=== PATIENT | male | born 1935 | race Caucasian/White ===

== ENCOUNTER → 2017-01-30 | Outpatient (CLI) | payer OTHER ==
[~2017-01-30] MED LIST: ACET-1256 PO; ACT15 PO; ALFU10TA2 PO; AMR2 PO; ATEN50TA8 PO; AVD5 PO; GLC500 PO; ISOS60TA25 PO; NTRGSL/4 UT; SIMV40TA2 PO; SITA100T3 PO
[2017-01-30 13:42] LABS: ESTIMATED AVERAGE GLUCOSE 169 mg/dl; HA1C FLAG Normal (Normal)
[2017-01-30 14:08] LABS: ALT/SGPT 25 U/L (12-78); AST/SGOT 19 U/L (15-37); BLOOD UREA NITROGEN 20 mg/dl (7-18); BUN/CREATININE RATIO 13.5 (10-20); CARBON DIOXIDE 28 mmol/L (21-32); CHLORIDE 100 mmol/L (98-107); CHOLESTEROL 76 mg/dl (0-200); GLUCOSE 103 mg/dl (70-99); POTASSIUM 4.3 mmol/L (3.5-5.1); SODIUM 137 mmol/L (136-145); TRIGLYCERIDES 79 mg/dl (0-150); VERY LOW DENSITY LIPOPROT CALC 16 mg/dl
[2017-01-30 14:12] LABS: ALB/GLOB RATIO 0.8 (0.9-2); ALKALINE PHOSPHATASE 70 U/L (45-117); CHOLESTEROL/HDL RATIO 2.1; HDL CHOLESTEROL 36 mg/dl; LDL CHOLESTEROL CALCULATED 24 mg/dl
[2017-01-30 14:54] LABS: CALCIUM 9.7 mg/dl (8.5-10.1)
--- NOTE | 2017-02-05 09:53 | CODING QUERY MEDICAL NECESSITY ---
SUPPORTING DIAGNOSIS NEEDED A supporting diagnosis is required for the test/procedure performed on this patient in order for us to be reimbursed by the patient's insurance. Please provide a supporting diagnosis for the following test/procedure listed below next to the test name along with your signature. *If there is no additional diagnosis for this patient that would support the following test/procedure please document that below next to the test/procedure. Test(s)/Procedure(s) that require a supporting diagnosis: * VITAMIN D, 25- HYDROXY DIAGNOSIS: Provider Signature: Date: Thank you Genet Rowe [employer] Once completed, please kindly fax back to [phone] For questions please call [phone]
== END | disposition home or self-care (01) ==
LOC: C.LABPVFM 07:58
PROVIDERS: ATTEND Family Medicine
DX: E53.8 Deficiency of other specified B group vitamins (principal); M1A.9XX0 Chronic gout, unspecified, without tophus (tophi); E78.5 Hyperlipidemia, unspecified; E11.65 Type 2 diabetes mellitus with hyperglycemia; D64.9 Anemia, unspecified; E55.9 Vitamin D deficiency, unspecified

== ENCOUNTER → 2017-02-23 | Outpatient (CLI) | payer OTHER ==
[~2017-02-23] MED LIST changes: -ALFU10TA2 PO; +ALFU10TA30 PO
[2017-02-23 13:42] LABS: BLOOD UREA NITROGEN 21 mg/dl (7-18); BUN/CREATININE RATIO 14.9 (10-20); CALCIUM 9.7 mg/dl (8.5-10.1); CARBON DIOXIDE 29 mmol/L (21-32); CHLORIDE 101 mmol/L (98-107); GLUCOSE 129 mg/dl (70-99); PHOSPHORUS 2.9 mg/dl (2.5-4.9); POTASSIUM 4.1 mmol/L (3.5-5.1); SODIUM 136 mmol/L (136-145)
== END | disposition home or self-care (01) ==
LOC: C.LABPVFM 07:58
PROVIDERS: ATTEND Family Medicine
DX: R79.89 Other specified abnormal findings of blood chemistry (principal)

== ENCOUNTER → 2017-07-24 | Outpatient (CLI) | payer OTHER ==
[~2017-07-24] MED LIST changes: +ALFU10TA2 PO; -ALFU10TA30 PO
[2017-07-24 13:00] LABS: ESTIMATED AVERAGE GLUCOSE 189 mg/dl; HA1C FLAG Normal (Normal)
[2017-07-24 13:10] LABS: ALT/SGPT 19 U/L (12-78); BLOOD UREA NITROGEN 18 mg/dl (7-18); BUN/CREATININE RATIO 13.4 (10-20); CALCIUM 9.4 mg/dl (8.5-10.1); CARBON DIOXIDE 31 mmol/L (21-32); CHLORIDE 99 mmol/L (98-107); CHOLESTEROL 157 mg/dl (0-200); CREATININE 1.33 mg/dl (0.60-1.40); GLUCOSE 115 mg/dl (70-99); POTASSIUM 4.2 mmol/L (3.5-5.1); SODIUM 135 mmol/L (136-145)
[2017-07-24 13:13] LABS: ALB/GLOB RATIO 0.6 (0.9-2); ALKALINE PHOSPHATASE 74 U/L (45-117); AST/SGOT 25 U/L (15-37); CHOLESTEROL/HDL RATIO 2.7; HDL CHOLESTEROL 59 mg/dl; LDL CHOLESTEROL CALCULATED 79 mg/dl; TRIGLYCERIDES 96 mg/dl (0-150); VERY LOW DENSITY LIPOPROT CALC 19 mg/dl
== END | disposition home or self-care (01) ==
LOC: C.LABPVFM 08:05
PROVIDERS: ATTEND Family Medicine
DX: I10 Essential (primary) hypertension (principal); E78.5 Hyperlipidemia, unspecified; E11.65 Type 2 diabetes mellitus with hyperglycemia; R77.1 Abnormality of globulin

== ENCOUNTER → 2017-09-04 | Outpatient (CLI) | payer OTHER ==
[2017-09-04 14:38] LABS: CREATININE RANDOM URINE 26.4 mg/dl
== END | disposition home or self-care (01) ==
LOC: C.LABPVFM 08:06
PROVIDERS: ATTEND Family Medicine
DX: E11.65 Type 2 diabetes mellitus with hyperglycemia (principal); R60.9 Edema, unspecified

== ENCOUNTER → 2017-12-31 | Outpatient (CLI) | payer OTHER ==
[2017-12-31 12:09] LABS: HEMATOCRIT 29.3 % (42-52); HEMOGLOBIN 9.8 g/dL (14.0-18.0)
[2017-12-31 12:22] LABS: BLOOD UREA NITROGEN 22 mg/dl (7-18); CALCIUM 9.5 mg/dl (8.5-10.1); CARBON DIOXIDE 29 mmol/L (21-32); CHOLESTEROL 94 mg/dl (0-200); GLUCOSE 150 mg/dl (70-99); POTASSIUM 4.4 mmol/L (3.5-5.1); SODIUM 133 mmol/L (136-145)
[2017-12-31 12:32] LABS: LDL CHOLESTEROL CALCULATED 26 mg/dl
[2017-12-31 12:52] LABS: HEMOGLOBIN A1C 6.9 % (4.5-5.6)
== END | disposition home or self-care (01) ==
LOC: C.LAB1850 10:01
PROVIDERS: ATTEND Nurse Practitioner Adult Health
DX: I10 Essential (primary) hypertension (principal); E78.5 Hyperlipidemia, unspecified; R94.6 Abnormal results of thyroid function studies; E11.65 Type 2 diabetes mellitus with hyperglycemia

== ENCOUNTER 2024-09-09 09:08 | Inpatient (IN) ==
--- NOTE | 2024-09-09 09:45 | Emergency Department Note ---
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 The diarrhea is watery and quite loose, no blood. He has been trying Pepto-Bismol without relief in fact, he states the Pepto- Bismol just runs through him. The patient did have some outpatient stool testing performed a few days ago, this returned negative. There has been no vomiting although he has noticed a bit of nausea. No chest pain or cough. No shortness of breath. He does not have any abdominal pain. The patient states that he has noticed some dizziness and weakness, he did stumble out of bed when his foot caught the sheets the other day. He did not suffer any injury. There has been no syncope. The patient states that standing and moving around makes him feel very unsteady and wobbly. PMHx/PSHx/Social Hx: See Below PHYSICAL EXAM: GENERAL: Patient is in no acute distress. HEENT: No acute trauma, normocephalic atraumatic, mucous membranes dry, no nasal congestion. NECK: No stridor, no adenopathy, no meningismus, trachea is midline. LUNGS: Clear to auscultation bilaterally, no wheeze, no rhonchi, breath sounds equal. HEART: Without murmurs gallops or rubs, regular rate and rhythm. ABDOMEN: Soft, nontender, no peritonitis. Bowel sounds are hyperactive. EXTREMITIES: No cyanosis, full range of motion of all the joints without pain or difficulty. NEUROLOGIC: Oriented x 3, no acute motor or sensory deficits, no focal weakness. SKIN: No jaundice, no diaphoresis. DIFFERENTIAL DIAGNOSIS: Dehydration, renal failure, electrolyte imbalance, viral or foodborne illness, bacterial intestinal infection, colitis, among others. EMERGENCY DEPARTMENT PROCEDURES: MEDICAL DECISION MAKING: There is no leukocytosis. The patient is anemic however, this is a chronic finding. There is a normal platelet count. Renal panel testing does show significant dehydration. Sodium, potassium and magnesium were low, the magnesium was critically low. Creatinine was elevated consistent with dehydration. No concerning liver enzyme elevation. The patient appeared to be in a euthyroid state. ECG showed a sinus rhythm, no obvious acute ischemia. Cardiac enzyme testing x 1 was slightly elevated. This troponin elevation could be secondary to mismatch from his hypotension versus, cardiac injury. On exam, the patient was not toxic but appeared quite dehydrated. He had hyperactive bowel sounds. Abdominal and pelvis CT showed liquidy stool within the bowel, there was no colitis or diverticulitis. No acute surgical process. Patient received 2 L of IV saline, he was ordered for total of 4 g of IV magnesium. He was ordered for IV potassium. With the above interventions, the patient's blood pressure has improved, he seems comfortable. The patient is in need of hospitalization. He has significant electrolyte abnormalities from his persistent diarrhea. He is quite dehydrated and demonstrated hypotension upon ED arrival. I spoke with the patient and case management, the on-call hospitalist was consulted. Prior/Outside records/notes reviewed: None ECG per my interpretation: Indication was weakness. The ECG shows a sinus rhythm with a first-degree AV block and a rate of 84. There is a left bundle branch block. There is no obvious concerning acute ST elevation, there are inverted T waves consistent with a left bundle branch block. No PVCs. The QTc is 489. Continuous Cardiac Monitoring per my interpretation: An order was placed for continuous cardiac monitoring. The monitor shows a rate of 91 with normal sinus rhythm. Imaging/x-ray results per my interpretation: Chronic Medical/Social conditions affecting care: Advanced age. Care/Management discussed with: Case management, the on-call hospitalist. Level of care consideration(s): After review of the information above and other included data: --I believe the patient requires escalation of care to admission Critical Care Note: I have personally spent 43 minutes of critical care time in the direct management of this patient. This includes bedside care, interpretation of diagnostic studies, and testing, discussion with consultants, patient, and family members, and other required patient management activities. This 43 minutes is in excess of all separately billable procedures. 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, with long-term current use of insulin (Chronic) Arthritis (Chronic) Medical History Proteinuria Chronic gout Surgical History History of basal cell carcinoma excision History of prostate surgery History of bilateral cataract extraction History of shoulder surgery History of hernia repair History of thumb surgery History of coronary artery stent placement Family History Brother Myocardial infarction Cancer Prostate cancer Daughter Cancer Father Myocardial infarction Denies family history of Ovarian cancer Breast cancer Colorectal cancer Social History Smoking Status: Unknown if ever smoked Second Hand Exposure: No; Do You Dip or Chew Tobacco: No; Hx Alcohol Use: Yes Alcohol type: hard liquor Hx Substance Use: No Preferred Language: German Visual Impairment: No Limitations Hearing Ability: Normal Beliefs That Will Affect Care: None marital status: Current Living Situation: Spouse current occupational status: retired 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 Feels Safe at Home: Yes caffeine: Yes (coffee, tea, and soda ) Dental Care, Regularly: Yes Physical Activity Frequency: Daily Seatbelt Use: always Sunscreen Use: Yes Allergies Allergies Allergy/AdvReac Type Severity Reaction Status Date / Time Penicillins Allergy Unknown AMOXICILLIN Verified 09/05/24 11:53 - UNKNOWN RXN allopurinol Allergy Rash Verified 09/05/24 11:53 Home Meds Home Medications Medication Instructions Recorded Confirmed aspirin 81 mg chewable tablet 81 mg PO DAILY 02/08/19 09/09/24 isosorbide mononitrate 60 mg 60 mg PO QAM 02/08/19 09/09/24 tablet,extended release 24 hr nitroglycerin 0.4 mg sublingual 0.4 mg sublingual Q5M PRN Chest 06/18/19 01/17/25 tablet Pain atenolol 25 mg tablet 12.5 mg PO DAILY 03/30/19 09/09/24 cholecalciferol (vitamin D3) 50 2,000 units PO DAILY 03/30/19 09/09/24 mcg (2,000 unit) capsule probenecid 500 mg tablet 250 mg PO BID 03/30/19 09/09/24 cyanocobalamin (vitamin B-12) 1,000 mcg PO DAILY 04/24/20 09/09/24 1,000 mcg capsule iron,carbonyl 65 mg-vitamin C 125 1 tab PO DAILY 10/05/20 09/09/24 mg tablet,delayed release (Vitron-C) fluocinonide 0.05 % topical 1 applic topical BID PRN Other 10/26/20 09/09/24 ointment metronidazole 0.75 % topical gel 1 applic topical BID PRN Other 10/26/20 09/09/24 (Rosadan) furosemide 20 mg tablet (Lasix) 20 mg PO .3X TIMES WEEK PRN Fluid 09/17/23 09/09/24 Retention gabapentin 100 mg capsule 100 mg PO TID PRN pain 09/17/23 09/09/24 insulin aspart U-100 100 unit/mL 3 unit subcut DAILY 09/09/24 09/09/24 (3 mL) subcutaneous pen (Novolog FlexPen U-100 Insulin aspart) omeprazole 20 mg capsule,delayed 20 mg PO QAM 09/09/24 09/09/24 release simvastatin 20 mg tablet 20 mg PO PM 09/09/24 09/09/24 Previous Rx's Medication Instructions Recorded pen needle, diabetic 31 gauge x #200 ea 11/25/2301/06" (1st Tier Unifine Pentips) blood sugar diagnostic (OneTouch #300 ea 04/04/24 Ultra Test strips) lancets 33 gauge (OneTouch Delica #100 ea 04/04/24 Plus Lancet) insulin glargine 100 unit/mL (3 See Rx Instructions .Route 07/28/24 mL) subcutaneous pen (Lantus .COMPLEX #45 mL Solostar U-100 Insulin) lisinopril 40 mg tablet 40 mg PO DAILY #90 tabs 08/18/24 Results & Data (ED) Vital Signs Vital Signs - 24 hr 09/09/24 09:25 09/09/24 09:43 09/09/24 09:43 Temperature 36.7 C Temperature Source Temporal Artery Scan Pulse Rate 91 H Pulse Rate [Apical] 82 Pulse Strength [Apical] Normal Respiratory Rate 20 18 Respiratory Effort / Characteristics Non-Labored Spontaneous Non-Labored Spontaneous Respiratory Depth Normal Normal Respiratory Pattern Regular Blood Pressure 81/45 L Blood Pressure [Right Arm] 106/51 L Blood Pressure Mean 57 Blood Pressure Mean [Right Arm] 69 Pulse Oximetry 99 99 99 Oxygen Delivery Method Room Air Room Air Room Air Sepsis Recent Fever Within 48 Hours No Sepsis New/Unexplained Change in Mental Status N/A Sepsis Action Taken by Nursing No Action Required 09/09/24 10:12 09/09/24 10:36 Temperature Temperature Source Pulse Rate 70 Pulse Rate [Apical] 76 Pulse Strength [Apical] Respiratory Rate 17 Respiratory Effort / Characteristics Non-Labored Spontaneous Respiratory Depth Normal Respiratory Pattern Blood Pressure Blood Pressure [Right Arm] 111/52 L Blood Pressure Mean Blood Pressure Mean [Right Arm] 71 Pulse Oximetry 98 Oxygen Delivery Method Room Air Sepsis Recent Fever Within 48 Hours Sepsis New/Unexplained Change in Mental Status Sepsis Action Taken by Jail Medications Current Medication List: was personally reviewed by me Laboratory Data Attestation: I reviewed the patient's lab results. 09/09/24 09:48 09/09/24 09:48 Lab Results 09/09/24 Range/Units 09:48 WBC 4.77 L (4.8-10.8) K/ul RBC 3.18 L (4.70-6.10) M/uL Hgb 9.9 L (14.0-18.0) g/dl Hct 27.4 L (42.0-52.0) % MCV 86.2 (80.0-100.0) fL MCH 31.1 (25.0-34.0) pg MCHC 36.1 H (32.0-36.0) g/dL RDW Std Deviation 40.5 (36.4-46.3) fL RDW Coeff of Susana 12.8 (11.5-14.5) % Plt Count 199 (130-400) K/uL MPV 10.1 (9.4-12.4) fL Immature Gran % (Auto) 0.4 % Neut % (Auto) 68.2 % Lymph % (Auto) 18.4 % [place] % (Auto) 12.2 % Eos % (Auto) 0.6 % Baso % (Auto) 0.2 % Neut # (Auto) 3.25 (1.40-6.50) K/uL Lymph # (Auto) 0.88 L (1.20-3.40) K/uL [place] # (Auto) 0.58 (0.11-0.59) K/uL Eos # (Auto) 0.03 (0.00-0.50) K/uL Baso # (Auto) 0.01 (0.00-0.20) K/uL Immature Gran # (Auto) 0.02 (0.01-0.20) K/uL Sodium 120 L (136-145) mmol/L Potassium 3.2 L (3.5-5.1) mmol/L Chloride 92 L (98-107) mmol/L Carbon Dioxide 20 L (21-32) mmol/L Anion Gap 8 (3-11) BUN 51 H (6-23) mg/dl Creatinine 1.68 H (0.6-1.4) mg/dl Est Cr Clr Drug Dosing 26.9 ml/min eGFR 39.09 BUN/Creatinine Ratio 30.4 H (10-20) Glucose 280 H (70-99(Fasting)) mg/dl Calcium 9.8 (8.6-10.3) mg/dl Magnesium 0.6 L* (1.7-2.4) mg/dl Total Bilirubin 0.6 (0.2-1.0) mg/dl AST 61 H (13-39) U/L ALT 26 (7-52) U/L Alkaline Phosphatase 85 (34-104) U/L Troponin I High Sens 24.5 H (0-20) pg/ml Total Protein 7.3 (6.0-8.3) gm/dl Albumin 3.7 (3.4-5.0) gm/dl Globulin 3.6 (2.5-4.0) gm/dl Albumin/Globulin Ratio 1.0 (0.9-2) TSH 3.351 (0.300-4.500) uIu/ml Administered Medications Discontinued Medications Sodium Chloride (Nss) 1,000 mls @ 999 mls/hr IV .Q1H1M ONE Stop: 09/09/24 10:31 Last Infusion: 09/09/24 10:25 Dose: Infused Documented By: Admin: 09/09/24 10:01 Dose: 999 mls/hr Documented By: KARMA Magnesium Sulfate/Dextrose (Magnesium Sulfate / D5w) 1 gm in 100 mls @ 200 mls/hr IV Q30M CORINNA Stop: 09/09/24 11:22 Last Admin: 09/09/24 10:36 Dose: 200 mls/hr Documented By: KARMA Sodium Chloride (Nss) 1,000 mls @ 999 mls/hr IV .Q1H1M ONE Stop: 09/09/24 11:24 Last Admin: 09/09/24 10:36 Dose: 999 mls/hr Documented By: KARMA Ioversol (Optiray 320 100ml) 90 ml IV ONCE ONE Stop: 09/09/24 10:29 Last Admin: 09/09/24 10:29 Dose: 90 ml Documented By: PERLITA Imaging Data Radiologist's Impression: Abdomen/Pelvis CT 09/09/24 09:31 CT abd pelvis IV con only CLINICAL HISTORY: poss colitis, or divertic TECHNIQUE: Helical axial images of the abdomen and pelvis were obtained and displayed. Automated dose lowering techniques and/or adjustment according to patient size were utilized for this exam. This exam was performed with intravenous contrast. CT DOSE: 618.98 mGy.cm COMPARISON: None available at the time of this dictation. FINDINGS: Lower chest: Bronchiectasis is seen. Liver: Unremarkable. No focal lesions are seen. Gallbladder and biliary tree: No calcified gallstones. Normal caliber wall. No intra- or extrahepatic biliary ductal dilation. Pancreas: Unremarkable, no focal lesions. Spleen: Calcifications are noted in the spleen compatible with prior granulomatous disease. Adrenals: Unremarkable. Kidneys and ureters: Unremarkable. Bladder: Diffuse homogeneous wall thickening is seen. Reproductive organs: Unremarkable. Bowel: Liquid contents are seen in the colon. No evidence of bowel obstruction or focal wall thickening. Lymph nodes Retroperitoneal: Unremarkable. Pelvic: Unremarkable. Mesenteric: Unremarkable. Peritoneum: Normal. Vessels: Atherosclerotic calcifications are seen. Abdominal wall: Unremarkable. Bones: Degenerative changes in the visualized spine. IMPRESSION: Liquid contents in the stool compatible with a nonspecific colitis. No evidence of perforation or abscess formation. ACT 112: Negative or not required by law. Electronically signed by: Robert Griffith M.D. 09/09/2024 10:55 AM Discharge Plan Visit Data Chief Complaint: Diarrhea Stated Complaint: DIARRHEA, OFF BALANCE ED Provider: Jc Castano Discharge Problem: Hypotension, Acute dehydration, Diarrhea, Hypomagnesemia, Acute hyponatremia, Hypokalemia Patient Disposition: Admitted As Inpatient Condition: Serious Forms Stand Alone Forms: [facility] Prescriptions Prescriptions: No Action (DME) pen needle, diabetic [1st Tier Unifine Pentips] 31 gauge x 5/16" needle See Dose Instructions .ROUTE .MEDSUPPLY Qty: 200 3RF Rx Instructions: use 2 daily (DME) OneTouch Ultra Test Strip See Rx Instructions .Route Qty: 300 3RF Rx Instructions: test TID (DME) lancets [OneTouch Delica Plus Lancet] 33 gauge misc See Rx Instructions .Route Qty: 100 5RF Rx Instructions: TEST 4 TIMES DAILY lisinopril 40 mg tablet 40 mg PO DAILY Qty: 90 3RF aspirin 81 mg tablet,chewable 81 mg PO DAILY nitroglycerin 0.4 mg tablet, sublingual 0.4 mg SL Q5M PRN (Reason: Chest Pain) isosorbide mononitrate 60 mg tablet extended release 24 hr 60 mg PO QAM atenolol 25 mg tablet 12.5 mg PO DAILY Patient Comments: 12.5 (1/2 tab) PO DAILY; Rx Instructions: 12.5 (1/2 tab) PO DAILY; fluocinonide 0.05 % ointment 1 applic TOP BID PRN (Reason: Other) metronidazole [Rosadan] 0.75 % gel 1 applic TOP BID PRN (Reason: Other) Vitron-C 65 mg iron- 125 mg tablet,delayed release (DR/EC) 1 tab PO DAILY cyanocobalamin (vitamin B-12) 1,000 mcg capsule 1,000 mcg PO DAILY furosemide [Lasix] 20 mg tablet 20 mg PO .3X TIMES WEEK PRN (Reason: Fluid Retention) Rx Instructions: thu,thu,thursday gabapentin 100 mg capsule 100 mg PO TID PRN (Reason: pain) cholecalciferol (vitamin D3) 2,000 unit capsule 2,000 units PO DAILY probenecid 500 mg tablet 250 mg PO BID Patient Comments: 250MG (1/2 TABLET) PO BID; Rx Instructions: 250MG (1/2 TABLET) PO BID; Lantus Solostar U-100 Insulin 100 unit/mL (3 mL) insulin pen See Rx Instructions .ROUTE .COMPLEX Qty: 45 1RF Dose Instruction: INJECT5 UNITS DAILY AT BEDTIME Rx Instructions: INJECT 6 UNITS DAILY AT BEDTIME omeprazole 20 mg capsule,delayed release(DR/EC) 20 mg PO QAM insulin aspart U-100 [Novolog FlexPen U-100 Insulin] 100 unit/mL (3 mL) insulin pen 3 unit subcut DAILY Rx Instructions: INJECT 3 UNITS SUBCUTANEOUSLY DAILY. simvastatin 20 mg tablet 20 mg PO PM Rx Instructions: TAKE 1 TABLET BY MOUTH DAILY IN THE EVENING. Referrals Referrals: Melani England MD [Primary Care Provider] - Discharge Problem: Hypotension Qualifiers: Hypotension type: unspecified hypotension type Qualified Code(s): I95.9 - Hypotension, unspecified Diarrhea Qualifiers: Diarrhea type: unspecified type Qualified Code(s): R19.7 - Diarrhea, unspecified
[2024-09-09] MEDS: SODIUM CHLORIDE 0.9% 1,000 ML IV ONE ×2 (10:01→10:36)
[2024-09-09 10:14] LABS: Basophils # (auto) 0.01 K/uL (0.00-0.20); Basophils % (auto) 0.2 %; Eosinophils # (auto) 0.03 K/uL (0.00-0.50); Eosinophils % (auto) 0.6 %; Hematocrit (blood only) 27.4 % (42.0-52.0); Hemoglobin 9.9 g/dl (14.0-18.0); Immature Granulocytes # (auto) 0.02 K/uL (0.01-0.20); Immature Granulocytes % (auto) 0.4 %; Lymphocytes # (auto) 0.88 K/uL (1.20-3.40); Lymphocytes % (auto) 18.4 %; Mean Corpuscular Hemoglobin 31.1 pg (25.0-34.0); Mean Corpuscular Hgb Conc 36.1 g/dL (32.0-36.0); Mean Corpuscular Volume 86.2 fL (80.0-100.0); Mean Platelet Volume 10.1 fL (9.4-12.4); Monocytes # (auto) 0.58 K/uL (0.11-0.59); Monocytes % (auto) 12.2 %; Neutrophils # (auto) 3.25 K/uL (1.40-6.50); Neutrophils % (auto) 68.2 %; Platelet Count 199 K/uL (130-400); RDW Coefficient of Variation 12.8 % (11.5-14.5); RDW Standard Deviation 40.5 fL (36.4-46.3); Red Blood Count 3.18 M/uL (4.70-6.10); White Blood Count 4.77 K/ul (4.8-10.8)
[2024-09-09 10:19] LABS: BUN Creatinine Ratio 30.4 (10-20); Calcium 9.8 mg/dl (8.6-10.3); Creatinine Clr Calc Pharmacy 26.9 ml/min; Potassium 3.2 mmol/L (3.5-5.1)
[2024-09-09 10:22] LABS: Albumin Level 3.7 gm/dl (3.4-5.0); Bilirubin,Total 0.6 mg/dl (0.2-1.0); Globulin 3.6 gm/dl (2.5-4.0); Magnesium 0.6 mg/dl (1.7-2.4); Total Protein 7.3 gm/dl (6.0-8.3)
[2024-09-09 10:25] LABS: Troponin I High Sensitivity 24.5 pg/ml (0-20)
[2024-09-09] MEDS: OPTIRAY 320 100ml IV ONE (10:29)
[2024-09-09 10:34] LABS: Thyroid Stimulating Hormone 3.351 uIu/ml (0.300-4.500)
[2024-09-09] MEDS: MAGNESIUM SULFATE / D5W 1 GM/100 ML BAG IV SCH ×3 (10:36→13:39)
--- NOTE | 2024-09-09 10:59 | CT Scan Report ---
CT abd pelvis IV con only CLINICAL HISTORY: poss colitis, or divertic TECHNIQUE: Helical axial images of the abdomen and pelvis were obtained and displayed. Automated dose lowering techniques and/or adjustment according to patient size were utilized for this exam. This e xam was performed with intravenous contrast. CT DOSE: 618.98 mGy.cm COMPARISON: None available at the time of this dictation. FINDINGS: Lower chest: Bronchiectasis is seen. Liver: Unremarkable. No focal lesions are seen. Gallbladder and biliary tree: No calcified gallstones. Normal caliber wall. No intra- or extrahepatic biliary ductal dilation. Pancreas: Unremarkable, no focal lesions. Spleen: Calcifications are noted in the spleen compatible with prior granulomatous disease. Adrenals: Unremarkable. Kidneys and ureters: Unremarkable. Bladder: Diffuse homogeneous wall thickening is seen. Reproductive organs: Unremarkable. Bowel: Liquid contents are seen in the colon. No evidence of bowel obstruction or focal wall thickeni ng. Lymph nodes Retroperitoneal: Unremarkable. Pelvic: Unremarkable. Mesenteric: Unremarkable. Peritoneum: Normal. Vessels: Atherosclerotic calcifications are seen. Abdominal wall: Unremarkable. Bones: Degenerative changes in the visualized spine. IMPRESSION: Liquid contents in the stool compatible with a nonspecific colitis. No evidence of perforation or abs cess formation. ACT 112: Negative or not required by law. Electronically signed by: Robert Griffith M.D. 09/09/2024 10:55 AM
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
[2024-09-09] MEDS: POTASSIUM CHLORIDE CRTAB 20 MEQ TABCR PO STA (12:14)
[2024-09-09 12:58] LABS: BUN Creatinine Ratio 32.7 (10-20); Calcium 8.8 mg/dl (8.6-10.3); Creatinine Clr Calc Pharmacy 30.1 ml/min; Magnesium 1.3 mg/dl (1.7-2.4)
[2024-09-09 13:14] LABS: Appearance Urine Clear (Clear); Bacteria Urine Automated None Seen (None Seen); Bilirubin Urine Negative (Negative); Blood Urine 1+ (Negative); Color Urine Yellow; Epithelial Cell Urine Auto 0-2 /hpf (0-2); Glucose Urine UA Negative (Negative); Hyaline Casts Urine Present /lpf (None Presnt); Ketones Urine Negative (Negative); Leukocyte Esterase Urine Negative (Negative); Nitrite Urine Negative (Negative); Protein Urine Trace (Negative); RBC Urine Automated 0-2 /hpf (0-2); Specific Gravity Urine 1.021 (1.000-1.030); Sperm Urine Present (None Prsent); Urobilinogen Urine Negative (Negative); WBC Urine Automated 0-5 /hpf (0-5); pH Urine 5.5 (4.5-7.5)
[2024-09-09] MEDS: SODIUM CHLORIDE 0.9% 1,000 ML IV SCH (13:35)
[2024-09-09 13:44] LABS: Adenovirus F 40/41 PCR Not Detected (NotDetected); Astrovirus PCR Not Detected (NotDetected); Campylobacter PCR Not Detected (NotDetected); Cryptosporidium PCR Not Detected (NotDetected); Cyclospora cayetanensis PCR Not Detected (NotDetected); Entamoeba histolytica PCR Not Detected (NotDetected); Enteroaggregative E.coli(EAEC) Not Detected (NotDetected); Enteropathogenic E.coli (EPEC) Not Detected (NotDetected); Enterotoxigenic E.coli (ETEC) Not Detected (NotDetected); Giardia lamblia PCR Not Detected (NotDetected); Norovirus GI/GII PCR Not Detected (NotDetected); Plesiomonas shigelloides PCR Not Detected (NotDetected); Rotavirus A PCR Not Detected (NotDetected); Salmonella PCR Not Detected (NotDetected); Sapovirus PCR Not Detected (NotDetected); Shiga-like Toxin E.coli (STEC) Not Detected (NotDetected); Shigella/Enteroinvasive E.coli Not Detected (NotDetected); Vibrio cholerae PCR Not Detected (NotDetected); Vibrio species PCR Not Detected (NotDetected); Yersinia enterocolitica PCR Not Detected (NotDetected)
[2024-09-09] MEDS ORDERED: GLUCAGON FOR INJ 1 MG VIAL SQ PRN (14:45)
[2024-09-09] MEDS ORDERED: GLUCOSE 10 TAB/TUBE PO PRN (14:45)
[2024-09-09] MEDS ORDERED: DEXTROSE 50% 50 ML SYRINGE IV PRN (14:45)
[2024-09-09] MEDS ORDERED: GLUCOSE 40% GEL 15 GM TUBE PO PRN (14:45)
[2024-09-09] MEDS ORDERED: GABAPENTIN 100 MG CAP PO PRN (14:45)
[2024-09-09] MEDS ORDERED: ONDANSETRON INJ 2 MG/ML 2 ML VIAL IV PRN (14:45)
[2024-09-09] MEDS ORDERED: ACETAMINOPHEN 325 MG TAB PO PRN (14:45)
[2024-09-09 16:45] LABS: BUN Creatinine Ratio 30.9 (10-20); Calcium 8.8 mg/dl (8.6-10.3); Creatinine Clr Calc Pharmacy 32.3 ml/min; Magnesium 1.5 mg/dl (1.7-2.4); Potassium 2.9 mmol/L (3.5-5.1)
[2024-09-09] MEDS: INSULIN ASPART PER UNIT CHARGE SC SCH (17:14)
[2024-09-09] MEDS: NSS + 20MEQ KCL 20 MEQ/1,000 ML BAG IV SCH (18:09)
[2024-09-09] MEDS: POTASSIUM CHLORIDE / WTR 10 MEQ/100 ML PLCT IV SCH (18:10)
[2024-09-09] MEDS: PROBENECID 500 MG TAB PO SCH (20:18)
[2024-09-09] MEDS: SIMVASTATIN 20 MG TAB PO SCH (20:20)
[2024-09-09] MEDS: CARBOHYDRATES FOR HYPOGLYCEMIA PO PRN (20:47)
[2024-09-09 20:56] LABS: BUN Creatinine Ratio 28.1 (10-20); Calcium 9.2 mg/dl (8.6-10.3); Creatinine Clr Calc Pharmacy 30.8 ml/min; Magnesium 1.4 mg/dl (1.7-2.4); Potassium 3.4 mmol/L (3.5-5.1)
[2024-09-09] MEDS ORDERED: LANTUS PER UNIT CHARGE SQ SCH (21:00)
--- NOTE | 2024-09-09 23:15 | Electrocardiogram Report ---
Test Reason : Blood Pressure : */* mmHG Vent. Rate : 84 BPM Atrial Rate : 84 BPM P-R Int : 240 ms QRS Dur : 178 ms QT Int : 414 ms P-R-T Axes : 87 68 251 degrees QTcB Int : 489 ms Sinus rhythm with 1st degree A-V block Left bundle branch block Abnormal ECG When compared with ECG of 15-Dec-2008 10:53, Left bundle branch block is now Present Confirmed by Carlos Martinez ([id number]) on 09/09/2024 11:15:15 PM Referred By: REFERRED SELF Confirmed By: Carlos Martinez
[2024-09-10 01:25] LABS: BUN Creatinine Ratio 27.7 (10-20); Calcium 9.3 mg/dl (8.6-10.3); Creatinine Clr Calc Pharmacy 32.8 ml/min; Magnesium 1.2 mg/dl (1.7-2.4); Potassium 3.5 mmol/L (3.5-5.1)
[2024-09-10 04:51] LABS: Hematocrit (blood only) 26.1 % (42.0-52.0); Hemoglobin 9.3 g/dl (14.0-18.0); Mean Corpuscular Hemoglobin 30.8 pg (25.0-34.0); Mean Corpuscular Hgb Conc 35.6 g/dL (32.0-36.0); Mean Corpuscular Volume 86.4 fL (80.0-100.0); Mean Platelet Volume 9.6 fL (9.4-12.4); Platelet Count 190 K/uL (130-400); RDW Standard Deviation 40.5 fL (36.4-46.3); Red Blood Count 3.02 M/uL (4.70-6.10); White Blood Count 3.24 K/ul (4.8-10.8)
[2024-09-10 05:06] LABS: BUN Creatinine Ratio 26.6 (10-20); Calcium 9.5 mg/dl (8.6-10.3); Creatinine Clr Calc Pharmacy 35.1 ml/min; Magnesium 1.3 mg/dl (1.7-2.4); Potassium 3.4 mmol/L (3.5-5.1)
[2024-09-10 05:33] LABS: Acanthocytes 1+; Echinocytes 1+; Eosinophils # (auto) 0.02 K/uL (0.00-0.50); Eosinophils % (auto) 0.6 %; Immature Granulocytes # (auto) 0.01 K/uL (0.01-0.20); Immature Granulocytes % (auto) 0.3 %; Lymphocytes # (auto) 0.61 K/uL (1.20-3.40); Lymphocytes % (auto) 18.8 %; Monocytes # (auto) 0.53 K/uL (0.11-0.59); Monocytes % (auto) 16.4 %; Neutrophils # (auto) 2.07 K/uL (1.40-6.50); Neutrophils % (auto) 63.9 %; Polychromasia 1+
[2024-09-10] MEDS: MAGNESIUM SULFATE / D5W 1 GM/100 ML BAG IV SCH (07:37)
[2024-09-10] MEDS: PANTOprazole 40 MG TAB PO SCH (08:13)
[2024-09-10] MEDS: ATENOLOL 25 MG TABLET PO SCH (08:13)
[2024-09-10] MEDS: ISOSORBIDE MONO EXTENDED REL 60 MG TABCR PO SCH (08:14)
[2024-09-10] MEDS: LANTUS PER UNIT CHARGE SQ SCH (08:16)
[2024-09-10] MEDS: ASPIRIN 81 MG CHEW PO SCH (08:22)
[2024-09-10 08:29] LABS: BUN Creatinine Ratio 27.5 (10-20); Calcium 9.4 mg/dl (8.6-10.3); Creatinine Clr Calc Pharmacy 38.6 ml/min; Potassium 3.5 mmol/L (3.5-5.1)
[2024-09-10] MEDS: MAGNESIUM SULFATE / D5W 1 GM/100 ML BAG IV ONE (11:25)
[2024-09-10] MEDS: ENOXAPARIN INJ 40 MG/0.4 ML SYR SQ SCH (11:26)
[2024-09-10 13:02] LABS: BUN Creatinine Ratio 26.7 (10-20); Calcium 9.2 mg/dl (8.6-10.3); Creatinine Clr Calc Pharmacy 35.4 ml/min; Potassium 3.3 mmol/L (3.5-5.1)
--- NOTE | 2024-09-10 17:31 | Hospitalist Progress Note ---
Date of Service September 10, 2024 Assessment & Plan (1) Diarrhea: Plan: Charles is a pleasant 89-year-old male with PMH of insulin dependent DMII, dyslipidemia, HTN, ASCVD, GERD, and arthritis. He p/w profuse diarrhea x 1 week along with significant generalized weakness and severe electrolyte abnormalities-hyponatremia,hypokalemia, hypomagnesemia. #Diarrhea- No recent antibiotic use, C. diff and Stool PCR neg. No travel, restaurants, eating raw/undercooked food, or drinking from streams. Had 2 similar episodes in Jun and Jul x 3 days that resolved on their own. No kashif medications or supplements. No fevers/chils CT A/P with colitis but nothing acute otherwise. He denies significant abd pain here. With hypotension on arrival that responded to IVFs -continue IVF resuscitation and replacement of lytes -start empiric Cipro and Flagyl -consult GI to see about need for colonoscopy or other eval for etiology -hold off on Imodium for now -check send out O&P stool (2) Acute kidney injury: Plan: Mild; BUN 51, creatinine 1.68 (baseline around 1.3), Suspect prerenal due to severe dehydration in the setting of diarrhea x 1 week Hold lisinopril, lasix from home continue IVFs Improving, supplemental manager down to 1.2 follow BMP (3) Acute hyponatremia: Plan: Severe; NA 120 on arrival, now improved to 126 with IVF hydration. This is secondary to hypovolemia. 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, with long-term current use of insulin: Plan: Last A1c at 8.3% on 09/06/2024 Continue Lantus 6u HS Get rid of carb count while not eating much with GI illness to avoid hypoglycemia (7) Elevated troponin: Plan: Troponin mildly elevated on arrival and remained stable at 30 H/o chronic LBBB; follows with [facility] cardiology Clinically, patient is chest pain-free at time of admission Continue telemetry monitoring Continue home ASA, atenolol, statin, isosorbide Plan DVT proph-SCDs, add on Lovenox SQ Disposition:continued stay PCU telemetry Admission and Anticipated Discharge Date Admission Date: September 09, 2024 Subjective Pt reports still having large amounts of watery nonbloody diarrhea. Occasional abd cramps. Reports he had 3 days of this same profuse diarrhea in Jun and again in Jul 2024 that resolved on their own. No h/o recent travel, drinking from streams, or eating out in restaurants. His son and at bedside also deny any GI illness in themselves, no sick contacts. No fevers/chills. Pt does feel stronger today. Tele with SR, 1st degree AVB,, rates 70-100s, with IVCD Physical Exam Constitutional: WD/WN, vitals as above Eyes: PERRL, conjunctivae normal, anicteric sclerae ENMT: external ear and nose normal, oropharynx normal Neck: trachea midline, no thyromegaly Respiratory: normal respiratory effort, lungs clear to auscultation Cardiovascular: RRR, no murmur, no edema Chest (Breasts): Chest: normal inspection of chest Gastrointestinal (Abdomen): normal bowel sounds, soft, nontender, no hepatosplenomegaly Musculoskeletal: Extremities: extremities normal to inspection; no cyanosis and no clubbing Skin: no rashes, warm and dry Neurologic: moves all extremities and awake; no focal motor deficits Psychiatric: A+Ox3, euthymic affect Lymphatic: no lymphedema Results & Data Results & Data Vital Signs (Past 12 Hours) Vital Signs Temp Pulse Pulse Resp BP Pulse Ox O2 Del Method 09/10/24 15:18 36.7 C 84 20 108/53 L 96 Room Air 09/10/24 14:11 73 09/10/24 11:08 36.6 C 72 20 101/50 L 98 Room Air 09/10/24 07:35 36.7 C 101 H 18 134/68 98 Room Air 09/10/24 05:44 92 H Laboratory Results CBC, numerous BMPs, mags reviewed Stool PCR reviewed LFTs reviewed PG Care Time/CCT Total # of Minutes Spent Total Time Spent with Patient: Total time spent is greater than 50% in coordination of care (as documented) at patient's floor/unit and/or counseling patient: Coding Level of Care Code 92386 SUB INP/OBS CARE MIN Diagnoses Diarrhea R19.7 Diarrhea type: unspecified type Acute kidney injury N17.9 Acute hyponatremia E87.1 Hypomagnesemia E83.42 Hypokalemia E87.6 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
[2024-09-10] MEDS: POTASSIUM CHLORIDE CRTAB 20 MEQ TABCR PO STA (17:41)
[2024-09-10] MEDS: SODIUM CHLORIDE 0.9% 1,000 ML IV SCH (17:41)
[2024-09-10] MEDS: SACCHAROMYCES BOULARDII 250 MG CAP PO SCH (19:20)
[2024-09-10] MEDS: metroNIDAZOLE 500 MG/100 ML BAG IV SCH (19:21)
[2024-09-10] MEDS: CIPROFLOXACIN / D5W 400 MG/200 ML BAG IV SCH (19:22)
[2024-09-10 21:34] LABS: BUN Creatinine Ratio 25.6 (10-20); Calcium 8.7 mg/dl (8.6-10.3); Creatinine Clr Calc Pharmacy 35.9 ml/min; Potassium 3.4 mmol/L (3.5-5.1)
[2024-09-10] MEDS: POTASSIUM CHLORIDE CRTAB 20 MEQ TABCR PO SCH (22:05)
[2024-09-11 07:57] LABS: Hematocrit (blood only) 22.1 % (42.0-52.0); Hemoglobin 7.8 g/dl (14.0-18.0); Mean Corpuscular Hemoglobin 30.4 pg (25.0-34.0); Mean Corpuscular Hgb Conc 35.3 g/dL (32.0-36.0); Mean Platelet Volume 9.9 fL (9.4-12.4); Platelet Count 164 K/uL (130-400); RDW Coefficient of Variation 13.4 % (11.5-14.5); RDW Standard Deviation 42.1 fL (36.4-46.3); Red Blood Count 2.57 M/uL (4.70-6.10); White Blood Count 3.97 K/ul (4.8-10.8)
[2024-09-11 08:15] LABS: BUN Creatinine Ratio 26.4 (10-20); Calcium 8.8 mg/dl (8.6-10.3); Creatinine Clr Calc Pharmacy 39.8 ml/min; Magnesium 1.5 mg/dl (1.7-2.4); Potassium 3.4 mmol/L (3.5-5.1)
[2024-09-11 08:43] LABS: Acanthocytes 1+; Basophils # (auto) 0.02 K/uL (0.00-0.20); Basophils % (auto) 0.5 %; Dohle Bodies 2+; Eosinophils # (auto) 0.02 K/uL (0.00-0.50); Eosinophils % (auto) 0.5 %; Immature Granulocytes # (auto) 0.05 K/uL (0.01-0.20); Immature Granulocytes % (auto) 1.3 %; Lymphocytes % (auto) 20.2 %; Monocytes % (auto) 15.1 %; Neutrophils # (auto) 2.48 K/uL (1.40-6.50); Neutrophils % (auto) 62.4 %; Ovalocytes 1+
--- NOTE | 2024-09-11 08:43 | Hospitalist Progress Note ---
Date of Service September 11, 2024 Assessment & Plan (1) Diarrhea: Plan: Charles is a pleasant 89-year-old male with PMH of insulin dependent DMII, dyslipidemia, HTN, ASCVD, GERD, and arthritis. He p/w profuse diarrhea x 1 week along with significant generalized weakness and severe electrolyte abnormalities-hyponatremia,hypokalemia, hypomagnesemia. Diarrhea No significant improvement 09/11/2024 - No recent antibiotic use, C. diff and Stool PCR neg. No travel, restaurants, eating raw/undercooked food, or drinking from streams. Had 2 similar episodes in Jun and Jul x 3 days that resolved on their own. No kashif medications or supplements. No fevers/chils CT A/P with colitis but nothing acute otherwise. He denies significant abd pain here. With hypotension on arrival that responded to IVFs -continue IVF resuscitation and replacement of lytes -Empiric Cipro/Flagyl continued although no clear infectious etiology Stool ova and parasites have been sent GI consulted. Recommended continued correction of electrolyte abnormalities. Suggestion of possible inflammatory colitis by CT. Celiac/IgG serologies have been sent. Fecal elastase has been sent. Will continue to follow and consider colonoscopy/biopsy pending clinical course and stability. Appreciate recommendations. JULIENNE, resolved Baseline creatinine 1.3 Creatinine moises to 1.68, and then normalized with fluids Trend daily BMP daily Hyponatremia, Hypomagnesemia, Hypokalemia 2/2 Diarrhea Trend daily, replete as needed. Urine sodium is not significantly elevated suspect solute losses from diarrhea Magnesium 0.6, profoundly low due to diarrheal losses. 1.5 on 09/11. Continue daily repletion, transition to oral once/as tolerated although high-dose oral may contribute to his diarrhea and will need IV continued T1DM Last A1c at 8.3% on 09/06/2024 Continue Lantus 6u HS Get rid of carb count while not eating much with GI illness to avoid hypoglycemia Troponin troponin mildly elevated and remained stable. Chronic left bundle branch block. 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 Continues to have watery diarrhea several times daily. No fevers chills or sweats. Feels fatigued but otherwise about the same. Denies lightheadedness dizziness. Physical Exam Physical Exam: General: A&Ox3. NAD. Cooperative. HEENT: Atraumatic, normocephalic. Pulm: Symmetrical chest rise. No increased work of breathing. No respiratory distress. Cardiac: RRR, -mrg. Radial pulses intact and symmetrical. Abdominal: Nontender, nondistended, soft. BS present. Results & Data Results & Data Vital Signs (Past 12 Hours) Vital Signs Temp Pulse Resp BP Pulse Ox O2 Del Method 09/11/24 05:16 36.7 C 81 18 95/54 L 96 Room Air 09/10/24 23:02 88 18 106/57 L 96 Room Air PG Care Time/CCT Total # of Minutes Spent Total Time Spent with Patient: Total time spent is greater than 50% in coordination of care (as documented) at patient's floor/unit and/or counseling patient: Coding Level of Care Code 74302 SUB INP/OBS CARE 2/35MIN Diagnoses Diarrhea R19.7 Diarrhea type: unspecified type Acute kidney injury N17.9 Acute hyponatremia E87.1 Hypomagnesemia E83.42 Hypokalemia E87.6 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
[2024-09-11] MEDS: MAGNESIUM SULFATE / D5W 1 GM/100 ML BAG IV SCH (09:15)
[2024-09-11] MEDS: POTASSIUM CHLORIDE CRTAB 20 MEQ TABCR PO STA (09:15)
[2024-09-11] MEDS: SODIUM CHLORIDE 0.9% 500 ML IV ONE (10:16)
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
[2024-09-11] MEDS: PLASMA-LYTE A 1,000 ML IV SCH ×2 (10:17→16:05)
[2024-09-11] MEDS: PLASMA-LYTE A 500 ML IV ONE (10:17)
[2024-09-12 07:52] LABS: BUN Creatinine Ratio 19.5 (10-20); Bilirubin Direct 0.1 mg/dl (0-0.2); Bilirubin,Total 0.5 mg/dl (0.2-1.0); Calcium 8.7 mg/dl (8.6-10.3); Creatinine Clr Calc Pharmacy 36.2 ml/min; Immunoglobulin A 211.9 mg/dl (70-400); Potassium 3.3 mmol/L (3.5-5.1); Total Protein 5.7 gm/dl (6.0-8.3)
[2024-09-12 07:58] LABS: Folate (Folic Acid),Ser orPlas 6.91 ng/ml (>5.38)
[2024-09-12 08:11] LABS: Ferritin 497.8 ng/ml (8-388)
[2024-09-12 08:12] LABS: Hematocrit (blood only) 22.5 % (42.0-52.0); Mean Corpuscular Hemoglobin 30.8 pg (25.0-34.0); Mean Corpuscular Hgb Conc 35.6 g/dL (32.0-36.0); Mean Corpuscular Volume 86.5 fL (80.0-100.0); Mean Platelet Volume 9.8 fL (9.4-12.4); Platelet Count 180 K/uL (130-400); RDW Coefficient of Variation 13.8 % (11.5-14.5); RDW Standard Deviation 43.9 fL (36.4-46.3); White Blood Count 5.62 K/ul (4.8-10.8)
[2024-09-12 08:27] LABS: Basophils # (auto) 0.04 K/uL (0.00-0.20); Basophils % (auto) 0.7 %; Dohle Bodies 2+; Echinocytes 1+; Eosinophils # (auto) 0.19 K/uL (0.00-0.50); Eosinophils % (auto) 3.4 %; Immature Granulocytes # (auto) 0.05 K/uL (0.01-0.20); Immature Granulocytes % (auto) 0.9 %; Monocytes % (auto) 10.7 %; Neutrophils # (auto) 3.84 K/uL (1.40-6.50); Neutrophils % (auto) 68.3 %; Toxic Granulation 2+
[2024-09-12] MEDS: POTASSIUM CHLORIDE / WTR 10 MEQ/100 ML PLCT IV SCH (08:36)
[2024-09-12 08:45] LABS: C Reactive Protein 8.54 mg/dl (0-0.5)
[2024-09-12 09:01] LABS: Phosphorus 1.1 mg/dl (2.5-4.9)
[2024-09-12] MEDS: NSS + 20MEQ KCL 20 MEQ/1,000 ML BAG IV SCH (09:01)
[2024-09-12] MEDS ORDERED: POTASSIUM PHOS 3 MMOL/1 ML INFUSION IV STA (09:04)
--- NOTE | 2024-09-12 09:11 | Hospitalist Progress Note ---
Date of Service September 12, 2024 Assessment & Plan (1) Diarrhea: Plan: Charles is a pleasant 89-year-old male with PMH of insulin dependent DMII, dyslipidemia, HTN, ASCVD, GERD, and arthritis. He p/w profuse diarrhea x 1 week along with significant generalized weakness and severe electrolyte abnormalities-hyponatremia,hypokalemia, hypomagnesemia. Diarrhea - No recent antibiotic use, C. diff and Stool PCR neg. No travel, restaurants, eating raw/undercooked food, or drinking from streams. Had 2 similar episodes in Jun and Jul x 3 days that resolved on their own. No kashif medications or supplements. No fevers/chils - CT A/P with colitis but nothing acute otherwise. He denies significant abd pain here. -Empiric Cipro/Flagyl continued Stool ova and parasites have been sent, pending - GI following. IgA wnl. TTg, fecal elastase pending. Will continue to follow serologies for now. Diarrhea slight less in volume today. Tentatively scheduled for colonoscopy 09/14/2024 if not progressing Electrolyte Abnormalities, hypomag, hyponatremia, hypophosphatemia - Na, K low due to diarrheal losses. IVF and IV KCl repletion ordered. +1g IV Mg. - Ph subsequently critically low. Repletion switched to KPhos, recheck Mg & Phos level post infusion JULIENNE, resolved Baseline creatinine 1.3 Creatinine moises to 1.68, and then normalized with fluids BMP daily T1DM Last A1c at 8.3% on 09/06/2024 Continue Lantus 6u HS Get rid of carb count while not eating much with GI illness to avoid hypoglycemia Troponin troponin mildly elevated and remained stable. Chronic left bundle branch block. 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 No fevers, chills, or sweats. No chest pain or chest pressure. No abdominal pain. Pleasant, generally feels similar maybe a little better overall today. +fatigue Physical Exam Physical Exam: General: A&Ox3. NAD. Cooperative. HEENT: Atraumatic, normocephalic. Vision and hearing grossly intact Pulm: Clear. Symmetrical chest rise. No increased work of breathing. No respiratory distress. Cardiac: RRR, -mrg. Radial pulses intact and symmetricN Abd: NT/ND/soft Results & Data Results & Data Vital Signs (Past 12 Hours) Vital Signs Temp Pulse Pulse Resp BP Pulse Ox O2 Del Method 09/12/24 07:48 36.8 C 88 18 119/64 96 Room Air 09/12/24 04:03 36.4 C L 71 16 101/44 L 93 Room Air 09/11/24 23:15 36.6 C 65 18 99/45 L 98 Room Air 09/11/24 21:44 82 PG Care Time/CCT Total # of Minutes Spent Total Time Spent with Patient: Total time spent is greater than 50% in coordination of care (as documented) at patient's floor/unit and/or counseling patient: Coding Level of Care Code 91686 SUB INP/OBS CARE 3/50MIN Diagnoses Diarrhea R19.7 Diarrhea type: unspecified type Acute kidney injury N17.9 Acute hyponatremia E87.1 Hypomagnesemia E83.42 Hypokalemia E87.6 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
[2024-09-12] MEDS: POTASSIUM PHOSPHATE 15 MMOL in SODIUM CHLORIDE 0.9% 250 ML IV ONE (09:48)
[2024-09-12] MEDS: MAGNESIUM SULFATE / D5W 1 GM/100 ML BAG IV ONE (09:53)
--- NOTE | 2024-09-12 10:29 | Gastroenterology Progress Note ---
Date of Service September 12, 2024 Assessment & Plan (1) Diarrhea: Plan: 89 year old male w/ history of T1DM, dyslipidemia, HTN, ASCVD, GERD, arthritis and others below admitted w/ loose, watery stools for about 1-2 weeks now. Suggests his stools are becoming less urgent and he saw some formed pieces in stool overnight - Stool PCR negative - C.diff negative - Fecal elastase pending - Celiac study pending - Appreciate assistance w/ electrolyte replacement - Consider colonoscopy mid week pending above studies and e-lytes I spent a total of 40 minutes on the date of service in review of patient's record, and previously obtained information in person and appropriate medical visit, discussion and education of plan, with patient and/or caregiver, placing orders for tests/referral/procedures as medically necessary and documentation of pertinent clinical information in patient's medical records for their visit today. Admission and Anticipated Discharge Date Admission Date: September 09, 2024 Supervising Physician Co-Signing Physician Notes Patient toileting when visited. States his stools are little more solid and he is going less frequently. Electrolytes being replenished. Outstanding TTG and fecal elastase. Colonoscopy maybe on Thursday clinical condition allowing Subjective Pt was seen and evaluated, chart reviewed. He notes his stools started to appear w/ some semi-formed pieces. Less urgent BMs. Still overall loose. No abd pain, black or bloody stools. Fecal elastase: pending Stool PCR negative C.diff negative CTAP 2023: Liquid contents in the stool compatible with a nonspecific colitis. No evidence of perforation or abscess formation. Colonoscopy 2002: negative examination Review of Systems Review of Systems: All other findings negative except as noted in HPI. Physical Exam Constitutional: WD/WN, vitals as above Respiratory: normal respiratory effort Cardiovascular: Rate/Rhythm: regular rate and regular rhythm Gastrointestinal (Abdomen): normal bowel sounds, soft, nontender, no hepatosplenomegaly Skin: no rashes, warm and dry Results & Data Results & Data Vital Signs (Past 12 Hours) Vital Signs Temp Pulse Resp BP Pulse Ox O2 Del Method 09/12/24 09:47 81 09/12/24 07:48 98.2 F 88 18 119/64 96 Room Air 09/12/24 04:03 97.5 F L 71 16 101/44 L 93 Room Air 09/11/24 23:15 97.9 F 65 18 99/45 L 98 Room Air Laboratory Results 09/12/24 09/12/24 09/11/24 Range/Units 07:16 06:22 Unknown WBC 5.62 (4.8-10.8) K/ul RBC 2.60 L (4.70-6.10) M/uL Hgb 8.0 L (14.0-18.0) g/dl Hct 22.5 L (42.0-52.0) % MCV 86.5 (80.0-100.0) fL MCH 30.8 (25.0-34.0) pg MCHC 35.6 (32.0-36.0) g/dL RDW Std Deviation 43.9 (36.4-46.3) fL RDW Coeff of Susana 13.8 (11.5-14.5) % Plt Count 180 (130-400) K/uL MPV 9.8 (9.4-12.4) fL Immature Gran % (Auto) 0.9 % Neut % (Auto) 68.3 % Lymph % (Auto) 16.0 % Cochran % (Auto) 10.7 % Eos % (Auto) 3.4 % Baso % (Auto) 0.7 % Neut # (Auto) 3.84 (1.40-6.50) K/uL Lymph # (Auto) 0.90 L (1.20-3.40) K/uL Cochran # (Auto) 0.60 H (0.11-0.59) K/uL Eos # (Auto) 0.19 (0.00-0.50) K/uL Baso # (Auto) 0.04 (0.00-0.20) K/uL Immature Gran # (Auto) 0.05 (0.01-0.20) K/uL Toxic Granulation 2+ Dohle Bodies 2+ Echinocytes 1+ Sodium 125 L (136-145) mmol/L Potassium 3.3 L (3.5-5.1) mmol/L Chloride 101 (98-107) mmol/L Carbon Dioxide 19 L (21-32) mmol/L Anion Gap 5 (3-11) BUN 26 H (6-23) mg/dl Creatinine 1.33 (0.6-1.4) mg/dl Est Cr Clr Drug Dosing 36.2 ml/min eGFR 51.73 BUN/Creatinine Ratio 19.5 (10-20) Glucose 109 H (70-99(Fasting)) mg/dl POC Glucose 146 H (70-99) mg/dl Calcium 8.7 (8.6-10.3) mg/dl Phosphorus 1.1 L* (2.5-4.9) mg/dl Ferritin 497.8 H (8-388) ng/ml Total Bilirubin 0.5 (0.2-1.0) mg/dl Direct Bilirubin 0.1 (0-0.2) mg/dl AST 40 H (13-39) U/L ALT 22 (7-52) U/L Alkaline Phosphatase 53 (34-104) U/L C-Reactive Protein 8.54 H (0-0.5) mg/dl Total Protein 5.7 L (6.0-8.3) gm/dl Albumin 3.0 L (3.4-5.0) gm/dl Vitamin B12 483 (180-914) pg/ml Folate 6.91 (>5.38) ng/ml Stl Pancreat Elastase 1 Pending IgA 211.9 (70-400) mg/dl Tiss Transglutamin IgA Pending 09/11/24 09/11/24 09/11/24 Range/Units 20:12 16:31 11:29 WBC (4.8-10.8) K/ul RBC (4.70-6.10) M/uL Hgb (14.0-18.0) g/dl Hct (42.0-52.0) % MCV (80.0-100.0) fL MCH (25.0-34.0) pg MCHC (32.0-36.0) g/dL RDW Std Deviation (36.4-46.3) fL RDW Coeff of Susana (11.5-14.5) % Plt Count (130-400) K/uL MPV (9.4-12.4) fL Immature Gran % (Auto) % Neut % (Auto) % Lymph % (Auto) % Cochran % (Auto) % Eos % (Auto) % Baso % (Auto) % Neut # (Auto) (1.40-6.50) K/uL Lymph # (Auto) (1.20-3.40) K/uL Cochran # (Auto) (0.11-0.59) K/uL Eos # (Auto) (0.00-0.50) K/uL Baso # (Auto) (0.00-0.20) K/uL Immature Gran # (Auto) (0.01-0.20) K/uL Toxic Granulation Dohle Bodies Echinocytes Sodium (136-145) mmol/L Potassium (3.5-5.1) mmol/L Chloride (98-107) mmol/L Carbon Dioxide (21-32) mmol/L Anion Gap (3-11) BUN (6-23) mg/dl Creatinine (0.6-1.4) mg/dl Est Cr Clr Drug Dosing ml/min eGFR BUN/Creatinine Ratio (10-20) Glucose (70-99(Fasting)) mg/dl POC Glucose 173 H 77 154 H (70-99) mg/dl Calcium (8.6-10.3) mg/dl Phosphorus (2.5-4.9) mg/dl Ferritin (8-388) ng/ml Total Bilirubin (0.2-1.0) mg/dl Direct Bilirubin (0-0.2) mg/dl AST (13-39) U/L ALT (7-52) U/L Alkaline Phosphatase (34-104) U/L C-Reactive Protein (0-0.5) mg/dl Total Protein (6.0-8.3) gm/dl Albumin (3.4-5.0) gm/dl Vitamin B12 (180-914) pg/ml Folate (>5.38) ng/ml Stl Pancreat Elastase 1 IgA (70-400) mg/dl Tiss Transglutamin IgA PG Care Time/CCT Total # of Minutes Spent Total Time Spent with Patient: Total time spent is greater than 50% in coordination of care (as documented) at patient's floor/unit and/or counseling patient: Coding Level of Care Code 06672 SUB INP/OBS CARE 2/35MIN Diagnoses Diarrhea R19.7 Diarrhea type: unspecified type (1) Diarrhea Diarrhea type: unspecified type Qualified Code(s): R19.7 - Diarrhea, unspecified
[2024-09-12 17:24] LABS: Magnesium 1.7 mg/dl (1.7-2.4); Phosphorus 1.2 mg/dl (2.5-4.9)
[2024-09-12] MEDS ORDERED: SODIUM PHOSPHATE 3 MMOL/1 ML INFUSION IV STA (18:17)
[2024-09-12] MEDS: SODIUM PHOSPHATE 12 MMOL in SODIUM CHLORIDE 0.9% 250 ML IV ONE (20:00)
[2024-09-13 07:13] LABS: Hematocrit (blood only) 20.3 % (42.0-52.0); Hemoglobin 7.3 g/dl (14.0-18.0); Mean Corpuscular Hemoglobin 31.1 pg (25.0-34.0); Mean Corpuscular Volume 86.4 fL (80.0-100.0); Mean Platelet Volume 9.9 fL (9.4-12.4); Platelet Count 179 K/uL (130-400); RDW Coefficient of Variation 13.8 % (11.5-14.5); RDW Standard Deviation 43.1 fL (36.4-46.3); Red Blood Count 2.35 M/uL (4.70-6.10); White Blood Count 5.59 K/ul (4.8-10.8)
[2024-09-13 07:49] LABS: Basophils # (auto) 0.01 K/uL (0.00-0.20); Basophils % (auto) 0.2 %; Echinocytes 1+; Eosinophils # (auto) 0.19 K/uL (0.00-0.50); Eosinophils % (auto) 3.4 %; Immature Granulocytes # (auto) 0.07 K/uL (0.01-0.20); Immature Granulocytes % (auto) 1.3 %; Lymphocytes # (auto) 0.84 K/uL (1.20-3.40); Monocytes # (auto) 0.55 K/uL (0.11-0.59); Monocytes % (auto) 9.8 %; Neutrophils # (auto) 3.93 K/uL (1.40-6.50); Neutrophils % (auto) 70.3 %; Polychromasia 1+
[2024-09-13] MEDS ORDERED: SODIUM CHLORIDE 0.9% 50 ML IV PRN (07:50)
[2024-09-13] MEDS ORDERED: SODIUM CHLORIDE 0.9% 100 ML IV PRN (07:50)
[2024-09-13 07:53] LABS: BUN Creatinine Ratio 15.8 (10-20); Calcium 8.2 mg/dl (8.6-10.3); Magnesium 1.4 mg/dl (1.7-2.4); Phosphorus 1.6 mg/dl (2.5-4.9); Potassium 3.4 mmol/L (3.5-5.1)
--- NOTE | 2024-09-13 09:43 | Gastroenterology Progress Note ---
Date of Service September 13, 2024 Assessment & Plan (1) Diarrhea: Plan: 89 year old male w/ history of T1DM, dyslipidemia, HTN, ASCVD, GERD, arthritis and others below admitted w/ loose, watery stools for about 1-2 weeks now. - Stool PCR negative - C.diff negative - Fecal elastase pending - Celiac study pending - Appreciate assistance w/ electrolyte replacement - Colonoscopy Thursday - Risks, benefits, alternatives discussed I spent a total of 40 minutes on the date of service in review of patient's record, and previously obtained information in person and appropriate medical visit, discussion and education of plan, with patient and/or caregiver, placing orders for tests/referral/procedures as medically necessary and documentation of pertinent clinical information in patient's medical records for their visit today. Admission and Anticipated Discharge Date Admission Date: September 09, 2024 Supervising Physician Co-Signing Physician Notes Patient examined at bedside his brother was present. He appears in good spirits and does not appear acutely toxic or ill. For colonoscopy for evaluation of persistent refractory diarrhea negative workup and colitis on imaging Subjective Persistent loose stools. Some appear less watery. No black or bloody stools. No abd pain. Agreeable to colonoscopy Thursday. HGB 7.3 this AM. No report of GI bleeding Review of Systems Review of Systems: All other findings negative except as noted in HPI. Physical Exam Constitutional: WD/WN, vitals as above Respiratory: normal respiratory effort, lungs clear to auscultation Cardiovascular: Rate/Rhythm: regular rate Gastrointestinal (Abdomen): normal bowel sounds, soft, nontender, no hepatosplenomegaly Skin: no rashes, warm and dry Results & Data Results & Data Vital Signs (Past 12 Hours) Vital Signs Temp Pulse Pulse Resp BP Pulse Ox O2 Del Method 09/13/24 07:00 97.9 F 74 20 125/65 96 Room Air 09/13/24 04:35 97.7 F 67 18 121/63 95 Room Air 09/13/24 00:23 97.9 F 70 18 109/59 L 97 Room Air 09/12/24 21:46 67 Laboratory Results 09/13/24 09/13/24 09/13/24 Range/Units 08:29 07:16 05:47 WBC 5.59 (4.8-10.8) K/ul RBC 2.35 L (4.70-6.10) M/uL Hgb 7.3 L (14.0-18.0) g/dl Hct 20.3 L* (42.0-52.0) % MCV 86.4 (80.0-100.0) fL MCH 31.1 (25.0-34.0) pg MCHC 36.0 (32.0-36.0) g/dL RDW Std Deviation 43.1 (36.4-46.3) fL RDW Coeff of Susana 13.8 (11.5-14.5) % Plt Count 179 (130-400) K/uL MPV 9.9 (9.4-12.4) fL Immature Gran % (Auto) 1.3 % Neut % (Auto) 70.3 % Lymph % (Auto) 15.0 % [place] % (Auto) 9.8 % Eos % (Auto) 3.4 % Baso % (Auto) 0.2 % Neut # (Auto) 3.93 (1.40-6.50) K/uL Lymph # (Auto) 0.84 L (1.20-3.40) K/uL [place] # (Auto) 0.55 (0.11-0.59) K/uL Eos # (Auto) 0.19 (0.00-0.50) K/uL Baso # (Auto) 0.01 (0.00-0.20) K/uL Immature Gran # (Auto) 0.07 (0.01-0.20) K/uL Polychromasia 1+ Echinocytes 1+ Sodium 128 L (136-145) mmol/L Potassium 3.4 L (3.5-5.1) mmol/L Chloride 105 (98-107) mmol/L Carbon Dioxide 18 L (21-32) mmol/L Anion Gap 5 (3-11) BUN 19 (6-23) mg/dl Creatinine 1.20 (0.6-1.4) mg/dl Est Cr Clr Drug Dosing 42.0 ml/min eGFR 58.53 BUN/Creatinine Ratio 15.8 (10-20) Glucose 107 H (70-99(Fasting)) mg/dl POC Glucose 113 H (70-99) mg/dl Calcium 8.2 L (8.6-10.3) mg/dl Phosphorus 1.6 L (2.5-4.9) mg/dl Magnesium 1.4 L (1.7-2.4) mg/dl Blood Type B Positive Blood Type Recheck Antibody Screen NEGATIVE Crossmatch See Detail 09/12/24 09/12/24 09/12/24 Range/Units 20:48 17:44 16:54 WBC (4.8-10.8) K/ul RBC (4.70-6.10) M/uL Hgb (14.0-18.0) g/dl Hct (42.0-52.0) % MCV (80.0-100.0) fL MCH (25.0-34.0) pg MCHC (32.0-36.0) g/dL RDW Std Deviation (36.4-46.3) fL RDW Coeff of Susana (11.5-14.5) % Plt Count (130-400) K/uL MPV (9.4-12.4) fL Immature Gran % (Auto) % Neut % (Auto) % Lymph % (Auto) % [place] % (Auto) % Eos % (Auto) % Baso % (Auto) % Neut # (Auto) (1.40-6.50) K/uL Lymph # (Auto) (1.20-3.40) K/uL [place] # (Auto) (0.11-0.59) K/uL Eos # (Auto) (0.00-0.50) K/uL Baso # (Auto) (0.00-0.20) K/uL Immature Gran # (Auto) (0.01-0.20) K/uL Polychromasia Echinocytes Sodium (136-145) mmol/L Potassium (3.5-5.1) mmol/L Chloride (98-107) mmol/L Carbon Dioxide (21-32) mmol/L Anion Gap (3-11) BUN (6-23) mg/dl Creatinine (0.6-1.4) mg/dl Est Cr Clr Drug Dosing ml/min eGFR BUN/Creatinine Ratio (10-20) Glucose (70-99(Fasting)) mg/dl POC Glucose 142 H 244 H (70-99) mg/dl Calcium (8.6-10.3) mg/dl Phosphorus 1.2 L* (2.5-4.9) mg/dl Magnesium 1.7 (1.7-2.4) mg/dl Blood Type Blood Type Recheck Antibody Screen Crossmatch 09/12/24 09/12/24 Range/Units 11:31 06:22 WBC (4.8-10.8) K/ul RBC (4.70-6.10) M/uL Hgb (14.0-18.0) g/dl Hct (42.0-52.0) % MCV (80.0-100.0) fL MCH (25.0-34.0) pg MCHC (32.0-36.0) g/dL RDW Std Deviation (36.4-46.3) fL RDW Coeff of Susana (11.5-14.5) % Plt Count (130-400) K/uL MPV (9.4-12.4) fL Immature Gran % (Auto) % Neut % (Auto) % Lymph % (Auto) % [place] % (Auto) % Eos % (Auto) % Baso % (Auto) % Neut # (Auto) (1.40-6.50) K/uL Lymph # (Auto) (1.20-3.40) K/uL [place] # (Auto) (0.11-0.59) K/uL Eos # (Auto) (0.00-0.50) K/uL Baso # (Auto) (0.00-0.20) K/uL Immature Gran # (Auto) (0.01-0.20) K/uL Polychromasia Echinocytes Sodium (136-145) mmol/L Potassium (3.5-5.1) mmol/L Chloride (98-107) mmol/L Carbon Dioxide (21-32) mmol/L Anion Gap (3-11) BUN (6-23) mg/dl Creatinine (0.6-1.4) mg/dl Est Cr Clr Drug Dosing ml/min eGFR BUN/Creatinine Ratio (10-20) Glucose (70-99(Fasting)) mg/dl POC Glucose 271 H (70-99) mg/dl Calcium (8.6-10.3) mg/dl Phosphorus (2.5-4.9) mg/dl Magnesium (1.7-2.4) mg/dl Blood Type Blood Type Recheck Pending Antibody Screen Crossmatch PG Care Time/CCT Total # of Minutes Spent Total Time Spent with Patient: Total time spent is greater than 50% in coordination of care (as documented) at patient's floor/unit and/or counseling patient: Coding Level of Care Code 72146 SUB INP/OBS CARE 235MIN Diagnoses Diarrhea R19.7 Diarrhea type: unspecified type (1) Diarrhea Diarrhea type: unspecified type Qualified Code(s): R19.7 - Diarrhea, unspecified
[2024-09-13] MEDS: MAGNESIUM SULFATE / D5W 1 GM/100 ML BAG IV SCH (10:51)
[2024-09-13] MEDS: POT PHOSPHATE MONOBASIC W/ SOD TAB PO SCH (13:02)
[2024-09-13 13:20] LABS: Hematocrit (blood only) 24.2 % (42.0-52.0); Hemoglobin 8.6 g/dl (14.0-18.0)
--- NOTE | 2024-09-13 14:06 | Hospitalist Progress Note ---
Date of Service September 13, 2024 Assessment & Plan (1) Diarrhea: Plan: Charles is a pleasant 89-year-old male with PMH of insulin dependent DMII, dyslipidemia, HTN, ASCVD, GERD, and arthritis. He p/w profuse diarrhea x 1 week along with significant generalized weakness and severe electrolyte abnormalities-hyponatremia,hypokalemia, hypomagnesemia. Diarrhea - No recent antibiotic use, C. diff and Stool PCR neg. No travel, restaurants, eating raw/undercooked food, or drinking from streams. Had 2 similar episodes in Jun and Jul x 3 days that resolved on their own. No kashif medications or supplements. No fevers/chils - CT A/P with colitis but nothing acute otherwise. He denies significant abd pain here. -Empiric Cipro/Flagyl continued Stool ova and parasites have been sent, pending - GI following. IgA wnl. TTg, fecal elastase pending. Symptoms are starting to improve slightly 09/13 however given recurrent episodes and ongoing symptoms agree with colonoscopy Scheduled for colonoscopy 09/14/2024. Electrolyte Abnormalities, hypomag, hyponatremia, hypophosphatemia - Na, K low due to diarrheal losses. IV magnesium ordered to minimize potential for diarrhea with oral magnesium. Oral phosphate repletion ordered Check BMP, magnesium, phosphorus daily until stable Anemia Hemoglobin 7.3 this morning. On recheck 8.6. Levels have generally been stable 89 recheck is consistent with this. Suspect artifact/variants. He has not had any clinical melena/hematochezia or other bleeding. Will continue to trend hemoglobin daily, no indication for transfusion at this time. MCV is normocytic JULIENNE, resolved Baseline creatinine 1.3 Creatinine moises to 1.68, and then normalized with fluids BMP daily T1DM Last A1c at 8.3% on 09/06/2024 Continue Lantus 6u HS Get rid of carb count while not eating much with GI illness to avoid hypoglycemia Troponin troponin mildly elevated and remained stable. Chronic left bundle branch block. Chest pain-free and no ischemic symptoms Continue aspirin, atenolol, statin, lisinopril DVT proph-SCDs, Lovenox SQ. If patient has any further hemoglobin decline or clinical melena/hematochezia could hold Lovenox however no clear bleeding and hemoglobin levels other than single morning measurements this morning have been stable 89. 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 He reports his diarrhea is actually improving, he has not had any bowel movements today and his bowel movement yesterday while with liquid and loose material did have some solid stool for the first time. Hemoglobin levels were low this morning recheck 8.6. He has not had any black/bloody/melanic stool Physical Exam Physical Exam: General: A&Ox3. NAD. Cooperative. HEENT: Atraumatic, normocephalic. Vision and hearing grossly intact Pulm: Clear. Symmetrical chest rise. No increased work of breathing. No respiratory distress. Cardiac: RRR, -mrg. Radial pulses intact and symmetricN Abd: NT/ND/soft Results & Data Results & Data Vital Signs (Past 12 Hours) Vital Signs Temp Pulse Resp BP Pulse Ox O2 Del Method 09/13/24 10:40 36.5 C 72 18 120/59 L 98 Room Air 09/13/24 07:00 36.6 C 74 20 125/65 96 Room Air 09/13/24 04:35 36.5 C 67 18 121/63 95 Room Air PG Care Time/CCT Total # of Minutes Spent Total Time Spent with Patient: Total time spent is greater than 50% in coordination of care (as documented) at patient's floor/unit and/or counseling patient: Coding Level of Care Code 23791 SUB INP/OBS CARE 2/35MIN Diagnoses Diarrhea R19.7 Diarrhea type: unspecified type Acute kidney injury N17.9 Acute hyponatremia E87.1 Hypomagnesemia E83.42 Hypokalemia E87.6 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
[2024-09-13] MEDS: LAVAGE SOLUTION 4000ML PO SCH (17:19)
[2024-09-14] MEDS ORDERED: Nursing to Pharmacy Communication SCH (06:00)
[2024-09-14] MEDS: INSULIN ASPART PER UNIT CHARGE SC SCH ×2 (06:11→17:15)
[2024-09-14 07:20] LABS: Hematocrit (blood only) 19.5 % (42.0-52.0); Hemoglobin 7.2 g/dl (14.0-18.0); Mean Corpuscular Hemoglobin 31.3 pg (25.0-34.0); Mean Corpuscular Hgb Conc 36.9 g/dL (32.0-36.0); Mean Corpuscular Volume 84.8 fL (80.0-100.0); Mean Platelet Volume 9.5 fL (9.4-12.4); Platelet Count 183 K/uL (130-400); RDW Coefficient of Variation 13.5 % (11.5-14.5); RDW Standard Deviation 41.8 fL (36.4-46.3); White Blood Count 4.75 K/ul (4.8-10.8)
[2024-09-14 07:25] LABS: Calcium 8.1 mg/dl (8.6-10.3); Creatinine Clr Calc Pharmacy 50.4 ml/min; Magnesium 1.4 mg/dl (1.7-2.4); Phosphorus 1.8 mg/dl (2.5-4.9); Potassium 2.9 mmol/L (3.5-5.1)
--- NOTE | 2024-09-14 07:50 | Hospitalist Progress Note ---
Date of Service September 14, 2024 Assessment & Plan (1) Diarrhea: Plan: Charles is a pleasant 89-year-old male with PMH of insulin dependent DMII, dyslipidemia, HTN, ASCVD, GERD, and arthritis. He p/w profuse diarrhea x 1 week along with significant generalized weakness and severe electrolyte abnormalities-hyponatremia,hypokalemia, hypomagnesemia. Colitis - No recent antibiotic use, C. diff and Stool PCR neg. No travel, restaurants, eating raw/undercooked food, or drinking from streams. Had 2 similar episodes in Jun and Jul x 3 days that resolved on their own. No med medications or supplements. No fevers/chils - CT A/P with colitis but nothing acute otherwise. He denies significant abd pain Stool ova and parasites have been sent, pending - GI following. IgA wnl. TTg, fecal elastase pending. colonoscopy 09/14/2024 - nonspecific colitis from anus to hepatic flexure, areas of ulceration surrounded by healthy mucosa - could be Crohn's but atypical, UC, CMV. Biopsies pending --will stop antibiotics --low fiber diet --ESR ordered Electrolyte Abnormalities, hypomag, hyponatremia, hypophosphatemia - Na, K low due to diarrheal losses. - Mag 3g IV today, K 2.9 - continue K phos and add 40 meq potassium x 2 doses, rechecked K and mag at noon - improved but still low - ordered 1g additional mag, 40 mew potassium now and AM daily Check BMP, magnesium daily until stable Anemia Variable H/H. He has not had any clinical melena/hematochezia or other bleeding. May be related to volume shifts and lab variation. -Hg 7.2 decreased from yesterday no report of bleeding. anesthesiologist recommended transfusion prior to procedure. I discussed risks:benefits with Charles. Transfused 1 unit -AM CBC JULIENNE, resolved Baseline creatinine 1.3 Creatinine moises to 1.68, and then normalized with fluids BMP daily T1DM Last A1c at 8.3% on 09/06/2024 Continue Lantus 6u HS Get rid of carb count while not eating much with GI illness to avoid hypoglycemia Troponin troponin mildly elevated and remained stable. Chronic left bundle branch block. Chest pain-free and no ischemic symptoms Continue aspirin, atenolol, statin, lisinopril DVT proph-SCDs, Lovenox SQ. 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, with long-term current use of insulin: (7) Elevated troponin: Admission and Anticipated Discharge Date Admission Date: September 09, 2024 Subjective No abdominal pain, large stool output overnight because of bowel prep, he thinks diarrhea was slowing down prior to the prep No nausea/vomiting, no dyspnea or CP Physical Exam 2 Physical Exam: PHYSICAL EXAMINATION Last 24h vital signs reviewed, see documentation in flowsheet General: comfortable appearing, no distress, sitting up in bed HEENT: Normocephalic, atraumatic, pupils round and equal, sclerae anicteric, no conjunctival injection, pale conj, moist mucus membranes Lungs: Normal respiratory effort. Clear to auscultation bilaterally. No RRW Heart: Regular rate and rhythm, no murmurs. No JVD Abdomen: Soft, nontender, nondistended. Bowel sounds present. Extremities: Warm, dry, well-perfused. No extremity edema. Neuro: Alert and oriented x 4, face symmetric, moves 4 extremities well Psych: Normal affect and behavior Results & Data Results & Data Vital Signs (Past 12 Hours) Vital Signs Temp Pulse Pulse Resp BP Pulse Ox O2 Del Method 09/14/24 07:10 99.1 F 64 18 117/51 L 96 Room Air 09/14/24 03:45 98.2 F 69 18 112/86 97 Room Air 09/13/24 23:51 97.3 F L 80 18 120/63 97 Room Air 09/13/24 21:44 72 Laboratory Results 09/14/24 06:37 09/14/24 06:37 mag 1.4, phos 1.8 PG Care Time/CCT Total # of Minutes Spent Total Time Spent with Patient: Total time spent is greater than 50% in coordination of care (as documented) at patient's floor/unit and/or counseling patient: Coding Level of Care Code 53388 SUB INP/OBS CARE 3/50MIN Diagnoses Diarrhea R19.7 Diarrhea type: unspecified type Acute kidney injury N17.9 Acute hyponatremia E87.1 Hypomagnesemia E83.42 Hypokalemia E87.6 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
[2024-09-14 07:51] LABS: Basophils # (auto) 0.02 K/uL (0.00-0.20); Basophils % (auto) 0.4 %; Echinocytes 1+; Eosinophils # (auto) 0.13 K/uL (0.00-0.50); Eosinophils % (auto) 2.7 %; Immature Granulocytes # (auto) 0.07 K/uL (0.01-0.20); Immature Granulocytes % (auto) 1.5 %; Lymphocytes # (auto) 0.86 K/uL (1.20-3.40); Lymphocytes % (auto) 18.1 %; Monocytes # (auto) 0.59 K/uL (0.11-0.59); Monocytes % (auto) 12.4 %; Neutrophils # (auto) 3.08 K/uL (1.40-6.50); Neutrophils % (auto) 64.9 %
[2024-09-14] MEDS: POTASSIUM CHLORIDE CRTAB 20 MEQ TABCR PO SCH (09:30)
[2024-09-14] MEDS: MAGNESIUM SULFATE / D5W 1 GM/100 ML BAG IV SCH (09:45)
--- NOTE | 2024-09-14 10:11 | Gastroenterology Progress Note ---
Date of Service September 14, 2024 Assessment & Plan (1) Diarrhea: Plan: 89 year old male w/ history of T1DM, dyslipidemia, HTN, ASCVD, GERD, arthritis and others below admitted w/ loose, watery stools for about 1-2 weeks now. NPO for colonoscopy today. - Stool PCR negative - C.diff negative - TTG IGA negative - Fecal elastase pending - Appreciate assistance w/ electrolyte replacement We appreciate assistance in the management of any serological abnormality and corrections to include: hemoglobin >7, INR <2, platelets >50,000, potassium levels >3.5 but <5.3, and sodium levels within 5 points of the reference range prior to endoscopic evaluation. Thank you for allowing us to participate in the care of this patient. Please call with any acute changes, questions or concerns. Please see addendum below with additional recommendation from my supervising physician. Admission and Anticipated Discharge Date Admission Date: September 09, 2024 Supervising Physician Co-Signing Physician Notes Patient post prep. For colonoscopy today. No bleeding with preparation. Patient has significant anemia. His folate B12 and iron are normal. Etiology of this anemia is not clear. May need more evaluation from the hematology side for potential underproduction. Check a sedimentation rate. Colonoscopy poten tial biopsies today. Subjective Pt was seen and evaluated, chart reviewed. Tolerated bowel prep. No nausea/vomiting. Denies black or bloody stools w/ prep. Review of Systems Review of Systems: All other findings negative except as noted in HPI. Physical Exam Constitutional: WD/WN, vitals as above Respiratory: normal respiratory effort, lungs clear to auscultation Cardiovascular: RRR, no murmur, no edema Gastrointestinal (Abdomen): normal bowel sounds, soft, nontender, no hepatosplenomegaly Skin: no rashes, warm and dry Results & Data Results & Data Vital Signs (Past 12 Hours) Vital Signs Temp Pulse Resp BP Pulse Ox O2 Del Method 09/14/24 07:10 99.1 F 64 18 117/51 L 96 Room Air 09/14/24 03:45 98.2 F 69 18 112/86 97 Room Air 09/13/24 23:51 97.3 F L 80 18 120/63 97 Room Air Laboratory Results 09/14/24 09/14/24 09/13/24 Range/Units 06:37 05:41 20:09 WBC 4.75 L (4.8-10.8) K/ul RBC 2.30 L (4.70-6.10) M/uL Hgb 7.2 L (14.0-18.0) g/dl Hct 19.5 L* (42.0-52.0) % MCV 84.8 (80.0-100.0) fL MCH 31.3 (25.0-34.0) pg MCHC 36.9 H (32.0-36.0) g/dL RDW Std Deviation 41.8 (36.4-46.3) fL RDW Coeff of Susana 13.5 (11.5-14.5) % Plt Count 183 (130-400) K/uL MPV 9.5 (9.4-12.4) fL Immature Gran % (Auto) 1.5 % Neut % (Auto) 64.9 % Lymph % (Auto) 18.1 % [place] % (Auto) 12.4 % Eos % (Auto) 2.7 % Baso % (Auto) 0.4 % Neut # (Auto) 3.08 (1.40-6.50) K/uL Lymph # (Auto) 0.86 L (1.20-3.40) K/uL [place] # (Auto) 0.59 (0.11-0.59) K/uL Eos # (Auto) 0.13 (0.00-0.50) K/uL Baso # (Auto) 0.02 (0.00-0.20) K/uL Immature Gran # (Auto) 0.07 (0.01-0.20) K/uL Echinocytes 1+ Sodium 130 L (136-145) mmol/L Potassium 2.9 L (3.5-5.1) mmol/L Chloride 102 (98-107) mmol/L Carbon Dioxide 23 (21-32) mmol/L Anion Gap 5 (3-11) BUN 11 (6-23) mg/dl Creatinine 1.00 (0.6-1.4) mg/dl Est Cr Clr Drug Dosing 50.4 ml/min eGFR 72.84 BUN/Creatinine Ratio 11.0 (10-20) Glucose 70 (70-99(Fasting)) mg/dl POC Glucose 74 98 (70-99) mg/dl Calcium 8.1 L (8.6-10.3) mg/dl Phosphorus 1.8 L (2.5-4.9) mg/dl Magnesium 1.4 L (1.7-2.4) mg/dl Tiss Transglutamin IgA U/mL Blood Type Blood Type Recheck Antibody Screen Crossmatch 09/13/24 09/13/24 09/13/24 Range/Units 16:11 12:52 10:55 WBC (4.8-10.8) K/ul RBC (4.70-6.10) M/uL Hgb 8.6 L (14.0-18.0) g/dl Hct 24.2 L (42.0-52.0) % MCV (80.0-100.0) fL MCH (25.0-34.0) pg MCHC (32.0-36.0) g/dL RDW Std Deviation (36.4-46.3) fL RDW Coeff of Susana (11.5-14.5) % Plt Count (130-400) K/uL MPV (9.4-12.4) fL Immature Gran % (Auto) % Neut % (Auto) % Lymph % (Auto) % [place] % (Auto) % Eos % (Auto) % Baso % (Auto) % Neut # (Auto) (1.40-6.50) K/uL Lymph # (Auto) (1.20-3.40) K/uL [place] # (Auto) (0.11-0.59) K/uL Eos # (Auto) (0.00-0.50) K/uL Baso # (Auto) (0.00-0.20) K/uL Immature Gran # (Auto) (0.01-0.20) K/uL Echinocytes Sodium (136-145) mmol/L Potassium (3.5-5.1) mmol/L Chloride (98-107) mmol/L Carbon Dioxide (21-32) mmol/L Anion Gap (3-11) BUN (6-23) mg/dl Creatinine (0.6-1.4) mg/dl Est Cr Clr Drug Dosing ml/min eGFR BUN/Creatinine Ratio (10-20) Glucose (70-99(Fasting)) mg/dl POC Glucose 172 H 273 H (70-99) mg/dl Calcium (8.6-10.3) mg/dl Phosphorus (2.5-4.9) mg/dl Magnesium (1.7-2.4) mg/dl Tiss Transglutamin IgA U/mL Blood Type Blood Type Recheck Antibody Screen Crossmatch 09/13/24 09/12/24 Range/Units 08:29 06:22 WBC (4.8-10.8) K/ul RBC (4.70-6.10) M/uL Hgb (14.0-18.0) g/dl Hct (42.0-52.0) % MCV (80.0-100.0) fL MCH (25.0-34.0) pg MCHC (32.0-36.0) g/dL RDW Std Deviation (36.4-46.3) fL RDW Coeff of Susana (11.5-14.5) % Plt Count (130-400) K/uL MPV (9.4-12.4) fL Immature Gran % (Auto) % Neut % (Auto) % Lymph % (Auto) % [place] % (Auto) % Eos % (Auto) % Baso % (Auto) % Neut # (Auto) (1.40-6.50) K/uL Lymph # (Auto) (1.20-3.40) K/uL [place] # (Auto) (0.11-0.59) K/uL Eos # (Auto) (0.00-0.50) K/uL Baso # (Auto) (0.00-0.20) K/uL Immature Gran # (Auto) (0.01-0.20) K/uL Echinocytes Sodium (136-145) mmol/L Potassium (3.5-5.1) mmol/L Chloride (98-107) mmol/L Carbon Dioxide (21-32) mmol/L Anion Gap (3-11) BUN (6-23) mg/dl Creatinine (0.6-1.4) mg/dl Est Cr Clr Drug Dosing ml/min eGFR BUN/Creatinine Ratio (10-20) Glucose (70-99(Fasting)) mg/dl POC Glucose (70-99) mg/dl Calcium (8.6-10.3) mg/dl Phosphorus (2.5-4.9) mg/dl Magnesium (1.7-2.4) mg/dl Tiss Transglutamin IgA <1.0 U/mL Blood Type B Positive Blood Type Recheck B Positive Antibody Screen NEGATIVE Crossmatch See Detail PG Care Time/CCT Total # of Minutes Spent Total Time Spent with Patient: Total time spent is greater than 50% in coordination of care (as documented) at patient's floor/unit and/or counseling patient: Coding Level of Care Code None Diagnoses Diarrhea R19.7 Diarrhea type: unspecified type (1) Diarrhea Diarrhea type: unspecified type Qualified Code(s): R19.7 - Diarrhea, unspecified
[2024-09-14] MEDS ORDERED: SODIUM CHLORIDE 0.9% 100 ML IV PRN (11:31)
[2024-09-14] MEDS ORDERED: SODIUM CHLORIDE 0.9% 50 ML IV PRN (11:31)
[2024-09-14 12:25] LABS: Hematocrit (blood only) 21.1 % (42.0-52.0); Hemoglobin 7.6 g/dl (14.0-18.0)
[2024-09-14 12:33] LABS: BUN Creatinine Ratio 9.5 (10-20); Calcium 7.9 mg/dl (8.6-10.3)
--- NOTE | 2024-09-14 14:10 | Anesthesiology Consultation ---
Date of Service September 14, 2024 Assessment & Plan Chart Review Chart Review: Acceptable Risk for Surgery and Patient NOT seen in Pre Admission Testing Consults Requested none ASA ASA4 Proposed Anesthesia Anesthesia Type: MAC History Surgery Operation Date: 09/14/24 16:30 Proposed Procedures p Colonoscopy Dr. Ede Mera MD Height/Weight Height: 5 ft 8 in Weight: 72.9 kg Allergies Allergy/AdvReac Type Severity Reaction Status Date / Time Penicillins Allergy Unknown AMOXICILLIN Verified 09/05/24 11:53 - UNKNOWN RXN allopurinol Allergy Rash Verified 09/05/24 11:53 Medications Home Medications Medication Instructions Recorded Confirmed Last Taken aspirin 81 mg chewable tablet 81 mg PO DAILY 02/08/19 09/09/24 09/09/24 isosorbide mononitrate 60 mg 60 mg PO QAM 02/08/19 09/09/24 09/09/24 tablet,extended release 24 hr nitroglycerin 0.4 mg sublingual 0.4 mg sublingual Q5M PRN Chest 02/08/19 09/09/24 Unknown tablet Pain atenolol 25 mg tablet 12.5 mg PO DAILY 03/30/19 09/09/24 09/09/24 cholecalciferol (vitamin D3) 50 2,000 units PO DAILY 03/30/19 09/09/24 09/09/24 mcg (2,000 unit) capsule probenecid 500 mg tablet 250 mg PO BID 03/30/19 09/09/24 09/09/24 cyanocobalamin (vitamin B-12) 1,000 mcg PO DAILY 04/24/20 09/09/24 09/09/24 1,000 mcg capsule iron,carbonyl 65 mg-vitamin C 125 1 tab PO DAILY 10/05/20 09/09/24 09/09/24 mg tablet,delayed release (Vitron-C) fluocinonide 0.05 % topical 1 applic topical BID PRN Other 10/26/20 09/09/24 Unknown ointment metronidazole 0.75 % topical gel 1 applic topical BID PRN Other 10/26/20 09/09/24 Unknown (Rosadan) furosemide 20 mg tablet (Lasix) 20 mg PO .3X TIMES WEEK PRN Fluid 09/17/23 09/09/24 09/09/24 Retention gabapentin 100 mg capsule 100 mg PO TID PRN pain 09/17/23 09/09/24 Unknown pen needle, diabetic 31 gauge x #200 ea 11/25/23 09/05/24 Unknown 16" (1st Tier Unifine Pentips) blood sugar diagnostic (OneTouch #300 ea 04/04/24 09/05/24 Unknown Ultra Test strips) lancets 33 gauge (OneTouch Delica #100 ea 04/04/24 09/05/24 Unknown Plus Lancet) insulin glargine 100 unit/mL (3 See Rx Instructions .Route 07/28/24 09/09/24 Unknown mL) subcutaneous pen (Lantus .COMPLEX #45 mL Solostar U-100 Insulin) lisinopril 40 mg tablet 40 mg PO DAILY #90 tabs 08/18/24 09/09/24 09/09/24 insulin aspart U-100 100 unit/mL 3 unit subcut DAILY 09/09/24 09/09/24 09/09/24 (3 mL) subcutaneous pen (Novolog FlexPen U-100 Insulin aspart) omeprazole 20 mg capsule,delayed 20 mg PO QAM 09/09/24 09/09/24 09/09/24 release simvastatin 20 mg tablet 20 mg PO PM 09/09/24 09/09/24 Unknown Active Medications Generic Name Dose Route Start Last Admin Trade Name Jamaal PRN Reason Stop Dose Admin Aspirin 81 mg 09/10/24 09:00 09/14/24 09:31 Aspirin 81 Mg Chew PO 10/10/24 08:59 81 mg DAILY CORINNA Administration Atenolol 12.5 mg 09/10/24 09:00 09/14/24 09:38 Atenolol 25 Mg Tablet PO 10/10/24 08:59 12.5 mg DAILY CORINNA Administration Enoxaparin Sodium 40 mg 09/10/24 11:00 09/14/24 12:34 Enoxaparin Inj 40 Mg/0.4 Ml Syr SQ 10/10/24 10:59 Not Given Q24H [facility] Insulin Aspart 0 units 09/14/24 06:00 09/14/24 12:52 Insulin Aspart Per Unit Charge SC 10/09/24 16:29 Not Given Q6H [facility] Insulin Glargine 6 units 09/10/24 09:00 09/14/24 09:39 Lantus Per Unit Charge SQ 10/10/24 08:59 Not Given DAILY CORINNA Isosorbide Mononitrate 60 mg 09/10/24 09:00 09/14/24 10:50 Isosorbide [place] Extended Rel 60 Mg Tabcr PO 10/10/24 08:59 60 mg QAM CORINNA Administration Miscellaneous 15 - 30 gm 09/09/24 14:45 09/09/24 20:47 Carbohydrates For Hypoglycemia PO 10/09/24 14:44 30 gm UD PRN Administration Hypoglycemia Protocol Pantoprazole Sodium 40 mg 09/10/24 09:00 09/14/24 09:38 Pantoprazole 40 Mg Tab PO 10/10/24 08:59 40 mg QAM CORINNA Administration Potassium Phosphate 1 tab 09/13/24 13:00 09/14/24 09:36 Pot Phosphate Monobasic W/ Sod Tab PO 09/15/24 09:01 1 tab QID CORINNA Administration Probenecid 250 mg 09/09/24 21:00 09/14/24 09:37 Probenecid 500 Mg Tab PO 10/09/24 20:59 250 mg BID CORINNA Administration Saccharomyces Boulardii 250 mg 09/10/24 18:15 09/14/24 09:37 Saccharomyces Boulardii 250 Mg Cap PO 10/10/24 18:14 250 mg DAILY CORINNA Administration Simvastatin 20 mg 09/09/24 21:00 09/13/24 20:23 Simvastatin 20 Mg Tab PO 10/09/24 20:59 20 mg PM CORINNA Administration NPO Date Last Intake of Fluids: 09/14/24 Time Last Intake of Fluids: 11:00 Last Intake of Fluids Comment: sip with pills Date Last Intake of Solids: 09/13/24 Time Last Intake of Solids: 08:00 Past Medical History Medical History Proteinuria Chronic gout Exercise / Class Metabolic Activity III < 4 Walking/Shop/Light housework Past Family History Family History Brother Myocardial infarction Cancer Prostate cancer Daughter Cancer Father Myocardial infarction Denies family history of Ovarian cancer Breast cancer Colorectal cancer Past Surgical History Surgical History History of basal cell carcinoma excision History of prostate surgery History of bilateral cataract extraction History of shoulder surgery History of hernia repair History of thumb surgery History of coronary artery stent placement Past Anesthesia History No Hx of Anesthesia Complications and No Family Hx of Anesthesia Complications History of PONV No Hx of PONV and No Hx of Motion Sickness Social History Smoking Status: Never smoker Do You Dip or Chew Tobacco: No Hx Alcohol Use: No Alcohol type: hard liquor Hx Substance Use: No substance use type: does not use Physical Exam Vital Signs Last Vital Signs Temp 36.9 C 09/14/24 13:55 Pulse 70 09/14/24 13:51 Resp 16 09/14/24 13:55 BP 141/74 H 09/14/24 13:55 Pulse Ox 99 09/14/24 13:55 O2 Del Method Room Air 09/14/24 13:55 O2 Flow Rate 0 09/14/24 12:16 Testing Laboratory Results 09/14/24 11:48 09/14/24 11:48 Urine Color Yellow 09/09/24 12:10 Urine Appearance Clear (Clear) 09/09/24 12:10 Urine pH 5.5 (4.5-7.5) 09/09/24 12:10 Ur Specific [place] 1.021 (1.000-1.030) 09/09/24 12:10 Urine Protein Trace (Negative) H 09/09/24 12:10 Urine Glucose (UA) Negative (Negative) 09/09/24 12:10 Urine Ketones Negative (Negative) 09/09/24 12:10 Urine Nitrite Negative (Negative) 09/09/24 12:10 Ur Leukocyte Esterase Negative (Negative) 09/09/24 12:10 Urine WBC (Auto) 0-5 /hpf (0-5) 09/09/24 12:10 Urine RBC (Auto) 0-2 /hpf (0-2) 09/09/24 12:10 U Hyaline Cast (Auto) 6-10 /lpf (0-2) H 09/09/24 12:10 U Epithel Cells (Auto) 0-2 /hpf (0-2) 09/09/24 12:10 Urine Bacteria (Auto) None Seen (None Seen) 09/09/24 12:10 Blood Type B Positive 09/13/24 08:29 Antibody Screen NEGATIVE 09/13/24 08:29 09/14/24 09/14/24 11:51 05:41 POC Glucose 109 H 74 Electrocardiogram Date: 09/09/24 Findings: + NSR @ (SR @ 84 w/ 1st degree AVB) and + LBBB Echocardiogram Date: 09/27/21 EF: 55% LV Function: normal RWMA: + none Other Findings: + diastolic dysfunction (Grade 1) Valvular Disease: + no significant valvular disease
[2024-09-14] MEDS ORDERED: ATROPINE SULFATE 0.1 MG/ML 10ML SYR IV PRN (14:23)
[2024-09-14] MEDS ORDERED: ePHEDrine sulfate 50 MG/ML AMP IV PRN (14:23)
--- NOTE | 2024-09-14 15:45 | GI REPORT ---
[facility] Patient: JERE GARCIA : 1935 Sex at : Male Age: 89 Years Procedure: Colonoscopy Date: 09/14/2024 Attending Physician: Corby Mera MD Referring MD: Referred Self; Jeana Kelley Md Indications: - Diarrhea suspected colitis Medications: - Monitored Anesthesia Care Complications: - No immediate complications. Estimated Blood Loss: - Estimated blood loss was minimal. Procedure: - The adult colonoscope was introduced through the anus and advanced to the cecum, identified by appendiceal orifice and ileocecal valve. - The colonoscopy was somewhat difficult due to poor bowel prep. - The patient tolerated the procedure well. Findings: - The perianal examination was normal. - Discontinuous areas of nonbleeding ulcerated mucosa with no stigmata of recent bleeding were present from anus to hepatic flexure. Biopsies were taken with a cold forceps for histology. Estimated blood loss was minimal. - Large amount of retained vision with urine fluid in the cecum obscuring the IC valve making TI intubation unobtainable Impression: - Large amount of retained vision with urine fluid in the cecum obscuring the IC valve making TI intubation unobtainable - Mucosal ulceration from anus to hepatic flexure. Biopsied. - Is a nonspecific colitis. Atypical is the punched-out ulcerations throughout and then surrounded by relatively normal mucosa. Await biopsies. Check for CMV. Not a classic appearance for Crohn's disease or ulcerative colitis. Though Crohn's would be the most probable diagnosis Recommendation: - Await pathology results. - Imodium as needed. Procedure Code(s): - 01004, Colonoscopy, flexible; with biopsy, single or multiple Diagnosis Code(s): - K63.3, Ulcer of intestine CPT(R) - 2022 copyright [employer]. All Rights Reserved. The CPT codes, CCI edits and ICD codes generated are intended as suggestions and were generated based on input data. These codes are preliminary and upon supervisor press room review may be revised to meet current compliance and payer requirements. The provider is responsible for the final determination of appropriate codes, and modifiers. Corby Mera MD This document has been electronically signed. Note Initiated:09/14/2024 Note Completed:09/14/2024 3:44 PM [id number]
[2024-09-14 16:00] VITALS: RESP 18
[2024-09-14] MEDS ORDERED: LOPERAMIDE HCL 2 MG CAP PO PRN (16:52)
[2024-09-14] MEDS: MAGNESIUM SULFATE / D5W 1 GM/100 ML BAG IV ONE (16:54)
[2024-09-14] MEDS: LIDOCAINE 2% 2 ML VIAL/AMP(20MG/ML) INFIL ONE (16:54)
[2024-09-14] MEDS: PROPOFOL IV EMULSION 10 MG/ML 20 ML VIAL IV ONE (16:54)
[2024-09-14] MEDS: POTASSIUM CHLORIDE CRTAB 20 MEQ TABCR PO STA (16:56)
--- NOTE | 2024-09-14 17:31 | Anesthesiology Progress Note ---
Date of Service September 14, 2024 Anesthesia Post Procedure Vital Signs Vital Signs: Temp Pulse Pulse Pulse Resp BP BP 09/14/24 16:30 36.4 C L 93 H 18 135/72 09/14/24 16:13 67 18 135/66 09/14/24 15:59 68 18 124/76 09/14/24 15:43 58 L 20 92/49 L 09/14/24 13:55 36.9 C 16 141/74 H 09/14/24 13:51 70 09/14/24 13:43 36.8 C 80 17 125/70 09/14/24 13:01 36.8 C 73 17 121/66 09/14/24 12:31 36.9 C 70 17 119/66 09/14/24 12:16 36.8 C 74 17 119/63 09/14/24 11:57 36.9 C 73 17 117/54 L 09/14/24 10:44 72 09/14/24 10:35 36.6 C 73 18 115/56 L 09/14/24 07:10 37.3 C 64 18 117/51 L 09/14/24 03:45 36.8 C 69 18 112/86 09/13/24 23:51 36.3 C L 80 18 120/63 09/13/24 21:44 72 09/13/24 19:30 36.6 C 82 18 147/75 H Pulse Ox O2 Del Method O2 Flow Rate 09/14/24 16:30 100 Room Air 09/14/24 16:13 94 Room Air 09/14/24 15:59 94 Room Air 09/14/24 15:43 99 Room Air 09/14/24 13:55 99 Room Air 09/14/24 13:51 09/14/24 13:43 99 09/14/24 13:01 97 09/14/24 12:31 99 09/14/24 12:16 100 0 09/14/24 11:57 99 0 09/14/24 10:44 09/14/24 10:35 96 Room Air 09/14/24 07:10 96 Room Air 09/14/24 03:45 97 Room Air 09/13/24 23:51 97 Room Air 09/13/24 21:44 09/13/24 19:30 100 Room Air Transfer of Care Handoff Completed per policy Notes Mental Status: alert / awake / arousable Patient Amnestic to Procedure: Yes Nausea / Vomiting: adequately controlled Pain: adequately controlled Airway Patency, RR, SpO2: stable & adequate BP & HR: stable & adequate Hydration State: stable & adequate Anesthetic Complications: no major complications apparent
[2024-09-15 06:47] LABS: Hematocrit (blood only) 24.8 % (42.0-52.0); Hemoglobin 8.9 g/dl (14.0-18.0); Mean Corpuscular Hemoglobin 30.3 pg (25.0-34.0); Mean Corpuscular Hgb Conc 35.9 g/dL (32.0-36.0); Mean Corpuscular Volume 84.4 fL (80.0-100.0); Mean Platelet Volume 9.3 fL (9.4-12.4); Platelet Count 217 K/uL (130-400); RDW Coefficient of Variation 14.3 % (11.5-14.5); RDW Standard Deviation 44.3 fL (36.4-46.3); Red Blood Count 2.94 M/uL (4.70-6.10); White Blood Count 7.27 K/ul (4.8-10.8)
[2024-09-15 07:03] LABS: BUN Creatinine Ratio 8.9 (10-20); Calcium 8.3 mg/dl (8.6-10.3); Creatinine Clr Calc Pharmacy 49.9 ml/min; Magnesium 1.9 mg/dl (1.7-2.4); Potassium 3.9 mmol/L (3.5-5.1)
[2024-09-15 07:09] VITALS: TEMP 98.4; O2SAT 96
[2024-09-15 07:14] LABS: Basophils # (auto) 0.02 K/uL (0.00-0.20); Basophils % (auto) 0.3 %; Echinocytes 1+; Eosinophils % (auto) 2.8 %; Immature Granulocytes % (auto) 1.4 %; Lymphocytes # (auto) 1.52 K/uL (1.20-3.40); Lymphocytes % (auto) 20.9 %; Monocytes # (auto) 0.79 K/uL (0.11-0.59); Monocytes % (auto) 10.9 %; Neutrophils # (auto) 4.64 K/uL (1.40-6.50); Neutrophils % (auto) 63.7 %; Polychromasia 1+
[2024-09-15] MEDS: POTASSIUM CHLORIDE CRTAB 20 MEQ TABCR PO SCH (09:42)
--- NOTE | 2024-09-15 10:11 | Gastroenterology Progress Note ---
Date of Service September 15, 2024 Assessment & Plan (1) Diarrhea: Plan: 89 year old male w/ history of T1DM, dyslipidemia, HTN, ASCVD, GERD, arthritis and others below admitted w/ loose, watery stools for about 1-2 weeks now. Colonoscopy w/ mucosal ulceration from anus to hepatic flexure, biopsies pending No GI contraindication to diet and discharge Will follow up pathology when available Recall GI as needed. Thank you for allowing us to participate in the care of this patient. Please call with any acute changes, questions or concerns. Please see addendum below with additional recommendation from my supervising physician. Admission and Anticipated Discharge Date Admission Date: September 09, 2024 Subjective Feeling well. Wants to go home. Reports stools are improving, no abd pain. No black or bloody stools. Pathology is pending Colonoscopy: Large amount of retained vision with urine fluid in the cecum obscuring the IC valve making TI intubation unobtainable - Mucosal ulceration from anus to hepatic flexure. Biopsied. - Is a nonspecific colitis. Atypical is the punched-out ulcerations throughout and then surrounded by relatively normal mucosa. Await biopsies. Check for CMV. Not a classic appearance for Crohn's disease or ulcerative colitis. Though Crohn's would be the most probable diagnosis Review of Systems Review of Systems: All other findings negative except as noted in HPI. Physical Exam Constitutional: WD/WN, vitals as above Respiratory: normal respiratory effort, lungs clear to auscultation Cardiovascular: Rate/Rhythm: regular rate and regular rhythm Gastrointestinal (Abdomen): normal bowel sounds, soft, nontender, no hepatosplenomegaly Skin: no rashes, warm and dry Results & Data Results & Data Vital Signs (Past 12 Hours) Vital Signs Temp Pulse Resp BP Pulse Ox O2 Del Method 09/15/24 07:08 98.4 F 75 18 132/62 96 Room Air 09/14/24 23:44 98.6 F 67 18 112/64 95 Room Air Laboratory Results 09/15/24 09/15/24 09/14/24 Range/Units 07:04 06:07 20:28 WBC 7.27 (4.8-10.8) K/ul RBC 2.94 L (4.70-6.10) M/uL Hgb 8.9 L (14.0-18.0) g/dl Hct 24.8 L (42.0-52.0) % MCV 84.4 (80.0-100.0) fL MCH 30.3 (25.0-34.0) pg MCHC 35.9 (32.0-36.0) g/dL RDW Std Deviation 44.3 (36.4-46.3) fL RDW Coeff of Susana 14.3 (11.5-14.5) % Plt Count 217 (130-400) K/uL MPV 9.3 L (9.4-12.4) fL Immature Gran % (Auto) 1.4 % Neut % (Auto) 63.7 % Lymph % (Auto) 20.9 % [place] % (Auto) 10.9 % Eos % (Auto) 2.8 % Baso % (Auto) 0.3 % Neut # (Auto) 4.64 (1.40-6.50) K/uL Lymph # (Auto) 1.52 (1.20-3.40) K/uL [place] # (Auto) 0.79 H (0.11-0.59) K/uL Eos # (Auto) 0.20 (0.00-0.50) K/uL Baso # (Auto) 0.02 (0.00-0.20) K/uL Immature Gran # (Auto) 0.10 (0.01-0.20) K/uL Polychromasia 1+ Echinocytes 1+ ESR 30 H (0-20) mm/hr Sodium 129 L (136-145) mmol/L Potassium 3.9 D (3.5-5.1) mmol/L Chloride 99 (98-107) mmol/L Carbon Dioxide 23 (21-32) mmol/L Anion Gap 7 (3-11) BUN 9 (6-23) mg/dl Creatinine 1.01 (0.6-1.4) mg/dl Est Cr Clr Drug Dosing 49.9 ml/min eGFR 71.98 BUN/Creatinine Ratio 8.9 L (10-20) Glucose 122 H (70-99(Fasting)) mg/dl POC Glucose 134 H 212 H (70-99) mg/dl Calcium 8.3 L (8.6-10.3) mg/dl Magnesium 1.9 (1.7-2.4) mg/dl Blood Type Antibody Screen Crossmatch 09/14/24 09/14/24 09/14/24 Range/Units 17:05 11:51 11:48 WBC (4.8-10.8) K/ul RBC (4.70-6.10) M/uL Hgb 7.6 L (14.0-18.0) g/dl Hct 21.1 L (42.0-52.0) % MCV (80.0-100.0) fL MCH (25.0-34.0) pg MCHC (32.0-36.0) g/dL RDW Std Deviation (36.4-46.3) fL RDW Coeff of Susana (11.5-14.5) % Plt Count (130-400) K/uL MPV (9.4-12.4) fL Immature Gran % (Auto) % Neut % (Auto) % Lymph % (Auto) % [place] % (Auto) % Eos % (Auto) % Baso % (Auto) % Neut # (Auto) (1.40-6.50) K/uL Lymph # (Auto) (1.20-3.40) K/uL [place] # (Auto) (0.11-0.59) K/uL Eos # (Auto) (0.00-0.50) K/uL Baso # (Auto) (0.00-0.20) K/uL Immature Gran # (Auto) (0.01-0.20) K/uL Polychromasia Echinocytes ESR (0-20) mm/hr Sodium 130 L (136-145) mmol/L Potassium 3.0 L (3.5-5.1) mmol/L Chloride 102 (98-107) mmol/L Carbon Dioxide 22 (21-32) mmol/L Anion Gap 6 (3-11) BUN 10 (6-23) mg/dl Creatinine 1.05 (0.6-1.4) mg/dl Est Cr Clr Drug Dosing 48.0 ml/min eGFR 68.70 BUN/Creatinine Ratio 9.5 L (10-20) Glucose 102 H (70-99(Fasting)) mg/dl POC Glucose 104 H 109 H (70-99) mg/dl Calcium 7.9 L (8.6-10.3) mg/dl Magnesium 1.6 L (1.7-2.4) mg/dl Blood Type Antibody Screen Crossmatch 09/13/24 Range/Units 08:29 WBC (4.8-10.8) K/ul RBC (4.70-6.10) M/uL Hgb (14.0-18.0) g/dl Hct (42.0-52.0) % MCV (80.0-100.0) fL MCH (25.0-34.0) pg MCHC (32.0-36.0) g/dL RDW Std Deviation (36.4-46.3) fL RDW Coeff of Susana (11.5-14.5) % Plt Count (130-400) K/uL MPV (9.4-12.4) fL Immature Gran % (Auto) % Neut % (Auto) % Lymph % (Auto) % [place] % (Auto) % Eos % (Auto) % Baso % (Auto) % Neut # (Auto) (1.40-6.50) K/uL Lymph # (Auto) (1.20-3.40) K/uL [place] # (Auto) (0.11-0.59) K/uL Eos # (Auto) (0.00-0.50) K/uL Baso # (Auto) (0.00-0.20) K/uL Immature Gran # (Auto) (0.01-0.20) K/uL Polychromasia Echinocytes ESR (0-20) mm/hr Sodium (136-145) mmol/L Potassium (3.5-5.1) mmol/L Chloride (98-107) mmol/L Carbon Dioxide (21-32) mmol/L Anion Gap (3-11) BUN (6-23) mg/dl Creatinine (0.6-1.4) mg/dl Est Cr Clr Drug Dosing ml/min eGFR BUN/Creatinine Ratio (10-20) Glucose (70-99(Fasting)) mg/dl POC Glucose (70-99) mg/dl Calcium (8.6-10.3) mg/dl Magnesium (1.7-2.4) mg/dl Blood Type B Positive Antibody Screen NEGATIVE Crossmatch See Detail PG Care Time/CCT Total # of Minutes Spent Total Time Spent with Patient: Total time spent is greater than 50% in coordination of care (as documented) at patient's floor/unit and/or counseling patient: Coding Diagnoses Diarrhea R19.7 Diarrhea type: unspecified type (1) Diarrhea Diarrhea type: unspecified type Qualified Code(s): R19.7 - Diarrhea, unspecified
[2024-09-15 13:10] VITALS: BP 120/65; PULSE 73
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
== END 2024-09-15 13:15 | disposition home or self-care (01) | DRG 391 ==
LOC: ED 09:08 → 2S 12:04 → SUATTDRO 12:04 → 2S 14:15
DX: I95.9 Hypotension, unspecified; E87.1 Hypo-osmolality and hyponatremia; E43 Unspecified severe protein-calorie malnutrition; Z88.0 Allergy status to penicillin; K52.9 Noninfective gastroenteritis and colitis, unspecified; N17.9 Acute kidney failure, unspecified; E87.6 Hypokalemia; I25.10 Atherosclerotic heart disease of native coronary artery without angina pectoris; L93.0 Discoid lupus erythematosus; E10.9 Type 1 diabetes mellitus without complications; K63.3 Ulcer of intestine; E83.42 Hypomagnesemia; Z66 Do not resuscitate; Z79.82 Long term (current) use of aspirin; I10 Essential (primary) hypertension; R79.89 Other specified abnormal findings of blood chemistry; E83.39 Other disorders of phosphorus metabolism; I44.7 Left bundle-branch block, unspecified; E86.0 Dehydration; Z79.4 Long term (current) use of insulin; K21.9 Gastro-esophageal reflux disease without esophagitis; D64.9 Anemia, unspecified

== ENCOUNTER 2024-10-29 00:31 | Inpatient (IN) ==
--- NOTE | 2024-10-29 01:24 | Emergency Department Note ---
Impression & Plan Acute hyponatremia, Diarrhea, JULIENNE (acute kidney injury) Admit to [facility] ED Provider Note NAME: JERE GARCIA AGE: 89 SEX: Male INFORMANT: Patient ED PROVIDER(S): Sanaz Brock DO CHIEF COMPLAINT: diarrhea and dehydration PLAN: Disposition: admit to the [facility] MEDICAL DECISION MAKING: this is an 89-year-old male patient with a history of diabetes and renal insufficiency who presents to the emergency department with ongoing diarrhea. The patient is concerned because he had a low blood sugar reading and has persistent uncontrollable diarrhea. Patient describes no taste to food with persistent uncontrollable diarrhea. He states that he recently had a Dexcom placed to monitor his blood sugar and had low blood sugar readings overnight. Laboratory studies here in the emergency department revealed white blood cell count of 28.3. Hemoglobin of 8.9. Sodium was extremely low at 115. BUN of 41, creatinine of 1.5. Glucose of 130. Procalcitonin of 1.12 and a normal lactate. Patient was started on a bolus of IV normal saline solution as he appears dramatically dehydrated. The patient describes having a recent colonoscopy because of the chronic copious diarrhea but states that this was normal. He also explains that his chronic stools have turned darker in color as of lately despite having a transfusion approximately 1 month ago. Care/management discussed with: manager of sustainability and [facility] Triage Nursing notes: reviewed and agree with them. Vital Signs: reviewed and remarkable for hypotension Chronic Medical/Social Conditions affecting care: follows with nephrology for renal insufficiency Prior/ Outside/ External records reviewed: previous inpatient hospitalization in August 2024 with significant hypomagnesemia and hypokalemia Differential Diagnosis: acute renal failure, JULIENNE, significant electrolyte abnormality Diagnostics, independently interpreted by me: ECG: normal sinus rhythm at a rate of 85 with first-degree AV block and left bundle branch block. There is no ST segment elevation or signs of ischemia. Cardiac Monitoring: normal sinus rhythm at 77 Imaging studies: Portable chest x-ray: as per Imbro HPI: 89 year old Male arrives for evaluation of Dehydration and hypoglycemia. he patient is concerned because he had a low blood sugar reading and has persistent uncontrollable diarrhea. Patient describes no taste to food with persistent uncontrollable diarrhea. He states that he recently had a Dexcom placed to monitor his blood sugar and had low blood sugar readings overnight. PAST MEDICAL HISTORY: See Below, PAST SURGICAL HISTORY: See Below, SOCIAL HISTORY: See Below, HOME MEDICATIONS: see list ALLERGIES: see list VITALS: See Below PHYSICAL EXAMINATION: HEENT: Head - normocephalic and atraumatic. Pupils are equal, round, and reactive to light. Extraocular eye muscles are intact, and sclera are anicteric. Nose - Extremely dry nasal mucosa without discharge. Mouth - extremely dry buccal mucosa. Oropharynx is nonerythematous and there is no tonsillar exudate or edema noted. Neck: Supple; no JVD, nuchal rigidity, cervical lymphadenopathy, or auscultated bruits. Heart: Regular rate and rhythm. There is a normal S1 and S2 with no murmurs, clicks, or gallops appreciated. Lungs: Clear to auscultation bilaterally with no wheezes, rales, or rhonchi. Abdomen: Soft, completely nontender, nondistended, with good bowel sounds. There are no palpable pulsatile masses or hepatosplenomegaly. There is no guarding, rigidity, or rebound noted. Extremities: moderate edema both in the patient's hands, ankles and feet. There are easily palpable peripheral pulses. Skin: warm and dry with poor turgor and no rashes. Emergency Department course: The patient was evaluated in room C-9. A complete history and physical was performed. An order was placed for continuous cardiac monitoring. The patient was in a normal sinus rhythm at a rate of 77. A twelve-lead EKG was obtained as described above. Laboratory studies were drawn as above. The patient was bolused with IV normal saline solution. A septic protocol was performed as the patient's white blood cell count was 28.3. I discussed the case with the [facility] Hospitalist group and they will evaluate for further inpatient care Past Med/Surg History Problem List (Updated 10/29/24 @ 07:32 by Sanaz Brock DO) JULIENNE (acute kidney injury) (Acute) Diarrhea (Acute) Acute hyponatremia (Acute) Hypocalcemia Hyponatremia Shingles Bilateral lower extremity edema Encounter for examination following treatment at hospital Anemia GERD (gastroesophageal reflux disease) Metallic taste Lumbar spondylosis Lumbar disc herniation Lumbar radiculopathy ASCVD (arteriosclerotic cardiovascular disease) (Chronic) Diabetic nephropathy (Acute) Hypertension (Chronic) Diabetes mellitus Acute radicular low back pain Routine health maintenance Elevated TSH Lupus (Chronic) Dyslipidemia (Chronic) 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, with long-term current use of insulin (Chronic) Arthritis (Chronic) Medical History Proteinuria Chronic gout Surgical History History of basal cell carcinoma excision History of prostate surgery History of bilateral cataract extraction History of shoulder surgery History of hernia repair History of thumb surgery History of coronary artery stent placement Family History Brother Myocardial infarction Cancer Prostate cancer Daughter Cancer Father Myocardial infarction Denies family history of Ovarian cancer Breast cancer Colorectal cancer Social History Smoking Status: Never smoker Second Hand Exposure: No; Do You Dip or Chew Tobacco: No; Hx Alcohol Use: No Hx Substance Use: No Preferred Language: Sierra Leonean Communication Ability: Effective Visual Impairment: No Limitations Hearing Ability: Normal Spinning Bath Person Required: No Beliefs That Will Affect Care: None marital status: Current Living Situation: Spouse current occupational status: retired 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 [employer] How many Children do You have: 3 Other Information That Helps Us Care for You: No Feels Safe at Home: Yes Safety Concerns: Feels Safe At This Time Childhood Exposure to Second-Hand Smoke: Yes Diet: regular caffeine: Yes (coffee, tea, and soda ) Dental Care, Regularly: Yes Physical Activity Frequency: Daily Seatbelt Use: always Sunscreen Use: Yes Assistive Devices: None Allergies Allergies Allergy/AdvReac Type Severity Reaction Status Date / Time Penicillins Allergy Unknown AMOXICILLIN Verified 10/10/24 10:32 - UNKNOWN RXN allopurinol Allergy Rash Verified 10/10/24 10:32 Home Meds Home Medications Medication Instructions Recorded Confirmed aspirin 81 mg chewable tablet 81 mg PO DAILY 02/08/19 10/29/24 isosorbide mononitrate 60 mg 60 mg PO QAM 02/08/19 10/29/24 tablet,extended release 24 hr nitroglycerin 0.4 mg sublingual 0.4 mg sublingual Q5M PRN Chest 02/08/19 10/29/24 tablet Pain atenolol 25 mg tablet 12.5 mg PO DAILY 03/30/19 10/29/24 cholecalciferol (vitamin D3) 50 2,000 units PO DAILY 03/30/19 10/29/24 mcg (2,000 unit) capsule probenecid 500 mg tablet 250 mg PO BID 03/30/19 10/29/24 cyanocobalamin (vitamin B-12) 1,000 mcg PO DAILY 04/24/20 10/29/24 1,000 mcg capsule iron,carbonyl 65 mg-vitamin C 125 1 tab PO DAILY 10/05/20 10/29/24 mg tablet,delayed release (Vitron-C) fluocinonide 0.05 % topical 1 applic topical BID PRN Other 10/26/20 10/29/24 ointment metronidazole 0.75 % topical gel 1 applic topical BID PRN Other 10/26/20 10/29/24 (Rosadan) furosemide 20 mg tablet (Lasix) 20 mg PO .3X TIMES WEEK PRN Fluid 09/17/23 10/29/24 Retention gabapentin 100 mg capsule 100 mg PO TID PRN pain 09/17/23 10/29/24 omeprazole 20 mg capsule,delayed 20 mg PO QAM 09/09/24 10/29/24 release simvastatin 20 mg tablet 20 mg PO PM 09/09/24 10/29/24 insulin aspart U-100 100 unit/mL 3 unit subcut TID 09/29/24 10/29/24 (3 mL) subcutaneous pen (Novolog FlexPen U-100 Insulin aspart) insulin glargine 100 unit/mL (3 6 unit subcut HS 10/29/24 10/29/24 mL) subcutaneous pen (Lantus Solostar U-100 Insulin) Previous Rx's Medication Instructions Recorded blood sugar diagnostic (ObeoTouch #300 ea 04/04/24 Ultra Test strips) lisinopril 40 mg tablet 40 mg PO DAILY #90 tabs 08/18/24 lancets 33 gauge (OneTouch [place]victoria #100 ea 09/22/24 Plus Lancet) lafuzc-ulpsqjel-thhavwg 1 cap PO QID #120 caps 09/26/24 36,000-114,000-180,000 unit capsule,delay rel (Creon) mesalamine 1.2 gram tablet,delayed 2.4 g (2 x 1.2 gram) PO BID 30 09/26/24 release days #120 tabs valacyclovir 1 gram tablet 1,000 mg PO BID #14 tabs 10/03/24 (Valtrex) pen needle, diabetic 31 gauge x #200 ea 10/13/24 5/16" (1st Tier Unifine Pentips) Results & Data (ED) Vital Signs Vital Signs - 24 hr 10/29/24 00:42 10/29/24 00:51 10/29/24 02:02 Temperature 36.8 C Temperature Source Oral Pulse Rate 84 77 78 Pulse Rate [Apical] Respiratory Rate 16 Respiratory Effort / Characteristics Non-Labored Spontaneous Respiratory Depth Normal Respiratory Pattern Regular Blood Pressure 103/54 L Blood Pressure [Left Arm] Blood Pressure Mean 70 Blood Pressure Mean [Left Arm] Blood Pressure Position Lying Blood Pressure Position [Left Arm] Pulse Oximetry 92 97 Oxygen Delivery Method Room Air Room Air Sepsis Recent Fever Within 48 Hours No Sepsis New/Unexplained Change in Mental Status N/A Sepsis Action Taken by Nursing No Action Required 10/29/24 02:21 10/29/24 04:03 Temperature Temperature Source Pulse Rate Pulse Rate [Apical] 79 83 Respiratory Rate 16 16 Respiratory Effort / Characteristics Non-Labored Spontaneous Non-Labored Spontaneous Respiratory Depth Normal Normal Respiratory Pattern Regular Regular Blood Pressure Blood Pressure [Left Arm] 109/52 L 93/48 L Blood Pressure Mean Blood Pressure Mean [Left Arm] 71 63 Blood Pressure Position Blood Pressure Position [Left Arm] Lying Lying Pulse Oximetry 98 96 Oxygen Delivery Method Room Air Room Air Sepsis Recent Fever Within 48 Hours Sepsis New/Unexplained Change in Mental Status Sepsis Action Taken by Nursing Laboratory Data 10/29/24 00:46 10/29/24 00:46 Lab Results 10/29/24 10/29/24 10/29/24 Range/Units 00:46 01:55 01:57 WBC 28.33 H (4.8-10.8) K/ul RBC 2.89 L (4.70-6.10) M/uL Hgb 8.9 L (14.0-18.0) g/dl Hct 24.9 L (42.0-52.0) % MCV 86.2 (80.0-100.0) fL MCH 30.8 (25.0-34.0) pg MCHC 35.7 (32.0-36.0) g/dL RDW Std Deviation 45.6 (36.4-46.3) fL RDW Coeff of Ssuana 14.4 (11.5-14.5) % Plt Count 295 (130-400) K/uL MPV 9.4 (9.4-12.4) fL Immature Gran % (Auto) 2.3 % Neut % (Auto) 90.4 % Lymph % (Auto) 2.5 % Emmet % (Auto) 3.8 % Eos % (Auto) 0.8 % Baso % (Auto) 0.2 % Neut # (Auto) 25.60 H (1.40-6.50) K/uL Lymph # (Auto) 0.71 L (1.20-3.40) K/uL Emmet # (Auto) 1.07 H (0.11-0.59) K/uL Eos # (Auto) 0.24 (0.00-0.50) K/uL Baso # (Auto) 0.06 (0.00-0.20) K/uL Immature Gran # (Auto) 0.65 H (0.01-0.20) K/uL Polychromasia 1+ Echinocytes 2+ Acanthocytes (Spur) 2+ Sodium 115 L* (136-145) mmol/L Potassium 3.5 (3.5-5.1) mmol/L Chloride 84 L (98-107) mmol/L Carbon Dioxide 23 (21-32) mmol/L Anion Gap 8 (3-11) BUN 41 H (6-23) mg/dl Creatinine 1.57 H (0.6-1.4) mg/dl Est Cr Clr Drug Dosing 29.9 ml/min eGFR 42.39 BUN/Creatinine Ratio 26.1 H (10-20) Glucose 130 H (70-99(Fasting)) mg/dl Osmolality 251 L (280-300) mOsm/kg Lactate 1.0 (0.4-2.0) mmol/L Calcium 8.1 L (8.6-10.3) mg/dl Magnesium 1.9 (1.7-2.4) mg/dl Total Bilirubin 0.7 (0.2-1.0) mg/dl AST 33 (13-39) U/L ALT 17 (7-52) U/L Alkaline Phosphatase 76 (34-104) U/L Troponin I High Sens 12.6 (0-20) pg/ml Total Protein 5.7 L (6.0-8.3) gm/dl Albumin 2.6 L (3.4-5.0) gm/dl Globulin 3.1 (2.5-4.0) gm/dl Albumin/Globulin Ratio 0.8 L (0.9-2) Procalcitonin 1.12 H (0-0.5) ng/ml Urine Color Urine Appearance (Clear) Urine pH (4.5-7.5) Ur Specific [place] (1.000-1.030) Urine Protein (Negative) Urine Glucose (UA) (Negative) Urine Ketones (Negative) Urine Blood (Negative) Urine Nitrite (Negative) Urine Bilirubin (Negative) Urine Urobilinogen (Negative) Ur Leukocyte Esterase (Negative) Urine WBC (Auto) (0-5) /hpf Urine RBC (Auto) (0-2) /hpf U Hyaline Cast (Auto) (0-2) /lpf U Epithel Cells (Auto) (0-2) /hpf Urine Bacteria (Auto) (None Seen) Urine Mucus (None Prsent) Urine Osmolality (500-800) mOsm/kg Ur Random Sodium mmol/L Stl C. cayetanensis PCR (NotDetected) Stool Rotavirus A PCR (NotDetected) Stl Adenov F 40/41 PCR (NotDetected) Stool Astrovirus (PCR) (NotDetected) Stool Campylobacter PCR (NotDetected) Stool Cryptosporidium PCR (NotDetected) Stl E.coli Shiga Tox PCR (NotDetected) Stl Enterotoxigenic E PCR (NotDetected) Stool EPEC (PCR) (NotDetected) Stool EAEC (PCR) (NotDetected) Stl E. histolytica PCR (NotDetected) Stool Giardia Lamblia PCR (NotDetected) Stool Salmonella PCR (NotDetected) Stool Sapovirus (PCR) (NotDetected) Stl P. shigelloides PCR (NotDetected) Stl Shigella/EIEC PCR (NotDetected) St Y.enterocolitica PCR (NotDetected) Stool Vibrio (PCR) (NotDetected) Stl Vibrio cholerae PCR (NotDetected) Stl Norovirus GI/GII PCR (NotDetected) Adenovirus (PCR) Not Detected (NotDetected) B. pertussis DNA (PCR) Not Detected (NotDetected) B.parapertussis DNA PCR Not Detected (NotDetected) C. pneumoniae DNA (PCR) Not Detected (NotDetected) Coronavirus OC43 (PCR) Not Detected (NotDetected) Coronavirus HKU1 (PCR) Not Detected (NotDetected) Coronavirus 229E (PCR) Not Detected (NotDetected) SARS-CoV-2 (PCR) Not Detected (NotDetected) Coronavirus NL63 (PCR) Not Detected (NotDetected) Human Metapneumovir PCR Not Detected (NotDetected) Influenza Type A (PCR) Not Detected (NotDetected) Influenza Type B (PCR) Not Detected (NotDetected) M. pneumoniae (PCR) Not Detected (NotDetected) Parainfluenza 1 (PCR) Not Detected (NotDetected) Parainfluenza 2 (PCR) Not Detected (NotDetected) Parainfluenza 3 (PCR) Not Detected (NotDetected) Parainfluenza 4 (PCR) Not Detected (NotDetected) RSV (PCR) Not Detected (NotDetected) Entero/Rhino (PCR) Not Detected (NotDetected) 10/29/24 10/29/24 Range/Units 02:48 03:52 WBC (4.8-10.8) K/ul RBC (4.70-6.10) M/uL Hgb (14.0-18.0) g/dl Hct (42.0-52.0) % MCV (80.0-100.0) fL MCH (25.0-34.0) pg MCHC (32.0-36.0) g/dL RDW Std Deviation (36.4-46.3) fL RDW Coeff of Susana (11.5-14.5) % Plt Count (130-400) K/uL MPV (9.4-12.4) fL Immature Gran % (Auto) % Neut % (Auto) % Lymph % (Auto) % Emmet % (Auto) % Eos % (Auto) % Baso % (Auto) % Neut # (Auto) (1.40-6.50) K/uL Lymph # (Auto) (1.20-3.40) K/uL Emmet # (Auto) (0.11-0.59) K/uL Eos # (Auto) (0.00-0.50) K/uL Baso # (Auto) (0.00-0.20) K/uL Immature Gran # (Auto) (0.01-0.20) K/uL Polychromasia Echinocytes Acanthocytes (Spur) Sodium (136-145) mmol/L Potassium (3.5-5.1) mmol/L Chloride (98-107) mmol/L Carbon Dioxide (21-32) mmol/L Anion Gap (3-11) BUN (6-23) mg/dl Creatinine (0.6-1.4) mg/dl Est Cr Clr Drug Dosing ml/min eGFR BUN/Creatinine Ratio (10-20) Glucose (70-99(Fasting)) mg/dl Osmolality (280-300) mOsm/kg Lactate (0.4-2.0) mmol/L Calcium (8.6-10.3) mg/dl Magnesium (1.7-2.4) mg/dl Total Bilirubin (0.2-1.0) mg/dl AST (13-39) U/L ALT (7-52) U/L Alkaline Phosphatase (34-104) U/L Troponin I High Sens (0-20) pg/ml Total Protein (6.0-8.3) gm/dl Albumin (3.4-5.0) gm/dl Globulin (2.5-4.0) gm/dl Albumin/Globulin Ratio (0.9-2) Procalcitonin (0-0.5) ng/ml Urine Color Dark Yellow Urine Appearance Clear (Clear) Urine pH 5.5 (4.5-7.5) Ur Specific [place] 1.017 (1.000-1.030) Urine Protein 1+ H (Negative) Urine Glucose (UA) Negative (Negative) Urine Ketones Trace H (Negative) Urine Blood Negative (Negative) Urine Nitrite Negative (Negative) Urine Bilirubin Negative (Negative) Urine Urobilinogen Negative (Negative) Ur Leukocyte Esterase Negative (Negative) Urine WBC (Auto) 0-5 (0-5) /hpf Urine RBC (Auto) 0-2 (0-2) /hpf U Hyaline Cast (Auto) >20 H (0-2) /lpf U Epithel Cells (Auto) 0-2 (0-2) /hpf Urine Bacteria (Auto) None Seen (None Seen) Urine Mucus Present A (None Prsent) Urine Osmolality 389 L (500-800) mOsm/kg Ur Random Sodium 12 mmol/L Stl C. cayetanensis PCR Not Detected (NotDetected) Stool Rotavirus A PCR Not Detected (NotDetected) Stl Adenov F 40/41 PCR Not Detected (NotDetected) Stool Astrovirus (PCR) Not Detected (NotDetected) Stool Campylobacter PCR Not Detected (NotDetected) Stool Cryptosporidium PCR Not Detected (NotDetected) Stl E.coli Shiga Tox PCR Not Detected (NotDetected) Stl Enterotoxigenic E PCR Not Detected (NotDetected) Stool EPEC (PCR) Not Detected (NotDetected) Stool EAEC (PCR) Not Detected (NotDetected) Stl E. histolytica PCR Not Detected (NotDetected) Stool Giardia Lamblia PCR Not Detected (NotDetected) Stool Salmonella PCR Not Detected (NotDetected) Stool Sapovirus (PCR) Not Detected (NotDetected) Stl P. shigelloides PCR Not Detected (NotDetected) Stl Shigella/EIEC PCR Not Detected (NotDetected) St Y.enterocolitica PCR Not Detected (NotDetected) Stool Vibrio (PCR) Not Detected (NotDetected) Stl Vibrio cholerae PCR Not Detected (NotDetected) Stl Norovirus GI/GII PCR Not Detected (NotDetected) Adenovirus (PCR) (NotDetected) B. pertussis DNA (PCR) (NotDetected) B.parapertussis DNA PCR (NotDetected) C. pneumoniae DNA (PCR) (NotDetected) Coronavirus OC43 (PCR) (NotDetected) Coronavirus HKU1 (PCR) (NotDetected) Coronavirus 229E (PCR) (NotDetected) SARS-CoV-2 (PCR) (NotDetected) Coronavirus NL63 (PCR) (NotDetected) Human Metapneumovir PCR (NotDetected) Influenza Type A (PCR) (NotDetected) Influenza Type B (PCR) (NotDetected) M. pneumoniae (PCR) (NotDetected) Parainfluenza 1 (PCR) (NotDetected) Parainfluenza 2 (PCR) (NotDetected) Parainfluenza 3 (PCR) (NotDetected) Parainfluenza 4 (PCR) (NotDetected) RSV (PCR) (NotDetected) Entero/Rhino (PCR) (NotDetected) Administered Medications Sodium Chloride (Nss) 1,000 mls @ 150 mls/hr IV .Q6H40M CORINNA Stop: 10/29/24 12:09 Last Admin: 10/29/24 06:45 Dose: 150 mls/hr Documented By: Discontinued Medications Calcium Carbonate (Calcium Carbonate 500 Mg Chewable Tab) 1,500 mg PO NOW STA Stop: 10/29/24 06:53 Last Admin: 10/29/24 07:04 Dose: Not Given Documented By: Sodium Chloride (Nss) 1,000 mls @ 999 mls/hr IV .Q1H1M ONE Stop: 10/29/24 02:16 Last Infusion: 10/29/24 02:23 Dose: Infused Documented By: Admin: 10/29/24 01:59 Dose: 999 mls/hr Documented By: Sodium Chloride (Nss) 1,000 mls @ 999 mls/hr IV .Q1H1M ONE Stop: 10/29/24 03:20 Last Infusion: 10/29/24 03:37 Dose: Infused Documented By: Admin: 10/29/24 02:23 Dose: 999 mls/hr Documented By: Sodium Chloride (Nss) 1,000 mls @ 999 mls/hr IV .Q1H1M STA Stop: 10/29/24 04:56 Last Infusion: 10/29/24 06:42 Dose: Infused Documented By: Admin: 10/29/24 04:05 Dose: 999 mls/hr Documented By: Imaging Data Radiologist's Impression: Chest X-Ray 10/29/24 01:32 EXAM: XR chest 1V portable CLINICAL HISTORY: Sepsis TECHNIQUE: Radiograph of chest was acquired. COMPARISON: none FINDINGS: Eevated left hemidiaphragm. Mild reticular opacities in bilateral lungs. Rest lungs are clear and well-expanded with no pulmonary infiltrate or pleural effusion. The cardiomediastinal silhouette is within normal limits. Aortic knuckle calcification is seen. No acute osseous abnormality. IMPRESSION: 1. Elevated left hemidiaphragm. 2. Mild reticular opacities in bilateral lungs. Electronically signed by Pradeep Canseco 10-29-2024 03:16 AM Discharge Plan Visit Data Chief Complaint: Diarrhea Stated Complaint: Diarrhea ED Provider: Sanaz Brock Discharge Problem: Acute hyponatremia, Diarrhea, JULIENNE (acute kidney injury) Discharge Instructions Interventions: ED Discharge Assessment Last Done: 10/29/24 05:11
[2024-10-29 01:26] LABS: Hematocrit (blood only) 24.9 % (42.0-52.0); Hemoglobin 8.9 g/dl (14.0-18.0); Mean Corpuscular Hemoglobin 30.8 pg (25.0-34.0); Mean Corpuscular Hgb Conc 35.7 g/dL (32.0-36.0); Mean Corpuscular Volume 86.2 fL (80.0-100.0); Mean Platelet Volume 9.4 fL (9.4-12.4); Platelet Count 295 K/uL (130-400); RDW Coefficient of Variation 14.4 % (11.5-14.5); RDW Standard Deviation 45.6 fL (36.4-46.3); Red Blood Count 2.89 M/uL (4.70-6.10); White Blood Count 28.33 K/ul (4.8-10.8)
[2024-10-29 01:48] LABS: Acanthocytes 2+; Basophils # (auto) 0.06 K/uL (0.00-0.20); Basophils % (auto) 0.2 %; Echinocytes 2+; Eosinophils # (auto) 0.24 K/uL (0.00-0.50); Eosinophils % (auto) 0.8 %; Immature Granulocytes # (auto) 0.65 K/uL (0.01-0.20); Immature Granulocytes % (auto) 2.3 %; Lymphocytes # (auto) 0.71 K/uL (1.20-3.40); Lymphocytes % (auto) 2.5 %; Monocytes # (auto) 1.07 K/uL (0.11-0.59); Monocytes % (auto) 3.8 %; Neutrophils % (auto) 90.4 %; Polychromasia 1+
[2024-10-29 01:59] LABS: Albumin Globulin Ratio 0.8 (0.9-2); Albumin Level 2.6 gm/dl (3.4-5.0); BUN Creatinine Ratio 26.1 (10-20); Bilirubin,Total 0.7 mg/dl (0.2-1.0); Calcium 8.1 mg/dl (8.6-10.3); Creatinine Clr Calc Pharmacy 29.9 ml/min; Globulin 3.1 gm/dl (2.5-4.0); Magnesium 1.9 mg/dl (1.7-2.4); Potassium 3.5 mmol/L (3.5-5.1); Total Protein 5.7 gm/dl (6.0-8.3); Troponin I High Sensitivity 12.6 pg/ml (0-20)
[2024-10-29] MEDS: SODIUM CHLORIDE 0.9% 1,000 ML IV ONE ×2 (01:59→02:23)
--- NOTE | 2024-10-29 02:52 | History & Physical Report ---
Date of Service October 29, 2024 Assessment & Plan (1) Acute hyponatremia: (2) Acute kidney injury: (3) Diarrhea: (4) Hypocalcemia: Plan 89-year-old male PMHx T2DM on insulin, dyslipidemia, HTN, ASCVD, GERD, and arthritis who was recently admitted 09/09 until 09/20/2024 for diarrhea and is presenting today for ongoing diarrhea. ED evaluation reveals leukocytosis 28.33, H&H 8.9/24.9; sodium 115, chloride 84, creatinine 1.57, BUN 41, calcium 8.1, albumin 2.6, procalcitonin 1.12; UA negative; BioFire negative; CXR elevated L hemidiaphragm, mild reticular opacities in bilateral lungs. Provided with 2L NSS in ED. #Hyponatremia Likely secondary to volume losses from ongoing diarrhea. Also was recommended to be on low-sodium diet per PCP note in September, however patient does have chronic hyponatremia documented in history therefore do not recommend low-sodium diet moving forward. Hypovolemic on exam and continuing diarrhea. Suspect low sodium secondary to ongoing diarrhea as well as following low-sodium diet. - Na 115 (baseline appears to be in the 120s)- BMP a.m. - Serum osmol, Urine Na, Urine Osmol pending - Give 1L NSS bolus then at maintenance of 150 mL/h - NaCl tablets BID #JULIENNE Likely secondary to renal hypoperfusion from ongoing volume losses due to diarrhea. - Cr 1.57, BUN 41; UA grossly WNL w/ some mucus- BMP a.m. - Bladder scan as needed - Hold nephrotoxic agents - lisinopril - Fluid resuscitation as above #Hypocalcemia Asymptomatic currently - Ca 8.1; corrected 9.2- repeat AM - Calcium carbonate po x 1 #Diarrhea Diarrhea starting in July 2024, required approximately 1 week of admission to NH. On mesalamine as outpatient and Creon. Hypovolemic on admitting exam. Evaluated by GI 09/26/2024 following interventions: Creon, mesalamine, routine calprotectin, ? repeat colonoscopy. - WBC 28.33- Multifactorial; Colitis vs lupus vs shingles - CMP Na 115, Cl 84, Cr 1.57, BUN 41, Ca 8.1, albumin 2.6, protein 5.7 - Stool biofire + Cdiff pending - IVF as above #Leukocytosis Unclear source of leukocytosis; without infectious symptoms other than diarrhea and some abdominal discomfort; No F/C, N/V, cough, or URI symptoms. - WBC 28.33- Biofire, UA, and CXR negative for source - Recently treated for shingles and completed course; no recent steroids - Additional contributing factors include diarrhea vs lupus flare (although unlikely) vs colitis, among other etiologies - Consider smear if repeat CBC with similar findings #T2DM H/o DMT2, home regimen aspart 3U 3 times daily, glargine 6U at bedtime. - Most recent A1C 08/2024 @ 8.3% - SSI with target BSG range 110-140mg/dL, CF 35, carb ratio 12; Basal 11U BID - BSG ACHS - Pharm glycemic management consult placed, adjust regimen as needed- appreciate assistance #Shingles- Recently started on valacyclovir twice daily and completed course (7 day course)- No longer taking; no flares #HLD- Simvastatin #GERD- Omeprazole #HTN- Lisinopril, isosorbide mononitrate, atenolol, furosemide - HELD medications at admission given soft BPs Dispo: Admit, med/sx VTE Prophylaxis: Heparin This document was dictated utilizing [employer]. Please excuse any grammatical errors that may be secondary to use of this software. Admission and Anticipated Discharge Date Admission Date: 10/29/2024 History of Present Illness Chief Complaint: Diarrhea Primary Care Provider: Melani England MD 89-year-old male PMHx T2DM on insulin, dyslipidemia, HTN, ASCVD, GERD, and arthritis who was recently admitted 09/09 until 09/20/2024 for diarrhea and is presenting today for ongoing diarrhea. Diarrhea has been ongoing since July 2024. States approximately 1 week ago, he slipped diarrhea is becoming more severe and he started to have associated abdominal pain mainly localized to the lower abdomen and rather constant. Patient states that this was new for him as he did not pain with prior episodes of diarrhea. Patient states that he does feel weak at baseline and this is worsened over the past week. No falls or episodes of syncope. States that his stool is normally dark because he takes supplemental iron, has not noticed any blood. Does admit to having mucus in stool. When he has a bowel movement, it is mainly liquid and there are no formed stool. Denying chest pain, shortness of breath, palpitations, N/B, constipation, numbness/tingling, headache, or fever/chills. Patient completed course of antivirals for shingles infection beginning of September. ED evaluation reveals leukocytosis 28.33, H&H 8.9/24.9; sodium 115, chloride 84, creatinine 1.57, BUN 41, calcium 8.1, albumin 2.6, procalcitonin 1.12; UA negative; BioFire negative; CXR elevated L hemidiaphragm, mild reticular opacities in bilateral lungs. Provided with 2L NSS in ED. Please see Dr. Shelton's attestation for adjustments/additions to treatment plan. Allergies Allergy/AdvReac Type Severity Reaction Status Date / Time Penicillins Allergy Unknown AMOXICILLIN Verified 10/10/24 10:32 - UNKNOWN RXN allopurinol Allergy Rash Verified 10/10/24 10:32 Home Medications Medication Instructions Recorded Confirmed Type aspirin 81 mg chewable tablet 81 mg PO DAILY 02/08/19 10/29/24 History isosorbide mononitrate 60 mg 60 mg PO QAM 02/08/19 10/29/24 History tablet,extended release 24 hr nitroglycerin 0.4 mg sublingual 0.4 mg sublingual Q5M PRN Chest 02/08/19 10/29/24 History tablet Pain atenolol 25 mg tablet 12.5 mg PO DAILY 03/30/19 10/29/24 History cholecalciferol (vitamin D3) 50 2,000 units PO DAILY 03/30/19 10/29/24 History mcg (2,000 unit) capsule probenecid 500 mg tablet 250 mg PO BID 03/30/19 10/29/24 History cyanocobalamin (vitamin B-12) 1,000 mcg PO DAILY 04/24/20 10/29/24 History 1,000 mcg capsule iron,carbonyl 65 mg-vitamin C 125 1 tab PO DAILY 10/05/20 10/29/24 History mg tablet,delayed release (Vitron-C) fluocinonide 0.05 % topical 1 applic topical BID PRN Other 10/26/20 10/29/24 History ointment metronidazole 0.75 % topical gel 1 applic topical BID PRN Other 10/26/20 10/29/24 History (Rosadan) furosemide 20 mg tablet (Lasix) 20 mg PO .3X TIMES WEEK PRN Fluid 09/17/23 10/29/24 History Retention gabapentin 100 mg capsule 100 mg PO TID PRN pain 09/17/23 10/29/24 History blood sugar diagnostic ([facility] #[facility] ea 04/04/24 10/10/24 Rx Ultra Test strips) lisinopril 40 mg tablet 40 mg PO DAILY #90 tabs 08/18/24 10/29/24 Rx omeprazole 20 mg capsule,delayed 20 mg PO QAM 09/09/24 10/29/24 History release simvastatin 20 mg tablet 20 mg PO PM 09/09/24 10/29/24 History lancets 33 gauge (OneTouch Delica #100 ea 09/22/24 10/10/24 Rx Plus Lancet) svltox-orrpqlex-xxriaic 1 cap PO QID #120 caps 09/26/24 10/29/24 Rx 36,000-114,000-180,000 unit capsule,delay rel (Creon) mesalamine 1.2 gram tablet,delayed 2.4 g (2 x 1.2 gram) PO BID 30 09/26/24 10/29/24 Rx release days #120 tabs insulin aspart U-100 100 unit/mL 3 unit subcut TID 09/29/24 10/29/24 History (3 mL) subcutaneous pen (Novolog FlexPen U-100 Insulin aspart) valacyclovir 1 gram tablet 1,000 mg PO BID #14 tabs 10/03/24 10/29/24 Rx (Valtrex) pen needle, diabetic 31 gauge x #200 ea 10/13/24 Rx 5/16" (1st Tier Unifine Pentips) insulin glargine 100 unit/mL (3 6 unit subcut HS 10/29/24 10/29/24 History mL) subcutaneous pen (Lantus Solostar U-100 Insulin) Past Med/Surg History Problem List (Updated 10/29/24 @ 03:12 by Tamar Hall PA-C) Hypocalcemia Hyponatremia Shingles Bilateral lower extremity edema Encounter for examination following treatment at hospital Anemia GERD (gastroesophageal reflux disease) Metallic taste Lumbar spondylosis Lumbar disc herniation Lumbar radiculopathy ASCVD (arteriosclerotic cardiovascular disease) (Chronic) Diabetic nephropathy (Acute) Hypertension (Chronic) Diabetes mellitus Acute radicular low back pain Routine health maintenance Elevated TSH Lupus (Chronic) Dyslipidemia (Chronic) 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, with long-term current use of insulin (Chronic) Arthritis (Chronic) Medical History Proteinuria Chronic gout Surgical History History of basal cell carcinoma excision History of prostate surgery History of bilateral cataract extraction History of shoulder surgery History of hernia repair History of thumb surgery History of coronary artery stent placement Family History Brother Myocardial infarction Cancer Prostate cancer Daughter Cancer Father Myocardial infarction Denies family history of Ovarian cancer Breast cancer Colorectal cancer Social History Smoking Status: Unknown if ever smoked Second Hand Exposure: No; Do You Dip or Chew Tobacco: No; Hx Alcohol Use: No Hx Substance Use: No Preferred Language: Brazilian Communication Ability: Effective Visual Impairment: No Limitations Hearing Ability: Normal Loom Cleaner Required: No Beliefs That Will Affect Care: None marital status: Current Living Situation: Spouse current occupational status: retired 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 How many Children do You have: 3 Feels Safe at Home: Yes Childhood Exposure to Second-Hand Smoke: Yes Diet: regular caffeine: Yes (coffee, tea, and soda ) Dental Care, Regularly: Yes Physical Activity Frequency: Daily Seatbelt Use: always Sunscreen Use: Yes Assistive Devices: None Review of Systems Review of Systems: All systems reviewed & are unremarkable except as noted in Subjective Physical Exam Physical Exam: General: No acute distress, malnourished appearing Skin: Warm and dry Head: Normocephalic, atraumatic Eyes: PERRL, conjunctivae clear, sclera non-icteric ENT: External ear and ear canal without swelling; nose atraumatic; oropharynx very dry Neck: Supple, no LAD Cardio: RRR, no M/G/R, S1 and S2 normal Resp: No respiratory distress, Lungs CTA in all lobes bilaterally, no wheezes, rales, or rhonchi Abdomen: Soft, symmetric, nontender; No masses or hepatosplenomegaly; Bowel sounds normoactive MSK: No deformities, full ROM throughout; pulses palpable and equal; no edema. Neuro: Awake, alert; CN grossly intact Psych: Appropriate mood and affect; good judgement and insight. Results & Data Results & Data Vital Signs (Past 12 Hours) Vital Signs Temp Pulse Pulse Resp BP BP Pulse Ox 10/29/24 02:21 79 16 109/52 L 98 10/29/24 02:02 78 97 10/29/24 00:51 36.8 C 77 16 103/54 L 92 10/29/24 00:42 84 O2 Del Method 10/29/24 02:21 Room Air 10/29/24 02:02 Room Air 10/29/24 00:51 Room Air 10/29/24 00:42 Laboratory Results 10/29/24 01:57 Aerobic Blood Culture - Pending Blood Anaerobic Blood Culture - Pending 10/29/24 01:55 Aerobic Blood Culture - Pending Blood Anaerobic Blood Culture - Pending 10/29/24 10/29/24 10/29/24 01:57 01:55 00:46 WBC 28.33 H RBC 2.89 L Hgb 8.9 L Hct 24.9 L MCV 86.2 MCH 30.8 MCHC 35.7 RDW Std Deviation 45.6 RDW Coeff of Susana 14.4 Plt Count 295 MPV 9.4 Immature Gran % (Auto) 2.3 Neut % (Auto) 90.4 Lymph % (Auto) 2.5 Piatt % (Auto) 3.8 Eos % (Auto) 0.8 Baso % (Auto) 0.2 Neut # (Auto) 25.60 H Lymph # (Auto) 0.71 L Piatt # (Auto) 1.07 H Eos # (Auto) 0.24 Baso # (Auto) 0.06 Immature Gran # (Auto) 0.65 H Polychromasia 1+ Echinocytes 2+ Acanthocytes (Spur) 2+ Sodium 115 L* Potassium 3.5 Chloride 84 L Carbon Dioxide 23 Anion Gap 8 BUN 41 H Creatinine 1.57 H Est Cr Clr Drug Dosing 29.9 eGFR 42.39 BUN/Creatinine Ratio 26.1 H Glucose 130 H Lactate 1.0 Calcium 8.1 L Magnesium 1.9 Total Bilirubin 0.7 AST 33 ALT 17 Alkaline Phosphatase 76 Troponin I High Sens 12.6 Total Protein 5.7 L Albumin 2.6 L Globulin 3.1 Albumin/Globulin Ratio 0.8 L Procalcitonin 1.12 H Adenovirus (PCR) Not Detected B. pertussis DNA (PCR) Not Detected B.parapertussis DNA PCR Not Detected C. pneumoniae DNA (PCR) Not Detected Coronavirus OC43 (PCR) Not Detected Coronavirus HKU1 (PCR) Not Detected Coronavirus 229E (PCR) Not Detected SARS-CoV-2 (PCR) Not Detected Coronavirus NL63 (PCR) Not Detected Human Metapneumovir PCR Not Detected Influenza Type A (PCR) Not Detected Influenza Type B (PCR) Not Detected M. pneumoniae (PCR) Not Detected Parainfluenza 1 (PCR) Not Detected Parainfluenza 2 (PCR) Not Detected Parainfluenza 3 (PCR) Not Detected Parainfluenza 4 (PCR) Not Detected RSV (PCR) Not Detected Entero/Rhino (PCR) Not Detected Medications Administered 2L NSS IV Supervising Physician Co-Signing Physician Notes Attending addendum: I have physically seen this patient, have supervised the OFELIA's activities, and agree with the H&P unless as otherwise noted. Assessment and Plan: The patient is an 89-year-old male with past medical history including diabetes mellitus type 2 on insulin, dyslipidemia, hypertension, ASCVD, GERD, arthritis, with history of recent admission from 09/09-09/20/2024 for diarrheal illness. He presents to the emergency department with generalized fatigue, persistent diarrhea, was found to have a sodium of 115, with usual range of 126-130. Baseline creatinine was also found to be increased from 1.27 up to 1.57. [facility]. Acute on chronic hyponatremia- As noted, sodium 115 on admission, with a range typically 126-130 Serum osmolality urine osmolality and urine sodium pending. The patient looks volume depleted and will be treated in that manner Associated acute kidney injury, secondary to volume loss of ongoing diarrhea Placed on sodium chloride 1 g p.o. twice daily Status post 2 L normal saline bolus from the ED Continue additional 1 L normal saline bolus at 150 mL/h Repeat laboratories in the a.m., and then every 4 hours Nonspecific colitis versus atypical Crohn's- Noted on previous workup and previous hospitalization Continue mesalamine, Creon Leukocytosis- WBC 28.33, previously 0.71 Unclear etiology at this time BioFire respiratory testing negative no recent steroid use, possible mild element of hemoconcentration, if increased, may be concerned about MDS repeat laboratories in a.m. and make further assessment at that time Chronic medical conditions: Diabetes mellitus-pharmacy glycemic consult as noted Hyperlipidemia-continue simvastatin GERD-continue omeprazole Hypertension/CAD-holding lisinopril, isosorbide mononitrate, atenolol and furosemide, reassess in the a.m. based on blood pressure results PG Care Time/CCT Total # of Minutes Spent Total Time Spent with Patient: Total time spent is greater than 50% in coordination of care (as documented) at patient's floor/unit and/or counseling patient: Coding Level of Care Code 47322 INT INP/OBS CARE 3/75MIN Diagnoses Acute hyponatremia E87.1 Acute kidney injury N17.9 Diarrhea R19.7 Diarrhea type: unspecified type Hypocalcemia E83.51 (3) Diarrhea Diarrhea type: unspecified type Qualified Code(s): R19.7 - Diarrhea, unspecified
[2024-10-29 02:55] LABS: Adenovirus PCR Not Detected (NotDetected); Bordetella parapertussis PCR Not Detected (NotDetected); Bordetella pertussis PCR Not Detected (NotDetected); Chlamydia pneumoniae PCR Not Detected (NotDetected); Coronavirus 229E PCR Not Detected (NotDetected); Coronavirus CoV-2 (COVID19)PCR Not Detected (NotDetected); Coronavirus HKU1 PCR Not Detected (NotDetected); Coronavirus NL63 PCR Not Detected (NotDetected); Coronavirus OC43PCR Not Detected (NotDetected); Human Metapneumovirus PCR Not Detected (NotDetected); Influenza A PCR Not Detected (NotDetected); Influenza B PCR Not Detected (NotDetected); Mycoplasma pneumoniae PCR Not Detected (NotDetected); Parainfluenza Virus 1 PCR Not Detected (NotDetected); Parainfluenza Virus 2 PCR Not Detected (NotDetected); Parainfluenza Virus 3 PCR Not Detected (NotDetected); Parainfluenza Virus 4 PCR Not Detected (NotDetected); Respiratory Syncytial VirusPCR Not Detected (NotDetected); Rhinovirus/Enterovirus PCR Not Detected (NotDetected)
[2024-10-29 03:17] LABS: Appearance Urine Clear (Clear); Bacteria Urine Automated None Seen (None Seen); Bilirubin Urine Negative (Negative); Blood Urine Negative (Negative); Cast Urine Automated >20 /lpf (0-2); Color Urine Dark Yellow; Epithelial Cell Urine Auto 0-2 /hpf (0-2); Glucose Urine UA Negative (Negative); Ketones Urine Trace (Negative); Leukocyte Esterase Urine Negative (Negative); Mucus Urine Present (None Prsent); Nitrite Urine Negative (Negative); Protein Urine 1+ (Negative); RBC Urine Automated 0-2 /hpf (0-2); Specific Gravity Urine 1.017 (1.000-1.030); Urobilinogen Urine Negative (Negative); WBC Urine Automated 0-5 /hpf (0-5); pH Urine 5.5 (4.5-7.5)
--- NOTE | 2024-10-29 03:17 | XRay Report ---
EXAM: XR chest 1V portable CLINICAL HISTORY: Sepsis TECHNIQUE: Radiograph of chest was acquired. COMPARISON: none FINDINGS: Eevated left hemidiaphragm. Mild reticular opacities in bilateral lungs. Rest lungs are clear and well-expanded with no pulmonary infiltrate or pleural effusion. The cardiomediastinal silhouette is within normal limits. Aortic knuckle calcification is seen. No acute osseous abnormality. IMPRESSION: 1. Elevated left hemidiaphragm. 2. Mild reticular opacities in bilateral lungs. Electronically signed by Pradeep Canseco 10-29-2024 03:16 AM
[2024-10-29] MEDS: SODIUM CHLORIDE 0.9% 1,000 ML IV STA (04:05)
[2024-10-29] MEDS ORDERED: ONDANSETRON INJ 2 MG/ML 2 ML VIAL IV PRN (05:11)
[2024-10-29] MEDS ORDERED: MELATONIN 3 MG TAB PO PRN (05:11)
[2024-10-29] MEDS ORDERED: GABAPENTIN 100 MG CAP PO PRN (05:11)
[2024-10-29] MEDS ORDERED: NITROGLYCERIN SL 0.4 MG/TAB TAB SL PRN (05:11)
[2024-10-29] MEDS ORDERED: ACETAMINOPHEN 325 MG TAB PO PRN (05:11)
[2024-10-29 05:29] LABS: Adenovirus F 40/41 PCR Not Detected (NotDetected); Astrovirus PCR Not Detected (NotDetected); Campylobacter PCR Not Detected (NotDetected); Cryptosporidium PCR Not Detected (NotDetected); Cyclospora cayetanensis PCR Not Detected (NotDetected); Entamoeba histolytica PCR Not Detected (NotDetected); Enteroaggregative E.coli(EAEC) Not Detected (NotDetected); Enteropathogenic E.coli (EPEC) Not Detected (NotDetected); Enterotoxigenic E.coli (ETEC) Not Detected (NotDetected); Giardia lamblia PCR Not Detected (NotDetected); Norovirus GI/GII PCR Not Detected (NotDetected); Plesiomonas shigelloides PCR Not Detected (NotDetected); Rotavirus A PCR Not Detected (NotDetected); Salmonella PCR Not Detected (NotDetected); Sapovirus PCR Not Detected (NotDetected); Shiga-like Toxin E.coli (STEC) Not Detected (NotDetected); Shigella/Enteroinvasive E.coli Not Detected (NotDetected); Vibrio cholerae PCR Not Detected (NotDetected); Vibrio species PCR Not Detected (NotDetected); Yersinia enterocolitica PCR Not Detected (NotDetected)
--- NOTE | 2024-10-29 06:25 | Billing Data ---
Date of Service October 29, 2024 Coding Level of Care Code 65005 INT INP/OBS CARE
[2024-10-29] MEDS: SODIUM CHLORIDE 0.9% 1,000 ML IV SCH (06:45)
[2024-10-29] MEDS: CALCIUM CARBONATE 500 MG CHEWABLE TAB PO STA ×2 (07:04)
--- NOTE | 2024-10-29 08:26 | Hospitalist Progress Note ---
Date of Service October 29, 2024 Assessment & Plan (1) Acute hyponatremia: (2) Acute kidney injury: (3) Diarrhea: (4) Colitis: (5) Shingles: (6) Hypocalcemia: (7) ASCVD (arteriosclerotic cardiovascular disease): (8) Lupus: (9) Arthritis: (10) CMV (cytomegalovirus): Plan 89yo male with PMHx DM II, HTN, HLD, CAD, GERD, arthritis presented for ongoing diarrhea. #Diarrhea, JULIENNE, Hyponatremia, Dehydration, SIADH, electrolyte abn On admission, WBC elevation to 28k, BUN/Cr elevation to 41/1.57 and procal 1.12. UA not appearing infected, biofire negative. CXR w/ mild reticular opacities in b/l lungs -Note recent admission 09/09-10/21 for diarrhea and possible suspected inflammatory bowel disease/crohns vs atypical. -Had colonoscopy which noted few scattered CMV positive cells by immunochemistry and was placed on mesalamine/creon by GI but did not feel CMV significant issue. 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 -Also notable patient tells me he has hx Lupus but has never needed treatment and interestingly with CMV on pathology he was seen by PCP in the past month for Shingles rash/infection to his RIGHT chest w/ wrap around to the back and improved/resolved on exam at present and completed course of Valtrex. s/p 2L NSS in ER IVF has been continued but at decreased rate and will continue x 2 L. Urine na low but PO NaCl have been stopped by supervising provider. Methylprednisolone 40mg IV x 1 provided (given ulceration from anus to hepatic flexure on c-scope pathology with reports active chronic colitis ) --> Na 119 on repeat (baseline 126-130) and WBC decreased. K replacement for K 3.2 and mag. Also checking phos w/ next labs (Notable prior cortisol in the past was 29.4 and bears watching but ?if related to significant malnutrition) Continue steroids 20mg IV BID for now. Stool calprotectin sent -- pending Stool biofire negative Check cdiff. GI consult has been placed, appreciate recs/assistance Biofire stool, cdiff have been ordered Does also report chronic black colored stool on PO iron and will hold off ASA/heparin for now. Check iron studies Continue to monitor labs/electrolyte, replacement as needed. JULIENNE- IMPROVING. suspected 2nd to renal hypoperfusion and ongoing diarrhea. Continue IVF as above, home BP meds on HOLD as outlined below and will monitor to resume. Renal dose meds/avoid toxins. BMP in AM Diarrhea- improving since steroids added, biofire checked/negative but monitoring for cdiff as above. IV solu-medrol has been ordered fro possible crohns vs other inflammatory bowel process and appreciate recs/assistance from GI above DM II- prior A1c 8.3. On aspart 3u TID, glargine 6 HS. Pharmacy consulted and appreciate glycemic assistance w/ steroid use above #Shingles- As above, recently completed course valtrex. NO RASH ON EXAM FURTHER however w/ +CMV on pathology , ?related to above. Appreciate GI recs/assistance. Notable also w/ reports Lupus hx Will send for CMV titers #GERD- PPI continued. Monitor to increase to BID if needed but checking cdiff as above given diarrhea #HTN- Lisinopril, isosorbide mononitrate, atenolol, furosemide at baseline but HOLDING given soft BPs and IVF/steroids as above Monitor to resume #HLD- Simvastatin Dispo: Admit, med/sx VTE Prophylaxis: Heparin - placing on hold for now given hgb but if stable can resume. Does report baseline DARK BLACK STOOLS however is on PO IRON AT BASELINE Will send for peripheral smear given chronic nature for further eval Dispo: continued inpatient stay, serial labs/steroids, GI consulted as above and possible need for repeat scope? Admission and Anticipated Discharge Date Admission Date: October 29, 2024 Supervising Physician Co-Signing Physician Notes The patient was not seen by me. The chart was reviewed. Case discussed with SHON Gilman. Agree with assessment and plan Subjective BRIDGE NOTE: ADMITTED AFTER MIDNIGHT Eval as being transported to room 388 however discussed tx to monitored bed given hyponatremia. Reports things don't taste great, poor PO appetite. Recent shingles to R chest/pain has since resolved w/ valtrex by PCP. Discussed path from prior c-scope and concerns CMV possible related if having shingles . Hx Lupus but report has not ever needed treatment but that he follows with a specialist. No CP, SOB. Ongoing weakness. Hx stent MANY years ago. Physical Exam 2 Physical Exam: General: 89yo male sitting up in bed, chronically ill appearing/malnourished but NAD, general pallor Head atraumatic, normocephalic, mm DRY, trachea midline Chest: NO FURTHER SHINGLES RASH appreciated to R chest/back Resp; even/unlabored, slightly diminished int he bases but no wheezing/rales, on RA CV: RRR, no significant m/r/g but does have b/l LE edema, pulses present/calves nontender GI: +BS, soft/slight distension but nontender MSK/Neuro: generalized weakness but nonfocal, answering questions appropriately, no facial droop/confusion Psych: AOx3, cooperative with exam Results & Data Results & Data Vital Signs (Past 12 Hours) Vital Signs Temp Pulse Pulse Resp BP BP Pulse Ox 10/29/24 07:15 86 10/29/24 06:22 36.4 C L 87 20 102/51 L 97 10/29/24 05:46 82 15 96/48 L 98 10/29/24 04:40 81 10/29/24 04:37 102/49 L 10/29/24 04:03 83 16 93/48 L 96 10/29/24 02:21 79 16 109/52 L 98 10/29/24 02:02 78 97 10/29/24 00:51 36.8 C 77 16 103/54 L 92 10/29/24 00:42 84 O2 Del Method 10/29/24 07:15 10/29/24 06:22 Room Air 10/29/24 05:46 Room Air 10/29/24 04:40 10/29/24 04:37 10/29/24 04:03 Room Air 10/29/24 02:21 Room Air 10/29/24 02:02 Room Air 10/29/24 00:51 Room Air 10/29/24 00:42 Laboratory Results 10/29/24 08:50 Diagnostic Findings Chest X-Ray 10/29/24 01:32 EXAM: XR chest 1V portable CLINICAL HISTORY: Sepsis TECHNIQUE: Radiograph of chest was acquired. COMPARISON: none FINDINGS: Eevated left hemidiaphragm. Mild reticular opacities in bilateral lungs. Rest lungs are clear and well-expanded with no pulmonary infiltrate or pleural effusion. The cardiomediastinal silhouette is within normal limits. Aortic knuckle calcification is seen. No acute osseous abnormality. IMPRESSION: 1. Elevated left hemidiaphragm. 2. Mild reticular opacities in bilateral lungs. Electronically signed by Pradeep Canseco 10-29-2024 03:16 AM PG Care Time/CCT Total # of Minutes Spent Total Time Spent with Patient: Total time spent is greater than 50% in coordination of care (as documented) at patient's floor/unit and/or counseling patient: Coding Level of Care Code 38647 SUB INP/OBS CARE 3/50MIN Diagnoses Acute hyponatremia E87.1 Acute kidney injury N17.9 Diarrhea R19.7 Diarrhea type: unspecified type Colitis K52.9 Herpes zoster without complication B02.9 Herpes zoster complications: without complications Hypocalcemia E83.51 ASCVD (arteriosclerotic cardiovascular disease) I25.10 Lupus M32.9 Arthritis M19.90 CMV (cytomegalovirus) B25.9 (3) Diarrhea Diarrhea type: unspecified type Qualified Code(s): R19.7 - Diarrhea, unspecified (5) Shingles Herpes zoster complications: without complications Qualified Code(s): B02.9 - Zoster without complications
[2024-10-29] MEDS ORDERED: SODIUM CHLORIDE 1 GM TABLET PO SCH (09:00)
[2024-10-29] MEDS ORDERED: PROBENECID 500 MG TAB PO SCH (09:00)
[2024-10-29] MEDS ORDERED: NON-FORMULARY MEDICATION (Iron,Carbonyl-Vitamin C [Vitron-C] 65 mg iron- 125 mg tablet,del PO SCH (09:00)
--- NOTE | 2024-10-29 09:07 | Gastrointestinal Consultation ---
Date of Consultation October 29, 2024 Assessment & Plan (1) Diarrhea: I suspect that his persistent diarrhea may be related to the mesalamine. In a small percentage of patients mesalamine can cause a profuse diarrhea with electrolyte disturbances. I recommend stopping both the mesalamine and the Creon as he states his symptoms did get worse when he started both those medications. It is unlikely that he has pancreatic insufficiency. I would send a stool for C. difficile which was not done on the to exclude that. If his symptoms do not resolve then we may need to consider a repeat flexible Sig. or colonoscopy on Thursday to confirm whether the ulcerations seen in August have resolved. Continue to correct his electrolytes History of Present Illness Reason for Consultation: Chronic diarrhea Attending Physician: Yobani Chao MD History of Present Illness In August patient presented with diarrhea and hyponatremia. Workup included a colonoscopy which showed discrete ulcerations in the left colon. Biopsies revealed evidence of a few CMV. Unclear whether he was treated for CMV but he was started on mesalamine and also Creon for a low elastase in the stool. He claims that he is continue to have diarrhea which has been profuse watery and loose and has gotten worse since starting his medication. He denies any melena or bright red blood per rectum, abdominal pain fever chills nausea or vomiting. On admission his sodium is 115 and he has some mild azotemia. He has a past medical history of diabetes on insulin, hyperlipidemia, hypertension coronary artery disease GERD and arthritis. Allergies Allergy/AdvReac Type Severity Reaction Status Date / Time Penicillins Allergy Unknown AMOXICILLIN Verified 10/10/24 10:32 - UNKNOWN RXN allopurinol Allergy Rash Verified 10/10/24 10:32 Home Medications Medication Instructions Recorded Confirmed Type aspirin 81 mg chewable tablet 81 mg PO DAILY 02/08/19 10/29/24 History isosorbide mononitrate 60 mg 60 mg PO QAM 02/08/19 10/29/24 History tablet,extended release 24 hr nitroglycerin 0.4 mg sublingual 0.4 mg sublingual Q5M PRN Chest 02/08/19 10/29/24 History tablet Pain atenolol 25 mg tablet 12.5 mg PO DAILY 03/30/19 10/29/24 History cholecalciferol (vitamin D3) 50 2,000 units PO DAILY 03/30/19 10/29/24 History mcg (2,000 unit) capsule probenecid 500 mg tablet 250 mg PO BID 03/30/19 10/29/24 History cyanocobalamin (vitamin B-12) 1,000 mcg PO DAILY 04/24/20 10/29/24 History 1,000 mcg capsule iron,carbonyl 65 mg-vitamin C 125 1 tab PO DAILY 10/05/20 10/29/24 History mg tablet,delayed release (Vitron-C) fluocinonide 0.05 % topical 1 applic topical BID PRN Other 10/26/20 10/29/24 History ointment metronidazole 0.75 % topical gel 1 applic topical BID PRN Other 10/26/20 10/29/24 History (Rosadan) furosemide 20 mg tablet (Lasix) 20 mg PO .3X TIMES WEEK PRN Fluid 09/17/23 10/29/24 History Retention gabapentin 100 mg capsule 100 mg PO TID PRN pain 09/17/23 10/29/24 History blood sugar diagnostic (Blue Egguch #300 ea 04/04/24 10/10/24 Rx Ultra Test strips) lisinopril 40 mg tablet 40 mg PO DAILY #90 tabs 08/18/24 10/29/24 Rx omeprazole 20 mg capsule,delayed 20 mg PO QAM 09/09/24 10/29/24 History release simvastatin 20 mg tablet 20 mg PO PM 09/09/24 10/29/24 History lancets 33 gauge (Blue EggTouch Delica #100 ea 09/22/24 10/10/24 Rx Plus Lancet) jvraqw-[id number] 1 cap PO QID #120 caps 09/26/24 10/29/24 Rx 36,000-114,000-180,000 unit capsule,delay rel (Creon) mesalamine 1.2 gram tablet,delayed 2.4 g (2 x 1.2 gram) PO BID 30 09/26/24 10/29/24 Rx release days #120 tabs insulin aspart U-100 100 unit/mL 3 unit subcut TID 09/29/24 10/29/24 History (3 mL) subcutaneous pen (Novolog FlexPen U-100 Insulin aspart) valacyclovir 1 gram tablet 1,000 mg PO BID #14 tabs 10/03/24 10/29/24 Rx (Valtrex) pen needle, diabetic 31 gauge x #200 ea 10/13/24 Rx 5/16" (1st Tier Unifine Pentips) insulin glargine 100 unit/mL (3 6 unit subcut HS 10/29/24 10/29/24 History mL) subcutaneous pen (Lantus Solostar U-100 Insulin) Patient History Medical History Proteinuria Chronic gout Surgical History History of basal cell carcinoma excision History of prostate surgery History of bilateral cataract extraction History of shoulder surgery History of hernia repair History of thumb surgery History of coronary artery stent placement Family History Brother Myocardial infarction Cancer Prostate cancer Daughter Cancer Father Myocardial infarction Denies family history of Ovarian cancer Breast cancer Colorectal cancer Social History Smoking Status: Never smoker Second Hand Exposure: No; Do You Dip or Chew Tobacco: No; Hx Alcohol Use: No Hx Substance Use: No Preferred Language: Bengali Communication Ability: Effective Visual Impairment: No Limitations Hearing Ability: Normal Staff Certified Nurse Midwife Required: No Beliefs That Will Affect Care: None marital status: Current Living Situation: Spouse current occupational status: retired 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 How many Children do You have: 3 Other Information That Helps Us Care for You: No Feels Safe at Home: Yes Safety Concerns: Feels Safe At This Time Childhood Exposure to Second-Hand Smoke: Yes Diet: regular caffeine: Yes (coffee, tea, and soda ) Dental Care, Regularly: Yes Physical Activity Frequency: Daily Seatbelt Use: always Sunscreen Use: Yes Assistive Devices: None Review of Systems Review of Systems: No fever No chills No SOB No CP No Abd pain Physical Exam Physical Exam: Eyes; anicteric HENT No masses Chest clear to A Cor S1, S2 physiologic Abd: softer nontender no masses Ext no edema Results & Data Vital Signs (Past 12 Hours) Vital Signs Temp Pulse Pulse Resp BP BP Pulse Ox 10/29/24 07:15 86 10/29/24 06:22 36.4 C L 87 20 102/51 L 97 10/29/24 05:46 82 15 96/48 L 98 10/29/24 04:40 81 10/29/24 04:37 102/49 L 10/29/24 04:03 83 16 93/48 L 96 10/29/24 02:21 79 16 109/52 L 98 10/29/24 02:02 78 97 10/29/24 00:51 36.8 C 77 16 103/54 L 92 10/29/24 00:42 84 O2 Del Method 10/29/24 07:15 10/29/24 06:22 Room Air 10/29/24 05:46 Room Air 10/29/24 04:40 10/29/24 04:37 10/29/24 04:03 Room Air 10/29/24 02:21 Room Air 10/29/24 02:02 Room Air 10/29/24 00:51 Room Air 10/29/24 00:42 Laboratory Results Laboratory Results - last 48 hr 10/29/24 10/29/24 10/29/24 00:46 01:55 01:57 WBC 28.33 H RBC 2.89 L Hgb 8.9 L Hct 24.9 L MCV 86.2 MCH 30.8 MCHC 35.7 RDW Std Deviation 45.6 RDW Coeff of Susana 14.4 Plt Count 295 MPV 9.4 Immature Gran % (Auto) 2.3 Neut % (Auto) 90.4 Lymph % (Auto) 2.5 Kendall % (Auto) 3.8 Eos % (Auto) 0.8 Baso % (Auto) 0.2 Neut # (Auto) 25.60 H Lymph # (Auto) 0.71 L Kendall # (Auto) 1.07 H Eos # (Auto) 0.24 Baso # (Auto) 0.06 Immature Gran # (Auto) 0.65 H Polychromasia 1+ Echinocytes 2+ Acanthocytes (Spur) 2+ ESR 11 Sodium 115 L* Potassium 3.5 Chloride 84 L Carbon Dioxide 23 Anion Gap 8 BUN 41 H Creatinine 1.57 H Est Cr Clr Drug Dosing 29.9 eGFR 42.39 BUN/Creatinine Ratio 26.1 H Glucose 130 H Osmolality 251 L Lactate 1.0 Calcium 8.1 L Magnesium 1.9 Total Bilirubin 0.7 AST 33 ALT 17 Alkaline Phosphatase 76 Troponin I High Sens 12.6 Total Protein 5.7 L Albumin 2.6 L Globulin 3.1 Albumin/Globulin Ratio 0.8 L Procalcitonin 1.12 H Urine Color Urine Appearance Urine pH Ur Specific Ely Urine Protein Urine Glucose (UA) Urine Ketones Urine Blood Urine Nitrite Urine Bilirubin Urine Urobilinogen Ur Leukocyte Esterase Urine WBC (Auto) Urine RBC (Auto) U Hyaline Cast (Auto) U Epithel Cells (Auto) Urine Bacteria (Auto) Urine Mucus Urine Osmolality Ur Random Sodium Stl C. cayetanensis PCR Stool Rotavirus A PCR Stl Adenov F 40/41 PCR Stool Astrovirus (PCR) Stool Campylobacter PCR Stool Cryptosporidium PCR Stl E.coli Shiga Tox PCR Stl Enterotoxigenic E PCR Stool EPEC (PCR) Stool EAEC (PCR) Stl E. histolytica PCR Stool Giardia Lamblia PCR Stool Salmonella PCR Stool Sapovirus (PCR) Stl P. shigelloides PCR Stl Shigella/EIEC PCR St Y.enterocolitica PCR Stool Vibrio (PCR) Stl Vibrio cholerae PCR Stl Norovirus GI/GII PCR Adenovirus (PCR) Not Detected B. pertussis DNA (PCR) Not Detected B.parapertussis DNA PCR Not Detected C. pneumoniae DNA (PCR) Not Detected Coronavirus OC43 (PCR) Not Detected Coronavirus HKU1 (PCR) Not Detected Coronavirus 229E (PCR) Not Detected SARS-CoV-2 (PCR) Not Detected Coronavirus NL63 (PCR) Not Detected Human Metapneumovir PCR Not Detected Influenza Type A (PCR) Not Detected Influenza Type B (PCR) Not Detected M. pneumoniae (PCR) Not Detected Parainfluenza 1 (PCR) Not Detected Parainfluenza 2 (PCR) Not Detected Parainfluenza 3 (PCR) Not Detected Parainfluenza 4 (PCR) Not Detected RSV (PCR) Not Detected Entero/Rhino (PCR) Not Detected 10/29/24 10/29/24 02:48 03:52 WBC RBC Hgb Hct MCV MCH MCHC RDW Std Deviation RDW Coeff of Susana Plt Count MPV Immature Gran % (Auto) Neut % (Auto) Lymph % (Auto) Kendall % (Auto) Eos % (Auto) Baso % (Auto) Neut # (Auto) Lymph # (Auto) Kendall # (Auto) Eos # (Auto) Baso # (Auto) Immature Gran # (Auto) Polychromasia Echinocytes Acanthocytes (Spur) ESR Sodium Potassium Chloride Carbon Dioxide Anion Gap BUN Creatinine Est Cr Clr Drug Dosing eGFR BUN/Creatinine Ratio Glucose Osmolality Lactate Calcium Magnesium Total Bilirubin AST ALT Alkaline Phosphatase Troponin I High Sens Total Protein Albumin Globulin Albumin/Globulin Ratio Procalcitonin Urine Color Dark Yellow Urine Appearance Clear Urine pH 5.5 Ur Specific Ely 1.017 Urine Protein 1+ H Urine Glucose (UA) Negative Urine Ketones Trace H Urine Blood Negative Urine Nitrite Negative Urine Bilirubin Negative Urine Urobilinogen Negative Ur Leukocyte Esterase Negative Urine WBC (Auto) 0-5 Urine RBC (Auto) 0-2 U Hyaline Cast (Auto) >20 H U Epithel Cells (Auto) 0-2 Urine Bacteria (Auto) None Seen Urine Mucus Present A Urine Osmolality 389 L Ur Random Sodium 12 Stl C. cayetanensis PCR Not Detected Stool Rotavirus A PCR Not Detected Stl Adenov F 40/41 PCR Not Detected Stool Astrovirus (PCR) Not Detected Stool Campylobacter PCR Not Detected Stool Cryptosporidium PCR Not Detected Stl E.coli Shiga Tox PCR Not Detected Stl Enterotoxigenic E PCR Not Detected Stool EPEC (PCR) Not Detected Stool EAEC (PCR) Not Detected Stl E. histolytica PCR Not Detected Stool Giardia Lamblia PCR Not Detected Stool Salmonella PCR Not Detected Stool Sapovirus (PCR) Not Detected Stl P. shigelloides PCR Not Detected Stl Shigella/EIEC PCR Not Detected St Y.enterocolitica PCR Not Detected Stool Vibrio (PCR) Not Detected Stl Vibrio cholerae PCR Not Detected Stl Norovirus GI/GII PCR Not Detected Adenovirus (PCR) B. pertussis DNA (PCR) B.parapertussis DNA PCR C. pneumoniae DNA (PCR) Coronavirus OC43 (PCR) Coronavirus HKU1 (PCR) Coronavirus 229E (PCR) SARS-CoV-2 (PCR) Coronavirus NL63 (PCR) Human Metapneumovir PCR Influenza Type A (PCR) Influenza Type B (PCR) M. pneumoniae (PCR) Parainfluenza 1 (PCR) Parainfluenza 2 (PCR) Parainfluenza 3 (PCR) Parainfluenza 4 (PCR) RSV (PCR) Entero/Rhino (PCR) PG Care Time/CCT Total # of Minutes Spent Total Time Spent with Patient: Total time spent is greater than 50% in coordination of care (as documented) at patient's floor/unit and/or counseling patient: Coding Level of Care Code 08657 INT INP/OBS CARE MIN Diagnoses Diarrhea R19.7
[2024-10-29 09:15] LABS: Hematocrit (blood only) 21.8 % (42.0-52.0); Hemoglobin 7.8 g/dl (14.0-18.0); Mean Corpuscular Hemoglobin 30.8 pg (25.0-34.0); Mean Corpuscular Hgb Conc 35.8 g/dL (32.0-36.0); Mean Corpuscular Volume 86.2 fL (80.0-100.0); Mean Platelet Volume 8.9 fL (9.4-12.4); Platelet Count 247 K/uL (130-400); RDW Coefficient of Variation 14.1 % (11.5-14.5); RDW Standard Deviation 44.4 fL (36.4-46.3); Red Blood Count 2.53 M/uL (4.70-6.10); White Blood Count 25.12 K/ul (4.8-10.8)
[2024-10-29 09:28] LABS: BUN Creatinine Ratio 29.4 (10-20); Calcium 7.1 mg/dl (8.6-10.3); Creatinine Clr Calc Pharmacy 39.5 ml/min; Magnesium 1.8 mg/dl (1.7-2.4); Potassium 3.2 mmol/L (3.5-5.1)
[2024-10-29 09:36] LABS: Acanthocytes 1+; Basophilic Stippling 1+; Basophils # (auto) 0.05 K/uL (0.00-0.20); Basophils % (auto) 0.2 %; Echinocytes 1+; Eosinophils # (auto) 0.17 K/uL (0.00-0.50); Eosinophils % (auto) 0.7 %; Immature Granulocytes % (auto) 3.2 %; Lymphocytes # (auto) 0.62 K/uL (1.20-3.40); Lymphocytes % (auto) 2.5 %; Monocytes # (auto) 0.92 K/uL (0.11-0.59); Monocytes % (auto) 3.7 %; Neutrophils # (auto) 22.56 K/uL (1.40-6.50); Neutrophils % (auto) 89.7 %
[2024-10-29] MEDS: PANTOprazole 40 MG TAB PO SCH (09:46)
[2024-10-29] MEDS: POTASSIUM CHLORIDE CRTAB 20 MEQ TABCR PO STA (09:47)
[2024-10-29] MEDS: methylPREDNISolone 125 MG/2 ML VIAL IV STA (09:47)
[2024-10-29] MEDS: PANCREAZE (LIPASE 10,500U) CAP PO SCH (09:49)
[2024-10-29] MEDS: HEPARIN SOD 5,000 UNIT/0.5 ML VIAL SQ SCH (10:43)
[2024-10-29] MEDS: MAGNESIUM SULFATE / D5W 1 GM/100 ML BAG IV ONE (11:00)
[2024-10-29] MEDS: ASPIRIN 81 MG ECTAB PO SCH (11:17)
[2024-10-29 13:27] LABS: Iron 29 mcg/dl (35-175); Transferrin < 95 mg/dl (200-360)
[2024-10-29 13:35] LABS: BUN Creatinine Ratio 29.6 (10-20); Calcium 7.8 mg/dl (8.6-10.3); Creatinine Clr Calc Pharmacy 40.8 ml/min; Magnesium 2.2 mg/dl (1.7-2.4); Phosphorus 3.3 mg/dl (2.5-4.9); Potassium 3.5 mmol/L (3.5-5.1)
[2024-10-29 13:46] LABS: Ferritin 754.1 ng/ml (8-388)
[2024-10-29] MEDS: SODIUM CHLORIDE 1 GM TABLET PO STA (15:12)
[2024-10-29] MEDS: [UNRECOGNIZED DRUG - OTHER] IV SCH (15:13)
[2024-10-29] MEDS: SODIUM BICARBONATE IV SCH (15:13)
[2024-10-29] MEDS: POTASSIUM CHLORIDE IV SCH (15:13)
[2024-10-29 17:42] LABS: BUN Creatinine Ratio 30.4 (10-20); Calcium 7.6 mg/dl (8.6-10.3); Creatinine Clr Calc Pharmacy 41.9 ml/min; Potassium 3.7 mmol/L (3.5-5.1)
[2024-10-29] MEDS: methylPREDNISolone 20 MG in SYRINGE 0 ML IV SCH (20:36)
[2024-10-29] MEDS: SODIUM CHLORIDE 1 GM TABLET PO SCH (20:36)
[2024-10-29] MEDS ORDERED: methylPREDNISolone 125 MG/2 ML VIAL IV SCH (21:00)
[2024-10-29] MEDS ORDERED: SIMVASTATIN 20 MG TAB PO SCH (21:00)
[2024-10-29] MEDS ORDERED: DEXTROSE 50% 50 ML SYRINGE IV PRN (21:37)
[2024-10-29] MEDS ORDERED: GLUCOSE 40% GEL 15 GM TUBE PO PRN (21:37)
[2024-10-29] MEDS ORDERED: GLUCOSE 10 TAB/TUBE PO PRN (21:37)
[2024-10-29] MEDS ORDERED: GLUCAGON FOR INJ 1 MG VIAL SQ PRN (21:37)
[2024-10-29] MEDS: LANTUS PER UNIT CHARGE SQ SCH (22:27)
[2024-10-29] MEDS: INSULIN ASPART PER UNIT CHARGE SC SCH (22:27)
--- NOTE | 2024-10-29 23:02 | Electrocardiogram Report ---
Test Reason : Blood Pressure : */* mmHG Vent. Rate : 85 BPM Atrial Rate : 85 BPM P-R Int : 214 ms QRS Dur : 176 ms QT Int : 432 ms P-R-T Axes : 16 19 173 degrees QTcB Int : 514 ms Sinus rhythm with 1st degree A-V block Left bundle branch block Abnormal ECG When compared with ECG of 09-Sep-2024 09:37, T wave inversion less evident in Inferior leads Confirmed by Carlos Martinez ([id number] on 10/29/2024 11:01:29 PM Referred By: REFERRED SELF Confirmed By: Carlos Martinez
--- NOTE | 2024-10-29 23:03 | Electrocardiogram Report ---
Test Reason : Blood Pressure : */* mmHG Vent. Rate : 86 BPM Atrial Rate : * BPM P-R Int : 232 ms QRS Dur : 172 ms QT Int : 432 ms P-R-T Axes : * 17 175 degrees QTcB Int : 516 ms Sinus rhythm with 1st degree A-V block Left bundle branch block Abnormal ECG When compared with ECG of 29-Oct-2024 00:37, No significant change Confirmed by Carlos Martinez ([id number] on 10/29/2024 11:02:22 PM Referred By: REFERRED SELF Confirmed By: Carlos Martinez
[2024-10-29 23:26] LABS: BUN Creatinine Ratio 29.6 (10-20); Calcium 7.4 mg/dl (8.6-10.3); Creatinine Clr Calc Pharmacy 40.8 ml/min; Potassium 3.9 mmol/L (3.5-5.1)
[2024-10-30 07:37] LABS: BUN Creatinine Ratio 29.9 (10-20); Calcium 7.7 mg/dl (8.6-10.3); Creatinine Clr Calc Pharmacy 40.1 ml/min; Potassium 3.8 mmol/L (3.5-5.1)
[2024-10-30 07:39] LABS: Hematocrit (blood only) 25.5 % (42.0-52.0); Mean Corpuscular Hemoglobin 30.4 pg (25.0-34.0); Mean Corpuscular Hgb Conc 35.3 g/dL (32.0-36.0); Mean Corpuscular Volume 86.1 fL (80.0-100.0); Platelet Count 317 K/uL (130-400); RDW Coefficient of Variation 14.8 % (11.5-14.5); RDW Standard Deviation 46.5 fL (36.4-46.3); Red Blood Count 2.96 M/uL (4.70-6.10)
[2024-10-30 08:04] LABS: White Blood Count 32.16 K/ul (4.8-10.8)
[2024-10-30] MEDS: FOLIC ACID 1 MG TAB PO SCH (08:23)
[2024-10-30 09:12] LABS: Estimated Average Glucose 163 mg/dl; Hemoglobin A1C 7.3 % (4.5-5.6)
--- NOTE | 2024-10-30 09:57 | Gastroenterology Progress Note ---
Date of Service October 30, 2024 Assessment & Plan (1) Diarrhea: Plan: Still complaining of diarrhea. Was empirically started on steroids. Awaiting C. difficile toxin stool study. I am concerned about his elevated white count which was present on admission no clear explanation as his abdominal exam is very benign. This could be secondary to the colitis what ever the etiology is. I still think mesalamine may be playing a role here as well. Sodium is still low at 120 which needs to be corrected. I recommend getting an abdominal x-ray to get a better understanding of the caliber of his colon, obtain a stool sample for C. difficile, consider full infectious workup including blood cultures urine cultures. We will consider doing a flexible sigmoidoscopy in the a.m. to get a better sense of any evidence of significant colitis. Admission and Anticipated Discharge Date Admission Date: October 29, 2024 Subjective Still complaining of diarrhea. Denies any abdominal pain shortness of breath or chest pain. Physical Exam Physical Exam: Head and neck no masses Chest clear to auscultation Cardiac S1-S2 physiologic Abdomen soft and nontender no masses nondistended bowel sounds normoactive Extremities negative edema Results & Data Results & Data Vital Signs (Past 12 Hours) Vital Signs Temp Pulse Pulse Resp BP Pulse Ox O2 Del Method 10/30/24 08:25 Room Air 10/30/24 08:07 36.4 C L 76 16 103/61 95 Room Air 10/30/24 07:00 71 10/30/24 04:39 36.4 C L 72 16 94/56 L 94 Room Air 10/29/24 22:50 36.4 C 65 18 94/53 L 98 Room Air 10/29/24 22:00 79 Laboratory Results Laboratory Results - last 48 hr 10/29/24 10/29/24 10/29/24 00:46 01:55 01:57 WBC 28.33 H RBC 2.89 L Hgb 8.9 L Hct 24.9 L MCV 86.2 MCH 30.8 MCHC 35.7 RDW Std Deviation 45.6 RDW Coeff of Susana 14.4 Plt Count 295 MPV 9.4 Immature Gran % (Auto) 2.3 Neut % (Auto) 90.4 Lymph % (Auto) 2.5 Aiken % (Auto) 3.8 Eos % (Auto) 0.8 Baso % (Auto) 0.2 Neut # (Auto) 25.60 H Lymph # (Auto) 0.71 L Aiken # (Auto) 1.07 H Eos # (Auto) 0.24 Baso # (Auto) 0.06 Immature Gran # (Auto) 0.65 H Polychromasia 1+ Basophilic Stippling Echinocytes 2+ Acanthocytes (Spur) 2+ ESR 11 Sodium 115 L* Potassium 3.5 Chloride 84 L Carbon Dioxide 23 Anion Gap 8 BUN 41 H Creatinine 1.57 H Est Cr Clr Drug Dosing 29.9 eGFR 42.39 BUN/Creatinine Ratio 26.1 H Glucose 130 H POC Glucose Estimat Average Glucose Hemoglobin A1c Osmolality 251 L Lactate 1.0 Calcium 8.1 L Phosphorus Magnesium 1.9 Iron TIBC Transferrin Transferrin % Sat Ferritin Total Bilirubin 0.7 AST 33 ALT 17 Alkaline Phosphatase 76 Troponin I High Sens 12.6 B-Natriuretic Peptide Total Protein 5.7 L Albumin 2.6 L Globulin 3.1 Albumin/Globulin Ratio 0.8 L 25-OH Vitamin D Total Procalcitonin 1.12 H Urine Color Urine Appearance Urine pH Ur Specific [place] Urine Protein Urine Glucose (UA) Urine Ketones Urine Blood Urine Nitrite Urine Bilirubin Urine Urobilinogen Ur Leukocyte Esterase Urine WBC (Auto) Urine RBC (Auto) U Hyaline Cast (Auto) U Epithel Cells (Auto) Urine Bacteria (Auto) Urine Mucus Urine Osmolality Ur Random Sodium Stl C. cayetanensis PCR Stool Rotavirus A PCR Stl Adenov F 40/41 PCR Stool Astrovirus (PCR) Stool Campylobacter PCR Stool Cryptosporidium PCR Stl E.coli Shiga Tox PCR Stl Enterotoxigenic E PCR Stool EPEC (PCR) Stool EAEC (PCR) Stl E. histolytica PCR Stool Giardia Lamblia PCR Stool Salmonella PCR Stool Sapovirus (PCR) Stl P. shigelloides PCR Stl Shigella/EIEC PCR St Y.enterocolitica PCR Stool Vibrio (PCR) Stl Vibrio cholerae PCR Stl Norovirus GI/GII PCR Adenovirus (PCR) Not Detected B. pertussis DNA (PCR) Not Detected B.parapertussis DNA PCR Not Detected C. pneumoniae DNA (PCR) Not Detected Coronavirus OC43 (PCR) Not Detected Coronavirus HKU1 (PCR) Not Detected Coronavirus 229E (PCR) Not Detected SARS-CoV-2 (PCR) Not Detected Coronavirus NL63 (PCR) Not Detected Human Metapneumovir PCR Not Detected Influenza Type A (PCR) Not Detected Influenza Type B (PCR) Not Detected M. pneumoniae (PCR) Not Detected Parainfluenza 1 (PCR) Not Detected Parainfluenza 2 (PCR) Not Detected Parainfluenza 3 (PCR) Not Detected Parainfluenza 4 (PCR) Not Detected RSV (PCR) Not Detected Entero/Rhino (PCR) Not Detected 10/29/24 10/29/24 10/29/24 02:48 03:52 08:50 WBC 25.12 H RBC 2.53 L Hgb 7.8 L Hct 21.8 L MCV 86.2 MCH 30.8 MCHC 35.8 RDW Std Deviation 44.4 RDW Coeff of Susana 14.1 Plt Count 247 MPV 8.9 L Immature Gran % (Auto) 3.2 Neut % (Auto) 89.7 Lymph % (Auto) 2.5 Aiken % (Auto) 3.7 Eos % (Auto) 0.7 Baso % (Auto) 0.2 Neut # (Auto) 22.56 H Lymph # (Auto) 0.62 L Aiken # (Auto) 0.92 H Eos # (Auto) 0.17 Baso # (Auto) 0.05 Immature Gran # (Auto) 0.80 H Polychromasia Basophilic Stippling 1+ Echinocytes 1+ Acanthocytes (Spur) 1+ ESR Sodium 119 L* Potassium 3.2 L Chloride 92 L Carbon Dioxide 20 L Anion Gap 7 BUN 35 H Creatinine 1.19 D Est Cr Clr Drug Dosing 39.5 eGFR 59.12 BUN/Creatinine Ratio 29.4 H Glucose 188 H POC Glucose Estimat Average Glucose Hemoglobin A1c Osmolality Lactate Calcium 7.1 L Phosphorus Magnesium 1.8 Iron TIBC Transferrin Transferrin % Sat Ferritin Total Bilirubin AST ALT Alkaline Phosphatase Troponin I High Sens B-Natriuretic Peptide Total Protein Albumin Globulin Albumin/Globulin Ratio 25-OH Vitamin D Total Procalcitonin Urine Color Dark Yellow Urine Appearance Clear Urine pH 5.5 Ur Specific [place] 1.017 Urine Protein 1+ H Urine Glucose (UA) Negative Urine Ketones Trace H Urine Blood Negative Urine Nitrite Negative Urine Bilirubin Negative Urine Urobilinogen Negative Ur Leukocyte Esterase Negative Urine WBC (Auto) 0-5 Urine RBC (Auto) 0-2 U Hyaline Cast (Auto) >20 H U Epithel Cells (Auto) 0-2 Urine Bacteria (Auto) None Seen Urine Mucus Present A Urine Osmolality 389 L Ur Random Sodium 12 Stl C. cayetanensis PCR Not Detected Stool Rotavirus A PCR Not Detected Stl Adenov F 40/41 PCR Not Detected Stool Astrovirus (PCR) Not Detected Stool Campylobacter PCR Not Detected Stool Cryptosporidium PCR Not Detected Stl E.coli Shiga Tox PCR Not Detected Stl Enterotoxigenic E PCR Not Detected Stool EPEC (PCR) Not Detected Stool EAEC (PCR) Not Detected Stl E. histolytica PCR Not Detected Stool Giardia Lamblia PCR Not Detected Stool Salmonella PCR Not Detected Stool Sapovirus (PCR) Not Detected Stl P. shigelloides PCR Not Detected Stl Shigella/EIEC PCR Not Detected St Y.enterocolitica PCR Not Detected Stool Vibrio (PCR) Not Detected Stl Vibrio cholerae PCR Not Detected Stl Norovirus GI/GII PCR Not Detected Adenovirus (PCR) B. pertussis DNA (PCR) B.parapertussis DNA PCR C. pneumoniae DNA (PCR) Coronavirus OC43 (PCR) Coronavirus HKU1 (PCR) Coronavirus 229E (PCR) SARS-CoV-2 (PCR) Coronavirus NL63 (PCR) Human Metapneumovir PCR Influenza Type A (PCR) Influenza Type B (PCR) M. pneumoniae (PCR) Parainfluenza 1 (PCR) Parainfluenza 2 (PCR) Parainfluenza 3 (PCR) Parainfluenza 4 (PCR) RSV (PCR) Entero/Rhino (PCR) 10/29/24 10/29/24 10/29/24 11:45 12:45 16:34 WBC RBC Hgb Hct MCV MCH MCHC RDW Std Deviation RDW Coeff of Susana Plt Count MPV Immature Gran % (Auto) Neut % (Auto) Lymph % (Auto) Aiken % (Auto) Eos % (Auto) Baso % (Auto) Neut # (Auto) Lymph # (Auto) Aiken # (Auto) Eos # (Auto) Baso # (Auto) Immature Gran # (Auto) Polychromasia Basophilic Stippling Echinocytes Acanthocytes (Spur) ESR Sodium 117 L* 118 L* Potassium 3.5 3.7 Chloride 90 L 92 L Carbon Dioxide 20 L 20 L Anion Gap 7 6 BUN 34 H 34 H Creatinine 1.15 1.12 Est Cr Clr Drug Dosing 40.8 41.9 eGFR 61.60 63.58 BUN/Creatinine Ratio 29.6 H 30.4 H Glucose 212 H 232 H POC Glucose 209 H Estimat Average Glucose Hemoglobin A1c Osmolality Lactate Calcium 7.8 L 7.6 L Phosphorus 3.3 Magnesium 2.2 Iron 29 L TIBC TNP Transferrin < 95 L Transferrin % Sat TNP Ferritin 754.1 H Total Bilirubin AST ALT Alkaline Phosphatase Troponin I High Sens B-Natriuretic Peptide Total Protein Albumin Globulin Albumin/Globulin Ratio 25-OH Vitamin D Total Procalcitonin Urine Color Urine Appearance Urine pH Ur Specific [place] Urine Protein Urine Glucose (UA) Urine Ketones Urine Blood Urine Nitrite Urine Bilirubin Urine Urobilinogen Ur Leukocyte Esterase Urine WBC (Auto) Urine RBC (Auto) U Hyaline Cast (Auto) U Epithel Cells (Auto) Urine Bacteria (Auto) Urine Mucus Urine Osmolality Ur Random Sodium Stl C. cayetanensis PCR Stool Rotavirus A PCR Stl Adenov F PCR Stool Astrovirus (PCR) Stool Campylobacter PCR Stool Cryptosporidium PCR Stl E.coli Shiga Tox PCR Stl Enterotoxigenic E PCR Stool EPEC (PCR) Stool EAEC (PCR) Stl E. histolytica PCR Stool Giardia Lamblia PCR Stool Salmonella PCR Stool Sapovirus (PCR) Stl P. shigelloides PCR Stl Shigella/EIEC PCR St Y.enterocolitica PCR Stool Vibrio (PCR) Stl Vibrio cholerae PCR Stl Norovirus GI/GII PCR Adenovirus (PCR) B. pertussis DNA (PCR) B.parapertussis DNA PCR C. pneumoniae DNA (PCR) Coronavirus OC43 (PCR) Coronavirus HKU1 (PCR) Coronavirus 229E (PCR) SARS-CoV-2 (PCR) Coronavirus NL63 (PCR) Human Metapneumovir PCR Influenza Type A (PCR) Influenza Type B (PCR) M. pneumoniae (PCR) Parainfluenza 1 (PCR) Parainfluenza 2 (PCR) Parainfluenza 3 (PCR) Parainfluenza 4 (PCR) RSV (PCR) Entero/Rhino (PCR) 10/29/24 10/29/24 10/30/24 20:05 22:41 01:04 WBC RBC Hgb Hct MCV MCH MCHC RDW Std Deviation RDW Coeff of Susana Plt Count MPV Immature Gran % (Auto) Neut % (Auto) Lymph % (Auto) Aiken % (Auto) Eos % (Auto) Baso % (Auto) Neut # (Auto) Lymph # (Auto) Aiken # (Auto) Eos # (Auto) Baso # (Auto) Immature Gran # (Auto) Polychromasia Basophilic Stippling Echinocytes Acanthocytes (Spur) ESR Sodium 118 L* Potassium 3.9 Chloride 92 L Carbon Dioxide 21 Anion Gap 5 BUN 34 H Creatinine 1.15 Est Cr Clr Drug Dosing 40.8 eGFR 61.60 BUN/Creatinine Ratio 29.6 H Glucose 269 H POC Glucose 289 H 199 H Estimat Average Glucose Hemoglobin A1c Osmolality Lactate Calcium 7.4 L Phosphorus Magnesium Iron TIBC Transferrin Transferrin % Sat Ferritin Total Bilirubin AST ALT Alkaline Phosphatase Troponin I High Sens B-Natriuretic Peptide Total Protein Albumin Globulin Albumin/Globulin Ratio 25-OH Vitamin D Total Procalcitonin Urine Color Urine Appearance Urine pH Ur Specific [place] Urine Protein Urine Glucose (UA) Urine Ketones Urine Blood Urine Nitrite Urine Bilirubin Urine Urobilinogen Ur Leukocyte Esterase Urine WBC (Auto) Urine RBC (Auto) U Hyaline Cast (Auto) U Epithel Cells (Auto) Urine Bacteria (Auto) Urine Mucus Urine Osmolality Ur Random Sodium Stl C. cayetanensis PCR Stool Rotavirus A PCR Stl Adenov F 40/41 PCR Stool Astrovirus (PCR) Stool Campylobacter PCR Stool Cryptosporidium PCR Stl E.coli Shiga Tox PCR Stl Enterotoxigenic E PCR Stool EPEC (PCR) Stool EAEC (PCR) Stl E. histolytica PCR Stool Giardia Lamblia PCR Stool Salmonella PCR Stool Sapovirus (PCR) Stl P. shigelloides PCR Stl Shigella/EIEC PCR St Y.enterocolitica PCR Stool Vibrio (PCR) Stl Vibrio cholerae PCR Stl Norovirus GI/GII PCR Adenovirus (PCR) B. pertussis DNA (PCR) B.parapertussis DNA PCR C. pneumoniae DNA (PCR) Coronavirus OC43 (PCR) Coronavirus HKU1 (PCR) Coronavirus 229E (PCR) SARS-CoV-2 (PCR) Coronavirus NL63 (PCR) Human Metapneumovir PCR Influenza Type A (PCR) Influenza Type B (PCR) M. pneumoniae (PCR) Parainfluenza 1 (PCR) Parainfluenza 2 (PCR) Parainfluenza 3 (PCR) Parainfluenza 4 (PCR) RSV (PCR) Entero/Rhino (PCR) 10/30/24 10/30/24 10/30/24 06:46 06:56 08:22 WBC 32.16 H* RBC 2.96 L Hgb 9.0 L Hct 25.5 L MCV 86.1 MCH 30.4 MCHC 35.3 RDW Std Deviation 46.5 H RDW Coeff of Susana 14.8 H Plt Count 317 MPV 9.0 L Immature Gran % (Auto) Neut % (Auto) Lymph % (Auto) Aiken % (Auto) Eos % (Auto) Baso % (Auto) Neut # (Auto) Lymph # (Auto) Aiken # (Auto) Eos # (Auto) Baso # (Auto) Immature Gran # (Auto) Polychromasia Basophilic Stippling Echinocytes Acanthocytes (Spur) ESR Sodium 120 L Potassium 3.8 Chloride 92 L Carbon Dioxide 22 Anion Gap 6 BUN 35 H Creatinine 1.17 Est Cr Clr Drug Dosing 40.1 eGFR 60.34 BUN/Creatinine Ratio 29.9 H Glucose 139 H POC Glucose 134 H Estimat Average Glucose 163 Hemoglobin A1c 7.3 H Osmolality Lactate Calcium 7.7 L Phosphorus Magnesium Iron TIBC Transferrin Transferrin % Sat Ferritin Total Bilirubin AST ALT Alkaline Phosphatase Troponin I High Sens B-Natriuretic Peptide 549 H Total Protein Albumin Globulin Albumin/Globulin Ratio 25-OH Vitamin D Total 38.6 Procalcitonin Urine Color Urine Appearance Urine pH Ur Specific [place] Urine Protein Urine Glucose (UA) Urine Ketones Urine Blood Urine Nitrite Urine Bilirubin Urine Urobilinogen Ur Leukocyte Esterase Urine WBC (Auto) Urine RBC (Auto) U Hyaline Cast (Auto) U Epithel Cells (Auto) Urine Bacteria (Auto) Urine Mucus Urine Osmolality Ur Random Sodium Stl C. cayetanensis PCR Stool Rotavirus A PCR Stl Adenov F 40/41 PCR Stool Astrovirus (PCR) Stool Campylobacter PCR Stool Cryptosporidium PCR Stl E.coli Shiga Tox PCR Stl Enterotoxigenic E PCR Stool EPEC (PCR) Stool EAEC (PCR) Stl E. histolytica PCR Stool Giardia Lamblia PCR Stool Salmonella PCR Stool Sapovirus (PCR) Stl P. shigelloides PCR Stl Shigella/EIEC PCR St Y.enterocolitica PCR Stool Vibrio (PCR) Stl Vibrio cholerae PCR Stl Norovirus GI/GII PCR Adenovirus (PCR) B. pertussis DNA (PCR) B.parapertussis DNA PCR C. pneumoniae DNA (PCR) Coronavirus OC43 (PCR) Coronavirus HKU1 (PCR) Coronavirus 229E (PCR) SARS-CoV-2 (PCR) Coronavirus NL63 (PCR) Human Metapneumovir PCR Influenza Type A (PCR) Influenza Type B (PCR) M. pneumoniae (PCR) Parainfluenza 1 (PCR) Parainfluenza 2 (PCR) Parainfluenza 3 (PCR) Parainfluenza 4 (PCR) RSV (PCR) Entero/Rhino (PCR) PG Care Time/CCT Total # of Minutes Spent Total Time Spent with Patient: Total time spent is greater than 50% in coordination of care (as documented) at patient's floor/unit and/or counseling patient: Coding Level of Care Code 47717 SUB INP/OBS CARE 2MIN Diagnoses Diarrhea R19.7
--- NOTE | 2024-10-30 12:48 | XRay Report ---
KUB HISTORY: abd pain, diarrhea COMPARISON STUDY: 09/09/2024 FINDINGS: There is thumbprinting at the right colon consistent with wall thickening/colitis. There ar e a few mildly distended left abdominal small bowel loops and there is mild distention of the left tr ansverse colon. No other bowel distention seen. No gross free air. IVC filter is stable. IMPRESSION: 1. Enterocolitis. 2. Mild bowel distention can be seen in the setting of enterocolitis. If symptoms worsen, follow-up i maging is suggested to rule out developing bowel obstruction. ACT 112: Negative or not required by law. The above report was generated using voice recognition software. It may contain grammatical, syntax o r spelling errors. Electronically signed by: Sal Collins M.D. 10/30/2024 12:46 PM
[2024-10-30 13:47] LABS: Cdiff Toxin B Gene (2yr or >) Positive Cdiff Gene (Neg)
[2024-10-30 13:50] LABS: Cdiff Antigen Positive
[2024-10-30 13:51] LABS: Cdiff Toxin A+B Positive Cdiff Toxin (Negative)
[2024-10-30] MEDS: CHERRY SYRUP 5 ML UDP PO SCH (15:42)
[2024-10-30] MEDS: VANCOMYCIN HCL 125 MG/2.5ML SOLN PO SCH (15:42)
[2024-10-30] MEDS: ADVANCED PROBIOTIC 625 MG CAPSULE PO SCH (15:42)
[2024-10-30] MEDS: SODIUM CHLORIDE 0.9% 1,000 ML IV SCH (16:02)
--- NOTE | 2024-10-30 16:16 | Hospitalist Progress Note ---
Date of Service October 30, 2024 Assessment & Plan (1) Acute hyponatremia: (2) Colitis: (3) Shingles: (4) Hypocalcemia: (5) ASCVD (arteriosclerotic cardiovascular disease): (6) Lupus: (7) Arthritis: (8) CMV (cytomegalovirus): (9) C. difficile colitis: Plan 89yo male with DM II, HTN, HLD, CAD, GERD, arthritis presented for ongoing diarrhea. I saw him in August for severe diarrhea, at that time stool BioFire and stool C. difficile testing was negative he had a diffuse colitis with scattered ulcerations on colonoscopy, biopsy showed nonspecific colitis, in the interim he was started on trial of Creon and mesalamine. there were some rare CMV occlusions on the biopsies that were not thought to be clinically significant. During August hospitalization he was initially on Cipro and Flagyl, which I stopped. He was admitted 10/29 with severe watery diarrhea and severe leukocytosis. Stool BioFire was again negative however stool C. difficile toxin was positive C. difficile colitis - no prior history of C. difficile, had broad-spectrum antibiotics in August 2024 nonspecific colitis August 2024 - creon, mesalamine were held on admission - fecal calprotectin pending - consulted gastroenterology, I discussed with Dr. Sanz today and reviewed the recommendations in his note - obtained KUB today consistent with enterocolitis, mild bowel distention - stop steroids and start oral vancomycin 125 mg p.o. 4 times daily times 10 days - probiotic - daily a.m. CBC, BMP, mag severe hyponatremia, asymptomatic. 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 Sodium was 115 on admission, treated with IV fluids and improved to 120 this morning - recheck sodium this afternoon - component of SIADH with superimposed hypovolemia. urine sodiums have been 29, 12 recent right chest/flank shingles, resolved, completed a course of valacyclovir he reports history of lupus however is not on any treatment JULIENNE on CKD 3, prerenal/dehydration due to acute diarrheatreated with IV fluids and resolved creatinine now at baseline 1.17 HTN- Lisinopril, isosorbide mononitrate, atenolol, furosemide at baseline but HOLDING given soft BPs and diarrhea he has anasarca, significant lower extremity pitting edema reports chronic black colored stool on PO iron - hold hemoglobin is stable at 9, 7.8 yesterday is an outlier and probably lab error or dilutional effect DM II- prior A1c 8.3. On aspart 3u TID, glargine 6 HS. Pharmacy consulted and appreciate glycemic assistance w/ steroid use above GERDon PPI, see whether this can be discontinued as it will increase the risk of recurrent C. difficile DVT prophylaxisenoxaparin Admission and Anticipated Discharge Date Admission Date: October 29, 2024 Subjective continues to have severe greenish watery diarrhea today, denies abdominal pain, he has significant lower extremity edema that had resolved previously by last discharge he says he has been on the probenecid at least a year he has been losing weight but says he eats reasonably well Physical Exam 2 Physical Exam: PHYSICAL EXAMINATION Last 24h vital signs reviewed, see documentation in flowsheet General: comfortable appearing, sitting in the edge of the bed HEENT: Normocephalic, atraumatic, pupils round and equal, sclerae anicteric, no conjunctival injection, moist mucus membranes Lungs: Normal respiratory effort. Clear to auscultation bilaterally. No RRW Heart: Regular rate and rhythm, no murmurs. No JVD Abdomen: Soft, nontender, nondistended. Bowel sounds present. Extremities: Warm, dry, well-perfused. 3+ bilateral lower extremity pitting edema, mild edema of hands and wrists Neuro: Alert and oriented x 4, face symmetric, moves 4 extremities well Psych: Normal affect and behavior Results & Data Results & Data Vital Signs (Past 12 Hours) Vital Signs Temp Pulse Pulse Resp BP Pulse Ox O2 Del Method 10/30/24 13:55 80 10/30/24 11:33 36.4 C L 80 18 117/63 96 Room Air 10/30/24 08:25 Room Air 10/30/24 08:07 36.4 C L 76 16 103/61 95 Room Air 10/30/24 07:00 71 10/30/24 04:39 36.4 C L 72 16 94/56 L 94 Room Air Laboratory Results 10/30/24 06:56 10/30/24 06:46 PG Care Time/CCT Total # of Minutes Spent Total Time Spent with Patient: Total time spent is greater than 50% in coordination of care (as documented) at patient's floor/unit and/or counseling patient: Coding Level of Care Code 87576 SUB INP/OBS CARE MIN Diagnoses Acute hyponatremia E87.1 Colitis K52.9 Herpes zoster without complication B02.9 Herpes zoster complications: without complications Hypocalcemia E83.51 ASCVD (arteriosclerotic cardiovascular disease) I25.10 Lupus M32.9 Arthritis M19.90 CMV (cytomegalovirus) B25.9 C. difficile colitis A04.72 (3) Shingles Herpes zoster complications: without complications Qualified Code(s): B02.9 - Zoster without complications
[2024-10-30 17:07] LABS: BUN Creatinine Ratio 32.8 (10-20); Calcium 7.6 mg/dl (8.6-10.3); Creatinine Clr Calc Pharmacy 39.5 ml/min; Potassium 4.2 mmol/L (3.5-5.1)
--- NOTE | 2024-10-30 18:22 | Communication Note ---
Date of Service: October 30, 2024 afternoon sodium still 120. Asx and not far from his baseline has had a lot of IV fluids, BMP elevated, severe edema - hold fluids for tonight continue salt tabs AM BMP, mag, CBC
[2024-10-30] MEDS: LANTUS PER UNIT CHARGE SQ SCH (20:37)
[2024-10-31] MEDS: CHOLESTYRAMINE LIGHT 4 GM PKT PO STA (02:12)
[2024-10-31 07:59] LABS: Hematocrit (blood only) 26.4 % (42.0-52.0); Hemoglobin 9.1 g/dl (14.0-18.0); Mean Corpuscular Hgb Conc 34.5 g/dL (32.0-36.0); Mean Corpuscular Volume 87.1 fL (80.0-100.0); Mean Platelet Volume 9.3 fL (9.4-12.4); Platelet Count 316 K/uL (130-400); RDW Coefficient of Variation 15.1 % (11.5-14.5); RDW Standard Deviation 48.6 fL (36.4-46.3); Red Blood Count 3.03 M/uL (4.70-6.10); White Blood Count 24.69 K/ul (4.8-10.8)
[2024-10-31 08:51] LABS: BUN Creatinine Ratio 27.5 (10-20); Calcium 7.8 mg/dl (8.6-10.3); Creatinine Clr Calc Pharmacy 29.4 ml/min; Magnesium 2.4 mg/dl (1.7-2.4); Potassium 3.8 mmol/L (3.5-5.1)
[2024-10-31] MEDS: CARBOHYDRATES FOR HYPOGLYCEMIA PO PRN (09:07)
[2024-10-31] MEDS: SODIUM CHLORIDE 0.9% 1,000 ML IV SCH (09:23)
[2024-10-31] MEDS: D5W AND NSS 1,000 ML IV SCH (10:17)
--- NOTE | 2024-10-31 11:31 | Gastroenterology Progress Note ---
Date of Service October 31, 2024 Assessment & Plan (1) Diarrhea: Plan: Diarrhea secondary to new finding of C diff. He just started vancomycin last evening. Would continue with this and assess how he does with this. Admission and Anticipated Discharge Date Admission Date: October 29, 2024 Supervising Physician Co-Signing Physician Notes I personally saw and examined the patient. I have reviewed the chart and agree with the documentation provided by the ACCOUNTING SOFTWARE SPECIALIST including discussion about the assessment, treatment and plan. Briefly, acute on chronic diarrhea with multiple episodes while he is here. He did come back positive for C. difficile so we will treat with vancomycin orally. If he does not start to improve in the next day or so, we will consider cholestyramine in addition. Subjective His stools came back positive for C diff. now on vanco - first dose was last evening. Patient still having several bowel movements this morning. wbc improved from 32.1 to 24.6. rest of GI ROS are unremarkable. Review of Systems Review of Systems: All systems reviewed & are unremarkable except as noted in HPI & below Physical Exam Constitutional: WD/WN, vitals as above Respiratory: normal respiratory effort, lungs clear to auscultation Cardiovascular: Rate/Rhythm: regular rate and regular rhythm Gastrointestinal (Abdomen): normal bowel sounds, soft, nontender, no hepatosplenomegaly Psychiatric: Orientation: alert and oriented x 3 Results & Data Results & Data Vital Signs (Past 12 Hours) Vital Signs Temp Pulse Pulse Resp BP Pulse Ox O2 Del Method 10/31/24 08:12 89 10/31/24 08:07 98.1 F 85 16 92/59 L 98 Room Air 10/31/24 07:29 Room Air 10/31/24 03:00 97.9 F 115 H 18 107/58 L 96 Room Air Coding Level of Care Code 29037 SUB INP/OBS CARE 2/35MIN Diagnoses Diarrhea R19.7
--- NOTE | 2024-10-31 16:25 | Hospitalist Progress Note ---
Date of Service October 31, 2024 Assessment & Plan (1) Acute hyponatremia: (2) Colitis: (3) Shingles: (4) Hypocalcemia: (5) ASCVD (arteriosclerotic cardiovascular disease): (6) Lupus: (7) Arthritis: (8) CMV (cytomegalovirus): (9) C. difficile colitis: Plan 89yo male with DM II, HTN, HLD, CAD, GERD, arthritis presented for ongoing diarrhea. I saw him in August for severe diarrhea, at that time stool BioFire and stool C. difficile testing was negative he had a diffuse colitis with scattered ulcerations on colonoscopy, biopsy showed nonspecific colitis, in the interim he was started on trial of Creon and mesalamine. there were some rare CMV occlusions on the biopsies that were not thought to be clinically significant. During August hospitalization he was initially on Cipro and Flagyl, which I stopped. He was admitted 10/29 with severe watery diarrhea and severe leukocytosis. Stool BioFire was again negative however stool C. difficile toxin was positive C. difficile colitis - no prior history of C. difficile, had broad-spectrum antibiotics in August 2024 nonspecific colitis August 2024 - creon, mesalamine were held on admission - fecal calprotectin pending - consulted gastroenterology, reviewed recommendations and note today - oral vancomycin 125 mg p.o. 4 times daily times 10 days - probiotic - daily a.m. CBC, BMP, mag - continues to have severe diarrhea today severe hyponatremia, asymptomatic. 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 Sodium was 115 on admission, treated with IV fluids and improved - component of SIADH with superimposed hypovolemia. urine sodiums have been 29, 12 - sodium improved to 122, a.m. BMP ordered - having a large amount of diarrhea continue gentle normal saline at 80 mL an hour, salt tabs JULIENNE on CKD 3creatinine up to 1.6 today probably prerenal/volume depletion from diarrhea, restarted gentle IV fluids caution because of his severe leg edema - lisinopril and furosemide have been held this admission - a.m. BMP DM II- prior A1c 8.3. was aspart 3u TID, glargine 6 HS. severely hypoglycemic today remained prolonged hypoglycemic in 40s despite oral glucose tabs food etc., started D5 drip, held all insulins, midday blood glucoses 189, 160 recent right chest/flank shingles, resolved, completed a course of valacyclovir he reports history of lupus however is not on any treatment JULIENNE on CKD 3, prerenal/dehydration due to acute diarrheatreated with IV fluids and resolved creatinine now at baseline 1.17 HTN- Lisinopril, isosorbide mononitrate, atenolol, furosemide at baseline but HOLDING he has anasarca, significant lower extremity pitting edema reports chronic black colored stool on PO iron - hold hemoglobin remains stable at 9 GERDon PPI, see whether this can be discontinued as it will increase the risk of recurrent C. difficile DVT prophylaxisenoxaparin discussed plan of care with Charles and his bedside nurse Admission and Anticipated Discharge Date Admission Date: October 29, 2024 Subjective weans lying in bed getting cleaned up by nursing staff he has been having continued profuse diarrhea that smells of C. difficile he had fairly refractory hypoglycemia this morning Physical Exam 2 Physical Exam: PHYSICAL EXAMINATION Last 24h vital signs reviewed, see documentation in flowsheet General: lying on bed HEENT: Normocephalic, atraumatic, pupils round and equal, sclerae anicteric, no conjunctival injection, moist mucus membranes Lungs: normal work of breathing Heart: deferred Abdomen: mildly distended, soft nontender active bowel tones Extremities: Warm, dry, well-perfused. 3+ bilateral lower extremity pitting edema, mild edema of hands and wrists unchanged Neuro: Alert and oriented x 4, face symmetric, moves 4 extremities well Psych: Normal affect and behavior Results & Data Results & Data Vital Signs (Past 12 Hours) Vital Signs Temp Pulse Pulse Resp BP BP Pulse Ox 10/31/24 15:38 36.2 C L 82 16 99/61 L 95 10/31/24 11:42 36.6 C 81 20 95/55 L 99 10/31/24 08:12 89 10/31/24 08:07 36.7 C 85 16 92/59 L 98 10/31/24 07:29 O2 Del Method 10/31/24 15:38 Room Air 10/31/24 11:42 Room Air 10/31/24 08:12 10/31/24 08:07 Room Air 10/31/24 07:29 Room Air Laboratory Results 10/31/24 07:26 10/31/24 07:26 PG Care Time/CCT Total # of Minutes Spent Total Time Spent with Patient: Total time spent is greater than 50% in coordination of care (as documented) at patient's floor/unit and/or counseling patient: Coding Level of Care Code 28972 SUB INP/OBS CARE 3/50MIN Diagnoses Acute hyponatremia E87.1 Colitis K52.9 Herpes zoster without complication B02.9 Herpes zoster complications: without complications Hypocalcemia E83.51 ASCVD (arteriosclerotic cardiovascular disease) I25.10 Lupus M32.9 Arthritis M19.90 CMV (cytomegalovirus) B25.9 C. difficile colitis A04.72 (3) Shingles Herpes zoster complications: without complications Qualified Code(s): B02.9 - Zoster without complications
[2024-10-31] MEDS: INSULIN ASPART PER UNIT CHARGE SC STA (21:41)
[2024-11-01 06:51] LABS: BUN Creatinine Ratio 26.7 (10-20); Calcium 7.4 mg/dl (8.6-10.3); Creatinine Clr Calc Pharmacy 26.7 ml/min; Magnesium 2.2 mg/dl (1.7-2.4); Potassium 3.8 mmol/L (3.5-5.1)
[2024-11-01 08:03] LABS: Hematocrit (blood only) 23.2 % (42.0-52.0); Hemoglobin 8.3 g/dl (14.0-18.0); Mean Corpuscular Hgb Conc 35.8 g/dL (32.0-36.0); Mean Corpuscular Volume 86.6 fL (80.0-100.0); Platelet Count 232 K/uL (130-400); RDW Coefficient of Variation 14.9 % (11.5-14.5); RDW Standard Deviation 47.1 fL (36.4-46.3); Red Blood Count 2.68 M/uL (4.70-6.10); White Blood Count 11.49 K/ul (4.8-10.8)
[2024-11-01] MEDS: ALBUMIN 25% 25 GM/100 ML VIAL IV SCH (08:08)
--- NOTE | 2024-11-01 10:57 | Gastroenterology Progress Note ---
Date of Service November 01, 2024 Assessment & Plan (1) C. difficile colitis: Plan: Patient is seeing improvement in his diarrhea symptoms with starting vancomycin. would continue to treat this. if he does not continue to improve, can consider adding questran 4gm daily. Admission and Anticipated Discharge Date Admission Date: October 29, 2024 Supervising Physician Co-Signing Physician Notes I personally saw and examined the patient. I have reviewed the chart and agree with the documentation provided by the HEALTH EDUCATION COORDINATOR including discussion about the assessment, treatment and plan. Slow improvement in C. difficile colitis. It will take a few days for his diarrhea to start forming completely. Subjective Patient tells me that his diarrhea is starting to improve. he denies nausea, vomiting, abdominal pain. he feels he has more energy today. wbc fell from 24.6 to 11.4. Review of Systems Review of Systems: All systems reviewed & are unremarkable except as noted in HPI & below Physical Exam Constitutional: WD/WN, vitals as above Respiratory: normal respiratory effort, lungs clear to auscultation Cardiovascular: Rate/Rhythm: regular rate and regular rhythm Gastrointestinal (Abdomen): normal bowel sounds, soft, nontender, no hepatosplenomegaly Psychiatric: Orientation: alert and oriented x 3 Results & Data Results & Data Vital Signs (Past 12 Hours) Vital Signs Temp Pulse Pulse Resp BP Pulse Ox O2 Del Method 11/01/24 07:40 Room Air 11/01/24 07:30 88 95/54 L 11/01/24 07:23 97.0 F L 88 17 85/53 L 93 Room Air 11/01/24 07:00 90 11/01/24 00:00 97.5 F L 102 H 18 92/49 L 95 Room Air Coding Level of Care Code 49427 SUB INP/OBS CARE 09/17MIN Diagnoses C. difficile colitis A04.72
[2024-11-01] MEDS: SODIUM CHLORIDE 1 GM TABLET PO SCH (13:00)
--- NOTE | 2024-11-01 13:19 | Hospitalist Progress Note ---
Date of Service November 01, 2024 Assessment & Plan (1) Acute hyponatremia: (2) Colitis: (3) Shingles: (4) Hypocalcemia: (5) ASCVD (arteriosclerotic cardiovascular disease): (6) Lupus: (7) Arthritis: (8) CMV (cytomegalovirus): (9) C. difficile colitis: Plan 89yo male with DM II, HTN, HLD, CAD, GERD, arthritis presented for ongoing diarrhea. I saw him in August for severe diarrhea, at that time stool BioFire and stool C. difficile testing was negative he had a diffuse colitis with scattered ulcerations on colonoscopy, biopsy showed nonspecific colitis, in the interim he was started on trial of Creon and mesalamine. there were some rare CMV occlusions on the biopsies that were not thought to be clinically significant. During August hospitalization he was initially on Cipro and Flagyl, which I stopped. He was admitted 10/29 with severe watery diarrhea and severe leukocytosis. Stool BioFire was again negative however stool C. difficile toxin was positive C. difficile colitis -Diarrhea is improving - creon, mesalamine were held on admission - oral vancomycin 125 mg p.o. 4 times daily times 10 days - probiotic - daily a.m. CBC, BMP, mag - GI on board, appreciate recs severe hyponatremia, asymptomatic. -acute on chronic hyponatremia has history of SIADH with sodium in the 716460 range at baseline. -Sodium was 115 on admission, treated with IV fluids and improved - component of SIADH with superimposed hypovolemia. urine sodiums have been 29, 12 - sodium improved to 120, a.m. BMP ordered - continue salt tablets JULIENNE on CKD 3 probably prerenal/volume depletion from diarrhea, restarted gentle IV fluids caution because of his severe leg edema - lisinopril and furosemide have been held this admission - a.m. BMP Protein energy malnutrition His edema may have a component of low oncortic protein due to malnutrition will encourage nutritional supplements Albumin infusion DM II- prior A1c 8.3. was aspart 3u TID, glargine 6 HS. Was hypoglycemic yetsreday, however, hyperglycemic today will re instittute insulin sliding scale recent right chest/flank shingles, resolved, completed a course of valacyclovir he reports history of lupus however is not on any treatment HTN- Lisinopril, isosorbide mononitrate, atenolol, furosemide at baseline but HOLDING he has anasarca, significant lower extremity pitting edema reports chronic black colored stool on PO iron - hold hemoglobin remains stable at 9 GERDon PPI, see whether this can be discontinued as it will increase the risk of recurrent C. difficile DVT prophylaxisenoxaparin Disposition: continue hopsitalization, will need PT eval Admission and Anticipated Discharge Date Admission Date: October 29, 2024 Subjective Patient seen and examined today, states his diarrhea has been, no diarrhea so far this morning. Review of Systems Review of Systems: All systems reviewed are negative, apart from the ones contained in the history. Physical Exam Physical Exam: The patient is awake, alert and oriented 3, well developed and well nourished, normocephalic and atraumatic, lying in bed and in no acute distress. HEENT--PERRL, EOMI, mucous membranes and oropharynx mildly dry Neck--supple. No JVD. No bruits. Thyroid normal, trachea midline, no adenopathy. Heart--normal S1 and S2. No murmurs, rubs or gallops. Lungs--clear bilaterally, no respiratory distress, no accessory muscle use. Abdomen--normal bowel sounds and soft. Extremities--no cyanosis or clubbing. pitting leg edema. Dermatologic--normal skin turgor, normal color, no abnormal lymph nodes, no rash. Neurologic--cranial nerves II through XII grossly intact. Rheumatologic--normal range of motion. Psychiatric--normal affect. Results & Data Results & Data Vital Signs (Past 12 Hours) Vital Signs Temp Pulse Pulse Resp BP BP Pulse Ox 11/01/24 11:35 97.2 F L 86 16 111/52 L 95 11/01/24 07:40 11/01/24 07:30 88 95/54 L 11/01/24 07:23 97.0 F L 88 17 85/53 L 93 11/01/24 07:00 90 O2 Del Method 11/01/24 11:35 Room Air 11/01/24 07:40 Room Air 11/01/24 07:30 11/01/24 07:23 Room Air 11/01/24 07:00 PG Care Time/CCT Total # of Minutes Spent Total Time Spent with Patient: Total time spent is greater than 50% in coordination of care (as documented) at patient's floor/unit and/or counseling patient: Coding Level of Care Code 17176 SUB INP/OBS CARE MIN Diagnoses Acute hyponatremia E87.1 Colitis K52.9 Herpes zoster without complication B02.9 Herpes zoster complications: without complications Hypocalcemia E83.51 ASCVD (arteriosclerotic cardiovascular disease) I25.10 Lupus M32.9 Arthritis M19.90 CMV (cytomegalovirus) B25.9 C. difficile colitis A04.72 Time Spent (min) 35 (3) Shingles Herpes zoster complications: without complications Qualified Code(s): B02.9 - Zoster without complications
[2024-11-01] MEDS: INSULIN ASPART PER UNIT CHARGE SC SCH (13:33)
[2024-11-01 16:28] LABS: CMV IgG Antibody >10.00 U/mL; CMV IgM Antibody <30.00 AU/mL
[2024-11-02 06:47] LABS: Hematocrit (blood only) 20.8 % (42.0-52.0); Hemoglobin 7.4 g/dl (14.0-18.0); Mean Corpuscular Hemoglobin 30.5 pg (25.0-34.0); Mean Corpuscular Hgb Conc 35.6 g/dL (32.0-36.0); Mean Corpuscular Volume 85.6 fL (80.0-100.0); Mean Platelet Volume 9.4 fL (9.4-12.4); Platelet Count 177 K/uL (130-400); RDW Coefficient of Variation 14.9 % (11.5-14.5); RDW Standard Deviation 46.3 fL (36.4-46.3); Red Blood Count 2.43 M/uL (4.70-6.10); White Blood Count 5.96 K/ul (4.8-10.8)
[2024-11-02 07:15] LABS: BUN Creatinine Ratio 27.6 (10-20); Calcium 7.6 mg/dl (8.6-10.3); Creatinine Clr Calc Pharmacy 38.2 ml/min; Potassium 3.9 mmol/L (3.5-5.1)
--- NOTE | 2024-11-02 10:06 | Gastroenterology Progress Note ---
Date of Service November 02, 2024 Assessment & Plan (1) C. difficile colitis: Plan: 89 year old male w/ history of T1DM, dyslipidemia, HTN, ASCVD, GERD, arthritis admitted w/ return of diarrhea. Stool for c.diff now positive, started on oral vancomycin. WBC has normalized. Continue oral Vancomycin 125 QID May add Questran 4 g once daily if needed Low lactose, low residue diet as tolerated Recall GI as needed. I spent a total of 40 minutes on the date of service in review of patient's record, and previously obtained information in person and appropriate medical visit, discussion and education of plan, with patient and/or caregiver, placing orders for tests/referral/procedures as medically necessary and documentation of pertinent clinical information in patient's medical records for their visit today. Admission and Anticipated Discharge Date Admission Date: October 29, 2024 Supervising Physician Co-Signing Physician Notes I personally saw and examined the patient. I have reviewed the chart and agree with the documentation provided by the OPERATING TABLE ASSEMBLER including discussion about the assessment, treatment and plan. Briefly, diarrhea slowly improving. Continue treatment of C. difficile with 125 4 times daily. Given his immunosuppression and age, I would recommend a vancomycin taper. He should get 125 4 times daily for 10 days followed by 3 times daily for 5 days twice daily for 5 days daily for 5 days and then every other day for 3 weeks to make sure he does not get recurrence. Cholestyramine can always be used for diarrhea if this persists or the stool does inform GI has no further recommendations we will sign off Subjective Pt was seen and evaluated, chart reviewed. Suggests stools loose. The are less frequent than yesterday. Tolerating oral intake but suggests his appetite is diminished. Denies black or bloody stools to me. Review of Systems Review of Systems: All other findings negative except as noted in HPI. Physical Exam Constitutional: WD/WN, vitals as above Respiratory: normal respiratory effort Gastrointestinal (Abdomen): Inspection/Auscultation: abdomen normal to inspection and normal bowel sounds Skin: no rashes, warm and dry Results & Data Results & Data Vital Signs (Past 12 Hours) Vital Signs Temp Pulse Pulse Resp BP Pulse Ox O2 Del Method 11/02/24 07:40 99.0 F 94 H 16 114/58 L 95 Room Air 11/02/24 07:00 90 11/01/24 23:00 89 Laboratory Results 11/02/24 11/02/24 11/01/24 Range/Units 06:50 06:12 20:09 WBC 5.96 (4.8-10.8) K/ul RBC 2.43 L (4.70-6.10) M/uL Hgb 7.4 L (14.0-18.0) g/dl Hct 20.8 L* (42.0-52.0) % MCV 85.6 (80.0-100.0) fL MCH 30.5 (25.0-34.0) pg MCHC 35.6 (32.0-36.0) g/dL RDW Std Deviation 46.3 (36.4-46.3) fL RDW Coeff of Susana 14.9 H (11.5-14.5) % Plt Count 177 (130-400) K/uL MPV 9.4 (9.4-12.4) fL Sodium 123 L (136-145) mmol/L Potassium 3.9 (3.5-5.1) mmol/L Chloride 96 L (98-107) mmol/L Carbon Dioxide 23 (21-32) mmol/L Anion Gap 4 (3-11) BUN 34 H (6-23) mg/dl Creatinine 1.23 D (0.6-1.4) mg/dl Est Cr Clr Drug Dosing 38.2 ml/min eGFR 56.82 BUN/Creatinine Ratio 27.6 H (10-20) Glucose 205 H (70-99(Fasting)) mg/dl POC Glucose 206 H 134 H (70-99) mg/dl Calcium 7.6 L (8.6-10.3) mg/dl Magnesium 2.0 (1.7-2.4) mg/dl CMV IgM Ab AU/mL CMV IgG Ab/TORCH U/mL 11/01/24 11/01/24 11/01/24 Range/Units 17:14 12:20 12:18 WBC (4.8-10.8) K/ul RBC (4.70-6.10) M/uL Hgb (14.0-18.0) g/dl Hct (42.0-52.0) % MCV (80.0-100.0) fL MCH (25.0-34.0) pg MCHC (32.0-36.0) g/dL RDW Std Deviation (36.4-46.3) fL RDW Coeff of Susana (11.5-14.5) % Plt Count (130-400) K/uL MPV (9.4-12.4) fL Sodium (136-145) mmol/L Potassium (3.5-5.1) mmol/L Chloride (98-107) mmol/L Carbon Dioxide (21-32) mmol/L Anion Gap (3-11) BUN (6-23) mg/dl Creatinine (0.6-1.4) mg/dl Est Cr Clr Drug Dosing ml/min eGFR BUN/Creatinine Ratio (10-20) Glucose (70-99(Fasting)) mg/dl POC Glucose 113 H 312 H* 312 H* (70-99) mg/dl Calcium (8.6-10.3) mg/dl Magnesium (1.7-2.4) mg/dl CMV IgM Ab AU/mL CMV IgG Ab/TORCH U/mL 10/29/24 Range/Units 00:46 WBC (4.8-10.8) K/ul RBC (4.70-6.10) M/uL Hgb (14.0-18.0) g/dl Hct (42.0-52.0) % MCV (80.0-100.0) fL MCH (25.0-34.0) pg MCHC (32.0-36.0) g/dL RDW Std Deviation (36.4-46.3) fL RDW Coeff of Susana (11.5-14.5) % Plt Count (130-400) K/uL MPV (9.4-12.4) fL Sodium (136-145) mmol/L Potassium (3.5-5.1) mmol/L Chloride (98-107) mmol/L Carbon Dioxide (21-32) mmol/L Anion Gap (3-11) BUN (6-23) mg/dl Creatinine (0.6-1.4) mg/dl Est Cr Clr Drug Dosing ml/min eGFR BUN/Creatinine Ratio (10-20) Glucose (70-99(Fasting)) mg/dl POC Glucose (70-99) mg/dl Calcium (8.6-10.3) mg/dl Magnesium (1.7-2.4) mg/dl CMV IgM Ab <30.00 AU/mL CMV IgG Ab/TORCH >10.00 H U/mL PG Care Time/CCT Total # of Minutes Spent Total Time Spent with Patient: Total time spent is greater than 50% in coordination of care (as documented) at patient's floor/unit and/or counseling patient: Coding Level of Care Code 42814 SUB INP/OBS CARE 2/35MIN Diagnoses C. difficile colitis A04.72
--- NOTE | 2024-11-02 12:25 | Hospitalist Progress Note ---
Date of Service November 02, 2024 Assessment & Plan (1) Acute hyponatremia: (2) Colitis: (3) Shingles: (4) Hypocalcemia: (5) ASCVD (arteriosclerotic cardiovascular disease): (6) Lupus: (7) Arthritis: (8) CMV (cytomegalovirus): (9) C. difficile colitis: Plan 89yo male with DM II, HTN, HLD, CAD, GERD, arthritis presented for ongoing diarrhea. I saw him in August for severe diarrhea, at that time stool BioFire and stool C. difficile testing was negative he had a diffuse colitis with scattered ulcerations on colonoscopy, biopsy showed nonspecific colitis, in the interim he was started on trial of Creon and mesalamine. there were some rare CMV occlusions on the biopsies that were not thought to be clinically significant. During August hospitalization he was initially on Cipro and Flagyl, which I stopped. He was admitted 10/29 with severe watery diarrhea and severe leukocytosis. Stool BioFire was again negative however stool C. difficile toxin was positive C. difficile colitis -Diarrhea is improving, Had about 3 liquid bowel movements this morning - creon, mesalamine were held on admission - oral vancomycin 125 mg p.o. 4 times daily times 10 days - probiotic - daily a.m. CBC, BMP, mag - GI on board, appreciate recs severe hyponatremia, asymptomatic. -acute on chronic hyponatremia has history of SIADH with sodium in the 724224 range at baseline. -Sodium was 115 on admission, treated with IV fluids and improved - component of SIADH with superimposed hypovolemia. urine sodiums have been 29, 12 - sodium improved to 123, a.m. BMP ordered - continue salt tablets TID JULIENNE on CKD 3 probably prerenal/volume depletion from diarrhea, -Now resolved - lisinopril and furosemide have been held this admission - a.m. BMP Protein energy malnutrition His leg edema may have a component of low oncotic protein due to malnutrition will encourage nutritional supplements Albumin infusion leg edema His leg edema may have a component of low oncotic protein due to malnutrition will encourage nutritional supplements Albumin infusion ROLF stockings Colitis Patient had a colonoscopy in August 2024, which showed evidence of colitis with positive CMV, although of unknown significance DM II- prior A1c 8.3. was aspart 3u TID, glargine 6 HS. insulin sliding scale recent right chest/flank shingles, resolved, completed a course of valacyclovir he reports history of lupus however is not on any treatment HTN- Lisinopril, isosorbide mononitrate, atenolol, furosemide at baseline but HOLDING he has anasarca, significant lower extremity pitting edema reports chronic black colored stool on PO iron - hold hemoglobin remains stable at 9 GERDon PPI, see whether this can be discontinued as it will increase the risk of recurrent C. difficile DVT prophylaxisenoxaparin Disposition: continue hospitalization, will need PT eval Admission and Anticipated Discharge Date Admission Date: October 29, 2024 Subjective Patient seen and examined today, said he had about 3 episodes of diarrhea this morning Review of Systems Review of Systems: All systems reviewed are negative, apart from the ones contained in the history. Physical Exam Physical Exam: The patient is awake, alert and oriented 3, well developed and well nourished, normocephalic and atraumatic, lying in bed and in no acute distress. HEENT--PERRL, EOMI, mucous membranes and oropharynx mildly dry Neck--supple. No JVD. No bruits. Thyroid normal, trachea midline, no adenopathy. Heart--normal S1 and S2. No murmurs, rubs or gallops. Lungs--clear bilaterally, no respiratory distress, no accessory muscle use. Abdomen--normal bowel sounds and soft. Extremities--no cyanosis or clubbing. pitting leg edema. Dermatologic--normal skin turgor, normal color, no abnormal lymph nodes, no rash. Neurologic--cranial nerves II through XII grossly intact. Rheumatologic--normal range of motion. Psychiatric--normal affect. Results & Data Results & Data Vital Signs (Past 12 Hours) Vital Signs Temp Pulse Pulse Resp BP BP Pulse Ox 11/02/24 12:10 98.2 F 109 H 18 109/46 L 93 11/02/24 07:40 99.0 F 94 H 16 114/58 L 95 11/02/24 07:00 90 O2 Del Method 11/02/24 12:10 Room Air 11/02/24 07:40 Room Air 11/02/24 07:00 PG Care Time/CCT Total # of Minutes Spent Total Time Spent with Patient: Total time spent is greater than 50% in coordination of care (as documented) at patient's floor/unit and/or counseling patient: Coding Level of Care Code 72642 SUB INP/OBS CARE MIN Diagnoses Acute hyponatremia E87.1 Colitis K52.9 Herpes zoster without complication B02.9 Herpes zoster complications: without complications Hypocalcemia E83.51 ASCVD (arteriosclerotic cardiovascular disease) I25.10 Lupus M32.9 Arthritis M19.90 CMV (cytomegalovirus) B25.9 C. difficile colitis A04.72 Time Spent (min) 35 (3) Shingles Herpes zoster complications: without complications Qualified Code(s): B02.9 - Zoster without complications
[2024-11-03 06:23] LABS: Hematocrit (blood only) 22.4 % (42.0-52.0); Hemoglobin 7.9 g/dl (14.0-18.0); Mean Corpuscular Hemoglobin 30.7 pg (25.0-34.0); Mean Corpuscular Hgb Conc 35.3 g/dL (32.0-36.0); Mean Corpuscular Volume 87.2 fL (80.0-100.0); Mean Platelet Volume 9.9 fL (9.4-12.4); Platelet Count 141 K/uL (130-400); RDW Coefficient of Variation 15.2 % (11.5-14.5); RDW Standard Deviation 48.9 fL (36.4-46.3); Red Blood Count 2.57 M/uL (4.70-6.10); White Blood Count 5.78 K/ul (4.8-10.8)
[2024-11-03 06:38] LABS: BUN Creatinine Ratio 26.2 (10-20); Calcium 7.5 mg/dl (8.6-10.3); Creatinine Clr Calc Pharmacy 43.9 ml/min
[2024-11-03] MEDS: NYSTATIN SUSP 500,000 U/5 ML UDC PO SCH (09:49)
--- NOTE | 2024-11-03 11:40 | Hospitalist Progress Note ---
Date of Service November 03, 2024 Assessment & Plan (1) Acute hyponatremia: (2) Colitis: (3) Shingles: (4) Hypocalcemia: (5) ASCVD (arteriosclerotic cardiovascular disease): (6) Lupus: (7) Arthritis: (8) CMV (cytomegalovirus): (9) C. difficile colitis: Plan 89yo male with DM II, HTN, HLD, CAD, GERD, arthritis presented for ongoing diarrhea. I saw him in August for severe diarrhea, at that time stool BioFire and stool C. difficile testing was negative he had a diffuse colitis with scattered ulcerations on colonoscopy, biopsy showed nonspecific colitis, in the interim he was started on trial of Creon and mesalamine. there were some rare CMV occlusions on the biopsies that were not thought to be clinically significant. During August hospitalization he was initially on Cipro and Flagyl, which I stopped. He was admitted 10/29 with severe watery diarrhea and severe leukocytosis. Stool BioFire was again negative however stool C. difficile toxin was positive C. difficile colitis -Diarrhea is improving, Had about 3 liquid bowel movements this morning - oral vancomycin 125 mg p.o. 4 times daily times 10 days - probiotic, Cholestyramine 4g daily - daily a.m. CBC, BMP, mag - GI on board, appreciate recs severe hyponatremia, asymptomatic. 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 -Sodium was 115 on admission, treated with IV fluids and improved - component of SIADH with superimposed hypovolemia. urine sodiums have been 29, 12 - sodium improved to 123, a.m. BMP ordered - continue salt tablets TID JULIENNE on CKD 3 probably prerenal/volume depletion from diarrhea, -Now resolved - lisinopril and furosemide have been held this admission - a.m. BMP Protein energy malnutrition His leg edema may have a component of low oncotic protein due to malnutrition will encourage nutritional supplements Albumin infusion leg edema His leg edema may have a component of low oncotic protein due to malnutrition will encourage nutritional supplements Albumin infusion ROLF stockings Colitis Patient had a colonoscopy in August 2024, which showed evidence of colitis with positive CMV, although of unknown significance DM II- prior A1c 8.3. was aspart 3u TID, glargine 6 HS. insulin sliding scale recent right chest/flank shingles, resolved, completed a course of valacyclovir he reports history of lupus however is not on any treatment HTN- Lisinopril, isosorbide mononitrate, atenolol, furosemide at baseline but HOLDING he has anasarca, significant lower extremity pitting edema reports chronic black colored stool on PO iron - hold hemoglobin remains stable at 9 GERDon PPI, see whether this can be discontinued as it will increase the risk of recurrent C. difficile DVT prophylaxisenoxaparin Disposition: continue hospitalization, PT recommeds home with HH, will d/c in the next 24-48 hrs Admission and Anticipated Discharge Date Admission Date: October 29, 2024 Subjective Patient seen and examined today, said he had about 2 episodes of diarrhea this morning, however, per RN, stool is semi formed Review of Systems Review of Systems: All systems reviewed are negative, apart from the ones contained in the history. Physical Exam Physical Exam: The patient is awake, alert and oriented 3, well developed and well nourished, normocephalic and atraumatic, lying in bed and in no acute distress. HEENT--PERRL, EOMI, mucous membranes and oropharynx mildly dry Neck--supple. No JVD. No bruits. Thyroid normal, trachea midline, no adenopathy. Heart--normal S1 and S2. No murmurs, rubs or gallops. Lungs--clear bilaterally, no respiratory distress, no accessory muscle use. Abdomen--normal bowel sounds and soft. Extremities--no cyanosis or clubbing. pitting leg edema. Dermatologic--normal skin turgor, normal color, no abnormal lymph nodes, no rash. Neurologic--cranial nerves II through XII grossly intact. Rheumatologic--normal range of motion. Psychiatric--normal affect. Results & Data Results & Data Vital Signs (Past 12 Hours) Vital Signs Temp Pulse Pulse Resp BP Pulse Ox O2 Del Method 11/03/24 10:53 98.1 F 85 18 122/71 93 Room Air 11/03/24 07:50 Room Air 11/03/24 07:37 97.7 F 84 18 128/67 93 Room Air 11/03/24 07:17 87 11/03/24 04:41 97.2 F L 97 H 16 138/64 91 Room Air PG Care Time/CCT Total # of Minutes Spent Total Time Spent with Patient: Total time spent is greater than 50% in coordination of care (as documented) at patient's floor/unit and/or counseling patient: Coding Level of Care Code 18375 SUB INP/OBS CARE 235MIN Diagnoses Acute hyponatremia E87.1 Colitis K52.9 Herpes zoster without complication B02.9 Herpes zoster complications: without complications Hypocalcemia E83.51 ASCVD (arteriosclerotic cardiovascular disease) I25.10 Lupus M32.9 Arthritis M19.90 CMV (cytomegalovirus) B25.9 C. difficile colitis A04.72 Time Spent (min) 35 (3) Shingles Herpes zoster complications: without complications Qualified Code(s): B02.9 - Zoster without complications
[2024-11-03] MEDS: CHOLESTYRAMINE LIGHT 4 GM PKT PO SCH (12:24)
[2024-11-04 07:46] LABS: Hematocrit (blood only) 22.4 % (42.0-52.0); Hemoglobin 7.8 g/dl (14.0-18.0); Mean Corpuscular Hemoglobin 30.2 pg (25.0-34.0); Mean Corpuscular Hgb Conc 34.8 g/dL (32.0-36.0); Mean Corpuscular Volume 86.8 fL (80.0-100.0); Mean Platelet Volume 10.1 fL (9.4-12.4); Platelet Count 155 K/uL (130-400); RDW Coefficient of Variation 15.3 % (11.5-14.5); Red Blood Count 2.58 M/uL (4.70-6.10); White Blood Count 6.69 K/ul (4.8-10.8)
[2024-11-04 07:57] LABS: BUN Creatinine Ratio 26.9 (10-20); Calcium 7.5 mg/dl (8.6-10.3); Creatinine Clr Calc Pharmacy 50.5 ml/min; Potassium 4.1 mmol/L (3.5-5.1)
[2024-11-04 08:03] VITALS: RESP 18
[2024-11-04 13:07] VITALS: TEMP 98.1; O2SAT 95
[2024-11-04 14:39] VITALS: BP 117/53; PULSE 99
--- NOTE | 2024-11-07 13:38 | Discharge Summary ---
Date of Service November 04, 2024 Admission HPI Per Admitting Provider 89-year-old male PMHx T2DM on insulin, dyslipidemia, HTN, ASCVD, GERD, and arthritis who was recently admitted 09/09 until 09/20/2024 for diarrhea and is presenting today for ongoing diarrhea. Diarrhea has been ongoing since July 2024. States approximately 1 week ago, he slipped diarrhea is becoming more severe and he started to have associated abdominal pain mainly localized to the lower abdomen and rather constant. Patient states that this was new for him as he did not pain with prior episodes of diarrhea. Patient states that he does feel weak at baseline and this is worsened over the past week. No falls or episodes of syncope. States that his stool is normally dark because he takes supplemental iron, has not noticed any blood. Does admit to having mucus in stool. When he has a bowel movement, it is mainly liquid and there are no formed stool. Denying chest pain, shortness of breath, palpitations, N/B, constipation, numbness/tingling, headache, or fever/chills. Patient completed course of antivirals for shingles infection beginning of September. ED evaluation reveals leukocytosis 28.33, H&H 8.9/24.9; sodium 115, chloride 84, creatinine 1.57, BUN 41, calcium 8.1, albumin 2.6, procalcitonin 1.12; UA negative; BioFire negative; CXR elevated L hemidiaphragm, mild reticular opacities in bilateral lungs. Provided with 2L NSS in ED. Admission Exam (Per Admitting) Constitutional The patient is awake, alert and oriented 3, well developed and well nourished, normocephalic and atraumatic, lying in bed and in no acute distress. HEENT--PERRL, EOMI, mucous membranes and oropharynx mildly dry Neck--supple. No JVD. No bruits. Thyroid normal, trachea midline, no adenopathy. Heart--normal S1 and S2. No murmurs, rubs or gallops. Lungs--clear bilaterally, no respiratory distress, no accessory muscle use. Abdomen--normal bowel sounds and soft. Extremities--no cyanosis or clubbing. No edema. Dermatologic--normal skin turgor, normal color, no abnormal lymph nodes, no rash. Neurologic--cranial nerves II through XII grossly intact. Rheumatologic--normal range of motion. Psychiatric--normal affect. Discharge Data Consultations 10/29/24 02:21 ED Decision to Admit Stat 10/29/24 08:27 Consult Gastroenterology Routine Hospital Course (1) Acute hyponatremia: (2) Colitis: (3) Shingles: (4) Hypocalcemia: (5) ASCVD (arteriosclerotic cardiovascular disease): (6) Lupus: (7) Arthritis: (8) CMV (cytomegalovirus): (9) C. difficile colitis: Plan 89yo male with DM II, HTN, HLD, CAD, GERD, arthritis presented for ongoing diarrhea. I saw him in August for severe diarrhea, at that time stool BioFire and stool C. difficile testing was negative he had a diffuse colitis with scattered ulcerations on colonoscopy, biopsy showed nonspecific colitis, in the interim he was started on trial of Creon and mesalamine. there were some rare CMV occlusions on the biopsies that were not thought to be clinically sig nificant. During August hospitalization he was initially on Cipro and Flagyl, which I stopped. He was admitted 10/29 with severe watery diarrhea and severe leukocytosis. Stool BioFire was again negative however stool C. difficile toxin was positive C. difficile colitis -Diarrhea is improving, Had about 3 liquid bowel movements this morning - oral vancomycin 125 mg p.o. 4 times daily times 10 days - probiotic, Cholestyramine 4g daily - daily a.m. CBC, BMP, mag - GI on board, appreciate recs severe hyponatremia, asymptomatic. -acute on chronic hyponatremia has history of SIADH with sodium in the 164203 range at baseline. -Sodium was 115 on admission, treated with IV fluids and improved - component of SIADH with superimposed hypovolemia. urine sodiums have been 29, 12 - sodium improved to 123, a.m. BMP ordered - continue salt tablets TID JULIENNE on CKD 3 probably prerenal/volume depletion from diarrhea, -Now resolved - lisinopril and furosemide have been held this admission - a.m. BMP Protein energy malnutrition His leg edema may have a component of low oncotic protein due to malnutrition will encourage nutritional supplements Albumin infusion leg edema His leg edema may have a component of low oncotic protein due to malnutrition will encourage nutritional supplements Albumin infusion ROLF stockings Colitis Patient had a colonoscopy in August 2024, which showed evidence of colitis with positive CMV, although of unknown significance DM II- prior A1c 8.3. was aspart 3u TID, glargine 6 HS. insulin sliding scale recent right chest/flank shingles, resolved, completed a course of valacyclovir he reports history of lupus however is not on any treatment HTN- Lisinopril, isosorbide mononitrate, atenolol, furosemide at baseline but HOLDING he has anasarca, significant lower extremity pitting edema reports chronic black colored stool on PO iron - hold hemoglobin remains stable at 9 GERDon PPI, see whether this can be discontinued as it will increase the risk of recurrent C. difficile DVT prophylaxisenoxaparin Disposition: d/c home Coding Level of Care Code 29421 INP/OBS DISCH >30 MIN Diagnoses Acute hyponatremia E87.1 Colitis K52.9 Herpes zoster without complication B02.9 Herpes zoster complications: without complications Hypocalcemia E83.51 ASCVD (arteriosclerotic cardiovascular disease) I25.10 Lupus M32.9 Arthritis M19.90 CMV (cytomegalovirus) B25.9 C. difficile colitis A04.72 Time Spent (min) 35
== END 2024-11-04 15:30 | disposition home health service (06) | DRG 371 ==
LOC: ED 00:31 → EDINP 04:36 → SUATTDRO 04:36 → 2W 05:11 → 3N 10:02 → 2W 10:34

== ENCOUNTER 2024-11-07 00:41 | Inpatient (IN) ==
--- NOTE | 2024-11-07 00:46 | Emergency Department Note ---
Impression & Plan Shortness of breath, Bilateral lower extremity edema, Hypervolemia ED Provider Note NAME: JERE Singh WINTER AGE: 89 SEX: M : 1935 ARRIVES VIA: Ambulance INFORMANT: Patient ED PROVIDER(S): Chay Mckeon MD CHIEF COMPLAINT: Shortness of breath PLAN: Disposition: Admit MEDICAL DECISION MAKING: The patient is a pleasant 89-year-old gentleman with a past medical history of high DDM, hypertension, hyperlipidemia, CAD, GERD who presents to the emergency department via EMS for evaluation of worsening shortness of breath this evening in setting of having worsening leg swelling over the past several days since being discharged from this facility on 11/03 following admission for acute on chronic hyponatremia, C. difficile colitis and protein calorie malnutrition with hypoalbuminemia. Patient denies any productive sputum. He denies chest pain. He reports increasing shortness of breath when he lay flat. He denies nausea, vomiting or diarrhea. Patient reports he did have a fall on the day he was discharged when he was getting into his house accompanied by his and son. He reports he was attempting to go up the front steps when he fell backwards and hit his head. He did not lose consciousness. They did not feel his fall was severe and did not seek medical attention at that time. He denies any neck, back, joint pain. He reports his diarrhea has improved. On evaluation the patient is no acute distress, afebrile with stable vital signs. He appears hypervolemic with 2+ bilateral extremity pitting edema. EKG demonstrates sinus rhythm with baseline left bundle branch block and no Sgarbossa criteria. Similar to prior. Chest x-ray demonstrates interstitial thickening, nonspecific and right basilar linear densities likely atelectasis per my preliminary independent interpretation. WBC within normal limits. H/H 8.4/24.3, similar to an improved from recent. Platelets within normal limits. Chemistry without metabolic acidosis. Sodium is 123 similar to discharge values. Phosphorus 2.1 electrolytes otherwise unremarkable. AST is 49, nonspecific with LFTs otherwise normal. High- sensitivity troponin 9.7, within normal limits. BNP is 219 consistent with the patient's hypervolemic appearance. Lipase is normal. Procalcitonin is pending. UA without evidence of infection. Respiratory BioFire was negative. Given the patient's shortness of breath in the setting of his hypervolemia does agree with plan for admission for further management. 20mg IV Lasix was ordered. [place]. [place], [facility] [place] to evaluate the patient for admission. Further management per admitting team. Triage Nursing notes reviewed and agree them. Prior/external medical records reviewed Vital Signs: reviewed Differential diagnosis: Reactive airway disease, pneumonia, pneumothorax, COPD, CHF, infections, cardiac ischemia, pulmonary embolism, musculoskeletal, gastrointestinal, as well as other pathologies. ER treatment provided: See below. Diagnostics interpreted by me: ECG: Sinus rhythm with first-degree AV block, occasional PVCs, 90 bpm, left bundle branch block, no Sgarbossa criteria, QTc 494, QRS 146. Cardiac Monitoring: An order for continuous cardiac monitoring was placed and demonstrated Sinus rhythm with first-degree AV block, occasional PVCs, 90 bpm Laboratory studies: See below Imaging studies: See below Consultation(s): Dr. Shelton, [facility] [place] HPI: The patient is a pleasant 89-year-old gentleman with a past medical history of high DDM, hypertension, hyperlipidemia, CAD, GERD who presents to the emergency department via EMS for evaluation of worsening shortness of breath this evening in setting of having worsening leg swelling over the past several days since being discharged from this facility on 11/03 following admission for acute on chronic hyponatremia, C. difficile colitis and protein calorie malnutrition with hypoalbuminemia. Patient denies any productive sputum. He denies chest pain. He reports increasing shortness of breath when he lay flat. He denies nausea, vomiting or diarrhea. Patient reports he did have a fall on the day he was discharged when he was getting into his house accompanied by his and son. He reports he was attempting to go up the front steps when he fell backwards and hit his head. He did not lose consciousness. They did not feel his fall was severe and did not seek medical attention at that time. He denies any neck, back, joint pain. He reports his diarrhea has improved. ROS: See above HPI for pertinent positives & negatives. A total of 10 systems reviewed and were otherwise negative. VITALS:See Below PHYSICAL EXAMINATION: GENERAL: Awake, alert, fatigued-appearing, in no distress HENT: Normocephalic, atraumatic. Oropharynx unremarkable. EYES: Normal conjunctiva. Sclera non-icteric. NECK: Supple. No nuchal rigidity. FROM. No JVD. RESPIRATORY: Diminished breath sounds at the bases and otherwise clear with normal respiratory effort. CARDIAC: Regular rate, normal rhythm. Extremities warm and well perfused. Pulses equal. ABDOMEN: Soft, non-distended. No tenderness to palpation. No rebound or guarding. No masses. MUSCULOSKELETAL: Chest examination reveals no tenderness. The back is symmetrical on inspection without obvious abnormality. There is no CVA tenderness to palpation. No joint edema. LOWER EXTREMITIES: Calves are equal size bilaterally and non-tender. 2+ BLE edema. No discoloration. NEURO: Normal sensorium. No sensory or motor deficits noted. SKIN: No rash or jaundice noted. Chay Mckeon MD Past Med/Surg History Problem List (Updated 11/07/24 @ 06:31 by Chay Mckeon MD) Protein-energy malnutrition Hypomagnesemia Dyspnea Hypervolemia (Acute) Shortness of breath (Acute) C. difficile colitis CMV (cytomegalovirus) Colitis JULIENNE (acute kidney injury) (Acute) Diarrhea (Acute) Acute hyponatremia (Acute) Hypocalcemia Hyponatremia Shingles Bilateral lower extremity edema (Acute) Encounter for examination following treatment at hospital Anemia GERD (gastroesophageal reflux disease) Metallic taste Lumbar spondylosis Lumbar disc herniation Lumbar radiculopathy ASCVD (arteriosclerotic cardiovascular disease) (Chronic) Diabetic nephropathy (Acute) Hypertension (Chronic) Diabetes mellitus Acute radicular low back pain Routine health maintenance Elevated TSH Lupus (Chronic) Dyslipidemia (Chronic) 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, with long-term current use of insulin (Chronic) Arthritis (Chronic) Medical History Proteinuria Chronic gout Surgical History History of basal cell carcinoma excision History of prostate surgery History of bilateral cataract extraction History of shoulder surgery History of hernia repair History of thumb surgery History of coronary artery stent placement Family History Brother Myocardial infarction Cancer Prostate cancer Daughter Cancer Father Myocardial infarction Denies family history of Ovarian cancer Breast cancer Colorectal cancer Social History Smoking Status: Never smoker Second Hand Exposure: No; Do You Dip or Chew Tobacco: No; Hx Alcohol Use: No Hx Substance Use: No Preferred Language: Bulgarian Communication Ability: Effective Visual Impairment: No Limitations Hearing Ability: Normal Scutcher Tender Required: No Beliefs That Will Affect Care: None marital status: Current Living Situation: Spouse current occupational status: retired 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 How many Children do You have: 3 Feels Safe at Home: Yes Childhood Exposure to Second-Hand Smoke: Yes Diet: regular caffeine: Yes (coffee, tea, and soda ) Dental Care, Regularly: Yes Physical Activity Frequency: Daily Seatbelt Use: always Sunscreen Use: Yes Assistive Devices: None Allergies Allergies Allergy/AdvReac Type Severity Reaction Status Date / Time Penicillins Allergy Unknown AMOXICILLIN Verified 10/10/24 10:32 - UNKNOWN RXN allopurinol Allergy Rash Verified 10/10/24 10:32 Home Meds Home Medications Medication Instructions Recorded Confirmed aspirin 81 mg chewable tablet 81 mg PO DAILY 02/08/19 11/07/24 isosorbide mononitrate 60 mg 60 mg PO QAM 02/08/19 11/07/24 tablet,extended release 24 hr nitroglycerin 0.4 mg sublingual 0.4 mg sublingual Q5M PRN Chest 02/08/19 11/07/24 tablet Pain atenolol 25 mg tablet 12.5 mg PO DAILY 03/30/19 11/07/24 cholecalciferol (vitamin D3) 50 2,000 units PO DAILY 03/30/19 11/07/24 mcg (2,000 unit) capsule probenecid 500 mg tablet 250 mg PO BID 03/30/19 11/07/24 cyanocobalamin (vitamin B-12) 1,000 mcg PO DAILY 04/24/20 11/07/24 1,000 mcg capsule iron,carbonyl 65 mg-vitamin C 125 1 tab PO DAILY 10/05/20 11/07/24 mg tablet,delayed release (Vitron-C) fluocinonide 0.05 % topical 1 applic topical BID PRN Other 10/26/20 11/07/24 ointment metronidazole 0.75 % topical gel 1 applic topical BID PRN Other 10/26/20 11/07/24 (Rosadan) furosemide 20 mg tablet (Lasix) 20 mg PO .3X TIMES WEEK PRN Fluid 09/17/23 11/07/24 Retention gabapentin 100 mg capsule 100 mg PO TID PRN pain 09/17/23 11/07/24 omeprazole 20 mg capsule,delayed 20 mg PO QAM 09/09/24 11/07/24 release simvastatin 20 mg tablet 20 mg PO PM 09/09/24 11/07/24 insulin aspart U-100 100 unit/mL 3 unit subcut TID 09/29/24 11/07/24 (3 mL) subcutaneous pen (Novolog FlexPen U-100 Insulin aspart) insulin glargine 100 unit/mL (3 6 unit subcut HS 10/29/24 11/07/24 mL) subcutaneous pen (Lantus Solostar U-100 Insulin) Previous Rx's Medication Instructions Recorded blood sugar diagnostic (OSSIANIXTouch #300 ea 04/04/24 Ultra Test strips) lisinopril 40 mg tablet 40 mg PO DAILY #90 tabs 08/18/24 lancets 33 gauge (OneTouch Delica #100 ea 09/22/24 Plus Lancet) sqmshg-hrybjnqu-oxxwlpv 1 cap PO QID #120 caps 09/26/24 36,000-114,000-180,000 unit capsule,delay rel (Creon) mesalamine 1.2 gram tablet,delayed 2.4 g (2 x 1.2 gram) PO BID 30 09/26/24 release days #120 tabs valacyclovir 1 gram tablet 1,000 mg PO BID #14 tabs 10/03/24 (Valtrex) pen needle, diabetic 31 gauge x #200 ea 10/13/24/16" (1st Tier Unifine Pentips) L.acidop,casei,lactis,rham-B.lact,whitney 1 cap PO DAILY 7 days #7 caps 11/04/24 625 mg (10 billion cell) capsule (Advanced Probiotic) cholestyramine-aspartame 4 gram 1 ea PO DAILY 5 days #60 ea 11/04/24 oral powder for susp in a packet (Prevalite) sodium chloride 1,000 mg soluble 1,000 mg PO TID 10 days #30 tabs 11/04/24 tablet vancomycin 1,000 mg intravenous 125 mg PO Q6 5 days #10 ea 11/04/24 injection Results & Data (ED) Vital Signs Vital Signs - 24 hr 11/07/24 00:43 11/07/24 00:43 11/07/24 00:45 Temperature 36.4 C L Temperature Source Oral Pulse Rate 82 Pulse Rate [Apical] Respiratory Rate 20 Respiratory Effort / Characteristics Non-Labored Spontaneous Non-Labored Spontaneous Respiratory Depth Normal Normal Respiratory Pattern Regular Regular Blood Pressure 120/61 Blood Pressure [Right Arm] Blood Pressure Mean 80 Blood Pressure Mean [Right Arm] Blood Pressure Position Semi-fowlers Blood Pressure Position [Right Arm] Pulse Oximetry 96 100 Oxygen Delivery Method Room Air Room Air Nasal Cannula Oxygen Flow Rate 4 Sepsis Recent Fever Within 48 Hours No Sepsis New/Unexplained Change in Mental Status N/A Sepsis Action Taken by Nursing No Action Required Oxygen Flow Rate - Titration 0 Pulse Oximetry Post Tiitration 100 11/07/24 00:52 11/07/24 01:02 11/07/24 03:02 Temperature Temperature Source Pulse Rate 78 Pulse Rate [Apical] 78 Respiratory Rate 16 Respiratory Effort / Characteristics Non-Labored Spontaneous Respiratory Depth Normal Respiratory Pattern Regular Blood Pressure Blood Pressure [Right Arm] 106/52 L Blood Pressure Mean Blood Pressure Mean [Right Arm] 70 Blood Pressure Position Blood Pressure Position [Right Arm] Semi-fowlers Pulse Oximetry 100 92 Oxygen Delivery Method Room Air Room Air Oxygen Flow Rate Sepsis Recent Fever Within 48 Hours Sepsis New/Unexplained Change in Mental Status Sepsis Action Taken by Nursing Oxygen Flow Rate - Titration Pulse Oximetry Post Tiitration Laboratory Data Attestation: I reviewed the patient's lab results. 11/07/24 00:51 11/07/24 00:51 Lab Results 11/07/24 11/07/24 11/07/24 Range/Units 00:51 00:57 03:09 WBC 7.37 (4.8-10.8) K/ul RBC 2.75 L (4.70-6.10) M/uL Hgb 8.4 L (14.0-18.0) g/dl POC Hgb 8.8 L (14.0-18.0) g/dl Hct 24.3 L (42.0-52.0) % POC Hct 26 L (42-52) % MCV 88.4 (80.0-100.0) fL MCH 30.5 (25.0-34.0) pg MCHC 34.6 (32.0-36.0) g/dL RDW Std Deviation 50.4 H (36.4-46.3) fL RDW Coeff of Susana 15.7 H (11.5-14.5) % Plt Count 149 (130-400) K/uL MPV 9.7 (9.4-12.4) fL Immature Gran % (Auto) 1.6 % Neut % (Auto) 79.8 % Lymph % (Auto) 14.4 % Otoe % (Auto) 2.7 % Eos % (Auto) 1.2 % Baso % (Auto) 0.3 % Neut # (Auto) 5.88 (1.40-6.50) K/uL Lymph # (Auto) 1.06 L (1.20-3.40) K/uL Otoe # (Auto) 0.20 (0.11-0.59) K/uL Eos # (Auto) 0.09 (0.00-0.50) K/uL Baso # (Auto) 0.02 (0.00-0.20) K/uL Immature Gran # (Auto) 0.12 (0.01-0.20) K/uL PT 11.3 (9.0-12.0) Seconds INR 1.0 (0.9-1.1) POC Sodium 124 L (135-144) mmol/L Sodium 123 L (136-145) mmol/L POC Potassium 4.8 (3.3-5.0) mmol/L Potassium 4.8 (3.5-5.1) mmol/L POC Chloride 94 L (101-112) mmol/L Chloride 96 L (98-107) mmol/L Carbon Dioxide 23 (21-32) mmol/L POC Total CO2 21 L (24-31) mmol/L Anion Gap 4 (3-11) POC Anion Gap 15.0 L (16-25) mmol/L POC BUN 27 H (7-18) mg/dl BUN 30 H (6-23) mg/dl Creatinine 1.09 (0.6-1.4) mg/dl POC Creatinine 1.2 (0.6-1.3) mg/dl Est Cr Clr Drug Dosing 43.1 ml/min eGFR 65.69 BUN/Creatinine Ratio 27.5 H (10-20) Glucose 127 H (70-99(Fasting)) mg/dl POC Glucose (other) 123 H (70-99) mg/dl Osmolality 268 L (280-300) mOsm/kg Calcium 8.1 L (8.6-10.3) mg/dl POC Ioniz Calcium Subhash 1.21 (1.12-1.32) mmol/l Phosphorus 2.1 L (2.5-4.9) mg/dl Magnesium 1.7 (1.7-2.4) mg/dl Total Bilirubin 0.5 (0.2-1.0) mg/dl AST 49 H (13-39) U/L ALT 39 (7-52) U/L Alkaline Phosphatase 65 (34-104) U/L Troponin I High Sens 9.7 (0-20) pg/ml B-Natriuretic Peptide 219 H (0-100) pg/ml Total Protein 5.2 L (6.0-8.3) gm/dl Albumin 2.6 L (3.4-5.0) gm/dl Globulin 2.6 (2.5-4.0) gm/dl Albumin/Globulin Ratio 1.0 (0.9-2) Lipase 54 (11-82) U/L Procalcitonin 0.45 (0-0.5) ng/ml Urine Color Yellow Urine Appearance Clear (Clear) Urine pH 5.5 (4.5-7.5) Ur Specific Dafter 1.016 (1.000-1.030) Urine Protein Trace H (Negative) Urine Glucose (UA) Negative (Negative) Urine Ketones Negative (Negative) Urine Blood Negative (Negative) Urine Nitrite Negative (Negative) Urine Bilirubin Negative (Negative) Urine Urobilinogen Negative (Negative) Ur Leukocyte Esterase Negative (Negative) Urine WBC (Auto) 0-5 (0-5) /hpf Urine RBC (Auto) 0-2 (0-2) /hpf U Hyaline Cast (Auto) 11-20 H (0-2) /lpf U Epithel Cells (Auto) 0-2 (0-2) /hpf Urine Bacteria (Auto) None Seen (None Seen) Urine Osmolality 513 (500-800) mOsm/kg Ur Random Sodium 36 mmol/L Stl C. diff Tox B Gene (Neg) Adenovirus (PCR) Not Detected (NotDetected) B. pertussis DNA (PCR) Not Detected (NotDetected) B.parapertussis DNA PCR Not Detected (NotDetected) C. pneumoniae DNA (PCR) Not Detected (NotDetected) Coronavirus OC43 (PCR) Not Detected (NotDetected) Coronavirus HKU1 (PCR) Not Detected (NotDetected) Coronavirus 229E (PCR) Not Detected (NotDetected) SARS-CoV-2 (PCR) Not Detected (NotDetected) Coronavirus NL63 (PCR) Not Detected (NotDetected) Human Metapneumovir PCR Not Detected (NotDetected) Influenza Type A (PCR) Not Detected (NotDetected) Influenza Type B (PCR) Not Detected (NotDetected) M. pneumoniae (PCR) Not Detected (NotDetected) Parainfluenza 1 (PCR) Not Detected (NotDetected) Parainfluenza 2 (PCR) Not Detected (NotDetected) Parainfluenza 3 (PCR) Not Detected (NotDetected) Parainfluenza 4 (PCR) Not Detected (NotDetected) RSV (PCR) Not Detected (NotDetected) Entero/Rhino (PCR) Not Detected (NotDetected) 11/07/24 Range/Units 03:55 WBC (4.8-10.8) K/ul RBC (4.70-6.10) M/uL Hgb (14.0-18.0) g/dl POC Hgb (14.0-18.0) g/dl Hct (42.0-52.0) % POC Hct (42-52) % MCV (80.0-100.0) fL MCH (25.0-34.0) pg MCHC (32.0-36.0) g/dL RDW Std Deviation (36.4-46.3) fL RDW Coeff of Susana (11.5-14.5) % Plt Count (130-400) K/uL MPV (9.4-12.4) fL Immature Gran % (Auto) % Neut % (Auto) % Lymph % (Auto) % Otoe % (Auto) % Eos % (Auto) % Baso % (Auto) % Neut # (Auto) (1.40-6.50) K/uL Lymph # (Auto) (1.20-3.40) K/uL Otoe # (Auto) (0.11-0.59) K/uL Eos # (Auto) (0.00-0.50) K/uL Baso # (Auto) (0.00-0.20) K/uL Immature Gran # (Auto) (0.01-0.20) K/uL PT (9.0-12.0) Seconds INR (0.9-1.1) POC Sodium (135-144) mmol/L Sodium (136-145) mmol/L POC Potassium (3.3-5.0) mmol/L Potassium (3.5-5.1) mmol/L POC Chloride (101-112) mmol/L Chloride (98-107) mmol/L Carbon Dioxide (21-32) mmol/L POC Total CO2 (24-31) mmol/L Anion Gap (3-11) POC Anion Gap (16-25) mmol/L POC BUN (7-18) mg/dl BUN (6-23) mg/dl Creatinine (0.6-1.4) mg/dl POC Creatinine (0.6-1.3) mg/dl Est Cr Clr Drug Dosing ml/min eGFR BUN/Creatinine Ratio (10-20) Glucose (70-99(Fasting)) mg/dl POC Glucose (other) (70-99) mg/dl Osmolality (280-300) mOsm/kg Calcium (8.6-10.3) mg/dl POC Ioniz Calcium Subhash (1.12-1.32) mmol/l Phosphorus (2.5-4.9) mg/dl Magnesium (1.7-2.4) mg/dl Total Bilirubin (0.2-1.0) mg/dl AST (13-39) U/L ALT (7-52) U/L Alkaline Phosphatase (34-104) U/L Troponin I High Sens (0-20) pg/ml B-Natriuretic Peptide (0-100) pg/ml Total Protein (6.0-8.3) gm/dl Albumin (3.4-5.0) gm/dl Globulin (2.5-4.0) gm/dl Albumin/Globulin Ratio (0.9-2) Lipase (11-82) U/L Procalcitonin (0-0.5) ng/ml Urine Color Urine Appearance (Clear) Urine pH (4.5-7.5) Ur Specific Dafter (1.000-1.030) Urine Protein (Negative) Urine Glucose (UA) (Negative) Urine Ketones (Negative) Urine Blood (Negative) Urine Nitrite (Negative) Urine Bilirubin (Negative) Urine Urobilinogen (Negative) Ur Leukocyte Esterase (Negative) Urine WBC (Auto) (0-5) /hpf Urine RBC (Auto) (0-2) /hpf U Hyaline Cast (Auto) (0-2) /lpf U Epithel Cells (Auto) (0-2) /hpf Urine Bacteria (Auto) (None Seen) Urine Osmolality (500-800) mOsm/kg Ur Random Sodium mmol/L Stl C. diff Tox B Gene Negative Cdiff Gene (Neg) Adenovirus (PCR) (NotDetected) B. pertussis DNA (PCR) (NotDetected) B.parapertussis DNA PCR (NotDetected) C. pneumoniae DNA (PCR) (NotDetected) Coronavirus OC43 (PCR) (NotDetected) Coronavirus HKU1 (PCR) (NotDetected) Coronavirus 229E (PCR) (NotDetected) SARS-CoV-2 (PCR) (NotDetected) Coronavirus NL63 (PCR) (NotDetected) Human Metapneumovir PCR (NotDetected) Influenza Type A (PCR) (NotDetected) Influenza Type B (PCR) (NotDetected) M. pneumoniae (PCR) (NotDetected) Parainfluenza 1 (PCR) (NotDetected) Parainfluenza 2 (PCR) (NotDetected) Parainfluenza 3 (PCR) (NotDetected) Parainfluenza 4 (PCR) (NotDetected) RSV (PCR) (NotDetected) Entero/Rhino (PCR) (NotDetected) Administered Medications Discontinued Medications Furosemide (Furosemide Inj 20 Mg/2 Ml Vial) 20 mg IV ONE ONE Stop: 11/07/24 03:33 Last Admin: 11/07/24 03:37 Dose: 20 mg Documented By: EMB Magnesium Sulfate/Dextrose (Magnesium Sulfate / D5w) 1 gm in 100 mls @ 50 mls/hr IV ONE ONE Stop: 11/07/24 05:56 Last Admin: 11/07/24 04:48 Dose: 50 mls/hr Documented By: EMB Imaging Data Radiologist's Impression: Chest X-Ray 11/07/24 00:44 EXAM: XR chest 1V portable CLINICAL HISTORY: Chest pain, nonspecific. TECHNIQUE: An X-ray image of the chest is obtained in AP projection. COMPARISON: Radiograph dated 10/29/2024. FINDINGS: Pulmonary Parenchyma: Prominent bronchovascular markings in bilateral lung cain. Possible infiltrates in right lower zone(new). Minimal blunting of both costophrenic angles may represent small pleural effusions (new). Elevated left hemidiaphragm, unchanged. Heart and Mediastinum: Heart size and shape are normal. Aortic root calcifications are seen. Stable nodular right hilar vascular shadow. No hilar or mediastinal lymphadenopathy. Bony Thorax: Degenerative changes in the visualized skeleton. Soft Tissues: Soft tissues overlying the chest wall are unremarkable. IMPRESSION: 1. Prominent bronchovascular markings, unchanged. 2. Possible infiltrates in the right lower zone (new). Clinical correlation is suggested. 3. Minimal blunting of both costophrenic angles may represent small pleural effusions, new. 4. Elevated left hemidiaphragm, unchanged. Electronically signed by Pop Cabrales 11-07-2024 01:[address] 11/07/24 02:08 EXAM: CT cervical spine wo con CLINICAL HISTORY: Fall Thursday. TECHNIQUE: CT scan of the cervical spine was performed without the administration of intravenous contrast. Contiguous axial images were obtained from the skull base to the upper thoracic spine. Coronal and sagittal reformatted images were also reviewed. One of the following dose reduction techniques was utilized for this exam. Automated exposure control, adjustment of the mA and/or kV according to patient size, and use of iterative reconstruction. COMPARISON: None. FINDINGS: Vertebrae: No evidence of acute fracture or dislocation. Diffuse osteopenic changes noted. Grade I minimal anterolisthesis of C6 over C7. Multilevel anterior and posterior osteophytes with uncovertebral hypertrophy noted. Periodontal ligamentous calcification. Maintained vertebral heights. Intervertebral Discs: Moderate reduction of C5-C6 and C6-C7 intervertebral disc spaces. C6-C7: Left posterolateral disc herniation with cranial migration, resulting in severe stenosis of left lateral recess compressing the traversing nerve root and narrowing of bilateral neural foramina, accentuated by facetal arthropathy. Small posterior disc osteophyte complexes at other levels resulting in mild neural foraminal narrowing accentuated by facetal arthropathy. Facet Joints: Significant degenerative changes. Prevertebral Soft Tissues: The prevertebral soft tissues are normal in thickness without evidence of mass or abnormal fluid collection. IMPRESSION: 1. No evidence of acute fracture or dislocation in the cervical spine. 2. Moderate cervical spondylodegenerative changes as described above. 3. C6-C7: Left posterolateral disc herniation with cranial migration, resulting in severe stenosis of left lateral recess compressing the traversing nerve root and narrowing of bilateral neural foramina, accentuated by facetal arthropathy. 4. Small posterior disc osteophyte complexes at other levels resulting in mild neural foraminal narrowing accentuated by facetal arthropathy. Recommended MR imaging if clinically warranted Electronically signed by Pop Cabrales 11-07-2024 03:[address] 11/07/24 02:08 EXAM: CT head/brain wo con CLINICAL HISTORY: Fall Thursday. TECHNIQUE: Axial non-contrast CT scan of the brain was performed from the skull base to the high parietal region. One of the following dose reduction techniques were utilized for this exam: Automated exposure control, adjustment of the mA and/or kV according to patient size, use of iterative reconstruction. COMPARISON: None. FINDINGS: There are hypodense areas noted in the subcortical and periventricular white matter bilaterally, suggestive of microvascular ischemic changes. The ventricular system, cortical sulci and basal cisterns are prominent consistent with senile changes. No midline shifts or deformity. No intracerebral or extra axial hematoma. Normal CT appearance of the posterior fossa structures namely the cerebellar hemispheres, brainstem and cerebellar peduncles. The cerebello-pontine angles are clear. The osseous structures in the skull base are unremarkable. No definite calvarium fractures. Intracerebral atherosclerotic vascular calcifications. Mild fluid level in left maxillary sinus. Partial opacification of the right ethmoidal sinus. Bilateral mastoid air cells appear unremarkable. IMPRESSION: 1. No acute traumatic injury detected in plain CT head at present. 2. Chronic microvascular ischemic changes and senile cortical atrophy. 3. Acute left maxillary sinusitis. 4. Mild right ethmoidal sinusitis. Electronically signed by Pop Cabrales 11-07-2024 03:48 AM Discharge Plan Visit Data Chief Complaint: Shortness of Breath/Dyspnea Stated Complaint: SHORTNESS OF BREATH X2 DAYS, FALL ON THU ED Provider: Chay Mckeon Discharge Problem: Shortness of breath, Bilateral lower extremity edema, Hypervolemia Discharge Instructions Interventions: ED Discharge Assessment Last Done: 11/07/24 05:00 Discharge Problem: Hypervolemia Qualifiers: Hypervolemia type: unspecified Qualified Code(s): E87.70 - Fluid overload, unspecified
[2024-11-07 01:09] LABS: iSTAT Creatinine 1.2 mg/dl (0.6-1.3); iSTAT Hemoglobin 8.8 g/dl (14.0-18.0); iSTAT Ionized Calcium 1.21 mmol/l (1.12-1.32); iSTAT Potassium 4.8 mmol/L (3.3-5.0)
[2024-11-07 01:10] LABS: Basophils # (auto) 0.02 K/uL (0.00-0.20); Basophils % (auto) 0.3 %; Eosinophils # (auto) 0.09 K/uL (0.00-0.50); Eosinophils % (auto) 1.2 %; Hematocrit (blood only) 24.3 % (42.0-52.0); Hemoglobin 8.4 g/dl (14.0-18.0); Immature Granulocytes # (auto) 0.12 K/uL (0.01-0.20); Immature Granulocytes % (auto) 1.6 %; Lymphocytes # (auto) 1.06 K/uL (1.20-3.40); Lymphocytes % (auto) 14.4 %; Mean Corpuscular Hemoglobin 30.5 pg (25.0-34.0); Mean Corpuscular Hgb Conc 34.6 g/dL (32.0-36.0); Mean Corpuscular Volume 88.4 fL (80.0-100.0); Mean Platelet Volume 9.7 fL (9.4-12.4); Monocytes % (auto) 2.7 %; Neutrophils # (auto) 5.88 K/uL (1.40-6.50); Neutrophils % (auto) 79.8 %; Platelet Count 149 K/uL (130-400); RDW Coefficient of Variation 15.7 % (11.5-14.5); RDW Standard Deviation 50.4 fL (36.4-46.3); Red Blood Count 2.75 M/uL (4.70-6.10); White Blood Count 7.37 K/ul (4.8-10.8)
[2024-11-07 01:31] LABS: Albumin Level 2.6 gm/dl (3.4-5.0); BUN Creatinine Ratio 27.5 (10-20); Bilirubin,Total 0.5 mg/dl (0.2-1.0); Calcium 8.1 mg/dl (8.6-10.3); Creatinine Clr Calc Pharmacy 43.1 ml/min; Globulin 2.6 gm/dl (2.5-4.0); Magnesium 1.7 mg/dl (1.7-2.4); Phosphorus 2.1 mg/dl (2.5-4.9); Potassium 4.8 mmol/L (3.5-5.1); Total Protein 5.2 gm/dl (6.0-8.3)
[2024-11-07 01:37] LABS: Troponin I High Sensitivity 9.7 pg/ml (0-20)
[2024-11-07 01:41] LABS: Prothrombin Time 11.3 Seconds (9.0-12.0)
--- NOTE | 2024-11-07 01:46 | XRay Report ---
EXAM: XR chest 1V portable CLINICAL HISTORY: Chest pain, nonspecific. TECHNIQUE: An X-ray image of the chest is obtained in AP projection. COMPARISON: Radiograph dated 10/29/2024. FINDINGS: Pulmonary Parenchyma: Prominent bronchovascular markings in bilateral lung cain. Possible infiltrates in right lower zone(new). Minimal blunting of both costophrenic angles may represent small pleural effusions (new). Elevated left hemidiaphragm, unchanged. Heart and Mediastinum: Heart size and shape are normal. Aortic root calcifications are seen. Stable nodular right hilar vascular shadow. No hilar or mediastinal lymphadenopathy. Bony Thorax: Degenerative changes in the visualized skeleton. Soft Tissues: Soft tissues overlying the chest wall are unremarkable. IMPRESSION: 1. Prominent bronchovascular markings, unchanged. 2. Possible infiltrates in the right lower zone (new). Clinical correlation is suggested. 3. Minimal blunting of both costophrenic angles may represent small pleural effusions, new. 4. Elevated left hemidiaphragm, unchanged. Electronically signed by Pop Cabrales 11-07-2024 01:45 AM
[2024-11-07 01:51] LABS: Adenovirus PCR Not Detected (NotDetected); Bordetella parapertussis PCR Not Detected (NotDetected); Bordetella pertussis PCR Not Detected (NotDetected); Chlamydia pneumoniae PCR Not Detected (NotDetected); Coronavirus 229E PCR Not Detected (NotDetected); Coronavirus CoV-2 (COVID19)PCR Not Detected (NotDetected); Coronavirus HKU1 PCR Not Detected (NotDetected); Coronavirus NL63 PCR Not Detected (NotDetected); Coronavirus OC43PCR Not Detected (NotDetected); Human Metapneumovirus PCR Not Detected (NotDetected); Influenza A PCR Not Detected (NotDetected); Influenza B PCR Not Detected (NotDetected); Mycoplasma pneumoniae PCR Not Detected (NotDetected); Parainfluenza Virus 1 PCR Not Detected (NotDetected); Parainfluenza Virus 2 PCR Not Detected (NotDetected); Parainfluenza Virus 3 PCR Not Detected (NotDetected); Parainfluenza Virus 4 PCR Not Detected (NotDetected); Respiratory Syncytial VirusPCR Not Detected (NotDetected); Rhinovirus/Enterovirus PCR Not Detected (NotDetected)
[2024-11-07 03:30] LABS: Appearance Urine Clear (Clear); Bacteria Urine Automated None Seen (None Seen); Bilirubin Urine Negative (Negative); Blood Urine Negative (Negative); Color Urine Yellow; Epithelial Cell Urine Auto 0-2 /hpf (0-2); Glucose Urine UA Negative (Negative); Ketones Urine Negative (Negative); Leukocyte Esterase Urine Negative (Negative); Nitrite Urine Negative (Negative); Protein Urine Trace (Negative); RBC Urine Automated 0-2 /hpf (0-2); Specific Gravity Urine 1.016 (1.000-1.030); Urobilinogen Urine Negative (Negative); WBC Urine Automated 0-5 /hpf (0-5); pH Urine 5.5 (4.5-7.5)
[2024-11-07] MEDS: FUROSEMIDE INJ 20 MG/2 ML VIAL IV ONE (03:37)
--- NOTE | 2024-11-07 03:41 | History & Physical Report ---
Date of Service November 07, 2024 Assessment & Plan (1) Dyspnea: (2) Hyponatremia: (3) C. 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 Most recent admission from 10/29 to 11/05 in which patient was found to have C. difficile. Patient sod ium improved from 115 to 123 during recent admission, 123 on arrival to ED today. Came into the ED due to dyspnea. Head CT showed sinusitis, CXR showed possible right lower lobe infiltrate. Bio fire testing was negative. He is being admitted for hyponatremia, nephrology consulted for more definitive treatment. #Dyspnea Nonhypoxic on room air Bio fire negative CXR showed prominent bronchovascular markings unchanged, possible infiltrates of right lower lung zone, small pleural effusions bilaterally, elevated left hemidiaphragm unchanged BNP improved, 219 no leukocytosis, afebrile, VSS Procalcitonin negative, 0.45 MRSA swab ordered Monitor pleural effusions, given 20 Mg IV Lasix in ED, will be deferring further diuretic use given chronic hyponatremia Incentive spirometry oxygen as needed for O2 less than 94% #Hyponatremia Chronic hyponatremia, improved from recent hospitalization 115 ->123 history of SIADH clinically appears dry TSH 08/2024 WNL, 3.351 AM cortisol 08/2024 29.44 Serum osmole 268, urine osmole 513, urine sodium 36 continue sodium chloride tablets 1G 3 times daily Will consult nephrology regarding more definitive treatment for hyponatremia, consider tolvaptan vs hypertonic saline vs Lasix+NSS defer any further diuretic use trend BMP #C. 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 every other day x 3 weeks WBC stable isolation precautions continue Questran patient unsure of where at and vancomycin taper, will continue vancomycin 125 4 times daily #Hypomagnesemia Mag 1.7, K+ stable Suspect 2/2 diarrhea above 1G IV mag ordered on admission Trend BMP and mag #protein energy malnutrition Leg edema thought to be component to Encouraged nutritional supplements, boost twice daily Teds for edema #type IDM Continue home NovoLog 3 units 3 times daily and Lantus 6U at bedtime Chronic stable diagnoses: HTNholding home BP medications given soft pressures on admission, currently 106/52 goutcontinue probenecid CKDrenal function stable GERDcontinue PPI, could increase risk of recurrent C. 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 Most recent admission from 10/29 to 11/05 in which patient was found to have C. difficile. Patient sodium improved from 115 to 123 during recent admission, 123 on arrival to ED today. Came into the ED due to dyspnea. Head CT showed sinusitis, CXR showed possible right lower lobe infiltrate. Bio fire testing was negative. He is being admitted for hyponatremia, nephrology consulted for more definitive treatment. Patient seen at bedside. He stated that he woke up today and just felt like he could not catch his breath and did not have enough oxygen so he came into the ED. Of note patient tripped when going through his doorway on arrival home from the hospital yesterday and hit his head against a concrete wall, head CT negative for acute changes. Patient also endorses lower extremity swelling and was recently taken off Lasix, given Lasix 20 Mg IV in the ED. BP dropped to 107/60 after receiving IV Lasix. patient stated he has a chronic dry cough, unchanged. His diarrhea is about the same as it was when he previously left. His son manages all his of his home medications and he is not sure if he is taking the vancomycin 4 times a day or 3 times a day. He is also not sure if he restarted his Lasix yet or not. His son should be visiting later this afternoon. Patient is a frustrated with recurring admissions, ongoing diarrhea, and ongoing hyponatremia. Encouraged patient to be optimistic. He denies any fevers, chills, dizziness, chest pain, abdominal pain. He still wishes to be DNR/DNI. Allergies Allergy/AdvReac Type Severity Reaction Status Date / Time Penicillins Allergy Unknown AMOXICILLIN Verified 10/10/24 10:32 - UNKNOWN RXN allopurinol Allergy Rash Verified 10/10/24 10:32 Home Medications Medication Instructions Recorded Confirmed Type aspirin 81 mg chewable tablet 81 mg PO DAILY 02/08/19 11/07/24 History isosorbide mononitrate 60 mg 60 mg PO QAM 02/08/19 11/07/24 History tablet,extended release 24 hr nitroglycerin 0.4 mg sublingual 0.4 mg sublingual Q5M PRN Chest 02/08/19 11/07/24 History tablet Pain atenolol 25 mg tablet 12.5 mg PO DAILY 03/30/19 11/07/24 History cholecalciferol (vitamin D3) 50 2,000 units PO DAILY 03/30/19 11/07/24 History mcg (2,000 unit) capsule probenecid 500 mg tablet 250 mg PO BID 03/30/19 11/07/24 History cyanocobalamin (vitamin B-12) 1,000 mcg PO DAILY 04/24/20 11/07/24 History 1,000 mcg capsule iron,carbonyl 65 mg-vitamin C 125 1 tab PO DAILY 10/05/20 11/07/24 History mg tablet,delayed release (Vitron-C) fluocinonide 0.05 % topical 1 applic topical BID PRN Other 10/26/20 11/07/24 History ointment metronidazole 0.75 % topical gel 1 applic topical BID PRN Other 10/26/20 11/07/24 History (Rosadan) furosemide 20 mg tablet (Lasix) 20 mg PO .3X TIMES WEEK PRN Fluid 09/17/23 11/07/24 History Retention gabapentin 100 mg capsule 100 mg PO TID PRN pain 09/17/23 11/07/24 History blood sugar diagnostic (OneTouch #300 ea 04/04/24 10/10/24 Rx Ultra Test strips) lisinopril 40 mg tablet 40 mg PO DAILY #90 tabs 08/18/24 11/07/24 Rx omeprazole 20 mg capsule,delayed 20 mg PO QAM 09/09/24 11/07/24 History release simvastatin 20 mg tablet 20 mg PO PM 09/09/24 11/07/24 History lancets 33 gauge (OneTouch Delica #100 ea 09/22/24 10/10/24 Rx Plus Lancet) wklmwr-uyltkmdl-ifpyswb 1 cap PO QID #120 caps 09/26/24 11/07/24 Rx 36,000-114,000-180,000 unit capsule,delay rel (Creon) mesalamine 1.2 gram tablet,delayed 2.4 g (2 x 1.2 gram) PO BID 30 09/26/24 Rx release days #120 tabs insulin aspart U-100 100 unit/mL 3 unit subcut TID 09/29/24 11/07/24 History (3 mL) subcutaneous pen (Novolog FlexPen U-100 Insulin aspart) valacyclovir 1 gram tablet 1,000 mg PO BID #14 tabs 10/03/24 11/07/24 Rx (Valtrex) pen needle, diabetic 31 gauge x #200 ea 10/13/24 Rx 5/16" (1st Tier Unifine Pentips) insulin glargine 100 unit/mL (3 6 unit subcut HS 10/29/24 11/07/24 History mL) subcutaneous pen (Lantus Solostar U-100 Insulin) L.acidop,casei,lactis,rham-B.lact,whitney 1 cap PO DAILY 7 days #7 caps 11/04/24 11/07/24 Rx 625 mg (10 billion cell) capsule (Advanced Probiotic) cholestyramine-aspartame 4 gram 1 ea PO DAILY 5 days #60 ea 11/04/24 11/07/24 Rx oral powder for susp in a packet (Prevalite) sodium chloride 1,000 mg soluble 1,000 mg PO TID 10 days #30 tabs 11/04/24 11/07/24 Rx tablet vancomycin 1,000 mg intravenous 125 mg PO Q6 5 days #10 ea 11/04/24 11/07/24 Rx injection Past Med/Surg History Problem List (Updated 11/07/24 @ 04:41 by Laura Smith PA-C) Protein-energy malnutrition Hypomagnesemia Dyspnea Hypervolemia (Acute) Shortness of breath (Acute) C. difficile colitis CMV (cytomegalovirus) Colitis JULIENNE (acute kidney injury) (Acute) Diarrhea (Acute) Acute hyponatremia (Acute) Hypocalcemia Hyponatremia Shingles Bilateral lower extremity edema (Acute) Encounter for examination following treatment at hospital Anemia GERD (gastroesophageal reflux disease) Metallic taste Lumbar spondylosis Lumbar disc herniation Lumbar radiculopathy ASCVD (arteriosclerotic cardiovascular disease) (Chronic) Diabetic nephropathy (Acute) Hypertension (Chronic) Diabetes mellitus Acute radicular low back pain Routine health maintenance Elevated TSH Lupus (Chronic) Dyslipidemia (Chronic) 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, with long-term current use of insulin (Chronic) Arthritis (Chronic) Medical History Proteinuria Chronic gout Surgical History History of basal cell carcinoma excision History of prostate surgery History of bilateral cataract extraction History of shoulder surgery History of hernia repair History of thumb surgery History of coronary artery stent placement Family History Brother Myocardial infarction Cancer Prostate cancer Daughter Cancer Father Myocardial infarction Denies family history of Ovarian cancer Breast cancer Colorectal cancer Social History Smoking Status: Never smoker Second Hand Exposure: No; Do You Dip or Chew Tobacco: No; Hx Alcohol Use: No Hx Substance Use: No Preferred Language: Qatari Communication Ability: Effective Visual Impairment: No Limitations Hearing Ability: Normal University Archivist Required: No Beliefs That Will Affect Care: None marital status: Current Living Situation: Spouse current occupational status: retired 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 HEENT- EOMI, mucous membranes Dry. Hearing grossly intact. Heart-normal S1 and S2. No murmurs, rubs or gallops. Lungs- decreased bilaterally, no respiratory distress, no accessory muscle use. Abdomen-normal bowel sounds and soft. No ascites noted. Non-tender. Extremities- no clubbing, cyanosis, or edema. Results & Data Results & Data Vital Signs (Past 12 Hours) Vital Signs Temp Pulse Pulse Resp BP BP Pulse Ox 11/07/24 03:02 78 16 106/52 L 92 11/07/24 01:02 78 11/07/24 00:52 100 11/07/24 00:45 100 11/07/24 00:43 36.4 C L 82 20 120/61 96 O2 Del Method O2 Flow Rate 11/07/24 03:02 Room Air 11/07/24 01:02 11/07/24 00:52 Room Air 11/07/24 00:45 Room Air, Nasal Cannula 4 11/07/24 00:43 Room Air Laboratory Results reviewed CBC, CMP, Pro-Nik, bio fire, UA, serum osmole, urine osmole, urine sodium, mag Diagnostic Findings reviewed head CT, cervical spine CT, CXR Medications Administered ED20 Mg IV Lasix [id number] IV mag ECG Additional Comments: ordered Code Status & VTE Plan Code Status dnr/dni VTE Prophylaxis Plan VTE Prophylaxis will be ordered: Yes Supervising Physician Co-Signing Physician Notes Attending addendum: I have physically seen this patient, have supervised the OFELIA's activities, and agree with the H&P unless as otherwise noted. Assessment and Plan: The patient is a 89-year-old male with past medical history including diabetes mellitus type 2 on insulin, hyperlipidemia, hypertension, GERD, arthritis, chronic hyponatremia secondary to SIADH and associated C. difficile colitis. His most recent admission to [facility] was from 10/29-11/05/2022 for treatment of hyponatremia at entrance of 115, and was discharged on 123. And associated with C. difficile colitis treatment. Patient reportedly upon returning home from hospital, fell walking into the house, and has represented emergency department with similar presentation and symptomatology as last admission. Hyponatremia- As noted from last admission, sodium was was 115 on 10/29, and it improved to 123 on 11/05 at the time of discharge Patient with known history of SIADH, and has had significant issues with fluid loss associated with C. difficile colitis as well. Sodium chloride 1 g p.o. 3 times daily Patient's previous hospitalizations have not included consult to nephrology. Will consult nephrology, and ask their input and ongoing treatment of SIADH. Patient has continued on sodium chloride tablets as above. He was given furosemide by the ED this admission Additional treatments which could be considered but not limited to, which will be left to nephrology, would be: Tolvaptan, hypertonic saline, normal saline plus Lasix, normal saline Dyspnea- BioFire testing negative Chest x-ray showing prominent bronchovascular markings unchanged, possible infiltrates right lower lung zone, small pleural effusions bilaterally, elevated left hemidiaphragm unchanged. Chest x-ray to my interpretation is an over read by radiology MRSA swab ordered Incentive spirometry C. difficile colitis-patient has been on oral vancomycin 125 mg p.o. 4 times daily. He has been on cholestyramine 4 g daily on symptomatic basis He likely should be on an extended vancomycin taper for considerably longer than he has been to this point Remaining orders and notations as noted PG Care Time/CCT Total # of Minutes Spent Total Time Spent with Patient: Total time spent is greater than 50% in coordination of care (as documented) at patient's floor/unit and/or counseling patient: Coding Level of Care Code 51175 INT INP/OBS CARE 3/75MIN Diagnoses Dyspnea R06.00 Hyponatremia E87.1 C. difficile colitis A04.72 Hypomagnesemia E83.42 Protein-energy malnutrition E46
--- NOTE | 2024-11-07 03:48 | CT Scan Report ---
EXAM: CT head/brain wo con CLINICAL HISTORY: Fall Thursday. TECHNIQUE: Axial non-contrast CT scan of the brain was performed from the skull base to the high parietal region. One of the following dose reduction techniques were utilized for this exam: Automated exposure control, adjustment of the mA and/or kV according to patient size, use of iterative reconstruction. COMPARISON: None. FINDINGS: There are hypodense areas noted in the subcortical and periventricular white matter bilaterally, suggestive of microvascular ischemic changes. The ventricular system, cortical sulci and basal cisterns are prominent consistent with senile changes. No midline shifts or deformity. No intracerebral or extra axial hematoma. Normal CT appearance of the posterior fossa structures namely the cerebellar hemispheres, brainstem and cerebellar peduncles. The cerebello-pontine angles are clear. The osseous structures in the skull base are unremarkable. No definite calvarium fractures. Intracerebral atherosclerotic vascular calcifications. Mild fluid level in left maxillary sinus. Partial opacification of the right ethmoidal sinus. Bilateral mastoid air cells appear unremarkable. IMPRESSION: 1. No acute traumatic injury detected in plain CT head at present. 2. Chronic microvascular ischemic changes and senile cortical atrophy. 3. Acute left maxillary sinusitis. 4. Mild right ethmoidal sinusitis. Electronically signed by Pop Cabrales 11-07-2024 03:48 AM
--- NOTE | 2024-11-07 03:50 | CT Scan Report ---
EXAM: CT cervical spine wo con CLINICAL HISTORY: Fall Thursday. TECHNIQUE: CT scan of the cervical spine was performed without the administration of intravenous contrast. Contiguous axial images were obtained from the skull base to the upper thoracic spine. Coronal and sagittal reformatted images were also reviewed. One of the following dose reduction techniques was utilized for this exam. Automated exposure control, adjustment of the mA and/or kV according to patient size, and use of iterative reconstruction. COMPARISON: None. FINDINGS: Vertebrae: No evidence of acute fracture or dislocation. Diffuse osteopenic changes noted. Grade I minimal anterolisthesis of C6 over C7. Multilevel anterior and posterior osteophytes with uncovertebral hypertrophy noted. Periodontal ligamentous calcification. Maintained vertebral heights. Intervertebral Discs: Moderate reduction of C5-C6 and C6-C7 intervertebral disc spaces. C6-C7: Left posterolateral disc herniation with cranial migration, resulting in severe stenosis of left lateral recess compressing the traversing nerve root and narrowing of bilateral neural foramina, accentuated by facetal arthropathy. Small posterior disc osteophyte complexes at other levels resulting in mild neural foraminal narrowing accentuated by facetal arthropathy. Facet Joints: Significant degenerative changes. Prevertebral Soft Tissues: The prevertebral soft tissues are normal in thickness without evidence of mass or abnormal fluid collection. IMPRESSION: 1. No evidence of acute fracture or dislocation in the cervical spine. 2. Moderate cervical spondylodegenerative changes as described above. 3. C6-C7: Left posterolateral disc herniation with cranial migration, resulting in severe stenosis of left lateral recess compressing the traversing nerve root and narrowing of bilateral neural foramina, accentuated by facetal arthropathy. 4. Small posterior disc osteophyte complexes at other levels resulting in mild neural foraminal narrowing accentuated by facetal arthropathy. Recommended MR imaging if clinically warranted Electronically signed by Pop Cabrales 11-07-2024 03:50 AM
[2024-11-07] MEDS: MAGNESIUM SULFATE / D5W 1 GM/100 ML BAG IV ONE (04:48)
[2024-11-07] MEDS ORDERED: GLUCOSE 40% GEL 15 GM TUBE PO PRN (05:00)
[2024-11-07] MEDS ORDERED: ONDANSETRON INJ 2 MG/ML 2 ML VIAL IV PRN (05:00)
[2024-11-07] MEDS ORDERED: GLUCAGON FOR INJ 1 MG VIAL SQ PRN (05:00)
[2024-11-07] MEDS ORDERED: GLUCOSE 10 TAB/TUBE PO PRN (05:00)
[2024-11-07] MEDS ORDERED: VANCOMYCIN CONSULT ACTIVE PRN (05:00)
[2024-11-07] MEDS ORDERED: DEXTROSE 50% 50 ML SYRINGE IV PRN (05:00)
[2024-11-07] MEDS ORDERED: NITROGLYCERIN SL 0.4 MG/TAB TAB SL PRN (05:00)
[2024-11-07] MEDS ORDERED: VANCOMYCIN HCL 1000MG/20ML VIAL PO SCH (06:00)
[2024-11-07] MEDS: CHERRY SYRUP 5 ML UDP PO SCH (06:35)
[2024-11-07] MEDS: VANCOMYCIN HCL 125 MG/2.5ML SOLN PO SCH (06:36)
--- NOTE | 2024-11-07 07:38 | Discharge Summary ---
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 Most recent admission from 10/29 to 11/05 in which patient was found to have C. difficile. Patient sodium improved from 115 to 123 during recent admission, 123 on arrival to ED today. Came into the ED due to dyspnea. Head CT showed sinusitis, CXR showed possible right lower lobe infiltrate. Bio fire testing was negative. He is being admitted for hyponatremia, nephrology consulted for more definitive treatment. Patient seen at bedside. He stated that he woke up today and just felt like he could not catch his breath and did not have enough oxygen so he came into the ED. Of note patient tripped when going through his doorway on arrival home from the hospital yesterday and hit his head against a concrete wall, head CT negative for acute changes. Patient also endorses lower extremity swelling and was recently taken off Lasix, given Lasix 20 Mg IV in the ED. BP dropped to 107/60 after receiving IV Lasix. patient stated he has a chronic dry cough, unchanged. His diarrhea is about the same as it was when he previously left. His son manages all his of his home medications and he is not sure if he is taking the vancomycin 4 times a day or 3 times a day. He is also not sure if he restarted his Lasix yet or not. His son should be visiting later this afternoon. Patient is a frustrated with recurring admissions, ongoing diarrhea, and ongoing hyponatremia. Encouraged patient to be optimistic. He denies any fevers, chills, dizziness, chest pain, abdominal pain. He still wishes to be DNR/DNI. Admission Exam (Per Admitting) Constitutional The patient is awake, alert and oriented 3, well developed and well nourished, normocephalic and atraumatic, lying in bed and in no acute distress. HEENT--PERRL, EOMI, mucous membranes and oropharynx mildly dry Neck--supple. No JVD. No bruits. Thyroid normal, trachea midline, no adenopathy. Heart--normal S1 and S2. No murmurs, rubs or gallops. Lungs--clear bilaterally, no respiratory distress, no accessory muscle use. Abdomen--normal bowel sounds and soft. Extremities--no cyanosis or clubbing. No edema. Dermatologic--normal skin turgor, normal color, no abnormal lymph nodes, no rash. Neurologic--cranial nerves II through XII grossly intact. Rheumatologic--normal range of motion. Psychiatric--normal affect. Discharge Data Consultations 11/07/24 03:38 ED Decision to Admit Stat 11/07/24 05:00 Consult Nephrology Routine Hospital Course (1) Dyspnea: (2) Hyponatremia: (3) C. 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 Most recent admission from 10/29 to 11/05 in which patient was found to have C. difficile. Patient sodium improved from 115 to 123 during recent admission, 123 on arrival to ED today. Came into the ED due to dyspnea. Head CT showed sinusitis, CXR showed possible right lower lobe infiltrate. Bio fire testing was negative. He is being admitted for hyponatremia, nephrology consulted for more definitive treatment. #Dyspnea Nonhypoxic on room air Bio fire negative CXR showed prominent bronchovascular markings unchanged, possible infiltrates of right lower lung zone, small pleural effusions bilaterally, elevated left hemidiaphragm unchanged BNP improved, 219 no leukocytosis, afebrile, VSS Procalcitonin negative, 0.45 MRSA swab ordered Monitor pleural effusions, given 20 Mg IV Lasix in ED, will be deferring further diuretic use given chronic hyponatremia Incentive spirometry oxygen as needed for O2 less than 94% #Hyponatremia Chronic hyponatremia, improved from recent hospitalization 115 ->123 history of SIADH clinically appears dry TSH 08/2024 WNL, 3.351 AM cortisol 08/2024 29.44 Serum osmole 268, urine osmole 513, urine sodium 36 continue sodium chloride tablets 1G 3 times daily Will consult nephrology regarding more definitive treatment for hyponatremia, consider tolvaptan vs hypertonic saline vs Lasix+NSS defer any further diuretic use trend BMP #C. difficile + 10/30/2024 eval by GI during recent admission - oral vancomycin 125 4 times daily, may consider Questran 4G once daily if needed, low lactulose/low residue diet as tolerated - Recommended vancomycin taper given immunosuppression - 125 mg QID x 10 days, TID x 5 days, BID x 5 days, daily x 5 days, q. every other day x 3 weeks WBC stable isolation precautions continue Questran patient unsure of where at and vancomycin taper, will continue vancomycin 125 4 times daily #Hypomagnesemia Mag 1.7, K+ stable Suspect 2/2 diarrhea above 1G IV mag ordered on admission Trend BMP and mag #protein energy malnutrition Leg edema thought to be component to Encouraged nutritional supplements, boost twice daily Teds for edema #type IDM Continue home NovoLog 3 units 3 times daily and Lantus 6U at bedtime Chronic stable diagnoses: HTNholding home BP medications given soft pressures on admission, currently 106/52 goutcontinue probenecid CKDrenal function stable GERDcontinue PPI, could increase risk of recurrent C. difficile VTE ppx: SCDs, heparin Diet: T2DM, low fiber Dispo: med/telemetry Coding Diagnoses Dyspnea R06.00 Hyponatremia E87.1 C. difficile colitis A04.72 Hypomagnesemia E83.42 Protein-energy malnutrition E46
[2024-11-07] MEDS: PANCREAZE (LIPASE 10,500U) CAP PO SCH (07:51)
[2024-11-07] MEDS: INSULIN ASPART PER UNIT CHARGE SC SCH (08:56)
[2024-11-07] MEDS ORDERED: NON-FORMULARY MEDICATION (Insulin Aspart U-100 [Novolog Flexpen U-100 Insulin] 100 unit/mL SQ SCH (09:00)
[2024-11-07] MEDS: HEPARIN SOD 5,000 UNIT/0.5 ML VIAL SQ SCH (10:04)
[2024-11-07] MEDS: CHOLESTYRAMINE LIGHT 4 GM PKT PO SCH (10:04)
[2024-11-07] MEDS: ISOSORBIDE MONO EXTENDED REL 60 MG TABCR PO SCH (10:05)
[2024-11-07] MEDS: ASPIRIN 81 MG CHEW PO SCH (10:05)
[2024-11-07] MEDS: PANTOprazole 40 MG TAB PO SCH (10:05)
[2024-11-07] MEDS: SODIUM CHLORIDE 1 GM TABLET PO SCH (10:05)
--- NOTE | 2024-11-07 11:01 | Nephrology Consultation ---
Date of Consultation November 07, 2024 Assessment & Plan (1) Hyponatremia: hypervolemic hyponatremia versus SIADH. volume status difficult to assess in worsening hypoalbuminemia/malnutrition. h/o chronic mild hyponatremia often low 130s as OP; recent admission here w/ critical hyponatremia 115 earlier this month, improved to 123 by hospital d/c and attrib to hypovolemia in setting of C diff. now with sNa 123 still -repeat bmp now >> unchanged -stop salt tabs in this pt w/ vol OL chronically ->>w/ h/o SLE generally not active will reassess proteinuria status; had nephrotic range in the past; most recently less than 50 mg/gm ACR, 219 pro/creat in 09/2023 >will resume lasix 20 mg IV bid17 w/ [id number] mEq bid; hold off on NS for now >next BMP for AM (2) Hypervolemia: in setting of salt tabs, hypoalbuminemia, mild OL on CXR -stopped salt tabs (3) Protein-energy malnutrition: dietary consult recommended; worsening; consider checking prealbumin (4) Diarrhea: significant diarrhea continues; -?role for repeat colonoscopy as discussed at last admission -continue efforts to control this (5) Hypomagnesemia: 1.7; reasonable currently; monitor daily History of Present Illness Reason for Consultation: hyponatremia Requesting Physician: Dr Em Attending Physician: Dana Em MD History of Present Illness 89 y/o M whom I'm asked to see for hyponatremia was readmitted for evaluation of dyspnea and found to have sNa 123 after recent admission here for C diff 10/29- 11/05 w/ presenting sNa at that admission 115, improved to 123 by hospital d/c. PMH includes chronic hyponatremia, systemic lupus w/ Raynaud's historically on no meds but does cont to follow w/ rheum, gout on probenecid, insulin dependent DMII, HTN, ASCVD, GERD, dyslipidemia. Recurrent admissions for diarrhea recently >> several episodes in late 2023 and admitted here in Aug w/ profuse diarrhea, generalized weakness, severe electrolyte abnormalities-hyponatremia, hypokalemia, hypomagnesemia. Also w/ C diff admission as above. He had a colonoscopy late August w/ lou colitis and bx most c/w infectious/reactive process/less likely IBD. not hypoxic on admission and no e/o active infection or marked overload. vanco taper / questran continued for C diff; for low Na salt tabs were continued and he received 20 mg IV lasix. Pt reports still w/ frequent diarrhea, extremely poor appetite. feels his edema, dyspnea unchanged, and latter not particularly severe he states. ongoing marked generalized weakness and needs help to get up to restroom. no f/c, no n/v or dysphagia. no abd pain; no bleeding; no active skin issues; no uncontrolled musc skel pain currently. no palpitations or chest pain. Allergies Allergy/AdvReac Type Severity Reaction Status Date / Time Penicillins Allergy Unknown AMOXICILLIN Verified 10/10/24 10:32 - UNKNOWN RXN allopurinol Allergy Rash Verified 10/10/24 10:32 Home Medications Medication Instructions Recorded Confirmed Type aspirin 81 mg chewable tablet 81 mg PO DAILY 02/08/19 11/07/24 History isosorbide mononitrate 60 mg 60 mg PO QAM 02/08/19 11/07/24 History tablet,extended release 24 hr nitroglycerin 0.4 mg sublingual 0.4 mg sublingual Q5M PRN Chest 02/08/19 11/07/24 History tablet Pain atenolol 25 mg tablet 12.5 mg PO DAILY 03/30/19 11/07/24 History cholecalciferol (vitamin D3) 50 2,000 units PO DAILY 03/30/19 11/07/24 History mcg (2,000 unit) capsule probenecid 500 mg tablet 250 mg PO BID 03/30/19 11/07/24 History cyanocobalamin (vitamin B-12) 1,000 mcg PO DAILY 04/24/20 11/07/24 History 1,000 mcg capsule iron,carbonyl 65 mg-vitamin C 125 1 tab PO DAILY 10/05/20 11/07/24 History mg tablet,delayed release (Vitron-C) fluocinonide 0.05 % topical 1 applic topical BID PRN Other 10/26/20 11/07/24 History ointment metronidazole 0.75 % topical gel 1 applic topical BID PRN Other 10/26/20 11/07/24 History (Rosadan) furosemide 20 mg tablet (Lasix) 20 mg PO .3X TIMES WEEK PRN Fluid 09/17/23 11/07/24 History Retention gabapentin 100 mg capsule 100 mg PO TID PRN pain 09/17/23 11/07/24 History blood sugar diagnostic (OneTouch #300 ea 04/04/24 10/10/24 Rx Ultra Test strips) lisinopril 40 mg tablet 40 mg PO DAILY #90 tabs 08/18/24 11/07/24 Rx omeprazole 20 mg capsule,delayed 20 mg PO QAM 09/09/24 11/07/24 History release simvastatin 20 mg tablet 20 mg PO PM 09/09/24 11/07/24 History lancets 33 gauge (OneTouch Delica #100 ea 09/22/24 10/10/24 Rx Plus Lancet) dgibzb-njzhvgns-beiyyjt 1 cap PO QID #120 caps 09/26/24 11/07/24 Rx 36,000-114,000-180,000 unit capsule,delay rel (Creon) mesalamine 1.2 gram tablet,delayed 2.4 g (2 x 1.2 gram) PO BID 30 09/26/24 11/07/24 Rx release days #120 tabs insulin aspart U-100 100 unit/mL 3 unit subcut TID 09/29/24 11/07/24 History (3 mL) subcutaneous pen (Novolog FlexPen U-100 Insulin aspart) valacyclovir 1 gram tablet 1,000 mg PO BID #14 tabs 10/03/24 11/07/24 Rx (Valtrex) pen needle, diabetic 31 gauge x #200 ea 10/13/24 Rx 5/16" (1st Tier Unifine Pentips) insulin glargine 100 unit/mL (3 6 unit subcut HS 10/29/24 11/07/24 History mL) subcutaneous pen (Lantus Solostar U-100 Insulin) L.acidop,casei,lactis,rham-B.lact,whitney 1 cap PO DAILY 7 days #7 caps 11/04/24 11/07/24 Rx 625 mg (10 billion cell) capsule (Advanced Probiotic) cholestyramine-aspartame 4 gram 1 ea PO DAILY 5 days #60 ea 11/04/24 11/07/24 Rx oral powder for susp in a packet (Prevalite) sodium chloride 1,000 mg soluble 1,000 mg PO TID 10 days #30 tabs 11/04/24 11/07/24 Rx tablet vancomycin 1,000 mg intravenous 125 mg PO Q6 5 days #10 ea 11/04/24 11/07/24 Rx injection Patient History Medical History (Updated 11/07/24 @ 11:27 by Karma Rahman MD, PhD) Systemic lupus erythematosus Proteinuria Chronic gout Surgical History History of basal cell carcinoma excision History of prostate surgery History of bilateral cataract extraction History of shoulder surgery History of hernia repair History of thumb surgery History of coronary artery stent placement Family History Brother Myocardial infarction Cancer Prostate cancer Daughter Cancer Father Myocardial infarction Denies family history of Ovarian cancer Breast cancer Colorectal cancer Social History Smoking Status: Never smoker Second Hand Exposure: No; Do You Dip or Chew Tobacco: No; Hx Alcohol Use: No Hx Substance Use: No Preferred Language: Thai Communication Ability: Effective Visual Impairment: No Limitations Hearing Ability: Normal Test Tech Required: Yes Beliefs That Will Affect Care: None marital status: Current Living Situation: Spouse and Family Current Living Situation Comment: Spouse, con current occupational status: retired current occupation: Retired [employer] How many Children do You have: 3 Feels Safe at Home: Yes Safety Concerns: Feels Safe At This Time Childhood Exposure to Second-Hand Smoke: Yes Diet: regular caffeine: Yes (coffee, tea, and soda ) Dental Care, Regularly: Yes Physical Activity Frequency: Daily Seatbelt Use: always Sunscreen Use: Yes Assistive Devices: None Results & Data Vital Signs (Past 12 Hours) Vital Signs Temp Pulse Pulse Resp BP BP Pulse Ox 11/07/24 09:51 79 16 113/55 L 95 11/07/24 09:51 11/07/24 09:24 73 13 93 11/07/24 08:55 86 11/07/24 08:45 87 17 11/07/24 08:21 85 21 11/07/24 07:51 91 H 19 11/07/24 07:42 103 H 19 98 11/07/24 07:36 83 19 98 11/07/24 07:27 86 20 97 11/07/24 07:18 74 14 98 11/07/24 07:00 111/60 11/07/24 07:00 111/60 11/07/24 07:00 111/60 11/07/24 07:00 111/60 11/07/24 07:00 111/60 11/07/24 07:00 111/60 11/07/24 07:00 111/60 11/07/24 07:00 111/60 11/07/24 07:00 111/60 11/07/24 07:00 111/60 11/07/24 07:00 111/60 11/07/24 07:00 111/60 11/07/24 07:00 111/60 11/07/24 07:00 111/60 11/07/24 07:00 111/60 11/07/24 07:00 111/60 11/07/24 07:00 111/60 11/07/24 07:00 111/60 11/07/24 07:00 111/60 11/07/24 07:00 111/60 11/07/24 07:00 111/60 11/07/24 07:00 111/60 11/07/24 07:00 111/60 11/07/24 07:00 74 15 98 11/07/24 06:39 74 19 98 11/07/24 06:30 112/62 11/07/24 06:30 112/62 11/07/24 06:30 112/62 11/07/24 06:30 112/62 11/07/24 06:30 112/62 11/07/24 06:30 112/62 11/07/24 06:30 112/62 11/07/24 06:27 79 19 100 11/07/24 06:24 72 17 94 11/07/24 06:23 106/57 L 11/07/24 06:23 80 20 106/57 L 96 11/07/24 05:16 79 16 101/53 L 96 11/07/24 05:16 11/07/24 04:53 76 11/07/24 03:02 78 16 106/52 L 92 11/07/24 01:02 78 11/07/24 00:52 100 11/07/24 00:45 100 11/07/24 00:43 36.4 C L 82 20 120/61 96 Pulse Ox O2 Del Method O2 Del Method O2 Flow Rate 11/07/24 09:51 Room Air 11/07/24 09:51 Room Air 11/07/24 09:24 11/07/24 08:55 11/07/24 08:45 11/07/24 08:21 11/07/24 07:51 11/07/24 07:42 11/07/24 07:36 11/07/24 07:27 11/07/24 07:18 11/07/24 07:00 11/07/24 07:00 11/07/24 07:00 11/07/24 07:00 11/07/24 07:00 11/07/24 07:00 11/07/24 07:00 11/07/24 07:00 11/07/24 07:00 11/07/24 07:00 11/07/24 07:00 11/07/24 07:00 11/07/24 07:00 11/07/24 07:00 11/07/24 07:00 11/07/24 07:00 11/07/24 07:00 11/07/24 07:00 11/07/24 07:00 11/07/24 07:00 11/07/24 07:00 11/07/24 07:00 11/07/24 07:00 11/07/24 07:00 11/07/24 06:39 11/07/24 06:30 11/07/24 06:30 11/07/24 06:30 11/07/24 06:30 11/07/24 06:30 11/07/24 06:30 11/07/24 06:30 11/07/24 06:27 11/07/24 06:24 11/07/24 06:23 11/07/24 06:23 Room Air 11/07/24 05:16 Room Air 11/07/24 05:16 96 Room Air 11/07/24 04:53 11/07/24 03:02 Room Air 11/07/24 01:02 11/07/24 00:52 Room Air 11/07/24 00:45 Room Air, Nasal Cannula 4 11/07/24 00:43 Room Air Laboratory Results 11/07/24 00:51 11/07/24 10:33 albumin 2.6 AST 49 ALT 39 [id number] uOsm 513 Ca 36 Diagnostic Findings cxr prominent bronchovascular markings unchanged, possible infiltrates of right lower lung zone, small pleural effusions bilaterally, elevated left hemidiaphragm unchanged (2) Hypervolemia Hypervolemia type: unspecified Qualified Code(s): E87.70 - Fluid overload, unspecified
[2024-11-07] MEDS: PROBENECID 500 MG TAB PO SCH (11:35)
[2024-11-07 12:41] LABS: BUN Creatinine Ratio 25.7 (10-20); Calcium 7.8 mg/dl (8.6-10.3); Creatinine Clr Calc Pharmacy 46.5 ml/min; Potassium 4.4 mmol/L (3.5-5.1)
[2024-11-07] MEDS: FUROSEMIDE INJ 20 MG/2 ML VIAL IV SCH (13:27)
[2024-11-07] MEDS: POTASSIUM CHLORIDE 10 MEQ TABCR PO SCH (13:27)
--- NOTE | 2024-11-07 14:40 | Electrocardiogram Report ---
Test Reason : Blood Pressure : */* mmHG Vent. Rate : 90 BPM Atrial Rate : 90 BPM P-R Int : 224 ms QRS Dur : 146 ms QT Int : 404 ms P-R-T Axes : * 21 221 degrees QTcB Int : 494 ms Sinus rhythm with 1st degree A-V block with occasional Premature ventricular complexes Left bundle branch block Abnormal ECG Confirmed by Piotr Leslie ([id number]) on 11/07/2024 2:40:19 PM Referred By: REFERRED SELF Confirmed By: Piotr Leslie
[2024-11-07] MEDS: LANTUS PER UNIT CHARGE SQ SCH (20:31)
[2024-11-07] MEDS: SIMVASTATIN 20 MG TAB PO SCH (20:32)
[2024-11-07 21:03] LABS: Total Protein Urine Random 12.3 mg/dl (0-11.9)
[2024-11-07 21:09] LABS: Creatinine Urine Random 20.6 mg/dl; Protein Creatinine Ratio Urine 0.6 (0-0.2)
[2024-11-08 08:26] LABS: Hematocrit (blood only) 20.6 % (42.0-52.0); Hemoglobin 7.1 g/dl (14.0-18.0); Mean Corpuscular Hemoglobin 29.7 pg (25.0-34.0); Mean Corpuscular Hgb Conc 34.5 g/dL (32.0-36.0); Mean Corpuscular Volume 86.2 fL (80.0-100.0); Mean Platelet Volume 9.8 fL (9.4-12.4); Platelet Count 147 K/uL (130-400); RDW Coefficient of Variation 15.5 % (11.5-14.5); RDW Standard Deviation 48.6 fL (36.4-46.3); Red Blood Count 2.39 M/uL (4.70-6.10); White Blood Count 8.27 K/ul (4.8-10.8)
[2024-11-08 08:29] LABS: Calcium 7.6 mg/dl (8.6-10.3); Magnesium 1.4 mg/dl (1.7-2.4); Potassium 4.4 mmol/L (3.5-5.1)
[2024-11-08 08:49] LABS: Acanthocytes 1+; Basophils # (auto) 0.03 K/uL (0.00-0.20); Basophils % (auto) 0.4 %; Eosinophils # (auto) 0.03 K/uL (0.00-0.50); Eosinophils % (auto) 0.4 %; Immature Granulocytes # (auto) 0.08 K/uL (0.01-0.20); Lymphocytes # (auto) 1.58 K/uL (1.20-3.40); Lymphocytes % (auto) 19.1 %; Monocytes % (auto) 3.6 %; Neutrophils # (auto) 6.25 K/uL (1.40-6.50); Neutrophils % (auto) 75.5 %; Ovalocytes 1+; Polychromasia 1+
[2024-11-08 09:38] LABS: Iron 19 mcg/dl (35-175); Unsaturated Iron Binding Cap 107 mcg/dl (155-355)
--- NOTE | 2024-11-08 09:44 | Nephrology Progress Note ---
Date of Service November 08, 2024 Assessment & Plan (1) Hyponatremia: Plan: hypervolemic hyponatremia versus SIADH w/ edema from hypoalbuminemia (alb 2.6). volume status difficult to assess in worsening hypoalbuminemia/malnutrition. h/o chronic mild hyponatremia often low 130s as OP; recent admission here w/ critical hyponatremia 115 earlier this month, improved to 123 by hospital d/c and attrib to hypovolemia in setting of C diff. now with sNa 123 on 11/07 presentation, minimal change today to 122. would avoid tolvaptan d/t cost and challenges of sustained efficacy. avoid salt tablets which worsen edema. wt 71.[address] 11/08 Goal sNa for tomorrow am is no more than 128 -ordered repeat -continue daily standing weights >>>ordered orthostatic vital signs to help evaluate volume status >>lying 132/67 HR 89; sitting 95/58; stand 89/51 HR about 90 each position >ordered stat 1LNS bolus over 1 hr >then 1 hr after completion of bolus, ordered urgent urine electrolytes, BMP as well as TSH, prealbumin, hgb >>> these are notable for ongoing anemia (pt to get pRBC), low prealbumin, TSH WNL, and sNa down to 121 ; lytes not collected yet as of 1644 and RN aware/watching to collect; may need bladder scan -1.5 L fluid limit toward which protein shakes do NOT count Hold off on urea for now or further lasix Care coordinated w/ Dr Ross via TText re anemia, + orthostatics, NS; sodium strategy; we are in agreement. (2) Hypervolemia: Plan: in setting of salt tabs, hypoalbuminemia, mild OL on CXR. has 600 mg proteinuria, so not nephrotic currently though he has been remotely; last proteinuria status as OP in past year 200 mg daily -hold lasix; avoid salt tabs -f/u prealbumin > low as noted (3) Protein-energy malnutrition: Plan: dietary consult recommended; worsening; as above will check prealbumin >>> prealbumin 5.6 (normal range 20-40) >> ? malabsorption? suggest having GI reeval pt (4) Diarrhea: Plan: significant diarrhea continues; -?role for repeat colonoscopy as discussed at last admission -continue efforts to control this (5) Hypomagnesemia: Plan: 1.4 today from 1.7 yesterday; dropping likely d/t GI losses >monitor daily >needs Mag IV and po >> already getting 2 gm IV; will add slo mag bid (6) Anemia: Plan: significant drop in hemoglobin today 8.4 11/07 > 7.1 11/08 pt denies s/s bleeding > will repeat hgb this PM as well Admission and Anticipated Discharge Date Admission Date: November 07, 2024 Subjective diarrhea slowed considerably > no bm so far today. states he feels better somewhat and ate a good breakfast. no sob. ongoing edema. no n/v Review of Systems 2 Review of Systems: All systems reviewed & are unremarkable except as noted in Subjective Physical Exam 2 Constitutional: well developed and well nourished Eyes: EOM intact bilaterally ENMT: Mouth: + dry oral mucous membranes Respiratory: normal respiratory effort Auscultation: + diminished lung sounds Gastrointestinal (Abdomen): Inspection/Auscultation: normal bowel sounds P ercussion/Palpation: abdomen soft; abdomen nontender Musculoskeletal: Extremities: strength 5/5 throughout Skin: no rashes, warm and dry Neurologic: myers, fluent speech, no tremor Results & Data Vital Signs (Past 12 Hours) Vital Signs Temp Pulse Pulse Resp BP Pulse Ox O2 Del Method 11/08/24 07:50 36.7 C 81 20 116/63 92 Room Air 11/08/24 07:19 87 11/08/24 02:52 Room Air 11/08/24 02:51 87 11/08/24 02:31 36.7 C 118 H 18 126/62 98 Room Air 11/07/24 23:18 36.6 C 99 H 16 117/42 L 92 Room Air Laboratory Results 11/08/24 07:09 11/08/24 07:09 (2) Hypervolemia Hypervolemia type: unspecified Qualified Code(s): E87.70 - Fluid overload, unspecified (6) Anemia Anemia type: unspecified type Qualified Code(s): D64.9 - Anemia, unspecified
[2024-11-08] MEDS: MAGNESIUM SULFATE / D5W 1 GM/100 ML BAG IV SCH (09:52)
[2024-11-08] MEDS: GABAPENTIN 100 MG CAP PO PRN (09:53)
[2024-11-08] MEDS: MAGNESIUM CHLORIDE W/CALCIUM 64MG DELAYED REL TAB PO SCH (12:13)
[2024-11-08] MEDS: SODIUM CHLORIDE 0.9% 1,000 ML IV STA (12:16)
[2024-11-08 12:38] LABS: Folate (Folic Acid),Ser orPlas 9.6 ng/ml (>5.38)
--- NOTE | 2024-11-08 13:14 | Hospitalist Progress Note ---
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 difficile colitis: Plan 89-year-old male with type 1 diabetes mellitus on insulin, hypertension, chronic hyponatremia secondary to SIADH, chronic gout who was recently admitted from 10/30/2019 to 11/04/2024 for C. difficile colitis and hyponatremia and discharged home on vancomycin taper. He presented back to the ED with shortness of breath and also found to have sodium level of 123 #C. difficile colitis Patient was discharge on 11/04/2024 He was seen by GI at that time with recommendations from GI regarding vancomycin taper as follows: Given his immunosuppression and age, would recommend a vancomycin taper. He should get 125 4 times daily for 10 days followed by 3 times daily for 5 days twice daily for 5 days daily for 5 days and then every other day for 3 weeks to make sure he does not get recurrence. Patient started vancomycin on 10/31/2024 and will need to switch to vancomycin 3 times a day on 11/10/2024 with ongoing taper as above Low residue and low lactose diet Repeat C. difficile on this admission is negative Continue cholestyramine 4 g p.o. daily If diarrhea continues, will reconsult GI since nephrology is wondering if patient has malabsorption #Hyponatremia Baseline sodium levels are around 130 Patient was recently discharged on 11/04/2024 with a sodium level of 123 Nephrology saw the patient in consultation Initially nephrology had placed patient on IV Lasix but is since stopped IV Lasix and patient provided with 1 L fluid bolus by nephrology earlier due to patient being orthostatic with repeat labs ordered this afternoon As per nephrology, 1.5 L fluid limit which do not include protein shakes: This was discussed with nursing staff Monitor sodium levels: Hyponatremia management per nephrology team #Severe protein calorie malnutrition Nutrition consult Nutritional supplements per dietary team #Insulin-dependent type 1 diabetes mellitus A1c is 7.3 on 10/30/2024 Continue Lantus 6 units subcutaneous nightly Accu-Cheks before every meal and nightly with sliding scale insulin coverage Monitor glycemic control #Essential hypertension Hold Imdur and antihypertensives at this point given patient is orthostatic Monitor vital signs #Hypomagnesemia IV magnesium replacement Monitor levels #Chronic anemia Hemoglobin is 7.1 Discussed blood transfusion with patient: Transfusion consent signed Transfuse if hemoglobin less than 7 or actively bleeding CODE STATUS: DNR/DNI DVT prophylaxis: Bilateral SCDs PT consult for discharge recommendations Care plan discussed with patient, nursing staff Admission and Anticipated Discharge Date Admission Date: November 07, 2024 Subjective Patient seen and examined H&P reviewed Labs reviewed Telemetry reviewed Denies any headache, dizziness or lightheadedness. He was orthostatic earlier and was given 1 L of fluids by nephrology team and Lasix has been held Repeat labs are been ordered by nephrology team for this afternoon. Hemoglobin is 7.1: Discussed blood transfusion with patient if hemoglobin drops below 7. Patient states she has had transfusion in the past and is agreeable to blood transfusion if needed. Risks, benefits and side effects of blood transfusion explained to the patient, patient verbalized understanding instructions and consent signed with nursing staff as witness. Physical Exam Physical Exam: General: No acute distress, pale in appearance, frail appearing Psych: Awake and alert, oriented to place and person HEENT: Anicteric sclera, moist oral mucosa CVS: Regular rate and rhythm Lungs: Bilateral air entry, no wheezing noted Abdomen: Soft, nontender, no rebound, no guarding Ext: lower extremity edema, no calf tenderness Neuro: No focal motor deficits noted Results & Data Results & Data Vital Signs (Past 12 Hours) Vital Signs Temp Pulse Pulse Resp BP Pulse Ox O2 Del Method 11/08/24 11:07 36.4 C L 87 20 125/59 L 98 Room Air 11/08/24 07:50 36.7 C 81 20 116/63 92 Room Air 11/08/24 07:19 87 11/08/24 02:52 Room Air 11/08/24 02:51 87 11/08/24 02:31 36.7 C 118 H 18 126/62 98 Room Air Laboratory Results Laboratory Results - last 24 hr 11/07/24 11/07/24 11/07/24 16:59 19:55 20:13 WBC RBC Hgb Hct MCV MCH MCHC RDW Std Deviation RDW Coeff of Susana Plt Count MPV Immature Gran % (Auto) Neut % (Auto) Lymph % (Auto) Aurora % (Auto) Eos % (Auto) Baso % (Auto) Neut # (Auto) Lymph # (Auto) Aurora # (Auto) Eos # (Auto) Baso # (Auto) Immature Gran # (Auto) Polychromasia Ovalocytes Acanthocytes (Spur) Sodium Potassium Chloride Carbon Dioxide Anion Gap BUN Creatinine Est Cr Clr Drug Dosing eGFR BUN/Creatinine Ratio Glucose POC Glucose 272 H 248 H Calcium Magnesium Iron Unsaturated IBC Vitamin B12 Folate Ur Random Creatinine 20.6 U Random Total Protein 12.3 H Protein/Creatinin Ratio 0.6 H 11/08/24 11/08/24 11/08/24 07:09 07:38 11:55 WBC 8.27 RBC 2.39 L Hgb 7.1 L Hct 20.6 L* MCV 86.2 MCH 29.7 MCHC 34.5 RDW Std Deviation 48.6 H RDW Coeff of Susana 15.5 H Plt Count 147 MPV 9.8 Immature Gran % (Auto) 1.0 Neut % (Auto) 75.5 Lymph % (Auto) 19.1 Aurora % (Auto) 3.6 Eos % (Auto) 0.4 Baso % (Auto) 0.4 Neut # (Auto) 6.25 Lymph # (Auto) 1.58 Aurora # (Auto) 0.30 Eos # (Auto) 0.03 Baso # (Auto) 0.03 Immature Gran # (Auto) 0.08 Polychromasia 1+ Ovalocytes 1+ Acanthocytes (Spur) 1+ Sodium 122 L Potassium 4.4 Chloride 93 L Carbon Dioxide 27 Anion Gap 2 L BUN 23 Creatinine 1.00 Est Cr Clr Drug Dosing 47.0 eGFR 72.84 BUN/Creatinine Ratio 23.0 H Glucose 65 L POC Glucose 78 195 H Calcium 7.6 L Magnesium 1.4 L Iron 19 L Unsaturated IBC 107 L Vitamin B12 1429 H Folate 9.60 Ur Random Creatinine U Random Total Protein Protein/Creatinin Ratio PG Care Time/CCT Total # of Minutes Spent Total Time Spent with Patient: Total time spent is greater than 50% in coordination of care (as documented) at patient's floor/unit and/or counseling patient: Coding Level of Care Code 02772 SUB INP/OBS CARE 3/50MIN Diagnoses Protein-energy malnutrition E46 Hypomagnesemia E83.42 Hyponatremia E87.1 Primary hypertension I10 Hypertension type: primary hypertension 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 difficile colitis A04.72 Time Spent (min) 51 (4) Hypertension Hypertension type: primary hypertension Qualified Code(s): I10 - Essential (primary) hypertension
[2024-11-08 14:51] LABS: BUN Creatinine Ratio 19.5 (10-20); Calcium 7.5 mg/dl (8.6-10.3); Creatinine Clr Calc Pharmacy 38.2 ml/min; Potassium 4.4 mmol/L (3.5-5.1); Prealbumin 5.6 mg/dl (20-40)
[2024-11-08 15:06] LABS: Thyroid Stimulating Hormone 3.195 uIu/ml (0.300-4.500)
[2024-11-08 22:07] LABS: Urine Potassium 31.5 mmol/L
--- NOTE | 2024-11-09 08:53 | Nephrology Progress Note ---
Date of Service November 09, 2024 Assessment & Plan (1) Hyponatremia: Plan: hypervolemic hyponatremia versus SIADH w/ edema from hypoalbuminemia (alb 2.6). volume status difficult to assess in worsening hypoalbuminemia/malnutrition. h/o chronic mild hyponatremia often low 130s as OP; recent admission here w/ critical hyponatremia 115 earlier this month, improved to 123 by hospital d/c and attrib to hypovolemia in setting of C diff. now with sNa 123 on 11/07 p resentation, minimal change today to 122. would avoid tolvaptan d/t cost and challenges of sustained efficacy. avoid salt tablets which worsen edema. wt 71.[address] 11/08 Goal sNa for tomorrow am depends on today's labs -ordered repeat -continue daily standing weights >>>ordered orthostatic vital signs to help evaluate volume status >>lying 132/67 HR 89; sitting 95/58; stand 89/51 HR about 90 each position on 11/08 >> AM labs pending >urgent urine studies ordered for 2 pm did not post until 2129 b/c pt did not void; limited our Na mgt For today AM labs have not yet been drawn as of 0900, so not AM cortisol level which he needs will not be accurate (too late in AM, not fasting) >>repeat orthostatic VS >> for 11/09 119/63 HR 89 lying; 93/58 HR 93 sit; stand 81/42 HR 83 so remains quite orthostatic >> likely needs more NS but need to see labs first, including to eval if will need pRBC >>f/u AM labs >>repeat urgent urine lytes now >AM cortisol for 11/10 ordered -1.5 L fluid limit toward which protein shakes do NOT count to continue >>he states that protein shakes > diarrhea this admission so will ask dietary to work on finding best lactose intolerant protein supplement Hold off on urea for now or further lasix Care coordinated w/ Dr Ross via TText re anemia, + orthostatics, waiting on labs; we are in agreement. (2) Hypervolemia: Plan: in setting of salt tabs, hypoalbuminemia, mild OL on CXR. has 600 mg proteinuria, so not nephrotic currently though he has been remotely; last proteinuria status as OP in past year 200 mg daily -hold lasix; avoid salt tabs (3) Protein-energy malnutrition: Plan: dietary consult recommended for this and prot shake issue above; worsening; as above will check prealbumin >>> prealbumin 5.6 (normal range 20-40) >> ? malabsorption? suggest having GI reeval pt versus other steps to address malnutrition >> concern weeks long enteritis could contribute here (4) Diarrhea: Plan: significant diarrhea from admission has subsided -?role for repeat colonoscopy as discussed at last admission -continue efforts to control this (5) Hypomagnesemia: Plan: 1.4 11/08 from 1.7 11/07; dropping likely d/t GI losses >monitor daily >needs Mag IV and po >> 11/08 had 2 gm IV >>started slo mag 11/08 bid > >continue >> f/u am labs (6) Anemia: Plan: significant drop in hemoglobin 11/08 from 8.4 11/07 > 7.1 11/08 pt denies s/s bleeding > repeat hgb 11/08 PM 7.1 >> f/u AM labs Admission and Anticipated Discharge Date Admission Date: November 07, 2024 Subjective labs not posted yet today; BM this am not loose; still + orthostatics this am; no sob, no n/v, no change in edema; denies orthostatic sx w/ position change though admits a bit "wobbly" w/ standing Review of Systems Review of Systems: All systems reviewed & are unremarkable except as noted in Subjective Physical Exam Constitutional: well developed, + thin, + frail appearing and cooperative; no acute distress Eyes: EOM intact bilaterally ENMT: Mouth: + dry oral mucous membranes Respiratory: normal respiratory effort Auscultation: + diminished lung sounds and + crackles (bibasilar L>R) Gastrointestinal (Abdomen): Inspection/Auscultation: normal bowel sounds Percussion/Palpation: abdomen soft; abdomen nontender Musculoskeletal: Extremities: strength 5/5 throughout Skin: no rashes, warm and dry Neurologic: myers, fluent speech, no tremor, mild generalized weakness Results & Data Vital Signs (Past 12 Hours) Vital Signs Temp Pulse Pulse Resp BP Pulse Ox O2 Del Method 11/09/24 07:08 103 H 11/09/24 03:56 36.4 C L 82 18 106/45 L 94 Room Air 11/08/24 23:12 36.6 C 84 18 119/58 L 90 Room Air 11/08/24 23:00 88 Laboratory Results labs pending as of 945 AM (2) Hypervolemia Hypervolemia type: unspecified Qualified Code(s): E87.70 - Fluid overload, unspecified (6) Anemia Anemia type: unspecified type Qualified Code(s): D64.9 - Anemia, unspecified
[2024-11-09] MEDS: CARBOHYDRATES FOR HYPOGLYCEMIA PO PRN (09:07)
[2024-11-09 10:00] LABS: Hematocrit (blood only) 24.4 % (42.0-52.0); Hemoglobin 8.4 g/dl (14.0-18.0); Mean Corpuscular Hemoglobin 29.9 pg (25.0-34.0); Mean Corpuscular Hgb Conc 34.4 g/dL (32.0-36.0); Mean Corpuscular Volume 86.8 fL (80.0-100.0); Platelet Count 181 K/uL (130-400); RDW Coefficient of Variation 15.8 % (11.5-14.5); RDW Standard Deviation 49.4 fL (36.4-46.3); Red Blood Count 2.81 M/uL (4.70-6.10); White Blood Count 9.47 K/ul (4.8-10.8)
[2024-11-09 10:32] LABS: Creatinine Clr Calc Pharmacy 42.7 ml/min; Magnesium 1.7 mg/dl (1.7-2.4); Potassium 4.5 mmol/L (3.5-5.1)
[2024-11-09] MEDS ORDERED: PHARMACY GLYCEMIC MGMT CONSULT PRN (10:48)
[2024-11-09 10:57] LABS: Acanthocytes 2+; Basophils # (auto) 0.03 K/uL (0.00-0.20); Basophils % (auto) 0.3 %; Eosinophils # (auto) 0.12 K/uL (0.00-0.50); Eosinophils % (auto) 1.3 %; Immature Granulocytes # (auto) 0.07 K/uL (0.01-0.20); Immature Granulocytes % (auto) 0.7 %; Lymphocytes # (auto) 2.73 K/uL (1.20-3.40); Lymphocytes % (auto) 28.8 %; Monocytes # (auto) 0.33 K/uL (0.11-0.59); Monocytes % (auto) 3.5 %; Neutrophils # (auto) 6.19 K/uL (1.40-6.50); Neutrophils % (auto) 65.4 %; Polychromasia 1+; Target Cells 1+
--- NOTE | 2024-11-09 11:06 | Gastrointestinal Consultation ---
Date of Consultation November 09, 2024 History of Present Illness Reason for Consultation: C diff, ? Attending Physician: Arden Ross MD Allergies Allergy/AdvReac Type Severity Reaction Status Date / Time Penicillins Allergy Unknown AMOXICILLIN Verified 10/10/24 10:32 - UNKNOWN RXN allopurinol Allergy Rash Verified 10/10/24 10:32 Home Medications Medication Instructions Recorded Confirmed Type aspirin 81 mg chewable tablet 81 mg PO DAILY 02/08/19 11/07/24 History isosorbide mononitrate 60 mg 60 mg PO QAM 02/08/19 11/07/24 History tablet,extended release 24 hr nitroglycerin 0.4 mg sublingual 0.4 mg sublingual Q5M PRN Chest 02/08/19 11/07/24 History tablet Pain atenolol 25 mg tablet 12.5 mg PO DAILY 03/30/19 11/07/24 History cholecalciferol (vitamin D3) 50 2,000 units PO DAILY 03/30/19 11/07/24 History mcg (2,000 unit) capsule probenecid 500 mg tablet 250 mg PO BID 03/30/19 11/07/24 History cyanocobalamin (vitamin B-12) 1,000 mcg PO DAILY 04/24/20 11/07/24 History 1,000 mcg capsule iron,carbonyl 65 mg-vitamin C 125 1 tab PO DAILY 10/05/20 11/07/24 History mg tablet,delayed release (Vitron-C) fluocinonide 0.05 % topical 1 applic topical BID PRN Other 10/26/20 11/07/24 History ointment metronidazole 0.75 % topical gel 1 applic topical BID PRN Other 10/26/20 11/07/24 History (Rosadan) furosemide 20 mg tablet (Lasix) 20 mg PO .3X TIMES WEEK PRN Fluid 09/17/23 11/07/24 History Retention gabapentin 100 mg capsule 100 mg PO TID PRN pain 09/17/23 11/07/24 History blood sugar diagnostic (OneTouch #300 ea 04/04/24 10/10/24 Rx Ultra Test strips) lisinopril 40 mg tablet 40 mg PO DAILY #90 tabs 08/18/24 11/07/24 Rx omeprazole 20 mg capsule,delayed 20 mg PO QAM 09/09/24 11/07/24 History release simvastatin 20 mg tablet 20 mg PO PM 09/09/24 11/07/24 History lancets 33 gauge (OneTouch Delica #100 ea 09/22/24 10/10/24 Rx Plus Lancet) vgqwwa-omxbeksz-sznxeyo 1 cap PO QID #120 caps 09/26/24 11/07/24 Rx 36,000-114,000-180,000 unit capsule,delay rel (Creon) mesalamine 1.2 gram tablet,delayed 2.4 g (2 x 1.2 gram) PO BID 30 09/26/24 11/07/24 Rx release days #120 tabs insulin aspart U-100 100 unit/mL 3 unit subcut TID 09/29/24 11/07/24 History (3 mL) subcutaneous pen (Novolog FlexPen U-100 Insulin aspart) valacyclovir 1 gram tablet 1,000 mg PO BID #14 tabs 10/03/24 11/07/24 Rx (Valtrex) pen needle, diabetic 31 gauge x #200 ea 10/13/24 Rx 5/16" (1st Tier Unifine Pentips) insulin glargine 100 unit/mL (3 6 unit subcut HS 10/29/24 11/07/24 History mL) subcutaneous pen (Lantus Solostar U-100 Insulin) L.acidop,casei,lactis,rham-B.lact,whitney 1 cap PO DAILY 7 days #7 caps 11/04/24 11/07/24 Rx 625 mg (10 billion cell) capsule (Advanced Probiotic) cholestyramine-aspartame 4 gram 1 ea PO DAILY 5 days #60 ea 11/04/24 11/07/24 Rx oral powder for susp in a packet (Prevalite) sodium chloride 1,000 mg soluble 1,000 mg PO TID 10 days #30 tabs 11/04/24 11/07/24 Rx tablet vancomycin 1,000 mg intravenous 125 mg PO Q6 5 days #10 ea 11/04/24 11/07/24 Rx injection Patient History Medical History (Updated 11/07/24 @ 11:27 by Karma Rahman MD, PhD) Systemic lupus erythematosus Proteinuria Chronic gout Surgical History History of basal cell carcinoma excision History of prostate surgery History of bilateral cataract extraction History of shoulder surgery History of hernia repair History of thumb surgery History of coronary artery stent placement Family History Brother Myocardial infarction Cancer Prostate cancer Daughter Cancer Father Myocardial infarction Denies family history of Ovarian cancer Breast cancer Colorectal cancer Social History Smoking Status: Never smoker Second Hand Exposure: No; Do You Dip or Chew Tobacco: No; Hx Alcohol Use: No Hx Substance Use: No Preferred Language: Japanese Communication Ability: Effective Communication Tools: Other Visual Impairment: No Limitations Hearing Ability: Normal Lighting Adviser Required: Yes Beliefs That Will Affect Care: None marital status: Current Living Situation: Spouse and Family Current Living Situation Comment: Spouse, con current occupational status: retired 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 How many Children do You have: 3 Feels Safe at Home: Yes Childhood Exposure to Second-Hand Smoke: Yes Diet: regular caffeine: Yes (coffee, tea, and soda ) Dental Care, Regularly: Yes Physical Activity Frequency: Daily Seatbelt Use: always Sunscreen Use: Yes Assistive Devices: None Results & Data Vital Signs (Past 12 Hours) Vital Signs Temp Pulse Pulse Resp BP Pulse Ox O2 Del Method 11/09/24 09:09 35.9 C L 90 18 134/64 92 Room Air 11/09/24 07:08 103 H 11/09/24 03:56 36.4 C L 82 18 106/45 L 94 Room Air 11/08/24 23:12 36.6 C 84 18 119/58 L 90 Room Air PG Care Time/CCT Total # of Minutes Spent Total Time Spent with Patient: Total time spent is greater than 50% in coordination of care (as documented) at patient's floor/unit and/or counseling patient: Coding
--- NOTE | 2024-11-09 11:09 | Hospitalist Progress Note ---
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 difficile colitis: Plan 89-year-old male with type 1 diabetes mellitus on insulin, hypertension, chronic hyponatremia secondary to SIADH, chronic gout who was recently admitted from 10/30/2019 25 to 11/04/2024 for C. difficile colitis and hyponatremia and discharged home on vancomycin taper. He presented back to the ED with shortness of breath and also found to have sodium level of 123 #C. difficile colitis Patient was discharge on 11/04/2024 He was seen by GI at that time with recommendations from GI regarding vancomycin taper as follows: Given his immunosuppression and age, would recommend a vancom ycin taper. He should get 125 4 times daily for 10 days followed by 3 times daily for 5 days twice daily for 5 days daily for 5 days and then every other day for 3 weeks to make sure he does not get recurrence. Patient started vancomycin on 10/31/2024 and will need to switch to vancomycin 3 times a day on 11/10/2024 with ongoing taper as above Low residue diet Repeat C. difficile on this admission is negative Continue cholestyramine 4 g p.o. daily GI saw the patient on recommendations of nephrology GI is recommended continue with a long taper of vancomycin as listed above GI is recommended outpatient follow-up with GI after completing his course of vancomycin and if symptoms worsen/diarrhea continues after treatment then they will consider repeating the colonoscopy but would not do so in the short-term until C. difficile is adequately treated. Patient has an appointment with GI SOCIAL WELFARE ADMINISTRATOR Ayah hanna on 11/21/2024 at 10:20 AM #Hyponatremia Baseline sodium levels are around 130 Patient was recently discharged on 11/04/2024 with a sodium level of 123 Nephrology saw the patient in consultation Nephrology is managing sodium issues Patient has been orthostatic and nephrology has been fluctuating between providing fluid boluses and initially also gave IV Lasix with fluid restriction Sodium levels of 124 Discussed with nephrology, since patient is still orthostatic they are planning on giving another fluid bolus today and rechecking labs this afternoon Continue fluid restriction which does not include protein shakes: Nephrology is recommended patient having some Hebrew yogurt as concerned that patient had diarrhea with protein shakes on his past admission Monitor sodium levels: Hyponatremia management per nephrology team #Severe protein calorie malnutrition Nutrition consult Nutritional supplements per dietary team #Insulin-dependent type 1 diabetes mellitus A1c is 7.3 on 10/30/2024 Patient had episode of hypoglycemia this morning Pharmacy consult for glycemic control #Essential hypertension Hold Imdur and antihypertensives at this point given patient is orthostatic Monitor vital signs #Hypomagnesemia Magnesium replacement Monitor levels and replace as needed #Chronic anemia Hemoglobin is above 7 Transfuse if hemoglobin less than 7 or actively bleeding CODE STATUS: DNR/DNI DVT prophylaxis: Bilateral SCDs Discharge planning based on PT recommendations, nephrology recommendations and clinical improvement likely in the next 48 to 72 hours Care plan discussed with patient, nursing staff Admission and Anticipated Discharge Date Admission Date: November 07, 2024 Subjective Patient sitting in a chair Denies any chest pain, shortness of breath Patient states he has had 1 bowel movement in the last 24 hours and denies any diarrhea Overall feels much better Appetite has improved, ate scrambled eggs for breakfast Denies any nausea, vomiting or abdominal pain Patient had episode of hypoglycemia this morning requiring intervention Patient states he did not even know so his blood sugar dropped Patient states that his diarrhea did worsen during past admission on protein shakes but he is willing to try it again. Physical Exam Physical Exam: General: No acute distress, pale in appearance, frail appearing Psych: Awake and alert, oriented to place and person HEENT: Anicteric sclera, moist oral mucosa CVS: Regular rate and rhythm Lungs: Bilateral air entry, no wheezing noted Abdomen: Soft, nontender, no rebound, no guarding Ext: lower extremity edema, no calf tenderness Neuro: No focal motor deficits noted Results & Data Results & Data Vital Signs (Past 12 Hours) Vital Signs Temp Pulse Pulse Resp BP Pulse Ox O2 Del Method 11/09/24 09:09 35.9 C L 90 18 134/64 92 Room Air 11/09/24 07:08 103 H 11/09/24 03:56 36.4 C L 82 18 106/45 L 94 Room Air 11/08/24 23:12 36.6 C 84 18 119/58 L 90 Room Air Laboratory Results Laboratory Results - last 24 hr 11/08/24 11/08/24 11/08/24 07:09 11:55 14:10 WBC RBC Hgb 7.1 L Hct MCV MCH MCHC RDW Std Deviation RDW Coeff of Susana Plt Count MPV Immature Gran % (Auto) Neut % (Auto) Lymph % (Auto) [place] % (Auto) Eos % (Auto) Baso % (Auto) Neut # (Auto) Lymph # (Auto) [place] # (Auto) Eos # (Auto) Baso # (Auto) Immature Gran # (Auto) Polychromasia Target Cells Acanthocytes (Spur) Sodium 121 L Potassium 4.4 Chloride 91 L Carbon Dioxide 25 Anion Gap 5 BUN 24 H Creatinine 1.23 Est Cr Clr Drug Dosing 38.2 eGFR 56.82 BUN/Creatinine Ratio 19.5 Glucose 195 H POC Glucose 195 H Calcium 7.5 L Magnesium Prealbumin 5.6 L Vitamin B12 1429 H Folate 9.60 TSH 3.195 Urine Sodium Urine Potassium Urine Chloride 11/08/24 11/08/24 11/08/24 16:54 20:14 21:30 WBC RBC Hgb Hct MCV MCH MCHC RDW Std Deviation RDW Coeff of Susana Plt Count MPV Immature Gran % (Auto) Neut % (Auto) Lymph % (Auto) [place] % (Auto) Eos % (Auto) Baso % (Auto) Neut # (Auto) Lymph # (Auto) [place] # (Auto) Eos # (Auto) Baso # (Auto) Immature Gran # (Auto) Polychromasia Target Cells Acanthocytes (Spur) Sodium Potassium Chloride Carbon Dioxide Anion Gap BUN Creatinine Est Cr Clr Drug Dosing eGFR BUN/Creatinine Ratio Glucose POC Glucose 192 H 239 H Calcium Magnesium Prealbumin Vitamin B12 Folate TSH Urine Sodium 58 Urine Potassium 31.5 Urine Chloride 82 11/09/24 11/09/24 11/09/24 08:55 08:57 09:01 WBC 9.47 RBC 2.81 L Hgb 8.4 L Hct 24.4 L MCV 86.8 MCH 29.9 MCHC 34.4 RDW Std Deviation 49.4 H RDW Coeff of Susana 15.8 H Plt Count 181 MPV 10.0 Immature Gran % (Auto) 0.7 Neut % (Auto) 65.4 Lymph % (Auto) 28.8 [place] % (Auto) 3.5 Eos % (Auto) 1.3 Baso % (Auto) 0.3 Neut # (Auto) 6.19 Lymph # (Auto) 2.73 [place] # (Auto) 0.33 Eos # (Auto) 0.12 Baso # (Auto) 0.03 Immature Gran # (Auto) 0.07 Polychromasia 1+ Target Cells 1+ Acanthocytes (Spur) 2+ Sodium 124 L Potassium 4.5 Chloride 91 L Carbon Dioxide 28 Anion Gap 5 BUN 22 Creatinine 1.10 Est Cr Clr Drug Dosing 42.7 eGFR 64.97 BUN/Creatinine Ratio 20.0 Glucose 48 L* POC Glucose 62 L* 59 L* Calcium 8.0 L Magnesium 1.7 Prealbumin Vitamin B12 Folate TSH Urine Sodium Urine Potassium Urine Chloride 11/09/24 11/09/24 09:23 10:58 WBC RBC Hgb Hct MCV MCH MCHC RDW Std Deviation RDW Coeff of Susana Plt Count MPV Immature Gran % (Auto) Neut % (Auto) Lymph % (Auto) [place] % (Auto) Eos % (Auto) Baso % (Auto) Neut # (Auto) Lymph # (Auto) [place] # (Auto) Eos # (Auto) Baso # (Auto) Immature Gran # (Auto) Polychromasia Target Cells Acanthocytes (Spur) Sodium Potassium Chloride Carbon Dioxide Anion Gap BUN Creatinine Est Cr Clr Drug Dosing eGFR BUN/Creatinine Ratio Glucose POC Glucose 78 102 H Calcium Magnesium Prealbumin Vitamin B12 Folate TSH Urine Sodium Urine Potassium Urine Chloride PG Care Time/CCT Total # of Minutes Spent Total Time Spent with Patient: Total time spent is greater than 50% in coordination of care (as documented) at patient's floor/unit and/or counseling patient: Coding Level of Care Code 24616 SUB INP/OBS CARE 2/35MIN Diagnoses Protein-energy malnutrition E46 Hypomagnesemia E83.42 Hyponatremia E87.1 Primary hypertension I10 Hypertension type: primary hypertension 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 difficile colitis A04.72 Time Spent (min) 40 (4) Hypertension Hypertension type: primary hypertension Qualified Code(s): I10 - Essential (primary) hypertension
--- NOTE | 2024-11-09 11:10 | Gastroenterology Progress Note ---
<Statement entered by Christian Mondragon MD - 11/09/24 18:06> I have reviewed the history, physical exam, lab and imaging findings as dictated by the mid-level provider, made any necessary modifications, and agree with the stated assessment and recommendations. A total of 20 minutes was spent in the review, direct observation, decision making and discussion of this case with the patient/family and other providers. Christian Mondragon MD Date of Service November 09, 2024 Assessment & Plan (1) C. difficile colitis: Plan: -Continue long-taper of Vancomycin as previously recommended. Diarrhea has improved with this. -Consider financial sales assistant/nutritional eval. -Patient should follow-up as an outpatient. Would recommend completing his course of Vanco. If symptoms worsen/diarrhea continues after treatment, then could consider repeat colonoscopy but would not do that in the short-term until C diff is adequately treated. Admission and Anticipated Discharge Date Admission Date: November 07, 2024 Subjective GI asked to weigh in again on this 89 yo male with C diff as nephrology is concerned for malabsorption. Patient has been diagnosed with C diff and was advised to complete a long taper of Vancomcyin. He is also prescribed cholestyramine as well. Patient notes to me that his bowel frequency is improving and he is having more substance and form in the consistency of his stool. He denies abdominal pain. His albumin is low, which led to nephrology's concerns of malabsorption. He has been hospitalized intermittently for this issue for the past several months. He acknowledges his appetite has not been the same, but feels that he is improving. No GI bleeding. No other new GI concerns at present. Review of Systems Gastrointestinal: + problem reported (diarrhea improving t o soft stool) Physical Exam Gastrointestinal (Abdomen): normal bowel sounds, soft, nontender, no hepatosplenomegaly Results & Data Results & Data Vital Signs (Past 12 Hours) Vital Signs Temp Pulse Pulse Resp BP Pulse Ox O2 Del Method 11/09/24 09:09 35.9 C L 90 18 134/64 92 Room Air 11/09/24 07:08 103 H 11/09/24 03:56 36.4 C L 82 18 106/45 L 94 Room Air 11/08/24 23:12 36.6 C 84 18 119/58 L 90 Room Air PG Care Time/CCT Total # of Minutes Spent Total Time Spent with Patient: Total time spent is greater than 50% in coordination of care (as documented) at patient's floor/unit and/or counseling patient: Coding Level of Care Code 78887 SUB INP/OBS CARE MIN Diagnoses C. difficile colitis A04.72
[2024-11-09] MEDS: SODIUM CHLORIDE 0.9% 1,000 ML IV ONE (11:26)
--- NOTE | 2024-11-09 13:45 | Pharmacy Report ---
Pharmacy Glycemic Short Note 2 - Date of Service November 09, 2024 - Glycemic Short BSG Results (Last 24 hours): 11/08/24 11/08/24 11/08/24 14:10 16:54 20:14 Glucose 195 H POC Glucose 192 H 239 H 11/09/24 11/09/24 11/09/24 08:55 08:57 09:01 Glucose 48 L* POC Glucose 62 L* 59 L* 11/09/24 11/09/24 11/09/24 09:23 10:58 12:06 Glucose POC Glucose 78 102 H 141 H OUTPATIENT ANTIDIABETIC REGIMEN: * Lantus 6 units SC HS * Novolog 3 units SC TIDM w/ CF of 40 mg/dL HbA1c: 7.3% (11/09/24) ASSESSMENT: * WW is an 89 year old male w/ Clostridium difficile colitis w/ reported history of T1DM, although outpatient diabetes note also mentions diagnosis of T2DM in 1989 at age 55 * Patient admitted on 11/07/24 and blood sugars have been labile since that time w/ hypoglycemia this morning (POC glucose of 59 mg/dL), prompting pharmacy glycemic consult * Based on blood glucose trend yesterday into this morning - will reduce basal i nsulin and add carb coverage to help with daytime hyperglycemia * Diet ordered and 100% of breakfast/lunch eaten today PLAN FOR INPATIENT GLYCEMIC CONTROL: * Basal insulin * Lantus 0-3 units SQ HS (180 mg/dL threshold) * Bolus insulin * NovoLog per scale ACHS or Q6hrs while NPO * Goal Range: Low 120 mg/dL - High 160 mg/dL * Correction Factor: 40 mg/dL/unit * Nutritional / Prandial insulin per carb ratio of 1 unit per 15 grams CHO consumed
[2024-11-09 15:09] LABS: BUN Creatinine Ratio 18.8 (10-20); Calcium 7.7 mg/dl (8.6-10.3); Creatinine Clr Calc Pharmacy 40.1 ml/min; Potassium 4.3 mmol/L (3.5-5.1)
[2024-11-09 15:11] LABS: Urine Potassium 31.4 mmol/L
[2024-11-09] MEDS: UREA (UREA-NA) 15 GM PACK PO SCH (15:48)
--- NOTE | 2024-11-09 16:34 | Communication Note ---
Date of Service: November 09, 2024 UPDATE pt still orthostatic though less so after 1L NS infusion (25 mm Hg drop w/ standing versus 38 point drop) and sodium dropped 124 > 121 same timeframe. urine chemistries suggest adequate hydration for now. behaving like SIADH though volume status difficult to evaluate fully in him w/ malnutrition, ? chronic +orthostatics; SIADH should technically be euvolemic. K acceptable. standing weight increased significantly 71.1 > 72.3 in one day. -requested hospitalist consider TTE (last one 2021) to eval for HF given hypotension, volume questions -started urea 30 gm bid, first 2 doses today -continue efforts to increase protein in diet -continue FR -cont to avoid salt tablets, vaptans -AM cortisol level -hold off on lasix -next BMP in AM unless sx Above communicated repeatedly through day w/ Dr Ross via TText; we are in agreement.
--- NOTE | 2024-11-09 18:01 | XCELERA ---
[id number]
[2024-11-09] MEDS: LANTUS PER UNIT CHARGE SQ SCH (21:09)
[2024-11-10 07:40] LABS: Basophils # (auto) 0.04 K/uL (0.00-0.20); Basophils % (auto) 0.4 %; Eosinophils # (auto) 0.08 K/uL (0.00-0.50); Eosinophils % (auto) 0.9 %; Hematocrit (blood only) 23.2 % (42.0-52.0); Hemoglobin 8.2 g/dl (14.0-18.0); Immature Granulocytes # (auto) 0.07 K/uL (0.01-0.20); Immature Granulocytes % (auto) 0.8 %; Lymphocytes # (auto) 3.03 K/uL (1.20-3.40); Lymphocytes % (auto) 33.2 %; Mean Corpuscular Hemoglobin 30.8 pg (25.0-34.0); Mean Corpuscular Hgb Conc 35.3 g/dL (32.0-36.0); Mean Corpuscular Volume 87.2 fL (80.0-100.0); Mean Platelet Volume 9.8 fL (9.4-12.4); Monocytes # (auto) 0.27 K/uL (0.11-0.59); Neutrophils # (auto) 5.65 K/uL (1.40-6.50); Neutrophils % (auto) 61.7 %; Platelet Count 198 K/uL (130-400); RDW Coefficient of Variation 15.8 % (11.5-14.5); RDW Standard Deviation 49.7 fL (36.4-46.3); Red Blood Count 2.66 M/uL (4.70-6.10); White Blood Count 9.14 K/ul (4.8-10.8)
[2024-11-10 08:15] LABS: BUN Creatinine Ratio 48.6 (10-20); Creatinine Clr Calc Pharmacy 43.1 ml/min; Magnesium 1.6 mg/dl (1.7-2.4); Potassium 4.6 mmol/L (3.5-5.1)
--- NOTE | 2024-11-10 08:38 | Nephrology Progress Note ---
Date of Service November 10, 2024 Assessment & Plan (1) Hyponatremia: Plan: hypervolemic hyponatremia w/ edema from hypoalbuminemia (alb 2.6) in pt w/ h/o SIADH. volume status difficult to assess in setting of worsening hypoalbuminemia/malnutrition, new ischemic HFrEF (mild). h/o chronic mild hyponatremia often low 130s as OP; recent admission here w/ critical hyponatremia 115 earlier this month, improved to 123 by hospital d/c and attrib to hypovolemia in setting of C diff. now with sNa 123 on 11/07 presentation, minimal change today at 123. would avoid tolvaptan d/t cost and challenges of sustained efficacy. avoid salt tablets which worsen edema. AM cortisol is wnl/ high normal wt 71.[address] 11/08, 72.3 on 11/09, 72.7 on 11/10 Upper limit of sNa for tomorrow am is no more than 129; could be d/c home if we get him to 125 Orthostatic VS trends (so far w/ no sx on any of these checks): >>lying 132/67 HR 89; sitting 95/58; stand 89/51 HR about 90 each position on 11/08 --11/09 119/63 HR 89 lying; 93/58 HR 93 sit; stand 81/42 HR 83 --11/10 111/64 lying; sitting 86/49; stand 70/43 HR in 90s throughout -continue daily standing weights >>>consider orthostatic vital signs to help evaluate volume and other clinical status -1.5 L fluid limit toward which protein shakes do NOT count to continue; continue same >>he will likely be on urea after discharge; this medication can take some time to get as an out patient and can be quite costly, particularly if purchased locally ( he is not an internet user) >> suggest 30 mg bid x 1 month w/ 1 refill; pls have case mgt investigate; would need to be on formulary i f goes to rehab. >given that sbp to 70s this am w/ standing, hold lasix for now; cont TEDS, await cardiology recs >>given HF, RLS, consider overnight pulseox Care coordinated w/ Dr Ross via TText re anemia mgt, worse/+ orthostatics, HF dx, need for OP urea that case mgt may need to investigate; we are in agreement. (2) Hypervolemia: Plan: multifactorial w/ new HF, hypoalbuminemia, mild OL on CXR and L pl effusion moderate on TTE. has 600 mg proteinuria, so not nephrotic currently though he has been remotely; last proteinuria status as OP in past year 200 mg daily -avoid salt tabs in HF >give + orthostatics would hold lasix as well for now; could consider low dose intermittent moving forward -cont to push protein intake (3) Protein-energy malnutrition: Plan: worsening w/ prealbumin 5.6 (normal range 20-40) >> ? malabsorption? >> concern weeks long enteritis could contribute here GI to reevaluate as OP unless severe change in sx > suggest OP w/u w/ PCP; consider building consultant f/u (4) Diarrhea: Plan: significant diarrhea from admission had subsided, though 4 BM charted yesterday -?role for repeat colonoscopy after CDiff therapy fully completed unless dramatic worsening -continue efforts to control this (5) Hypomagnesemia: Plan: 1.4 11/08 from 1.7 11/07; dropping likely d/t GI losses >monitor daily; 1.6 today after multiple BM yesterday >>started slo mag 11/08 bid > >continue (6) Anemia: Plan: significant drop in hemoglobin 11/08 from 8.4 11/07 > 7.1 11/08 > 8.2 11/10 folate, B12 replete UIBC 107, Fe 19 >> t sat =15.1% >> marked iron deficiency; not likely to absorb much po in setting of enteritis pt denies s/s bleeding >> venofer 300 mg today and daily x 3 total doses (may need to complete as OP) (7) Cardiomyopathy: Plan: new mild reduction in EF and WMA ? consistent w/ conduction dysfunction or not > await cardiology recs, avoid salt tabs Admission and Anticipated Discharge Date Admission Date: November 07, 2024 Subjective notes restless legs, getting frustrated at LOS; worries meds will be changed too much on d/c; c/o R significant groin pain; no sob, no orthopnea; notes when asked increased abd girth; edema continues unchecked. multiple BM past 24 hrs does not beieve diarrhea Review of Systems 2 Review of Systems: All systems reviewed & are unremarkable except as noted in Subjective Physical Exam 2 Constitutional: well developed, well nourished, + thin, + frail appearing and cooperative; no acute distress Eyes: EOM intact bilaterally ENMT: Mouth: + dry oral mucous membranes Respiratory: normal respiratory effort; no cough Auscultation: + diminished lung sounds (minimal air mvt BL bases) Gastrointestinal (Abdomen): Inspection/Auscultation: + abdomen distended and normal bowel sounds; no abdominal edema Percussion/Palpation: abdomen soft and + fluid wave; abdomen nontender Musculoskeletal: Extremities: strength 5/5 throughout Skin: no rashes, warm and dry R groin w/o lesion on skin or palpable mass or focal TTP Neurologic: myers, fluent speech, no tremor Results & Data Vital Signs (Past 12 Hours) Vital Signs Temp Pulse Pulse Resp BP BP Pulse Ox 11/10/24 07:45 36.9 C 95 H 18 111/64 90 11/10/24 04:00 36.8 C 88 18 104/57 L 93 11/09/24 23:23 36.7 C 85 18 114/60 93 11/09/24 21:59 84 O2 Del Method 11/10/24 07:45 Room Air 11/10/24 04:00 Room Air 11/09/24 23:23 Room Air 11/09/24 21:59 Laboratory Results 11/10/24 07:02 11/10/24 07:02 Diagnostic Findings TTE EF 40-45%, new regional WMA including severe hypokinesis inf wall, moderate L pl effusion; RV SBP wnl (2) Hypervolemia Hypervolemia type: unspecified Qualified Code(s): E87.70 - Fluid overload, unspecified (6) Anemia Anemia type: unspecified type Qualified Code(s): D64.9 - Anemia, unspecified (7) Cardiomyopathy Cardiomyopathy type: unspecified Qualified Code(s): I42.9 - Cardiomyopathy, unspecified
--- NOTE | 2024-11-10 11:10 | Cardiology Consultation ---
Date of Consultation November 10, 2024 Assessment & Plan (1) Cardiomyopathy: (2) LBBB (left bundle branch block): (3) Orthostatic lightheadedness: (4) Protein-energy malnutrition: (5) Acute hyponatremia: (6) C. difficile colitis: (7) Bilateral lower extremity edema: Plan 89-year-old male with echocardiographic evidence of mild LV systolic dysfunction. I suspect LV dysfunction primarily related to underlying left bundle branch block/conduction abnormality, although chronic ischemic heart disease is certainly a strong possibility for this patient. Volume overload/edema attributed to hypoalbuminemia with poor oncotic pressure. Diuresis limited by hypotension and orthostasis. Managed per nephrology. Restart low-dose IV diuretic therapy as blood pressure allows. Compression stockings as ordered. GDMT options limited due to hypotension and hyponatremia. Avoid ALEJANDRA inhibitor, ARB, Entresto, or Aldactone at this time. Supplement electrolytes as indicated. Isosorbide monohydrate will remain on hold due to hypotension. Continue low-dose aspirin. No further inpatient cardiac testing recommended at this time. Thank you for allow me to participate in the care of your patient. History of Present Illness Reason for Consultation: orthostatic, New LVEF 45% Requesting Physician: Arden Ross MD Attending Physician: Arden Ross MD History of Present Illness Complex 89-year-old patient presented emergency department 11/07/2024 with dyspnea. Recent admissions for ongoing diarrhea with hyponatremia. Orthostasis and hypotension noted in ER. Patient currently prescribed oral vancomycin 4 times daily for treatment of C. difficile. Cardiology consultation requested due to echocardiogram with evidence of mild LV systolic dysfunction which is a new finding. Patient denies chest pain or shortness of breath at rest. Occasionally notes difficulty taking a deep breath. Denies lightheadedness, dizziness, syncope, or near syncope. Borderline resting hypotension and ongoing hyponatremia documented since admission. Diuretics currently placed on hold by nephrology. Chronic lower extremity edema attributed to malnutrition/hypoalbuminemia anemia with poor oncotic pressure. Wearing compression stockings currently. Denies o rthopnea or PND. Chronic cardiovascular/medical issues include: 1. Coronary artery disease, status post PCI to LAD in 2003 2. Chronic left bundle-branch block 3. Hypertension 4. Dyslipidemia 5. Carotid artery disease followed by [facility] Vascular Surgery 6. Type 2 diabetes mellitus 7. Stage 3 chronic kidney disease 8. Chronic hyponatremia 9. Systemic lupus 10. Iron deficiency anemia 11. History of pulmonary embolism 12. History of gout Allergies Allergy/AdvReac Type Severity Reaction Status Date / Time Penicillins Allergy Unknown AMOXICILLIN Verified 10/10/24 10:32 - UNKNOWN RXN allopurinol Allergy Rash Verified 10/10/24 10:32 Home Medications Medication Instructions Recorded Confirmed Type aspirin 81 mg chewable tablet 81 mg PO DAILY 02/08/19 11/07/24 History isosorbide mononitrate 60 mg 60 mg PO QAM 02/08/19 11/07/24 History tablet,extended release 24 hr nitroglycerin 0.4 mg sublingual 0.4 mg sublingual Q5M PRN Chest 02/08/19 11/07/24 History tablet Pain atenolol 25 mg tablet 12.5 mg PO DAILY 03/30/19 11/07/24 History cholecalciferol (vitamin D3) 50 2,000 units PO DAILY 03/30/19 11/07/24 History mcg (2,000 unit) capsule probenecid 500 mg tablet 250 mg PO BID 03/30/19 11/07/24 History cyanocobalamin (vitamin B-12) 1,000 mcg PO DAILY 04/24/20 11/07/24 History 1,000 mcg capsule iron,carbonyl 65 mg-vitamin C 125 1 tab PO DAILY 10/05/20 11/07/24 History mg tablet,delayed release (Vitron-C) fluocinonide 0.05 % topical 1 applic topical BID PRN Other 10/26/20 11/07/24 History ointment metronidazole 0.75 % topical gel 1 applic topical BID PRN Other 10/26/20 11/07/24 History ([place]) furosemide 20 mg tablet (Lasix) 20 mg PO .3X TIMES WEEK PRN Fluid 09/17/23 11/07/24 History Retention gabapentin 100 mg capsule 100 mg PO TID PRN pain 09/17/23 11/07/24 History blood sugar diagnostic (OneTouch #300 ea 04/04/24 10/10/24 Rx Ultra Test strips) lisinopril 40 mg tablet 40 mg PO DAILY #90 tabs 08/18/24 11/07/24 Rx omeprazole 20 mg capsule,delayed 20 mg PO QAM 09/09/24 11/07/24 History release simvastatin 20 mg tablet 20 mg PO PM 09/09/24 11/07/24 History lancets 33 gauge (OneTouch Delica #100 ea 09/22/24 10/10/24 Rx Plus Lancet) rmmkvo-nmpstkty-qfgjqht 1 cap PO QID #120 caps 09/26/24 11/07/24 Rx 36,000-114,000-180,000 unit capsule,delay rel (Creon) mesalamine 1.2 gram tablet,delayed 2.4 g (2 x 1.2 gram) PO BID 30 09/26/24 11/07/24 Rx release days #120 tabs insulin aspart U-100 100 unit/mL 3 unit subcut TID 09/29/24 11/07/24 History (3 mL) subcutaneous pen (Novolog FlexPen U-100 Insulin aspart) valacyclovir 1 gram tablet 1,000 mg PO BID #14 tabs 10/03/24 11/07/24 Rx (Valtrex) pen needle, diabetic 31 gauge x #200 ea 10/13/24 Rx 5/16" (1st Tier Unifine Pentips) insulin glargine 100 unit/mL (3 6 unit subcut HS 10/29/24 11/07/24 History mL) subcutaneous pen (Lantus Solostar U-100 Insulin) L.acidop,casei,lactis,rham-B.lact,whitney 1 cap PO DAILY 7 days #7 caps 11/04/24 11/07/24 Rx 625 mg (10 billion cell) capsule (Advanced Probiotic) cholestyramine-aspartame 4 gram 1 ea PO DAILY 5 days #60 ea 11/04/24 11/07/24 Rx oral powder for susp in a packet (Prevalite) sodium chloride 1,000 mg soluble 1,000 mg PO TID 10 days #30 tabs 11/04/24 11/07/24 Rx tablet vancomycin 1,000 mg intravenous 125 mg PO Q6 5 days #10 ea 11/04/24 11/07/24 Rx injection Patient History Medical History (Updated 11/10/24 @ 11:49 by Karma Rahman MD, PhD) Systemic lupus erythematosus Proteinuria Chronic gout Surgical History History of basal cell carcinoma excision History of prostate surgery History of bilateral cataract extraction History of shoulder surgery History of hernia repair History of thumb surgery History of coronary artery stent placement Family History Brother Myocardial infarction Cancer Prostate cancer Daughter Cancer Father Myocardial infarction Denies family history of Ovarian cancer Breast cancer Colorectal cancer Social History Smoking Status: Never smoker Second Hand Exposure: No; Do You Dip or Chew Tobacco: No; Hx Alcohol Use: No Hx Substance Use: No Preferred Language: Kittitian Communication Ability: Effective Communication Tools: Other Visual Impairment: No Limitations Hearing Ability: Normal Ambulance Mechanic Required: Yes Beliefs That Will Affect Care: None marital status: Current Living Situation: Spouse and Family Current Living Situation Comment: Spouse, con current occupational status: retired 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 How many Children do You have: 3 Feels Safe at Home: Yes Childhood Exposure to Second-Hand Smoke: Yes Diet: regular caffeine: Yes (coffee, tea, and soda ) Dental Care, Regularly: Yes Physical Activity Frequency: Daily Seatbelt Use: always Sunscreen Use: Yes Assistive Devices: None Review of Systems Review of Systems: All systems reviewed & are unremarkable except as noted in Subjective Physical Exam Constitutional: well nourished; no acute distress Respiratory: normal respiratory effort; no respiratory distress Auscultation: + diminished lung sounds (Left base); no crackles, no rales, no rhonchi and no wheezes Cardiovascular: Rate/Rhythm: regular rate and regular rhythm Heart Sounds: normal S1 and normal S2; no murmur Vessels: radial pulses present; no JVD Extremities: + edema (3+Bilateral pretibial edema) Gastrointestinal (Abdomen): Inspection/Auscultation: abdomen normal to inspection and normal bowel sounds; abdomen not distended Neurologic: CN's II-XI intact bilaterally and moves all extremities; no focal motor deficits Results & Data Vital Signs (Past 12 Hours) Vital Signs Temp Pulse Resp BP BP Pulse Ox O2 Del Method 11/10/24 10:47 36.6 C 84 20 100/56 L 96 Room Air 11/10/24 07:45 36.9 C 95 H 18 111/64 90 Room Air 11/10/24 04:00 36.8 C 88 18 104/57 L 93 Room Air 11/09/24 23:23 36.7 C 85 18 114/60 93 Room Air Laboratory Results CBC 11/10/24 Range/Units 07:02 WBC 9.14 (4.8-10.8) K/ul RBC 2.66 L (4.70-6.10) M/uL Hgb 8.2 L (14.0-18.0) g/dl Hct 23.2 L (42.0-52.0) % Plt Count 198 (130-400) K/uL Neut # (Auto) 5.65 (1.40-6.50) K/uL Lymph # (Auto) 3.03 (1.20-3.40) K/uL [place] # (Auto) 0.27 (0.11-0.59) K/uL Eos # (Auto) 0.08 (0.00-0.50) K/uL Baso # (Auto) 0.04 (0.00-0.20) K/uL Comprehensive Metabolic Panel 11/09/24 11/10/24 Range/Units 14:39 07:02 Sodium 121 L 123 L (136-145) mmol/L Potassium 4.3 4.6 (3.5-5.1) mmol/L Chloride 92 L 91 L (98-107) mmol/L Carbon Dioxide 25 27 (21-32) mmol/L BUN 22 53 H D (6-23) mg/dl Creatinine 1.17 1.09 (0.6-1.4) mg/dl Glucose 114 H 147 H (70-99(Fasting)) mg/dl Calcium 7.7 L 8.0 L (8.6-10.3) mg/dl Intake and Output 11/09/24 11/10/24 11/10/24 22:59 06:59 14:59 Intake Total 130 1979 Output Total Balance 1975 Intake: Oral 130 / 980 200 / 980 Output: # Bowel Movements Other: # Unmeasured Voids 1 Weight 72.7 kg Weight Measurement Method Standing Scale Diagnostic Findings 2D echocardiogram report: Left ventricular systolic function is mild to moderate reduced. Left ventricular ejection fraction 40-45%. Septal motion consistent with conduction abnormality. Dyskinesis of the inferior septal apex and severe hypokinesis involving the inferior wall from the base to mid ventricle. Moderate size left pleural effusion. (1) Cardiomyopathy Cardiomyopathy type: unspecified Qualified Code(s): I42.9 - Cardiomyopathy, unspecified
--- NOTE | 2024-11-10 11:22 | Hospitalist Progress Note ---
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 difficile colitis: Plan 89-year-old male with type 2 diabetes mellitus on insulin, hypertension, chronic hyponatremia secondary to SIADH, chronic gout who was recently admitted from 10/30/2019 25 to 11/04/2024 for C. difficile colitis and hyponatremia and discharged home on vancomycin taper. He presented back to the ED with shortness of breath and also found to have sodium level of 123 #C. difficile colitis Patient was discharge on 11/04/2024 He was seen by GI at that time with recommendations from GI regarding vancomycin taper as follows: Given his immunosuppression and age, would recommend a vancom ycin taper. He should get 125 4 times daily for 10 days followed by 3 times daily for 5 days twice daily for 5 days daily for 5 days and then every other day for 3 weeks to make sure he does not get recurrence. Patient started vancomycin on 10/31/2024 and will need to switch to vancomycin 3 times a day on 11/10/2024 with ongoing taper as above Low residue diet Repeat C. difficile on this admission is negative Continue cholestyramine 4 g p.o. daily GI saw the patient on recommendations of nephrology GI is recommended continue with a long taper of vancomycin as listed above GI is recommended outpatient follow-up with GI after completing his course of vancomycin and if symptoms worsen/diarrhea continues after treatment then they will consider repeating the colonoscopy but would not do so in the short-term until C. difficile is adequately treated. Patient has an appointment with GI PRODUCTION ADMINISTRATOR Ayah hanna on 11/21/2024 at 10:20 AM #Hyponatremia Baseline sodium levels are around 130 Patient was recently discharged on 11/04/2024 with a sodium level of 123 Nephrology saw the patient in consultation Nephrology is managing sodium issues Patient has been orthostatic and nephrology has been fluctuating between providing fluid boluses and initially also gave IV Lasix with fluid restriction Continue fluid restriction of 1500 mL which does not include protein shakes Nephrology started the patient on urea 30 mg p.o. twice daily Nephrology recommended 2D echo which showed a reduced EF of 40% Monitor sodium levels: Hyponatremia management per nephrology team #Coronary artery disease status post PCI to LAD in 2003 #Acute systolic congestive heart failure with EF of 40% #Essential hypertension Outpatient regulatory coordinator Dr. Haines with [facility] Echo reviewed and shows EF of 40 to 45% with moderate left pleural effusion Patient's previous EF in 2021 was 55 to 59% Continue aspirin and statin Unable to continue with Imdur and antihypertensives due to orthostatic vital signs Cardiology consulted Await cardiology consult and recommendations given drop in EF #Severe protein calorie malnutrition Nutrition consult Nutritional supplements per dietary team #Insulin-dependent type 2 diabetes mellitus A1c is 7.3 on 10/30/2024 Pharmacy managing glycemic #Essential hypertension Hold Imdur and antihypertensives at this point given patient is orthostatic Monitor vital signs #Hypomagnesemia Magnesium replacement Monitor levels and replace as needed #Chronic anemia Hemoglobin is above 7 Transfuse if hemoglobin less than 7 or actively bleeding CODE STATUS: DNR/DNI DVT prophylaxis: Bilateral SCDs Patient [facility] by case management Discharge planning to rehab likely in the next 48 hours based on improvement in sodium levels, nephrology recommendations, cardiology consult and recommendations Care plan discussed with patient, nursing staff Admission and Anticipated Discharge Date Admission Date: November 07, 2024 Subjective Patient seen and examined He is sitting up in a chair Reports good appetite He did not like drinking the boost protein shake as it caused him to have loose stools He denies any nausea, vomiting or abdominal pain Denies any chest pain or shortness of breath Echo report discussed with patient, awaiting cardiology consult Awaiting nephrology follow-up today Physical Exam Physical Exam: General: No acute distress, pale in appearance, frail appearing Psych: Awake and alert, oriented to place and person HEENT: Anicteric sclera, moist oral mucosa CVS: Regular rate and rhythm Lungs: Bilateral air entry, no wheezing noted Abdomen: Soft, nontender, no rebound, no guarding Ext: lower extremity edema, no calf tenderness Neuro: No focal motor deficits noted Results & Data Results & Data Vital Signs (Past 12 Hours) Vital Signs Temp Pulse Pulse Resp BP BP Pulse Ox 11/10/24 10:47 36.6 C 84 20 100/56 L 96 11/10/24 08:00 93 H 11/10/24 07:45 36.9 C 95 H 18 111/64 90 11/10/24 04:00 36.8 C 88 18 104/57 L 93 11/09/24 23:23 36.7 C 85 18 114/60 93 O2 Del Method 11/10/24 10:47 Room Air 11/10/24 08:00 11/10/24 07:45 Room Air 11/10/24 04:00 Room Air 11/09/24 23:23 Room Air Laboratory Results Laboratory Results - last 24 hr 11/09/24 11/09/24 11/09/24 12:06 14:20 14:39 WBC RBC Hgb Hct MCV MCH MCHC RDW Std Deviation RDW Coeff of Susana Plt Count MPV Immature Gran % (Auto) Neut % (Auto) Lymph % (Auto) [place] % (Auto) Eos % (Auto) Baso % (Auto) Neut # (Auto) Lymph # (Auto) [place] # (Auto) Eos # (Auto) Baso # (Auto) Immature Gran # (Auto) Sodium 121 L Potassium 4.3 Chloride 92 L Carbon Dioxide 25 Anion Gap 4 BUN 22 Creatinine 1.17 Est Cr Clr Drug Dosing 40.1 eGFR 60.34 BUN/Creatinine Ratio 18.8 Glucose 114 H POC Glucose 141 H Calcium 7.7 L Magnesium Cortisol AM Sample Urine Sodium 57 Urine Potassium 31.4 Urine Chloride 81 11/09/24 11/09/24 11/10/24 17:05 20:07 07:02 WBC 9.14 RBC 2.66 L Hgb 8.2 L Hct 23.2 L MCV 87.2 MCH 30.8 MCHC 35.3 RDW Std Deviation 49.7 H RDW Coeff of Susana 15.8 H Plt Count 198 MPV 9.8 Immature Gran % (Auto) 0.8 Neut % (Auto) 61.7 Lymph % (Auto) 33.2 [place] % (Auto) 3.0 Eos % (Auto) 0.9 Baso % (Auto) 0.4 Neut # (Auto) 5.65 Lymph # (Auto) 3.03 [place] # (Auto) 0.27 Eos # (Auto) 0.08 Baso # (Auto) 0.04 Immature Gran # (Auto) 0.07 Sodium 123 L Potassium 4.6 Chloride 91 L Carbon Dioxide 27 Anion Gap 5 BUN 53 H D Creatinine 1.09 Est Cr Clr Drug Dosing 43.1 eGFR 65.69 BUN/Creatinine Ratio 48.6 H Glucose 147 H POC Glucose 121 H 94 Calcium 8.0 L Magnesium 1.6 L Cortisol AM Sample 19.05 Urine Sodium Urine Potassium Urine Chloride 11/10/24 08:06 WBC RBC Hgb Hct MCV MCH MCHC RDW Std Deviation RDW Coeff of Susana Plt Count MPV Immature Gran % (Auto) Neut % (Auto) Lymph % (Auto) [place] % (Auto) Eos % (Auto) Baso % (Auto) Neut # (Auto) Lymph # (Auto) [place] # (Auto) Eos # (Auto) Baso # (Auto) Immature Gran # (Auto) Sodium Potassium Chloride Carbon Dioxide Anion Gap BUN Creatinine Est Cr Clr Drug Dosing eGFR BUN/Creatinine Ratio Glucose POC Glucose 161 H Calcium Magnesium Cortisol AM Sample Urine Sodium Urine Potassium Urine Chloride PG Care Time/CCT Total # of Minutes Spent Total Time Spent with Patient: Total time spent is greater than 50% in coordination of care (as documented) at patient's floor/unit and/or counseling patient: Coding Level of Care Code 67556 SUB INP/OBS CARE 3/50MIN Diagnoses Protein-energy malnutrition E46 Hypomagnesemia E83.42 Hyponatremia E87.1 Primary hypertension I10 Hypertension type: primary hypertension 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 difficile colitis A04.72 (4) Hypertension Hypertension type: primary hypertension Qualified Code(s): I10 - Essential (primary) hypertension
[2024-11-10] MEDS: IRON SUCROSE 300 MG in SODIUM CHLORIDE 0.9% 250 ML IV SCH (12:55)
--- NOTE | 2024-11-10 13:26 | Pharmacy Report ---
Pharmacy Glycemic Short Note 2 - Date of Service November 10, 2024 - Glycemic Short BSG Results (Last 24 hours): 11/09/24 11/09/24 11/09/24 14:39 17:05 20:07 Glucose 114 H POC Glucose 121 H 94 11/10/24 11/10/24 11/10/24 07:02 08:06 12:03 Glucose 147 H POC Glucose 161 H 218 H OUTPATIENT ANTIDIABETIC REGIMEN: * Lantus 6 units SC HS * Novolog 3 units SC TIDM w/ CF of 40 mg/dL HbA1c: 7.3% (11/09/24) ASSESSMENT: 11/10/24: * Blood sugars ranging 94-141 mg/dL yesterday w/ 6 units of bolus insulin given (no basal insulin given yesterday) * 6 units of basal insulin given on 11/09/24 at bedtime * Fasting blood sugar trending up today to 161 mg/dL so will adjust basal scale this evening to give some basal tonight 11/09/24: * WW is an 89 year old male w/ Clostridium difficile colitis w/ reported history of T1DM, although outpatient diabetes note also mentions diagnosis of T2DM in 1989 at age 55 * Patient admitted on 11/07/24 and blood sugars have been labile since that time w/ hypoglycemia this morning (POC glucose of 59 mg/dL), prompting pharmacy glycemic consult * Based on blood glucose trend yesterday into this morning - will reduce basal insulin and add carb coverage to help with daytime hyperglycemia * Diet ordered and 100% of breakfast/lunch eaten today PLAN FOR INPATIENT GLYCEMIC CONTROL: * Basal insulin * Lantus 2-4 units SQ HS (200 mg/dL threshold) * Bolus insulin * NovoLog per scale ACHS or Q6hrs while NPO * Goal Range: Low 120 mg/dL - High 160 mg/dL * Correction Factor: 40 mg/dL/unit * Nutritional / Prandial insulin per carb ratio of 1 unit per 15 grams CHO consumed
[2024-11-10] MEDS: MAGNESIUM SULFATE / D5W 1 GM/100 ML BAG IV ONE (18:10)
[2024-11-10] MEDS: CHERRY SYRUP 5 ML UDP PO SCH (20:14)
[2024-11-10] MEDS: VANCOMYCIN HCL 125 MG/2.5ML SOLN PO SCH (20:14)
[2024-11-11 08:19] LABS: BUN Creatinine Ratio 60.4 (10-20); Creatinine Clr Calc Pharmacy 44.3 ml/min; Magnesium 1.7 mg/dl (1.7-2.4); Potassium 4.3 mmol/L (3.5-5.1)
--- NOTE | 2024-11-11 10:17 | Hospitalist Progress Note ---
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 difficile colitis: Plan 89-year-old male with type 2 diabetes mellitus on insulin, hypertension, chronic hyponatremia secondary to SIADH, chronic gout who was recently admitted from 10/30/2019 25 to 11/04/2024 for C. difficile colitis and hyponatremia and discharged home on vancomycin taper. He presented back to the ED with shortness of breath and also found to have sodium level of 123 #C. difficile colitis Patient was discharge on 11/04/2024 He was seen by GI at that time with recommendations from GI regarding vancomycin taper as follows: Given his immunosuppression and age, would recommend a vancomycin taper. He should get 125 4 times daily for 10 days followed by 3 times daily for 5 days twice daily for 5 days daily for 5 days and then every other day for 3 weeks to make sure he does not get recurrence. Patient started vancomycin on 10/31/2024 and switched to vancomycin 3 times a day on 11/10/2024 with ongoing taper as above Low residue diet Repeat C. difficile on this admission is negative Continue cholestyramine 4 g p.o. daily GI saw the patient on recommendations of nephrology GI is recommended continue with a long taper of vancomycin as listed above GI is recommended outpatient follow-up with GI after completing his course of vancomycin and if symptoms worsen/diarrhea continues after treatment then they will consider repeating the colonoscopy but would not do so in the short-term until C. difficile is adequately treated. Patient has an appointment with GI CHEESE [employer]CAKE ROLLER Ayah hanna on 11/21/2024 at 10:20 AM #Hyponatremia Baseline sodium levels are around 130 Patient was recently discharged on 11/04/2024 with a sodium level of 123 Nephrology saw the patient in consultation Nephrology is managing sodium issues Patient has been orthostatic and nephrology has been fluctuating between providing fluid boluses and initially also gave IV Lasix with fluid restriction Continue fluid restriction of 1500 mL which does not include protein shakes Nephrology started the patient on urea 30 mg p.o. twice daily Nephrology recommended 2D echo which showed a reduced EF of 40% Monitor sodium levels: Hyponatremia management per nephrology team Awaiting nephrology recommendations this morning #Coronary artery disease status post PCI to LAD in 2003 #Acute systolic congestive heart failure with EF of 40% #Essential hypertension with orthostasis Outpatient station installation supervisor [facility] reviewed and shows EF of 40 to 45% with moderate left pleural effusion Patient's previous EF in 2021 was 55 to 59% Continue aspirin and statin Unable to continue with Imdur and antihypertensives due to orthostatic vital signs Cardiology saw the patient and recommended restarting low-dose diuretic therapy as blood pressure allows. They recommended compression stockings. GDMT options limited due to hypotension and hyponatremia. As per cardiology, avoid ALEJANDRA inhibitor, ARB, Entresto or Aldactone at this time. Nail Making Machine Tender recommended continue with low-dose aspirin Await further cardiology recommendations #Severe protein calorie malnutrition Nutrition consult Nutritional supplements per dietary team #Insulin-dependent type 2 diabetes mellitus A1c is 7.3 on 10/30/2024 Pharmacy managing glycemic #Hypomagnesemia Magnesium replacement Monitor levels and replace as needed #Chronic anemia Hemoglobin is above 7 Transfuse if hemoglobin less than 7 or actively bleeding Patient was started on IV iron by nephrology on 11/10/2024 for 3 days (day 2/3) CODE STATUS: DNR/DNI DVT prophylaxis: Heparin 5000 units subcutaneous twice daily Patient has [facility] by case management Discharge planning to rehab likely in the next 24 to 48 hours based on nephrology and cardiology recommendations Care plan discussed with patient, nursing staff Admission and Anticipated Discharge Date Admission Date: November 07, 2024 Subjective Patient seen and examined Orthostatic vitals have not been done this morning Patient states he gets slightly dizzy when he first gets up in the morning while trying to stand. Patient states he has been ambulating to the bathroom with the help of walker and nursing assistance He denies any more diarrhea He denies any nausea, vomiting or abdominal pain Reports really good appetite and is eating all his meals. He does not want protein shakes as they give him diarrhea He denies any chest pain or shortness of breath Physical Exam Physical Exam: General: No acute distress, pale in appearance, frail appearing Psych: Awake and alert, oriented to place and person HEENT: Anicteric sclera, moist oral mucosa CVS: Regular rate and rhythm Lungs: Bilateral air entry, no wheezing noted Abdomen: Soft, nontender, no rebound, no guarding Ext: lower extremity edema, ROLF stockings in place Neuro: No focal motor deficits noted Results & Data Results & Data Vital Signs (Past 12 Hours) Vital Signs Temp Pulse Pulse Pulse Pulse Resp BP 11/11/24 08:36 36.6 C 94 H 16 114/68 11/11/24 07:25 79 11/11/24 03:25 36.8 C 86 18 11/11/24 01:18 80 11/10/24 23:00 36.8 C 92 H 18 BP Pulse Ox Pulse Ox O2 Del Method O2 Del Method 11/11/24 08:36 11/11/24 07:25 11/11/24 03:25 118/63 95 Room Air 11/11/24 01:18 89 L Room Air 11/10/24 23:00 112/66 94 Room Air Laboratory Results Laboratory Results - last 24 hr 11/10/24 11/10/24 11/10/24 12:03 17:02 20:02 Sodium Potassium Chloride Carbon Dioxide Anion Gap BUN Creatinine Est Cr Clr Drug Dosing eGFR BUN/Creatinine Ratio Glucose POC Glucose 218 H 78 177 H Calcium Magnesium 11/11/24 11/11/24 07:06 08:12 Sodium 126 L Potassium 4.3 Chloride 94 L Carbon Dioxide 28 Anion Gap 4 BUN 64 H Creatinine 1.06 Est Cr Clr Drug Dosing 44.3 eGFR 67.92 BUN/Creatinine Ratio 60.4 H Glucose 151 H POC Glucose 147 H Calcium 8.0 L Magnesium 1.7 PG Care Time/CCT Total # of Minutes Spent Total Time Spent with Patient: Total time spent is greater than 50% in coordination of care (as documented) at patient's floor/unit and/or counseling patient: Coding Level of Care Code 79591 SUB INP/OBS CARE 2/35MIN Diagnoses Protein-energy malnutrition E46 Hypomagnesemia E83.42 Hyponatremia E87.1 Primary hypertension I10 Hypertension type: primary hypertension 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 difficile colitis A04.72 (4) Hypertension Hypertension type: primary hypertension Qualified Code(s): I10 - Essential (primary) hypertension
--- NOTE | 2024-11-11 10:36 | Pharmacy Report ---
Pharmacy Glycemic Short Note 2 - Date of Service November 11, 2024 - Glycemic Short BSG Results (Last 24 hours): 11/10/24 11/10/24 11/10/24 12:03 17:02 20:02 Glucose POC Glucose 218 H 78 177 H 11/11/24 11/11/24 07:06 08:12 Glucose 151 H POC Glucose 147 H OUTPATIENT ANTIDIABETIC REGIMEN: * Lantus 6 units SC HS * Novolog 3 units SC TIDM w/ CF of 40 mg/dL HbA1c: 7.3% (11/09/24) ASSESSMENT: 11/11/24 * Patient received a total of 12 units of insulin yesterday (2 units were basal and 10 units were bolus). BSGs were 859-000-68-177mg/dL. * Fasting BSG was 147mg/dL this morning after receiving 2 units of Lantus last evening. Will continue HS Lantus scale as previously ordered. * BSG at lunch has been significantly above goal range the last 2 days and the rest of the day has been much closer to goal. Will tighten bolus insulin parameters just with breakfast and then loosen the rest of the day in order to avoid hypoglycemia later in the day. 11/10/24: * Blood sugars ranging 94-141 mg/dL yesterday w/ 6 units of bolus insulin given (no basal insulin given yesterday) * 6 units of basal insulin given on 11/09/24 at bedtime * Fasting blood sugar trending up today to 161 mg/dL so will adjust basal scale this evening to give some basal tonight 11/09/24: * WW is an 89 year old male w/ Clostridium difficile colitis w/ reported history of T1DM, although outpatient diabetes note also mentions diagnosis of T2DM in 1989 at age 55 * Patient admitted on 11/07/24 and blood sugars have been labile since that time w/ hypoglycemia this morning (POC glucose of 59 mg/dL), prompting pharmacy glycemic consult * Based on blood glucose trend yesterday into this morning - will reduce basal insulin and add carb coverage to help with daytime hyperglycemia * Diet ordered and 100% of breakfast/lunch eaten today PLAN FOR INPATIENT GLYCEMIC CONTROL: * Basal insulin * Lantus 2-4 units SQ HS (200 mg/dL threshold) * Bolus insulin * NovoLog per scale ACHS or Q6hrs while NPO * Goal Range: Low 120 mg/dL - High 160 mg/dL * Breakfast -Correction Factor: 35 mg/dL/unit -Nutritional / Prandial insulin per carb ratio of 1 unit per 12 grams CHO consumed * lunch, supper, HS -Correction Factor: 40 mg/dL/unit -Nutritional / Prandial insulin per carb ratio of 1 unit per 20 grams CHO consumed
--- NOTE | 2024-11-11 11:18 | Nephrology Progress Note ---
Date of Service November 11, 2024 Assessment & Plan Admission and Anticipated Discharge Date Admission Date: November 07, 2024 Subjective Assessment & Plan (1) Hyponatremia: Plan: Mainly related with hypervolemic hyponatremia w/ sig Anasarca with hypoalbuminemia (alb 2.6). But also has Contribution from underlying h/o SIADH. Also Some GI loss with Ongoing Diarrhea new ischemic HFrEF (mild). h/o chronic mild hyponatremia often low 130s as OP recent admission here w/ critical hyponatremia 115 earlier this month, improved to 123 by hospital d/c and attrib to hypovolemia in setting of C diff. now with sNa 123 on 11/07 presentation, Slightly higher today at 126. Still has orthostasis making Diuresis Difficult. Unfortunately unless we Diurese Aggressively and get rid off free water excess we will not be able to raise the Na much. Would like to add torsemide 20 bid. also use midodrine 5 bid--if agreeable to cardiology and primary service. Continue urea-na 30 bid Continue daily standing weights 1.5 L fluid limit toward which protein shakes do NOT count to continue; continue same he will likely be on urea after discharge; this medication can take some time to get as an out patient and can be quite costly, particularly if purchased locally ( he is not an internet user) suggest 30 mg bid x 1 month w/ 1 refill; pls have case mgt investigate; would need to be on formulary if goes to rehab. Care coordinated w/ Dr Ross via [employer] orthostatics, HF dx, need for OP urea that case mgt may need to investigate; we are in agreement. (2) Hypervolemia: Plan: multifactorial w/ new HF, hypoalbuminemia, mild OL on CXR and L pl effusion moderate on TTE. has 600 mg proteinuria, so not nephrotic currently though he has been remotely; last proteinuria status as OP in past year 200 mg daily avoid salt tabs in HF give + orthostatics would hold lasix as well for now; could consider low dose intermittent moving forward Cont to push protein intake (3) Protein-energy malnutrition: Plan: worsening w/ prealbumin 5.6 (normal range 20-40) >> ? malabsorption? >> concern weeks long enteritis could contribute here GI to reevaluate as OP unless severe change in sx suggest OP w/u w/ PCP; consider guest service aide f/u (4) Diarrhea: Plan: significant diarrhea from admission had subsided, though 4 BM charted yesterday -?role for repeat colonoscopy after CDiff therapy fully completed unless dramatic worsening -continue efforts to control this (5) Hypomagnesemia: Plan: 1.4 11/08 from 1.7 11/07; dropping likely d/t GI losses monitor daily; 1.6 today after multiple BM yesterday started slo mag 11/08 bid > >continue (6) Anemia: Plan: significant drop in hemoglobin 11/08 from 8.4 11/07 > 7.1 11/08 > 8.2 11/10 folate, B12 replete pt denies s/s bleeding venofer 300 mg today also. Also has Hemodilutional component. Subjective Off and on Diarrhea. very weak and still Has orthostatic hypotension. Massive edema. Review of Systems Review of Systems: All systems reviewed & are unremarkable except as noted in Subjective Physical Exam Constitutional: well developed, well nourished, + thin, + frail appearing and cooperative; no acute distress Eyes: EOM intact bilaterally ENMT: Mouth: + dry oral mucous membranes Respiratory: normal respiratory effort; no cough Auscultation: + diminished lung sounds (minimal air mvt BL bases) Gastrointestinal (Abdomen): Inspection/Auscultation: + abdomen distended and normal bowel sounds; no abdominal edema Percussion/Palpation: abdomen soft and + fluid wave; abdomen nontender Musculoskeletal: Extremities: strength 5/5 throughout Skin: no rashes, warm and dry R groin w/o lesion on skin or palpable mass or focal TTP Neurologic: myers, fluent speech, no tremor Results & Data Vital Signs (Past 12 Hours) Vital Signs Temp Pulse Pulse Pulse Pulse Resp BP 11/11/24 08:36 36.6 C 94 H 16 114/68 11/11/24 07:25 79 11/11/24 03:25 36.8 C 86 18 11/11/24 01:18 80 BP Pulse Ox Pulse Ox O2 Del Method O2 Del Method 11/11/24 08:36 11/11/24 07:25 11/11/24 03:25 118/63 95 Room Air 11/11/24 01:18 89 L Room Air
[2024-11-11] MEDS: MIDODRINE HCL 2.5 MG TAB PO ONE (13:48)
--- NOTE | 2024-11-11 14:00 | Cardiology Progress Note ---
Date of Service November 11, 2024 Assessment & Plan (1) Cardiomyopathy: (2) LBBB (left bundle branch block): (3) Orthostatic lightheadedness: (4) Protein-energy malnutrition: (5) Acute hyponatremia: (6) C. difficile colitis: (7) Bilateral lower extremity edema: Plan Case discussed with nephrology. Agree with addition of midodrine for blood pressure support. Restart loop diuretic therapy. Encourage patient to wear compression stockings daily. GDMT options limited due to hypotension and hyponatremia. Avoid ALEJANDRA inhibitor, ARB, Entresto, or Aldactone at this time. Supplement electrolytes as indicated. Continue low-dose aspirin. Hold isosorbide due to orthostatic hypotension. Cardiology will sign off for the weekend. Please call if additional concerns/questions. Matteo Browne DO, [facility] Admission and Anticipated Discharge Date Admission Date: November 07, 2024 Subjective 89-year-old male seen examined the bedside. Edema unchanged. Continues to note positional lightheadedness. Telemetry reveals sinus rhythm 80-90's with LBBB. Review of Systems Review of Systems: All systems reviewed & are unremarkable except as noted in Subjective Physical Exam Constitutional: well nourished; no acute distress Respiratory: normal respiratory effort; no respiratory distress Auscultation: + diminished lung sounds (Left base); no crackles, no rales, no rhonchi and no wheezes Cardiovascular: Rate/Rhythm: regular rate and regular rhythm Heart Sounds: normal S1 and normal S2; no murmur Vessels: radial pulses present; no JVD Extremities: + edema (3+Bilateral pretibial edema) Gastrointestinal (Abdomen): Inspection/Auscultation: abdomen normal to inspection and normal bowel sounds; abdomen not distended Neurologic: CN's II-XI intact bilaterally and moves all extremities; no focal motor deficits Results & Data Vital Signs (Past 12 Hours) Vital Signs Temp Pulse Pulse Pulse Resp BP BP 11/11/24 11:58 36.5 C 64 16 102/60 11/11/24 08:36 36.6 C 94 H 16 114/68 11/11/24 07:25 79 11/11/24 03:25 36.8 C 86 18 118/63 Pulse Ox O2 Del Method 11/11/24 11:58 98 Room Air 11/11/24 08:36 11/11/24 07:25 11/11/24 03:25 95 Room Air Laboratory Results Comprehensive Metabolic Panel 11/11/24 Range/Units 07:06 Sodium 126 L (136-145) mmol/L Potassium 4.3 (3.5-5.1) mmol/L Chloride 94 L (98-107) mmol/L Carbon Dioxide 28 (21-32) mmol/L BUN 64 H (6-23) mg/dl Creatinine 1.06 (0.6-1.4) mg/dl Glucose 151 H (70-99(Fasting)) mg/dl Calcium 8.0 L (8.6-10.3) mg/dl Intake and Output 11/10/24 11/11/24 11/11/24 22:59 06:59 14:59 Intake Total 100 / 845 120 / 845 865 / 865 Output Total Balance 100 / 844 120 / 844 864 / 864 Intake: IV 100 / 365 265 / 265 Iron Sucrose 300 mg In Sodium 265 / 265 Chloride 0.9% 250 ml @ 176.667 mls/hr IV DAILY [facility] Rx#: [id number] Magnesium Sulfate / D5w 1 gm In 100 / 100 100 ml @ 50 mls/hr IV ONE ONE Rx#:[id number] Oral 120 / 480 600 / 600 Output: # Bowel Movements Other: Other Intake Source Lunch # Unmeasured Voids 1 Weight 72 kg Weight Measurement Method Built in [facility] (1) Cardiomyopathy Cardiomyopathy type: unspecified Qualified Code(s): I42.9 - Cardiomyopathy, unspecified
[2024-11-11] MEDS: TORSEMIDE 20 MG TAB PO ONE (16:29)
[2024-11-11] MEDS: MIDODRINE HCL 2.5 MG TAB PO SCH (16:30)
[2024-11-11] MEDS ORDERED: MIDODRINE HCL 2.5 MG TAB PO SCH (17:00)
[2024-11-11] MEDS: INSULIN ASPART PER UNIT CHARGE SC SCH (17:28)
[2024-11-11] MEDS: MELATONIN 3 MG TAB PO PRN (21:14)
[2024-11-12 07:34] LABS: Hematocrit (blood only) 21.2 % (42.0-52.0); Hemoglobin 7.3 g/dl (14.0-18.0); Mean Corpuscular Hemoglobin 30.5 pg (25.0-34.0); Mean Corpuscular Hgb Conc 34.4 g/dL (32.0-36.0); Mean Corpuscular Volume 88.7 fL (80.0-100.0); Mean Platelet Volume 10.1 fL (9.4-12.4); Platelet Count 157 K/uL (130-400); RDW Coefficient of Variation 16.2 % (11.5-14.5); Red Blood Count 2.39 M/uL (4.70-6.10); White Blood Count 6.83 K/ul (4.8-10.8)
[2024-11-12 08:22] LABS: Albumin Globulin Ratio 0.9 (0.9-2); Albumin Level 2.3 gm/dl (3.4-5.0); BUN Creatinine Ratio 59.4 (10-20); Bilirubin,Total 0.6 mg/dl (0.2-1.0); Calcium 8.4 mg/dl (8.6-10.3); Creatinine Clr Calc Pharmacy 35.3 ml/min; Globulin 2.6 gm/dl (2.5-4.0); Magnesium 1.6 mg/dl (1.7-2.4); Potassium 4.2 mmol/L (3.5-5.1); Total Protein 4.9 gm/dl (6.0-8.3)
[2024-11-12] MEDS: INSULIN ASPART PER UNIT CHARGE SC SCH (09:10)
[2024-11-12] MEDS: TORSEMIDE 20 MG TAB PO SCH (09:29)
--- NOTE | 2024-11-12 11:43 | Nephrology Progress Note ---
Date of Service November 12, 2024 Assessment & Plan Admission and Anticipated Discharge Date Admission Date: November 07, 2024 Subjective Assessment & Plan (1) Hyponatremia: Plan: Mainly related with hypervolemic hyponatremia w/ sig Anasarca with hypoalbuminemia (alb 2.6). But also has Contribution from underlying h/o SIADH. Also Some GI loss with Ongoing Diarrhea new ischemic HFrEF (mild). h/o chronic mild hyponatremia often low 130s as OP recent admission here w/ critical hyponatremia 115 earlier this month, improved to 123 by hospital d/c and attrib to hypovolemia in setting of C diff. now with sNa 123 on 11/07 presentation, Slightly higher today at 130. Still has severe orthostasis making Diuresis Difficult. Unfortunately unless we Diurese Aggressively and get rid off free water excess we will not be able to raise the Na much. With some torsemide and urea Na did go to 130 and will likely go even higher if we are able to diurese. However his BP is very low--No way he can do rehab. he agrees so will cancel [facility] transfer. Also Said that his Low BP issue is irreversible so maybe better to go home and be comfortable. he agreed to that for me. I did inform window caser and primary team and they will proceed further about comfort care and discharge plan. 1.5 L fluid limit toward which protein shakes do NOT count to continue; continue same (2) Hypervolemia: Plan: multifactorial w/ new HF, hypoalbuminemia, mild OL on CXR and L pl effusion moderate on TTE. has 600 mg proteinuria, so not nephrotic currently though he has been remotely; last proteinuria status as OP in past year 200 mg daily avoid salt tabs in HF give + orthostatics would hold lasix as well for now; could consider low dose intermittent moving forward Cont to push protein intake (3) Protein-energy malnutrition: Plan: worsening w/ prealbumin 5.6 (normal range 20-40) >> ? malabsorption? >> concern weeks long enteritis could contribute here GI to reevaluate as OP unless severe change in sx suggest OP w/u w/ PCP; consider forensic anthropologist f/u (4) Diarrhea: Plan: significant diarrhea from admission had subsided, though 4 BM charted yesterday -?role for repeat colonoscopy after CDiff therapy fully completed unless dramatic worsening -continue efforts to control this (5) Hypomagnesemia: Plan: 1.4 11/08 from 1.7 11/07; dropping likely d/t GI losses monitor daily; 1.6 today after multiple BM yesterday started slo mag 11/08 bid > >continue (6) Anemia: Plan: significant drop in hemoglobin 11/08 from 8.4 11/07 > 7.1 11/08 > 8.2 11/10 folate, B12 replete pt denies s/s bleeding venofer 300 mg today also. Also has Hemodilutional component. Subjective very weak and still Has orthostatic hypotension. Massive edema. na better to 130 after torsemide Review of Systems Review of Systems: All systems reviewed & are unremarkable except as noted in Subjective Physical Exam Constitutional: well developed, well nourished, + thin, + frail appearing and cooperative; no acute distress Eyes: EOM intact bilaterally ENMT: Mouth: + dry oral mucous membranes Respiratory: normal respiratory effort; no cough Auscultation: + diminished lung sounds (minimal air mvt BL bases) Gastrointestinal (Abdomen): Inspection/Auscultation: + abdomen distended and normal bowel sounds; no abdominal edema Percussion/Palpation: abdomen soft and + fluid wave; abdomen nontender Musculoskeletal: Extremities: strength 5/5 throughout Skin: no rashes, warm and dry R groin w/o lesion on skin or palpable mass or focal TTP Neurologic: myers, fluent speech, no tremor Results & Data Vital Signs (Past 12 Hours) Vital Signs Temp Pulse Resp BP Pulse Ox O2 Del Method 11/12/24 11:18 36.3 C L 87 16 100/58 L 97 Room Air 11/12/24 07:39 36.6 C 99 H 18 114/62 93 Room Air
--- NOTE | 2024-11-12 12:23 | Discharge Summary ---
Date of Service November 12, 2024 Admission HPI Per Admitting Provider 89-year-old male with type 2 diabetes mellitus on insulin, hypertension, chronic hyponatremia secondary to SIADH, chronic gout who was recently admitted from 10/30/2019 to 11/04/2024 for C. difficile colitis and hyponatremia and discharged home on vancomycin taper. He presented back to the ED with shortness of breath and also found to have sodium level of 123 Admission Exam (Per Admitting) Constitutional The patient is awake, alert and oriented 3, well developed and well nourished, normocephalic and atraumatic, lying in bed and in no acute distress. HEENT--PERRL, EOMI, mucous membranes and oropharynx mildly dry Neck--supple. No JVD. No bruits. Thyroid normal, trachea midline, no adenopathy. Heart--normal S1 and S2. No murmurs, rubs or gallops. Lungs--clear bilaterally, no respiratory distress, no accessory muscle use. Abdomen--normal bowel sounds and soft. Extremities--no cyanosis or clubbing. leg edema. Dermatologic--normal skin turgor, normal color, no abnormal lymph nodes, no rash. Neurologic--cranial nerves II through XII grossly intact. Rheumatologic--normal range of motion. Psychiatric--normal affect. 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 difficile colitis: Plan 89-year-old male with type 2 diabetes mellitus on insulin, hypertension, chronic hyponatremia secondary to SIADH, chronic gout who was recently admitted from 10/30/2019 to 11/04/2024 for C. difficile colitis and hyponatremia and discharged home on vancomycin taper. He presented back to the ED with shortness of breath and also found to have sodium level of 123 #C. difficile colitis Patient was discharge on 11/04/2024 He was seen by GI at that time with recommendations from GI regarding vancomycin taper as follows: Given his immunosuppression and age, would recommend a vancomycin taper. He should get 125 4 times daily for 10 days followed by 3 times daily for 5 days twice daily for 5 days daily for 5 days and then every other day for 3 weeks to make sure he does not get recurrence. Patient started vancomycin on 10/31/2024 and switched to vancomycin 3 times a day on 11/10/2024 with ongoing taper as above Low residue diet Repeat C. difficile on this admission is negative Continue cholestyramine 4 g p.o. daily GI saw the patient on recommendations of nephrology GI is recommended continue with a long taper of vancomycin as listed above GI is recommended outpatient follow-up with GI after completing his course of vancomycin and if symptoms worsen/diarrhea continues after treatment then they will consider repeating the colonoscopy but would not do so in the short-term until C. difficile is adequately treated. Patient has an appointment with GI LANGUAGES AND LITERATURE INSTRUCTOR Ayah hanna on 11/21/2024 at 10:20 AM #Hyponatremia Baseline sodium levels are around 130 Patient was recently discharged on 11/04/2024 with a sodium level of 123 Nephrology saw the patient in consultation Nephrology is managing sodium issues Patient has been orthostatic and nephrology has been fluctuating between providing fluid boluses and initially also gave IV Lasix with fluid restriction Continue fluid restriction of 1500 mL which does not include protein shakes Nephrology started the patient on urea 30 mg p.o. twice daily Nephrology recommended 2D echo which showed a reduced EF of 40% Monitor sodium levels: Hyponatremia management per nephrology team #Coronary artery disease status post PCI to LAD in 2003 #Acute systolic congestive heart failure with EF of 40% #Essential hypertension with orthostasis Outpatient orthopedically impaired teacher Dr. Haines with [facility] Echo reviewed and shows EF of 40 to 45% with moderate left pleural effusion Patient's previous EF in 2021 was 55 to 59% Continue aspirin and statin Unable to continue with Imdur and antihypertensives due to orthostatic vital signs Cardiology saw the patient and recommended restarting low-dose diuretic therapy as blood pressure allows. They recommended compression stockings. GDMT options limited due to hypotension and hyponatremia. As per cardiology, avoid ALEJANDRA inhibitor, ARB, Entresto or Aldactone at this time. Laser Beam Cutter recommended continue with low-dose aspirin Await further cardiology recommendations #Severe protein calorie malnutrition Nutrition consult Nutritional supplements per dietary team #Insulin-dependent type 2 diabetes mellitus A1c is 7.3 on 10/30/2024 Pharmacy managing glycemic #Hypomagnesemia Magnesium replacement Monitor levels and replace as needed #Chronic anemia Hemoglobin is above 7 Transfuse if hemoglobin less than 7 or actively bleeding Patient was started on IV iron by nephrology on 11/10/2024 for 3 days (day 2/3) CODE STATUS: DNR/DNI DVT prophylaxis: Heparin 5000 units subcutaneous twice daily Discharge planning : Patient now agreeable to go home with comfort care. 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 difficile colitis A04.72 Time Spent (min) 35
--- NOTE | 2024-11-12 13:11 | Hospitalist Progress Note ---
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 difficile colitis: Plan 89-year-old male with type 2 diabetes mellitus on insulin, hypertension, chronic hyponatremia secondary to SIADH, chronic gout who was recently admitted from 10/30/2019 25 to 11/04/2024 for C. difficile colitis and hyponatremia and discharged home on vancomycin taper. He presented back to the ED with shortness of breath and also found to have sodium level of 123 #C. difficile colitis Patient was discharge on 11/04/2024 He was seen by GI at that time with recommendations from GI regarding vancomycin taper as follows: Given his immunosuppression and age, would recommend a vancomycin taper. He should get 125 4 times daily for 10 days followed by 3 times daily for 5 days twice daily for 5 days daily for 5 days and then every other day for 3 weeks to make sure he does not get recurrence. Patient started vancomycin on 10/31/2024 and switched to vancomycin 3 times a day on 11/10/2024 with ongoing taper as above Low residue diet Repeat C. difficile on this admission is negative Continue cholestyramine 4 g p.o. daily GI saw the patient on recommendations of nephrology GI is recommended continue with a long taper of vancomycin as listed above GI is recommended outpatient follow-up with GI after completing his course of vancomycin and if symptoms worsen/diarrhea continues after treatment then they will consider repeating the colonoscopy but would not do so in the short-term until C. difficile is adequately treated. Patient has an appointment with GI LABORER MARINE TERMINAL Ayah hanna on 11/21/2024 at 10:20 AM #Hyponatremia Baseline sodium levels are around 130 Patient was recently discharged on 11/04/2024 with a sodium level of 123 Nephrology saw the patient in consultation Nephrology is managing sodium issues Patient has been orthostatic and nephrology has been fluctuating between providing fluid boluses and initially also gave IV Lasix with fluid restriction Continue fluid restriction of 1500 mL which does not include protein shakes Nephrology started the patient on urea 30 mg p.o. twice daily Nephrology recommended 2D echo which showed a reduced EF of 40% Monitor sodium levels: Hyponatremia management per nephrology team #Coronary artery disease status post PCI to LAD in 2003 #Acute systolic congestive heart failure with EF of 40% #Essential hypertension with orthostasis Outpatient ground support equipment fitter Dr. Haines with [facility] Echo reviewed and shows EF of 40 to 45% with moderate left pleural effusion Patient's previous EF in 2021 was 55 to 59% Continue aspirin and statin Unable to continue with Imdur and antihypertensives due to orthostatic vital signs Cardiology saw the patient and recommended restarting low-dose diuretic therapy as blood pressure allows. They recommended compression stockings. GDMT options limited due to hypotension and hyponatremia. As per cardiology, avoid ALEJANDRA inhibitor, ARB, Entresto or Aldactone at this time. Senior Manufacturing Supervisor recommended continue with low-dose aspirin Await further cardiology recommendations #Severe protein calorie malnutrition Nutrition consult Nutritional supplements per dietary team #Insulin-dependent type 2 diabetes mellitus A1c is 7.3 on 10/30/2024 Pharmacy managing glycemic #Hypomagnesemia Magnesium replacement Monitor levels and replace as needed #Chronic anemia Hemoglobin is above 7 Transfuse if hemoglobin less than 7 or actively bleeding Patient was started on IV iron by nephrology on 11/10/2024 for 3 days (day 2/3) CODE STATUS: DNR/DNI DVT prophylaxis: Heparin 5000 units subcutaneous twice daily Discharge planning : Patient unable to tolerate rehab, due to severe orthostatics. He is agreeable to comfort care. However after discussing with the patient and the son, plan is to consult palliative regarding goals of care Admission and Anticipated Discharge Date Admission Date: November 07, 2024 Subjective Patient still having severe orthostatic blood pressure changes, he will be able to tolerate rehab. I spoke to the patient and the son and both agree that we may need palliative on board. Patient himself said he wants comfort care Review of Systems Review of Systems: All systems reviewed are negative, apart from the ones contained in the history. Physical Exam Physical Exam: The patient is awake, alert and oriented 3, well developed and well nourished, normocephalic and atraumatic, lying in bed and in no acute distress. HEENT--PERRL, EOMI, mucous membranes and oropharynx mildly dry Neck--supple. No JVD. No bruits. Thyroid normal, trachea midline, no adenopathy. Heart--normal S1 and S2. No murmurs, rubs or gallops. Lungs--clear bilaterally, no respiratory distress, no accessory muscle use. Abdomen--normal bowel sounds and soft. Extremities--no cyanosis or clubbing. leg edema. Dermatologic--normal skin turgor, normal color, no abnormal lymph nodes, no rash. Neurologic--cranial nerves II through XII grossly intact. Rheumatologic--normal range of motion. Psychiatric--normal affect. Results & Data Results & Data Vital Signs (Past 12 Hours) Vital Signs Temp Pulse Resp BP Pulse Ox O2 Del Method 11/12/24 11:18 97.4 F L 87 16 100/58 L 97 Room Air 11/12/24 07:39 97.8 F 99 H 18 114/62 93 Room Air PG Care Time/CCT Total # of Minutes Spent Total Time Spent with Patient: Total time spent is greater than 50% in coordination of care (as documented) at patient's floor/unit and/or counseling patient: Coding Level of Care Code 66819 SUB INP/OBS CARE 2/35MIN Diagnoses Protein-energy malnutrition E46 Hypomagnesemia E83.42 Hyponatremia E87.1 Primary hypertension I10 Hypertension type: primary hypertension 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 difficile colitis A04.72 Time Spent (min) 35 (4) Hypertension Hypertension type: primary hypertension Qualified Code(s): I10 - Essential (primary) hypertension
[2024-11-12] MEDS: MIDODRINE HCL 10 MG TAB PO SCH (18:31)
[2024-11-12] MEDS: LANTUS PER UNIT CHARGE SQ SCH (21:23)
--- NOTE | 2024-11-13 10:51 | Hospitalist Progress Note ---
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 difficile colitis: Plan 89-year-old male with type 2 diabetes mellitus on insulin, hypertension, chronic hyponatremia secondary to SIADH, chronic gout who was recently admitted from 10/30/2019 25 to 11/04/2024 for C. difficile colitis and hyponatremia and discharged home on vancomycin taper. He presented back to the ED with shortness of breath and also found to have sodium level of 123 #C. difficile colitis Patient was discharge on 11/04/2024 He was seen by GI at that time with recommendations from GI regarding vancomycin taper as follows: Given his immunosuppression and age, would recommend a vancomycin taper. He should get 125 4 times daily for 10 days followed by 3 times daily for 5 days twice daily for 5 days daily for 5 days and then every other day for 3 weeks to make sure he does not get recurrence. Patient started vancomycin on 10/31/2024 and switched to vancomycin 3 times a day on 11/10/2024 with ongoing taper as above Low residue diet Repeat C. difficile on this admission is negative Continue cholestyramine 4 g p.o. daily GI saw the patient on recommendations of nephrology GI is recommended continue with a long taper of vancomycin as listed above GI is recommended outpatient follow-up with GI after completing his course of vancomycin and if symptoms worsen/diarrhea continues after treatment then they will consider repeating the colonoscopy but would not do so in the short-term until C. difficile is adequately treated. Patient has an appointment with GI ELASTIC CUTTER Ayah hanna on 11/21/2024 at 10:20 AM #Hyponatremia Baseline sodium levels are around 130 Patient was recently discharged on 11/04/2024 with a sodium level of 123 Nephrology saw the patient in consultation Nephrology is managing sodium issues Patient has been orthostatic and nephrology has been fluctuating between providing fluid boluses and initially also gave IV Lasix with fluid restriction Continue fluid restriction of 1500 mL which does not include protein shakes Nephrology started the patient on urea 30 mg p.o. twice daily Nephrology recommended 2D echo which showed a reduced EF of 40% Monitor sodium levels: Hyponatremia management per nephrology team #Coronary artery disease status post PCI to LAD in 2003 #Acute systolic congestive heart failure with EF of 40% #Essential hypertension with orthostasis Outpatient compacting machine operator/tender Dr. Haines with [facility] Echo reviewed and shows EF of 40 to 45% with moderate left pleural effusion Patient's previous EF in 2021 was 55 to 59% Continue aspirin and statin Unable to continue with Imdur and antihypertensives due to orthostatic vital signs Cardiology saw the patient and recommended restarting low-dose diuretic therapy as blood pressure allows. They recommended compression stockings. GDMT options limited due to hypotension and hyponatremia. As per cardiology, avoid ALEJANDRA inhibitor, ARB, Entresto or Aldactone at this time. Senior Electronics Technician recommended continue with low-dose aspirin Await further cardiology recommendations #Severe protein calorie malnutrition Nutrition consult Nutritional supplements per dietary team #Insulin-dependent type 2 diabetes mellitus A1c is 7.3 on 10/30/2024 Pharmacy managing glycemic #Hypomagnesemia Magnesium replacement Monitor levels and replace as needed #Chronic anemia Hemoglobin is above 7 Transfuse if hemoglobin less than 7 or actively bleeding completed 3 days of IV iron CODE STATUS: DNR/DNI DVT prophylaxis: Heparin 5000 units subcutaneous twice daily Discharge planning : Patient unable to tolerate rehab, due to severe orthostatics. He is agreeable to comfort care. However after discussing with the patient and the son, plan is to consult palliative regarding goals of care Admission and Anticipated Discharge Date Admission Date: November 07, 2024 Subjective patient seen and examined, no new complaints today, agreeable to comfort measures only, Review of Systems Review of Systems: All systems reviewed are negative, apart from the ones contained in the history. Physical Exam Physical Exam: The patient is awake, alert and oriented 3, well developed and well nourished, normocephalic and atraumatic, lying in bed and in no acute distress. HEENT--PERRL, EOMI, mucous membranes and oropharynx mildly dry Neck--supple. No JVD. No bruits. Thyroid normal, trachea midline, no adenopathy. Heart--normal S1 and S2. No murmurs, rubs or gallops. Lungs--clear bilaterally, no respiratory distress, no accessory muscle use. Abdomen--normal bowel sounds and soft. Extremities--no cyanosis or clubbing. leg edema. Dermatologic--normal skin turgor, normal color, no abnormal lymph nodes, no rash. Neurologic--cranial nerves II through XII grossly intact. Rheumatologic--normal range of motion. Psychiatric--normal affect. 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 difficile colitis A04.72 Time Spent (min) 35 (4) Hypertension Hypertension type: primary hypertension Qualified Code(s): I10 - Essential (primary) hypertension
[2024-11-14 06:07] LABS: Hematocrit (blood only) 22.2 % (42.0-52.0); Hemoglobin 7.4 g/dl (14.0-18.0); Mean Corpuscular Hemoglobin 30.5 pg (25.0-34.0); Mean Corpuscular Hgb Conc 33.3 g/dL (32.0-36.0); Mean Corpuscular Volume 91.4 fL (80.0-100.0); Platelet Count 167 K/uL (130-400); RDW Coefficient of Variation 16.9 % (11.5-14.5); Red Blood Count 2.43 M/uL (4.70-6.10); White Blood Count 6.09 K/ul (4.8-10.8)
[2024-11-14 06:22] LABS: BUN Creatinine Ratio 75.4 (10-20); Calcium 8.5 mg/dl (8.6-10.3); Creatinine Clr Calc Pharmacy 39.8 ml/min; Potassium 3.6 mmol/L (3.5-5.1)
--- NOTE | 2024-11-14 11:05 | Pharmacy Report ---
Pharmacy Glycemic Short Note 2 - Date of Service November 14, 2024 - Glycemic Short BSG Results (Last 24 hours): 11/13/24 11/13/24 11/13/24 12:21 16:59 20:16 Glucose POC Glucose 196 H 190 H 131 H 11/14/24 11/14/24 05:21 08:00 Glucose 204 H POC Glucose 197 H OUTPATIENT ANTIDIABETIC REGIMEN: * Lantus 6 units SC HS * Novolog 3 units SC TIDM w/ CF of 40 mg/dL HbA1c: 7.3% (11/09/24) ASSESSMENT: 11/14/24 * Charles received 12 units of insulin yesterday (3 were basal) * Fasting BSGs trending upwards, will sightly increase basal insulin by 20% tonight * No changes to NovoLog at this time, he continues on oral vancomycin. 11/11/24 * Patient received a total of 12 units of insulin yesterday (2 units were basal and 10 units were bolus). BSGs were 073-954-55-177mg/dL. * Fasting BSG was 147mg/dL this morning after receiving 2 units of Lantus last evening. Will continue HS Lantus scale as previously ordered. * BSG at lunch has been significantly above goal range the last 2 days and the rest of the day has been much closer to goal. Will tighten bolus insulin parameters just with breakfast and then loosen the rest of the day in order to avoid hypoglycemia later in the day. 11/10/24: * Blood sugars ranging 94-141 mg/dL yesterday w/ 6 units of bolus insulin given (no basal insulin given yesterday) * 6 units of basal insulin given on 11/09/24 at bedtime * Fasting blood sugar trending up today to 161 mg/dL so will adjust basal scale this evening to give some basal tonight 11/09/24: * WW is an 89 year old male w/ Clostridium difficile colitis w/ reported history of T1DM, although outpatient diabetes note also mentions diagnosis of T2DM in 1989 at age 55 * Patient admitted on 11/07/24 and blood sugars have been labile since that time w/ hypoglycemia this morning (POC glucose of 59 mg/dL), prompting pharmacy glycemic consult * Based on blood glucose trend yesterday into this morning - will reduce basal insulin and add carb coverage to help with daytime hyperglycemia * Diet ordered and 100% of breakfast/lunch eaten today PLAN FOR INPATIENT GLYCEMIC CONTROL: * Basal insulin * Lantus 4 units SQ HS * Bolus insulin * NovoLog per scale ACHS or Q6hrs while NPO * Goal Range: Low 120 mg/dL - High 160 mg/dL * Breakfast -Correction Factor: 30 mg/dL/unit -Nutritional / Prandial insulin per carb ratio of 1 unit per 10 grams CHO consumed * lunch, supper, HS -Correction Factor: 40 mg/dL/unit -Nutritional / Prandial insulin per carb ratio of 1 unit per 20 grams CHO consumed
--- NOTE | 2024-11-14 11:52 | Hospitalist Progress Note ---
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 difficile colitis: Plan 89-year-old male with type 2 diabetes mellitus on insulin, hypertension, chronic hyponatremia secondary to SIADH, chronic gout who was recently admitted from 10/30/2019 25 to 11/04/2024 for C. difficile colitis and hyponatremia and discharged home on vancomycin taper. He presented back to the ED with shortness of breath and also found to have sodium level of 123 #C. difficile colitis Patient was discharge on 11/04/2024 He was seen by GI at that time with recommendations from GI regarding vancomycin taper as follows: Given his immunosuppression and age, would recommend a vancomycin taper. He should get 125 4 times daily for 10 days followed by 3 times daily for 5 days twice daily for 5 days daily for 5 days and then every other day for 3 weeks to make sure he does not get recurrence. Patient started vancomycin on 10/31/2024 and switched to vancomycin 3 times a day on 11/10/2024 with ongoing taper as above Low residue diet Repeat C. difficile on this admission is negative Continue cholestyramine 4 g p.o. daily GI saw the patient on recommendations of nephrology GI is recommended continue with a long taper of vancomycin as listed above GI is recommended outpatient follow-up with GI after completing his course of vancomycin and if symptoms worsen/diarrhea continues after treatment then they will consider repeating the colonoscopy but would not do so in the short-term until C. difficile is adequately treated. Patient has an appointment with GI PRODUCE INSPECTOR Ayah hanna on 11/21/2024 at 10:20 AM #Hyponatremia Sodium today 136 Baseline sodium levels are around 130 Nephrology saw the patient in consultation Nephrology is managing sodium issues Patient has been orthostatic and nephrology has been fluctuating between providing fluid boluses and initially also gave IV Lasix with fluid restriction Continue fluid restriction of 1500 mL which does not include protein shakes Nephrology started the patient on urea 30 mg p.o. twice daily Nephrology recommended 2D echo which showed a reduced EF of 40% Monitor sodium levels: Hyponatremia management per nephrology team #Coronary artery disease status post PCI to LAD in 2003 #Acute systolic congestive heart failure with EF of 40% #Essential hypertension with orthostasis Outpatient [employer] [facility] reviewed and shows EF of 40 to 45% with moderate left pleural effusion Patient's previous EF in 2021 was 55 to 59% Continue aspirin and statin Unable to continue with Imdur and antihypertensives due to orthostatic vital signs Cardiology saw the patient and recommended restarting low-dose diuretic therapy as blood pressure allows. They recommended compression stockings. GDMT options limited due to hypotension and hyponatremia. As per cardiology, avoid ALEJANDRA inhibitor, ARB, Entresto or Aldactone at this time. Capital Equipment Specialist recommended continue with low-dose aspirin Await further cardiology recommendations #Severe protein calorie malnutrition Nutrition consult Nutritional supplements per dietary team #Insulin-dependent type 2 diabetes mellitus A1c is 7.3 on 10/30/2024 Pharmacy managing glycemic #Hypomagnesemia Magnesium replacement Monitor levels and replace as needed #Chronic anemia Hemoglobin is above 7 Transfuse if hemoglobin less than 7 or actively bleeding completed 3 days of IV iron CODE STATUS: DNR/DNI DVT prophylaxis: Heparin 5000 units subcutaneous twice daily Discharge planning : Patient unable to tolerate rehab, due to severe orthostatics. He is agreeable to comfort care. However after discussing with the patient and the son, plan is to consult palli ative regarding goals of care Admission and Anticipated Discharge Date Admission Date: November 07, 2024 Subjective patient seen and examined, no new complaints today, agreeable to comfort measures only, Review of Systems Review of Systems: All systems reviewed are negative, apart from the ones contained in the history. Physical Exam Physical Exam: The patient is awake, alert and oriented 3, well developed and well nourished, normocephalic and atraumatic, lying in bed and in no acute distress. HEENT--PERRL, EOMI, mucous membranes and oropharynx mildly dry Neck--supple. No JVD. No bruits. Thyroid normal, trachea midline, no adenopathy. Heart--normal S1 and S2. No murmurs, rubs or gallops. Lungs--clear bilaterally, no respiratory distress, no accessory muscle use. Abdomen--normal bowel sounds and soft. Extremities--no cyanosis or clubbing. leg edema. Dermatologic--normal skin turgor, normal color, no abnormal lymph nodes, no rash. Neurologic--cranial nerves II through XII grossly intact. Rheumatologic--normal range of motion. Psychiatric--normal affect. Results & Data Results & Data Vital Signs (Past 12 Hours) Vital Signs Temp Pulse Pulse Resp BP BP Pulse Ox 11/14/24 11:31 98 F 92 H 18 111/51 L 94 11/14/24 07:35 98.3 F 84 17 135/63 91 11/14/24 07:00 85 11/14/24 03:38 98.2 F 92 H 17 136/73 92 O2 Del Method 11/14/24 11:31 Room Air 11/14/24 07:35 Room Air 11/14/24 07:00 11/14/24 03:38 Room Air PG Care Time/CCT Total # of Minutes Spent Total Time Spent with Patient: Total time spent is greater than 50% in coordination of care (as documented) at patient's floor/unit and/or counseling patient: Coding Level of Care Code 02738 SUB INP/OBS CARE 2/35MIN Diagnoses Protein-energy malnutrition E46 Hypomagnesemia E83.42 Hyponatremia E87.1 Primary hypertension I10 Hypertension type: primary hypertension 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 difficile colitis A04.72 Time Spent (min) 35 (4) Hypertension Hypertension type: primary hypertension Qualified Code(s): I10 - Essential (primary) hypertension
[2024-11-14] MEDS: LANTUS PER UNIT CHARGE SQ SCH (21:01)
--- NOTE | 2024-11-15 11:15 | Hospitalist Progress Note ---
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 difficile colitis: Plan 89-year-old male with type 2 diabetes mellitus on insulin, hypertension, chronic hyponatremia secondary to SIADH, chronic gout who was recently admitted from 10/30/2019 to 11/04/2024 for C. difficile colitis and hyponatremia and discharged home on vancomycin taper. He presented back to the ED with shortness of breath and also found to have sodium level of 123 #C. difficile colitis Patient was discharge on 11/04/2024 He was seen by GI at that time with recommendations from GI regarding vancomycin taper as follows: Given his immunosuppression and age, would recommend a vancomycin taper. He should get 125 4 times daily for 10 days followed by 3 times daily for 5 days twice daily for 5 days daily for 5 days and then every other day for 3 weeks to make sure he does not get recurrence. Patient started vancomycin on 10/31/2024 and switched to vancomycin 3 times a day on 11/10/2024 with ongoing taper as above, will switch to twice daily on 11/16/24 Low residue diet Repeat C. difficile on this admission is negative Continue cholestyramine 4 g p.o. daily GI saw the patient on recommendations of nephrology GI is recommended continue with a long taper of vancomycin as listed above GI is recommended outpatient follow-up with GI after completing his course of vancomycin and if symptoms worsen/diarrhea continues after treatment then they will consider repeating the colonoscopy but would not do so in the short-term until C. difficile is adequately treated. Patient has an appointment with GI AUDIO VISUAL SECRETARY Ayah hanna on 11/21/2024 at 10:20 AM #Hyponatremia Sodium today 136 Baseline sodium levels are around 130 Nephrology saw the patient in consultation Nephrology is managing sodium issues Patient has been orthostatic and nephrology has been fluctuating between providing fluid boluses and initially also gave IV Lasix with fluid restriction Continue fluid restriction of 1500 mL which does not include protein shakes Nephrology started the patient on urea 30 mg p.o. twice daily Nephrology recommended 2D echo which showed a reduced EF of 40% Monitor sodium levels: Hyponatremia management per nephrology team #Coronary artery disease status post PCI to LAD in 2003 #Acute systolic congestive heart failure with EF of 40% #Essential hypertension with orthostasis Outpatient patient carrier Dr. Haines with [facility] Echo reviewed and shows EF of 40 to 45% with moderate left pleural effusion Patient's previous EF in 2021 was 55 to 59% Continue aspirin and statin Unable to continue with Imdur and antihypertensives due to orthostatic vital signs Cardiology saw the patient and recommended restarting low-dose diuretic therapy as blood pressure allows. They recommended compression stockings. GDMT options limited due to hypotension and hyponatremia. As per cardiology, avoid ALEJANDRA inhibitor, ARB, Entresto or Aldactone at this time. Ambulance Assistant recommended continue with low-dose aspirin Await further cardiology recommendations #Severe protein calorie malnutrition Nutrition consult Nutritional supplements per dietary team #Insulin-dependent type 2 diabetes mellitus A1c is 7.3 on 10/30/2024 Pharmacy managing glycemic #Hypomagnesemia Magnesium replacement Monitor levels and replace as needed #Chronic anemia Hemoglobin is above 7 Transfuse if hemoglobin less than 7 or actively bleeding completed 3 days of IV iron CODE STATUS: DNR/DNI DVT prophylaxis: Heparin 5000 units subcutaneous twice daily Discharge planning : Patient unable to tolerate rehab, due to severe orthostatics. He is agreeable to comfort care. However after discussing with the patient and the son, plan is to consult palliative regarding goals of care. Family exploring options for [facility] Admission and Anticipated Discharge Date Admission Date: November 07, 2024 Subjective patient seen and examined, no new complaints today, agreeable to comfort measures only, looking for options for [facility] Review of Systems Review of Systems: All systems reviewed are negative, apart from the ones contained in the history. Physical Exam Physical Exam: The patient is awake, alert and oriented 3, well developed and well nourished, normocephalic and atraumatic, lying in bed and in no acute distress. HEENT--PERRL, EOMI, mucous membranes and oropharynx mildly dry Neck--supple. No JVD. No bruits. Thyroid normal, trachea midline, no adenopathy. Heart--normal S1 and S2. No murmurs, rubs or gallops. Lungs--clear bilaterally, no respiratory distress, no accessory muscle use. Abdomen--normal bowel sounds and soft. Extremities--no cyanosis or clubbing. leg edema. Dermatologic--normal skin turgor, normal color, no abnormal lymph nodes, no rash. Neurologic--cranial nerves II through XII grossly intact. Rheumatologic--normal range of motion. Psychiatric--normal affect. Results & Data Results & Data Vital Signs (Past 12 Hours) Vital Signs Temp Pulse Pulse Resp BP Pulse Ox O2 Del Method 11/15/24 10:57 97.7 F 60 18 167/72 H 98 Room Air 11/15/24 07:39 Room Air 11/15/24 07:27 85 11/15/24 07:11 97.9 F 92 H 20 124/66 98 Room Air 11/15/24 02:45 98.2 F 98 H 20 130/87 92 Room Air PG Care Time/CCT Total # of Minutes Spent Total Time Spent with Patient: Total time spent is greater than 50% in coordination of care (as documented) at patient's floor/unit and/or counseling patient: Coding Level of Care Code 46528 SUB INP/OBS CARE 2/35MIN Diagnoses Protein-energy malnutrition E46 Hypomagnesemia E83.42 Hyponatremia E87.1 Primary hypertension I10 Hypertension type: primary hypertension 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 difficile colitis A04.72 Time Spent (min) 35 (4) Hypertension Hypertension type: primary hypertension Qualified Code(s): I10 - Essential (primary) hypertension
--- NOTE | 2024-11-15 20:03 | Palliative Care Consultation ---
Date of Consultation November 15, 2024 Assessment & Plan (1) Palliative care by specialist: Spoke with pt at bedside for 35 minutes, no family present. Introduced Palliative Medicine and explained our role in advanced care planning, symptom management and navigation through the progression of life limiting disease. Patient was receptive to palliative services for goals of care discussions. Reviewed we are different from hospice, a home health nurse visiting service. Attempt made to contact pt's son Mic by phone per pt request, no answer, general VM left. No call back this date. (2) Encounter for assessment of decision-making capacity: Encouraged pt to share his PMHx and HPI with me, he was able to say that he has been following with nephrology and cardiology teams for many years, but is unable to clarify why. He relayed that he was brought to the hospital because "everything went to shit" but could not elaborate more on why he is here or what treatments he has gotten while here. He did know that his "kidneys are getting worse" but could not say what the treatment nor ultimate outcome of kidney failure might be. He shared that "people come in and talk at me, but I cannot remember a word of what was said". He referred me to his son Mic for any questions or decisions to be made. Patient currently lacks decisional capacity based on the inability to convey understanding of personal PMHx, current medical condition, treatment options nor the risks / benefits of those options, and lack of ability to make decisions based on such knowledge. Hospital does not have written documentation of patient wishes concerning his chosen proxy for medical decisions. Per PA [id number], in absence of written documentation of patient wishes, pt's proxy for medical decisions would be his Mere Gomez . Pt does require a proxy for medical decisions. Pt requests that his son, Mic Gomez, be primary contact for all updates/questions but does want his to remain aware and involved in all discussions. (3) Counseling regarding advanced directives and goals of care: Discussed quality of life and goals of care with pt. Pt stated that he feels that he has no enjoyment in life any longer and that "suddenly" he seems not able to do anything at all for himself. He shared that "no one can tell me why I am so weak all of a sudden" and that he does not want to "go on forever if this is the best it gets". Pt stated that he understands but is frustrated that he will not be able to return home and will live the remainder of his life in a SNF. He shared a desire to not prolong life any more, stating "this is not living". Pt expressed desire to continue conversation when his son and are present. Plan continue current level of care, pt requesting GOC discussion with himself, his and son. Will attempt to contact son again tomorrow to schedule meeting. History of Present Illness Reason for Consultation: goals of care Requesting Physician: Dana Em MD Attending Physician: Dana Em MD History of Present Illness Mr. Gomez is a 89-year-old male PMHx T2DM on insulin, dyslipidemia, HTN, ASCVD, GERD, and arthritis who was recently admitted 09/09 until 09/20/2024 for diarrhea and is presenting today for ongoing diarrhea. Diarrhea has been ongoing since July 2024. He presented to ED on 11/07 after one week of persistent diarrhea, abd pain, and progressive weakness. Cardiology was consulted and echocardiogram done with evidence of new mild LV systolic dysfunction; limited options for GDMT with persistent orthostatic hypotension. Palliative care was consulted for GOC/hospice conversation. Allergies Allergy/AdvReac Type Severity Reaction Status Date / Time Penicillins Allergy Unknown AMOXICILLIN Verified 10/10/24 10:32 - UNKNOWN RXN allopurinol Allergy Rash Verified 10/10/24 10:32 Home Medications Medication Instructions Recorded Confirmed Type aspirin 81 mg chewable tablet 81 mg PO DAILY 02/08/19 11/07/24 History isosorbide mononitrate 60 mg 60 mg PO QAM 02/08/19 11/07/24 History tablet,extended release 24 hr nitroglycerin 0.4 mg sublingual 0.4 mg sublingual Q5M PRN Chest 02/08/19 11/07/24 History tablet Pain atenolol 25 mg tablet 12.5 mg PO DAILY 03/30/19 11/07/24 History cholecalciferol (vitamin D3) 50 2,000 units PO DAILY 03/30/19 11/07/24 History mcg (2,000 unit) capsule probenecid 500 mg tablet 250 mg PO BID 03/30/19 11/07/24 History cyanocobalamin (vitamin B-12) 1,000 mcg PO DAILY 04/24/20 11/07/24 History 1,000 mcg capsule iron,carbonyl 65 mg-vitamin C 125 1 tab PO DAILY 10/05/20 11/07/24 History mg tablet,delayed release (Vitron-C) fluocinonide 0.05 % topical 1 applic topical BID PRN Other 10/26/20 11/07/24 History ointment metronidazole 0.75 % topical gel 1 applic topical BID PRN Other 10/26/20 11/07/24 History (Rosadan) gabapentin 100 mg capsule 100 mg PO TID PRN pain 09/17/23 11/07/24 History [facility]24 10/10/24 Rx Ultra Test strips) omeprazole 20 mg capsule,delayed 20 mg PO QAM 09/09/24 11/07/24 History release simvastatin 20 mg tablet 20 mg PO PM 09/09/24 11/07/24 History lancets 33 gauge (OneTouch Delica #100 ea 09/22/24 10/10/24 Rx Plus Lancet) olungj-nxrvtskt-nfqfkkt 1 cap PO QID #120 caps 09/26/24 11/07/24 Rx 36,000-114,000-180,000 unit capsule,delay rel (Creon) mesalamine 1.2 gram tablet,delayed 2.4 g (2 x 1.2 gram) PO BID 30 09/26/24 11/07/24 Rx release days #120 tabs insulin aspart U-100 100 unit/mL 3 unit subcut TID 09/29/24 11/07/24 History (3 mL) subcutaneous pen (Novolog FlexPen U-100 Insulin aspart) pen needle, diabetic 31 gauge x #200 ea 10/13/24 Rx 5/16" (1st Tier Unifine Pentips) insulin glargine 100 unit/mL (3 6 unit subcut HS 10/29/24 11/07/24 History mL) subcutaneous pen (Lantus Solostar U-100 Insulin) L.acidop,casei,lactis,rham-B.lact,whitney 1 cap PO DAILY 7 days #7 caps 11/04/24 11/07/24 Rx 625 mg (10 billion cell) capsule (Advanced Probiotic) cholestyramine-aspartame 4 gram 1 ea PO DAILY 5 days #60 ea 11/04/24 11/07/24 Rx oral powder for susp in a packet (Prevalite) sodium chloride 1,000 mg soluble 1,000 mg PO TID 10 days #30 tabs 11/04/24 11/07/24 Rx tablet midodrine 10 mg tablet 10 mg PO TID #90 tabs 11/12/24 Rx torsemide 20 mg tablet 20 mg PO DAILY@1000 30 days #30 11/12/24 Rx tabs urea 15 gram oral powder packet 30 g PO BID 30 days #8 ea 11/12/24 Rx (Ure-Na) vancomycin 1,000 mg intravenous 125 mg PO TID 3 days #10 ea 11/12/24 Rx injection vancomycin 125 mg capsule 125 mg PO QID 14 days #56 caps 11/12/24 Rx Patient History Medical History (Updated 11/15/24 @ 19:58 by LINDY Sánchez) Systemic lupus erythematosus Proteinuria Chronic gout Surgical History History of basal cell carcinoma excision History of prostate surgery History of bilateral cataract extraction History of shoulder surgery History of hernia repair History of thumb surgery History of coronary artery stent placement Family History Brother Myocardial infarction Cancer Prostate cancer Daughter Cancer Father Myocardial infarction Denies family history of Ovarian cancer Breast cancer Colorectal cancer Social History Smoking Status: Never smoker Second Hand Exposure: No; Do You Dip or Chew Tobacco: No; Hx Alcohol Use: No Hx Substance Use: No Preferred Language: Kazakh Communication Ability: Effective Communication Tools: Other Visual Impairment: No Limitations Hearing Ability: Normal Hearing Care Professional Required: Yes Beliefs That Will Affect Care: None marital status: Current Living Situation: Spouse and Family Current Living Situation Comment: Spouse, con current occupational status: retired current occupation: Retired [employer] How many Children do You have: 3 Feels Safe at Home: Yes Childhood Exposure to Second-Hand Smoke: Yes Diet: regular caffeine: Yes (coffee, tea, and soda ) Dental Care, Regularly: Yes Physical Activity Frequency: Daily Seatbelt Use: always Sunscreen Use: Yes Assistive Devices: None Review of Systems Review of Systems: All systems reviewed & are unremarkable except as noted in HPI & below Neurologic: + unsteadiness and + generalized weaknes s Psychiatric: + hopelessness Physical Exam Constitutional: well nourished; no acute distress Respiratory: normal respiratory effort; no respiratory distress Auscultation: + diminished lung sounds (Left base); no crackles, no rales, no rhonchi and no wheezes Cardiovascular: Rate/Rhythm: regular rate and regular rhythm Heart Sounds: normal S1 and normal S2; no murmur Vessels: radial pulses present; no JVD Extremities: + edema (3+Bilateral pretibial edema) Gastrointestinal (Abdomen): Inspection/Auscultation: abdomen normal to inspection and normal bowel sounds; abdomen not distended Neurologic: moves all extremities, awake and + confused; no focal motor deficits Psychiatric: Orientation: oriented to person, oriented to place and cooperative Results & Data Vital Signs (Past 12 Hours) Vital Signs Temp Pulse Pulse Resp BP Pulse Ox O2 Del Method 11/15/24 19:39 36.8 C 85 18 94/56 L 97 Room Air 11/15/24 15:44 92 H 11/15/24 15:01 36.5 C 82 16 113/61 98 Room Air 11/15/24 10:57 36.5 C 60 18 167/72 H 98 Room Air Laboratory Results Abnormal lab results 11/14/24 11/15/24 11/15/24 Range/Units 20:22 13:08 17:01 POC Glucose 221 H 211 H 277 H (70-99) mg/dl Diagnostic Findings Chest X-Ray 11/07/24 00:44 EXAM: XR chest 1V portable CLINICAL HISTORY: Chest pain, nonspecific. TECHNIQUE: An X-ray image of the chest is obtained in AP projection. COMPARISON: Radiograph dated 10/29/2024. FINDINGS: Pulmonary Parenchyma: Prominent bronchovascular markings in bilateral lung cain. Possible infiltrates in right lower zone(new). Minimal blunting of both costophrenic angles may represent small pleural effusions (new). Elevated left hemidiaphragm, unchanged. Heart and Mediastinum: Heart size and shape are normal. Aortic root calcifications are seen. Stable nodular right hilar vascular shadow. No hilar or mediastinal lymphadenopathy. Bony Thorax: Degenerative changes in the visualized skeleton. Soft Tissues: Soft tissues overlying the chest wall are unremarkable. IMPRESSION: 1. Prominent bronchovascular markings, unchanged. 2. Possible infiltrates in the right lower zone (new). Clinical correlation is suggested. 3. Minimal blunting of both costophrenic angles may represent small pleural effusions, new. 4. Elevated left hemidiaphragm, unchanged. Electronically signed by Pop Cabrales 11-07-2024 01:[address] 11/07/24 02:08 EXAM: CT cervical spine wo con CLINICAL HISTORY: fall. TECHNIQUE: CT scan of the cervical spine was performed without the administration of intravenous contrast. Contiguous axial images were obtained from the skull base to the upper thoracic spine. Coronal and sagittal reformatted images were also reviewed. One of the following dose reduction techniques was utilized for this exam. Automated exposure control, adjustment of the mA and/or kV according to patient size, and use of iterative reconstruction. COMPARISON: None. FINDINGS: Vertebrae: No evidence of acute fracture or dislocation. Diffuse osteopenic changes noted. Grade I minimal anterolisthesis of C6 over C7. Multilevel anterior and posterior osteophytes with uncovertebral hypertrophy noted. Periodontal ligamentous calcification. Maintained vertebral heights. Intervertebral Discs: Moderate reduction of C5-C6 and C6-C7 intervertebral disc spaces. C6-C7: Left posterolateral disc herniation with cranial migration, resulting in severe stenosis of left lateral recess compressing the traversing nerve root and narrowing of bilateral neural foramina, accentuated by facetal arthropathy. Small posterior disc osteophyte complexes at other levels resulting in mild neural foraminal narrowing accentuated by facetal arthropathy. Facet Joints: Significant degenerative changes. Prevertebral Soft Tissues: The prevertebral soft tissues are normal in thickness without evidence of mass or abnormal fluid collection. IMPRESSION: 1. No evidence of acute fracture or dislocation in the cervical spine. 2. Moderate cervical spondylodegenerative changes as described above. 3. C6-C7: Left posterolateral disc herniation with cranial migration, resulting in severe stenosis of left lateral recess compressing the traversing nerve root and narrowing of bilateral neural foramina, accentuated by facetal arthropathy. 4. Small posterior disc osteophyte complexes at other levels resulting in mild neural foraminal narrowing accentuated by facetal arthropathy. Recommended MR imaging if clinically warranted Electronically signed by Pop Cabrales 11-07-2024 03:[address] 11/07/24 02:08 EXAM: CT head/brain wo con CLINICAL HISTORY: Fall Thursday. TECHNIQUE: Axial non-contrast CT scan of the brain was performed from the skull base to the high parietal region. One of the following dose reduction techniques were utilized for this exam: Automated exposure control, adjustment of the mA and/or kV according to patient size, use of iterative reconstruction. COMPARISON: None. FINDINGS: There are hypodense areas noted in the subcortical and periventricular white matter bilaterally, suggestive of microvascular ischemic changes. The ventricular system, cortical sulci and basal cisterns are prominent consistent with senile changes. No midline shifts or deformity. No intracerebral or extra axial hematoma. Normal CT appearance of the posterior fossa structures namely the cerebellar hemispheres, brainstem and cerebellar peduncles. The cerebello-pontine angles are clear. The osseous structures in the skull base are unremarkable. No definite calvarium fractures. Intracerebral atherosclerotic vascular calcifications. Mild fluid level in left maxillary sinus. Partial opacification of the right ethmoidal sinus. Bilateral mastoid air cells appear unremarkable. IMPRESSION: 1. No acute traumatic injury detected in plain CT head at present. 2. Chronic microvascular ischemic changes and senile cortical atrophy. 3. Acute left maxillary sinusitis. 4. Mild right ethmoidal sinusitis. Electronically signed by Pop Cabrales 11-07-2024 03:48 AM Medications Administered Current Inpatient Medications Acetaminophen (Acetaminophen 325 Mg Tab) 650 mg PO Q4H PRN PRN Reason: Pain or Fever Stop: 12/07/24 04:59 Lipase/Protease/Amylase (Pancreaze (Lipase 10,500u) Cap) 1 cap PO ACHS [facility] Stop: 12/07/24 07:29 Last Admin: 11/15/24 17:11 Dose: 1 cap Aspirin (Aspirin 81 Mg Chew) 81 mg PO DAILY [facility] Stop: 12/07/24 08:59 Last Admin: 11/15/24 10:27 Dose: 81 mg Madison Syrup (Madison Syrup 5 Ml Udp) 5 ml PO TID [facility] Stop: 11/20/24 20:59 Last Admin: 11/15/24 13:33 Dose: 5 ml Cholestyramine Resin (Cholestyramine Light 4 Gm Pkt) 4 gm PO DAILY@1000 [facility] Stop: 12/07/24 09:59 Last Admin: 11/15/24 12:03 Dose: 4 gm Dextrose (Dextrose 50% 50 Ml Syringe) 25 - 50 ml IV UD PRN; Protocol PRN Reason: Hypoglycemia Protocol Stop: 12/07/24 04:59 Gabapentin (Gabapentin 100 Mg Cap) 100 mg PO TID PRN PRN Reason: pain Stop: 12/07/24 04:59 Last Admin: 11/12/24 09:20 Dose: 100 mg Glucagon (Glucagon For Inj 1 Mg Vial) 1 mg SQ UD PRN; Protocol PRN Reason: Hypoglycemia Protocol Stop: 12/07/24 04:59 Glucose (Glucose 40% Gel 15 Gm Tube) 15 - 30 gm PO UD PRN; Protocol PRN Reason: Hypoglycemia Protocol Stop: 12/07/24 04:59 Glucose (Glucose 10 Tab/Tube) 4 - 8 tab PO UD PRN; Protocol PRN Reason: Hypoglycemia Protocol Stop: 12/07/24 04:59 Heparin Sodium (Porcine) (Heparin Sod 5,000 Unit/0.5 Ml Vial) 5,000 units SQ Q12 [facility] Stop: 12/07/24 08:59 Last Admin: 11/15/24 10:13 Dose: 5,000 units Insulin Aspart (Insulin Aspart Per Unit Charge) 0 units SC 0730 [facility] Stop: 12/12/24 07:29 Last Admin: 11/14/24 21:00 Dose: 2 units Insulin Aspart (Insulin Aspart Per Unit Charge) 0 units SC 1130,1630,2100 [facility] Stop: 12/11/24 16:29 Last Admin: 11/15/24 18:02 Dose: 6 units Insulin Glargine (Lantus Per Unit Charge) 4 units SQ HS [facility] Stop: 12/09/24 20:59 Last Admin: 11/14/24 21:01 Dose: 4 units Isosorbide Mononitrate (Isosorbide Stearns Extended Rel 60 Mg Tabcr) 60 mg PO QAM [facility] Stop: 12/07/24 08:59 Last Admin: 11/07/24 10:05 Dose: 60 mg Magnesium Chloride (Magnesium Chloride W/Calcium 64mg Delayed Rel Tab) 64 mg PO BID [facility] Stop: 12/08/24 11:14 Last Admin: 11/15/24 10:13 Dose: 64 mg Melatonin (Melatonin 3 Mg Tab) 3 mg PO HS PRN PRN Reason: Sleep Stop: 12/07/24 04:59 Last Admin: 11/14/24 21:05 Dose: 3 mg Midodrine (Midodrine Hcl 10 Mg Tab) 10 mg PO BID@0800,1700 [facility] Stop: 12/12/24 16:59 Last Admin: 11/15/24 17:11 Dose: 10 mg Miscellaneous (Carbohydrates For Hypoglycemia ) 15 - 30 gm PO UD PRN PRN Reason: Hypoglycemia Protocol Stop: 12/07/24 04:59 Last Admin: 11/09/24 10:38 Dose: 30 gm Miscellaneous Information (Pharmacy Glycemic Mgmt Consult) 1 each N/A UD PRN; Protocol PRN Reason: Consult Stop: 12/09/24 10:47 Nitroglycerin (Nitroglycerin Sl 0.4 Mg/Tab Tab) 0.4 mg SL Q5M PRN PRN Reason: Chest Pain Stop: 12/07/24 04:59 Ondansetron HCl (Ondansetron Inj 2 Mg/Ml 2 Ml Vial) 4 mg IV Q6H PRN PRN Reason: Nausea And Vomiting Stop: 12/07/24 04:59 Pantoprazole Sodium (Pantoprazole 40 Mg Tab) 40 mg PO QAM [facility] Stop: 12/07/24 08:59 Last Admin: 11/15/24 10:13 Dose: 40 mg Potassium Chloride (Potassium Chloride 10 Meq Tabcr) 10 meq PO BID [facility] Stop: 12/07/24 13:14 Last Admin: 11/08/24 09:59 Dose: 10 meq Probenecid (Probenecid 500 Mg Tab) 250 mg PO BID [facility] Stop: 12/07/24 08:59 Last Admin: 11/08/24 11:05 Dose: 250 mg Simvastatin (Simvastatin 20 Mg Tab) 20 mg PO PM [facility] Stop: 12/07/24 20:59 Last Admin: 11/14/24 21:04 Dose: 20 mg Torsemide (Torsemide 20 Mg Tab) 20 mg PO DAILY@1000 [facility] Stop: 12/12/24 09:59 Last Admin: 11/15/24 10:14 Dose: 20 mg Urea (Urea (Urea-Na) 15 Gm Pack) 30 gm PO BID [facility] Stop: 12/09/24 15:14 Last Admin: 11/15/24 10:13 Dose: 30 gm Vancomycin HCl (Vancomycin Hcl 125 Mg/2.5ml Soln) 125 mg PO TID [facility] Stop: 11/20/24 20:59 Last Admin: 11/15/24 13:33 Dose: 125 mg PG Care Time/CCT Total # of Minutes Spent Total Time Spent with Patient: Total time spent is greater than 50% in coordination of care (as documented) at patient's floor/unit and/or counseling patient: Advanced Care Planning 30150 Advanced Care Planning 30 [place] [address] IN/OBS CONSULT LVL 3,45M Patient Type New History Problem Focused Exam Problem Focused Medical Decision Making Moderate Complexity Diagnoses Palliative care by specialist Z51.5 Encounter for assessment of decision-making capacity Z00.8 Counseling regarding advanced directives and goals of care Z71.89 Additional Codes Advanced Care Planning - 10309 Advanced Care Planning 30 Min: 38887 Advanced Care Planning 30 Min ([id number])
[2024-11-15] MEDS: ACETAMINOPHEN 325 MG TAB PO PRN (21:30)
--- NOTE | 2024-11-16 11:14 | Hospitalist Progress Note ---
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 difficile colitis: Plan 89-year-old male with type 2 diabetes mellitus on insulin, hypertension, chronic hyponatremia secondary to SIADH, chronic gout who was recently admitted from 10/30/2019 to 11/04/2024 for C. difficile colitis and hyponatremia and discharged home on vancomycin taper. He presented back to the ED with shortness of breath and also found to have sodium level of 123 #C. difficile colitis Patient was discharge on 11/04/2024 He was seen by GI at that time with recommendations from GI regarding vancomycin taper as follows: Given his immunosuppression and age, would recommend a vancomycin taper. He should get 125 4 times daily for 10 days followed by 3 times daily for 5 days twice daily for 5 days daily for 5 days and then every other day for 3 weeks to make sure he does not get recurrence. Patient started vancomycin on 10/31/2024 and switched to vancomycin 3 times a day on 11/10/2024 with ongoing taper as above, will switch to twice daily on 11/16/24 Low residue diet Repeat C. difficile on this admission is negative Continue cholestyramine 4 g p.o. daily GI saw the patient on recommendations of nephrology GI is recommended continue with a long taper of vancomycin as listed above GI is recommended outpatient follow-up with GI after completing his course of vancomycin and if symptoms worsen/diarrhea continues after treatment then they will consider repeating the colonoscopy but would not do so in the short-term until C. difficile is adequately treated. Patient has an appointment with GI SALESFORCE DEVELOPER Ayah hanna on 11/21/2024 at 10:20 AM #Hyponatremia Resolved Nephrology is managing sodium issues Patient has been orthostatic and nephrology has been fluctuating between providing fluid boluses and initially also gave IV Lasix with fluid restriction Continue fluid restriction of 1500 mL which does not include protein shakes Nephrology started the patient on urea 30 mg p.o. twice daily Nephrology recommended 2D echo which showed a reduced EF of 40% Monitor sodium levels: Hyponatremia management per nephrology team #Coronary artery disease status post PCI to LAD in 2003 #Acute systolic congestive heart failure with EF of 40% #Essential hypertension with orthostasis Outpatient core composer machine tender Dr. Haines with [facility] Echo reviewed and shows EF of 40 to 45% with moderate left pleural effusion Patient's previous EF in 2021 was 55 to 59% Continue aspirin and statin Unable to continue with Imdur and antihypertensives due to orthostatic vital signs Cardiology saw the patient and recommended restarting low-dose diuretic therapy as blood pressure allows. They recommended compression stockings. GDMT options limited due to hypotension and hyponatremia. As per cardiology, avoid ALEJANDRA inhibitor, ARB, Entresto or Aldactone at this time. Garnett Mechanic recommended continue with low-dose aspirin Await further cardiology recommendations #Severe protein calorie malnutrition Nutrition consult Nutritional supplements per dietary team #Insulin-dependent type 2 diabetes mellitus A1c is 7.3 on 10/30/2024 Pharmacy managing glycemic #Hypomagnesemia Magnesium replacement Monitor levels and replace as needed #Chronic anemia Hemoglobin is above 7 Transfuse if hemoglobin less than 7 or actively bleeding completed 3 days of IV iron CODE STATUS: DNR/DNI DVT prophylaxis: Heparin 5000 units subcutaneous twice daily Discharge planning : Patient unable to tolerate rehab, due to severe orthostatics. He is agreeable to comfort care. However after discussing with the patient and the son, plan is to discharge to [facility] with hospice Admission and Anticipated Discharge Date Admission Date: November 07, 2024 Subjective patient seen and examined, no new complaints today, Review of Systems Review of Systems: All systems reviewed are negative, apart from the ones contained in the history. Physical Exam Physical Exam: The patient is awake, alert and oriented 3, well developed and well nourished, normocephalic and atraumatic, lying in bed and in no acute distress. HEENT--PERRL, EOMI, mucous membranes and oropharynx mildly dry Neck--supple. No JVD. No bruits. Thyroid normal, trachea midline, no adenopathy. Heart--normal S1 and S2. No murmurs, rubs or gallops. Lungs--clear bilaterally, no respiratory distress, no accessory muscle use. Abdomen--normal bowel sounds and soft. Extremities--no cyanosis or clubbing. leg edema. Dermatologic--normal skin turgor, normal color, no abnormal lymph nodes, no rash. Neurologic--cranial nerves II through XII grossly intact. Rheumatologic--normal range of motion. Psychiatric--normal affect. Results & Data Results & Data Vital Signs (Past 12 Hours) Vital Signs Temp Pulse Pulse Resp BP Pulse Ox O2 Del Method 11/16/24 08:23 Room Air 11/16/24 08:13 98.6 F 87 16 116/66 96 Room Air 11/16/24 07:17 81 11/16/24 04:13 97.5 F L 79 20 125/68 92 Room Air 11/15/24 23:43 97.4 F L 83 20 107/53 L 93 Room Air PG Care Time/CCT Total # of Minutes Spent Total Time Spent with Patient: Total time spent is greater than 50% in coordination of care (as documented) at patient's floor/unit and/or counseling patient: Coding Level of Care Code 20974 SUB INP/OBS CARE 2/35MIN Diagnoses Protein-energy malnutrition E46 Hypomagnesemia E83.42 Hyponatremia E87.1 Primary hypertension I10 Hypertension type: primary hypertension 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 difficile colitis A04.72 Time Spent (min) 35 (4) Hypertension Hypertension type: primary hypertension Qualified Code(s): I10 - Essential (primary) hypertension
--- NOTE | 2024-11-16 15:08 | Palliative Family Discussion ---
Date of Service November 16, 2024 Patient Directed Conference Time of Meetin:00 - 13:30 Participants: Leona Maurer AGACNP Patient participation:yes Patient Support System: son and Other Healthcare Provider Participation: None Meeting Location: bedside Advanced Directive available: No If yes, descriptors: The patient's surrogate medical decision maker participated: Mere Garcia and son Legally authorized health care proxy: spouse Other surrogate: n/a A family meeting was held for JERE GARCIA. This meeting was necessary for determining the appropriate course of treatment. Topics of Discussion Topics of Discussion: 1. goals of care 2. comfort directed care 3. hospice 4. POLST Other Content of Meetin. Opportunity given for participants to speak and ask questions. 2. Participants were assured of attention to patient comfort. 3. Reassurance provided. 4. Support was provided for informed, good-hossein decisions. 5. Emotions expressed by family were acknowledged and addressed. 6. Follow-up Outpatient: n/a 7. Plan of Care: FIRE EQUIPMENT INSPECTOR, to be discharged to SNF with hospice tomorrow Met with pt, his and son Mic at bedside. Introduced Palliative Medicine and explained our role in advanced care planning, symptom management and navigation through the progression of life limiting disease. Patient and/or family were receptive to palliative services for goals of care discussions. Reviewed we are different from hospice, a home health nurse visiting service. Mic began conversation stating that they had spoken with [facility] and [address] [place] [address] last evening and both are able to accept pt for hospice care. they request discharge today to [facility]. We discussed transition to FIRE EQUIPMENT INSPECTOR and that all life prolonging therapies would cease. Pt and family express understanding and acceptance. Discussed changes pt may move through in the dying process including but not limited to sleeping more, disorientation when awake, restlessness, diminished senses/inability to respond to stimulus although ability to be aware of them remains intact longer, and changes in body temperatures, skin changes/mottling/cyanosis, respiratory pattern changes, and oral secretions. Family verbalized understanding. The goal is to assure a peaceful . Discussed hospice benefit: an interdisciplinary program offered by nurses, nurses aides, social workers, chaplains and a certified medical technician for patients with a terminal condition and a life expectancy of less than 6 months. This is covered by Medicare at 100%/no out of pocket expense to patient and all meds/supplies needed by patient for the reason they are on hospice are paid for/covered by hospice. The goal is assure quality of life of the patient in their home setting (home, care home, inpatient hospice setting) by providing symptoms management, psychosocial and spiritual support. However, they cannot offer 24 hours care and if the family is unable to provide that care, they will have to consider personal care with out of pocket cost vs. care home placement. We discussed the goals of hospice as a patient service and the goals of care; we discussed EOL trajectories and transitions raymundo the emotional impact of realizing mortality as a concrete reality from prior abstract considerations. Pt was reassured that no matter where they are along this trajectory, they are not alone - their medical team will remain by their side through their journey. Discussed the pros/cons of accepting help when especially weakened and distressed by pain-which would also help provide relief/decrease caregiver burden/strain. DIscussed possibiity of transition to FIRE EQUIPMENT INSPECTOR here vs at SNF with hospice. Pt requests no further life prolonging starting now. POLST form completed and FIRE EQUIPMENT INSPECTOR orders entered. Leo have appointment at [facility] today to do paperwork for admit. GABBIE CARRASCO and attending made aware. Time Involved in Meeting: I spent 50 minutes overall addressing this case: 5 in medical data review/discussion with referring provider(s) and/or preparation for the visit 30 in direct interaction with the patient and family 30 Advance Care Planning/Goals of Care discussions as detailed above in note (must be >16min) 10 in subsequent review and synthesis of assessment and plan 5 in communicating with other providers regarding the patient's case:GABBIE CARRASCO and attending
[2024-11-16] MEDS ORDERED: GLYCOPYRROLATE 0.2 MG/ML VIAL IV PRN (15:15)
[2024-11-16] MEDS ORDERED: LORazepam 2 MG/1 ML VIAL IV PRN (15:15)
[2024-11-16] MEDS ORDERED: HYDROmorphone INJ 0.5 MG/0.5 ML SYR IV PRN (15:15)
[2024-11-16] MEDS ORDERED: ONDANSETRON INJ 2 MG/ML 2 ML VIAL IV PRN (15:15)
[2024-11-16] MEDS ORDERED: ATROPINE SULFATE 1% OP SOLN 5 ML BTL SL PRN (15:15)
[2024-11-16] MEDS ORDERED: CHERRY SYRUP 5 ML UDP PO SCH (21:00)
[2024-11-16] MEDS ORDERED: VANCOMYCIN HCL 125 MG/2.5ML SOLN PO SCH (21:00)
[2024-11-17 06:57] LABS: Calcium 8.7 mg/dl (8.6-10.3); Creatinine Clr Calc Pharmacy 37.7 ml/min; Potassium 3.3 mmol/L (3.5-5.1)
--- NOTE | 2024-11-17 10:32 | Hospitalist Progress Note ---
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 difficile colitis: Plan 89-year-old male with type 2 diabetes mellitus on insulin, hypertension, chronic hyponatremia secondary to SIADH, chronic gout who was recently admitted from 10/30/2019 to 11/04/2024 for C. difficile colitis and hyponatremia and discharged home on vancomycin taper. He presented back to the ED with shortness of breath and also found to have sodium level of 123 #C. difficile colitis Patient was discharge on 11/04/2024 He was seen by GI at that time with recommendations from GI regarding vancomycin taper as follows: Given his immunosuppression and age, would recommend a vancomycin taper. He should get 125 4 times daily for 10 days followed by 3 times daily for 5 days twice daily for 5 days daily for 5 days and then every other day for 3 weeks to make sure he does not get recurrence. Patient started vancomycin on 10/31/2024 and switched to vancomycin 3 times a day on 11/10/2024 with ongoing taper as above, will switch to twice daily on 11/16/24 Low residue diet Repeat C. difficile on this admission is negative Continue cholestyramine 4 g p.o. daily GI saw the patient on recommendations of nephrology GI is recommended continue with a long taper of vancomycin as listed above GI is recommended outpatient follow-up with GI after completing his course of vancomycin and if symptoms worsen/diarrhea continues after treatment then they will consider repeating the colonoscopy but would not do so in the short-term until C. difficile is adequately treated. Patient has an appointment with GI FORESTRY FARM LABORER Ayah hanna on 11/21/2024 at 10:20 AM #Hyponatremia Resolved Nephrology is managing sodium issues Patient has been orthostatic and nephrology has been fluctuating between providing fluid boluses and initially also gave IV Lasix with fluid restriction Continue fluid restriction of 1500 mL which does not include protein shakes Nephrology started the patient on urea 30 mg p.o. twice daily Nephrology recommended 2D echo which showed a reduced EF of 40% Monitor sodium levels: Hyponatremia management per nephrology team #Coronary artery disease status post PCI to LAD in 2003 #Acute systolic congestive heart failure with EF of 40% #Essential hypertension with orthostasis Outpatient creative developer Dr. Haines with [facility] Echo reviewed and shows EF of 40 to 45% with moderate left pleural effusion Patient's previous EF in 2021 was 55 to 59% Continue aspirin and statin Unable to continue with Imdur and antihypertensives due to orthostatic vital signs Cardiology saw the patient and recommended restarting low-dose diuretic therapy as blood pressure allows. They recommended compression stockings. GDMT options limited due to hypotension and hyponatremia. As per cardiology, avoid ALEJANDRA inhibitor, ARB, Entresto or Aldactone at this time. Roller Hand recommended continue with low-dose aspirin Await further cardiology recommendations #Severe protein calorie malnutrition Nutrition consult Nutritional supplements per dietary team #Insulin-dependent type 2 diabetes mellitus A1c is 7.3 on 10/30/2024 Pharmacy managing glycemic #Hypomagnesemia Magnesium replacement Monitor levels and replace as needed #Chronic anemia Hemoglobin is above 7 Transfuse if hemoglobin less than 7 or actively bleeding completed 3 days of IV iron CODE STATUS: DNR/DNI DVT prophylaxis: Heparin 5000 units subcutaneous twice daily Discharge planning : Patient unable to tolerate rehab, due to severe orthostatics. He is agreeable to comfort care. However after discussing with the patient and the son, plan is to discharge to [facility] with hospice Admission and Anticipated Discharge Date Admission Date: November 07, 2024 Subjective patient seen and examined, no new complaints today, Review of Systems Review of Systems: All systems reviewed are negative, apart from the ones contained in the history. Physical Exam Physical Exam: The patient is awake, alert and oriented 3, well developed and well nourished, normocephalic and atraumatic, lying in bed and in no acute distress. HEENT--PERRL, EOMI, mucous membranes and oropharynx mildly dry Neck--supple. No JVD. No bruits. Thyroid normal, trachea midline, no adenopathy. Heart--normal S1 and S2. No murmurs, rubs or gallops. Lungs--clear bilaterally, no respiratory distress, no accessory muscle use. Abdomen--normal bowel sounds and soft. Extremities--no cyanosis or clubbing. leg edema improved. Dermatologic--normal skin turgor, normal color, no abnormal lymph nodes, no rash. Neurologic--cranial nerves II through XII grossly intact. Rheumatologic--normal range of motion. Psychiatric--normal affect. Results & Data Results & Data Vital Signs (Past 12 Hours) Vital Signs Temp Pulse Resp BP Pulse Ox O2 Del Method 11/17/24 08:00 Room Air 11/17/24 07:56 97.6 F 80 18 125/63 92 Room Air 11/16/24 23:29 Room Air PG Care Time/CCT Total # of Minutes Spent Total Time Spent with Patient: Total time spent is greater than 50% in coordination of care (as documented) at patient's floor/unit and/or counseling patient: Coding Level of Care Code 98702 SUB INP/OBS CARE 2/35MIN Diagnoses Protein-energy malnutrition E46 Hypomagnesemia E83.42 Hyponatremia E87.1 Primary hypertension I10 Hypertension type: primary hypertension 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 difficile colitis A04.72 Time Spent (min) 35 (4) Hypertension Hypertension type: primary hypertension Qualified Code(s): I10 - Essential (primary) hypertension
[2024-11-17] MEDS: POTASSIUM CHLORIDE CRTAB 20 MEQ TABCR PO STA (12:46)
--- NOTE | 2024-11-17 13:01 | Discharge Summary ---
Date of Service November 17, 2024 Admission HPI Per Admitting Provider 89-year-old male with type 2 diabetes mellitus on insulin, hypertension, chronic hyponatremia secondary to SIADH, chronic gout who was recently admitted from 10/30/2019 to 11/04/2024 for C. difficile colitis and hyponatremia and discharged home on vancomycin taper. He presented back to the ED with shortness of breath and also found to have sodium level of 123 Admission Exam (Per Admitting) Constitutional The patient is awake, alert and oriented 3, well developed and well nourished, normocephalic and atraumatic, lying in bed and in no acute distress. HEENT--PERRL, EOMI, mucous membranes and oropharynx mildly dry Neck--supple. No JVD. No bruits. Thyroid normal, trachea midline, no adenopathy. Heart--normal S1 and S2. No murmurs, rubs or gallops. Lungs--clear bilaterally, no respiratory distress, no accessory muscle use. Abdomen--normal bowel sounds and soft. Extremities--no cyanosis or clubbing. No edema. Dermatologic--normal skin turgor, normal color, no abnormal lymph nodes, no rash. Neurologic--cranial nerves II through XII grossly intact. Rheumatologic--normal range of motion. Psychiatric--normal affect. 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 difficile colitis: Plan 89-year-old male with type 2 diabetes mellitus on insulin, hypertension, chronic hyponatremia secondary to SIADH, chronic gout who was recently admitted from 10/30/2019 to 11/04/2024 for C. difficile colitis and hyponatremia and discharged home on vancomycin taper. He presented back to the ED with shortness of breath and also found to have sodium level of 123 #C. difficile colitis Patient was discharge on 11/04/2024 He was seen by GI at that time with recommendations from GI regarding vancomycin taper as follows: Given his immunosuppression and age, would recommend a vancomycin taper. He should get 125 4 times daily for 10 days followed by 3 times daily for 5 days twice daily for 5 days daily for 5 days and then every other day for 3 weeks to make sure he does not get recurrence. Patient started vancomycin on 10/31/2024 and switched to vancomycin 3 times a day on 11/10/2024 with ongoing taper as above, will switch to twice daily on 11/16/24 Low residue diet Repeat C. difficile on this admission is negative Continue cholestyramine 4 g p.o. daily GI saw the patient on recommendations of nephrology GI is recommended continue with a long taper of vancomycin as listed above GI is recommended outpatient follow-up with GI after completing his course of vancomycin and if symptoms worsen/diarrhea continues after treatment then they will consider repeating the colonoscopy but would not do so in the short-term until C. difficile is adequately treated. Patient has an appointment with GI WEIGHT CONTROL ENGINEER Ayah hanna on 11/21/2024 at 10:20 AM #Hyponatremia Resolved Nephrology is managing sodium issues Patient has been orthostatic and nephrology has been fluctuating between providing fluid boluses and initially also gave IV Lasix with fluid restriction Continue fluid restriction of 1500 mL which does not include protein shakes Nephrology started the patient on urea 30 mg p.o. twice daily Nephrology recommended 2D echo which showed a reduced EF of 40% Monitor sodium levels: Hyponatremia management per nephrology team #Coronary artery disease status post PCI to LAD in 2003 #Acute systolic congestive heart failure with EF of 40% #Essential hypertension with orthostasis Outpatient adhesive sprayer Dr. Haines with [facility] Echo reviewed and shows EF of 40 to 45% with moderate left pleural effusion Patient's previous EF in 2021 was 55 to 59% Continue aspirin and statin Unable to continue with Imdur and antihypertensives due to orthostatic vital signs Cardiology saw the patient and recommended restarting low-dose diuretic therapy as blood pressure allows. They recommended compression stockings. GDMT options limited due to hypotension and hyponatremia. As per cardiology, avoid ALEJANDRA inhibitor, ARB, Entresto or Aldactone at this time. Cafe Assistant recommended continue with low-dose aspirin Await further cardiology recommendations #Severe protein calorie malnutrition Nutrition consult Nutritional supplements per dietary team #Insulin-dependent type 2 diabetes mellitus A1c is 7.3 on 10/30/2024 Pharmacy managing glycemic #Hypomagnesemia Magnesium replacement Monitor levels and replace as needed #Chronic anemia Hemoglobin is above 7 Transfuse if hemoglobin less than 7 or actively bleeding completed 3 days of IV iron CODE STATUS: DNR/DNI DVT prophylaxis: Heparin 5000 units subcutaneous twice daily Discharge planning : Patient unable to tolerate rehab, due to severe orthostatics. He is agreeable to comfort care. 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 difficile colitis A04.72 Time Spent (min) 35
--- NOTE | 2024-11-17 13:55 | Palliative Care Progress Note ---
Date of Service November 17, 2024 Assessment & Plan (1) Palliative care by specialist: Plan: Palliative care will continue to follow for ongoing EOL pt care and family support. (2) Comfort measures only status: Plan: Pt transitnioned to [facility] on 11/16/24 with plan for discharge to SN[facility] with hospice this afternoon. (3) Need for comfort care: Plan: [facility] - Symptom manamgement: Pain/dyspnea/tachypnea dilaudid 0.2mg IVP PRN [id number] Consider titratable dilaudid drip if pt requires >3 PRN doses in under two consecutive hours. Nausea/vomitting zofran 4mg IVP q4h PRN Agitation ativan 0.5mg IVP q4h PRN Hyperactive delirium haldol 5mg IVP q6h PRN Secretions - if repositioning not effective robinul 0.4mg IV q4h PRN atropine SL 3 drops Q1h PRN Nursing care: Discontinue all medications not directed towards comfort. Detether pt from IV tubing, monitor cables, and check vitals once per shift. Please continue HFNC and titrate down as able for patient comfort. Use medications above PRN for dyspnea/tachypnea and do not increase oxygen once titrated down. Assess q1h for pain/dyspnea and treat accordingly. Plan as above Admission and Anticipated Discharge Date Admission Date: November 07, 2024 Subjective Assessed pt at bedside, he was transitioned to [facility] on 11/16/24. Pt is awake and alert, agitated and complains only of being frustrated with delay in discharge. He appears comfortable, Respiratory effort normal, rate 18/min. No visitors at bedside. Review of Systems Review of Systems: All systems reviewed & are unremarkable except as noted in HPI & below Neurologic: + unsteadiness and + generalized weaknes s Psychiatric: + hopelessness Physical Exam Constitutional: well nourished; no acute distress Respiratory: normal respiratory effort; no respiratory distress Auscultation: + diminished lung sounds (Left base); no crackles, no rales, no rhonchi and no wheezes Cardiovascular: Rate/Rhythm: regular rate and regular rhythm Heart Sounds: + murmur Vessels: radial pulses present; no JVD Extremities: + edema (3+Bilateral pretibial edema) Gastrointestinal (Abdomen): Inspection/Auscultation: abdomen normal to inspection and normal bowel sounds; abdomen not distended Neurologic: moves all extremities, awake and + confused; no focal motor deficits Psychiatric: Orientation: oriented to person, oriented to place and cooperative Results & Data Vital Signs (Past 12 Hours) Vital Signs Temp Pulse Resp BP Pulse Ox O2 Del Method 11/17/24 08:00 Room Air 11/17/24 07:56 36.4 C 80 18 125/63 92 Room Air Laboratory Results No further labs or diagnostics in concert with comfort directed care. Diagnostic Findings No further labs or diagnostics in concert with comfort directed care. Medications Administered Current Inpatient Medications Acetaminophen (Acetaminophen 325 Mg Tab) 650 mg PO Q4H PRN PRN Reason: Pain or Fever Stop: 12/07/24 04:59 Last Admin: 11/16/24 19:39 Dose: 650 mg Lipase/Protease/Amylase (Pancreaze (Lipase 10,500u) Cap) 1 cap PO ACHS [facility] Stop: 12/07/24 07:29 Last Admin: 11/17/24 12:46 Dose: 1 cap Atropine Sulfate (Atropine Sulfate 1% Op Soln 5 Ml Btl) 4 drops SL Q1H PRN PRN Reason: Secretions or pulm congestion Stop: 12/16/24 15:14 Gabapentin (Gabapentin 100 Mg Cap) 100 mg PO TID PRN PRN Reason: pain Stop: 12/07/24 04:59 Last Admin: 11/12/24 09:20 Dose: 100 mg Glycopyrrolate (Glycopyrrolate 0.2 Mg/Ml Vial) 0.4 mg IV Q4H PRN PRN Reason: Rattling Secretions or Pulm Congestion Stop: 12/16/24 15:14 Hydromorphone HCl (Hydromorphone Inj 0.5 Mg/0.5 Ml Syr) 0.2 mg IV Q1H PRN PRN Reason: Pain or Respiratory Distress Stop: 11/30/24 15:14 Insulin Aspart (Insulin Aspart Per Unit Charge) 0 units SC 0730 [facility] Stop: 12/12/24 07:29 Last Admin: 11/17/24 09:02 Dose: Not Given Insulin Aspart (Insulin Aspart Per Unit Charge) 0 units SC 1130,1630,2100 [facility] Stop: 12/11/24 16:29 Last Admin: 11/17/24 12:51 Dose: 5 units Insulin Glargine (Lantus Per Unit Charge) 3 units SQ HS [facility] Stop: 12/09/24 20:59 Lorazepam (Lorazepam 2 Mg/1 Ml Vial) 0.5 mg IV Q4H PRN PRN Reason: Anxiety/Agitation Stop: 12/16/24 15:14 Melatonin (Melatonin 3 Mg Tab) 3 mg PO HS PRN PRN Reason: Sleep Stop: 12/07/24 04:59 Last Admin: 11/16/24 19:39 Dose: 3 mg Midodrine (Midodrine Hcl 10 Mg Tab) 10 mg PO BID@0800,1700 [facility] Stop: 12/12/24 16:59 Last Admin: 11/17/24 08:57 Dose: 10 mg Miscellaneous Information (Pharmacy Glycemic Mgmt Consult) 1 each N/A UD PRN; Protocol PRN Reason: Consult Stop: 12/09/24 10:47 Nitroglycerin (Nitroglycerin Sl 0.4 Mg/Tab Tab) 0.4 mg SL Q5M PRN PRN Reason: Chest Pain Stop: 12/07/24 04:59 Ondansetron HCl (Ondansetron Inj 2 Mg/Ml 2 Ml Vial) 4 mg IV Q6H PRN PRN Reason: Nausea And Vomiting Stop: 12/07/24 04:59 Ondansetron HCl (Ondansetron Inj 2 Mg/Ml 2 Ml Vial) 4 mg IV Q4H PRN PRN Reason: Nausea &/or Vomiting Stop: 12/16/24 15:14 Torsemide (Torsemide 20 Mg Tab) 20 mg PO DAILY@1000 [facility] Stop: 12/12/24 09:59 Last Admin: 11/17/24 10:00 Dose: 20 mg Urea (Urea (Urea-Na) 15 Gm Pack) 30 gm PO BID [facility] Stop: 12/09/24 15:14 Last Admin: 11/17/24 08:57 Dose: 30 gm PG Care Time/CCT Total # of Minutes Spent Total Time Spent with Patient: Total time spent is greater than 50% in coordination of care (as documented) at patient's floor/unit and/or counseling patient: [place] [address] SUB INP/OBS CARE 125MIN Patient Type Established History Problem Focused Exam Problem Focused Medical Decision Making Low Complexity Diagnoses Palliative care by specialist Z51.5 Comfort measures only status Z51.5 Need for comfort care
[2024-11-17 15:35] VITALS: BP 118/52; PULSE 81; RESP 16; TEMP 97.7; O2SAT 98
[2024-11-17] MEDS ORDERED: LANTUS PER UNIT CHARGE SQ SCH (21:00)
== END 2024-11-17 17:21 | disposition hospice, home (50) | DRG 643 ==
LOC: SUATTDRO → ED 00:41 → EDINP 04:36 → SUATTDRO 04:36 → EDINP 05:00 → 2W 16:51